=== PATIENT | male | born 1955 | race Caucasian/White ===

== ENCOUNTER 2017-08-22 07:53 | Outpatient (RCR) | payer MEDICARE, SELFPAY ==
[2017-08-22 10:06] LABS: International Normalized Ratio 2.4
== END 2017-08-22 08:30 | disposition home or self-care (01) ==
LOC: MTLAB 07:53
PROVIDERS: Family Provider Family Medicine; PCP Family Medicine; Visit Provider Internal Medicine Cardiovascular Disease
DX: I48.1 Persistent atrial fibrillation (principal); Z79.01 Long term (current) use of anticoagulants
CPT/HCPCS: 36415; 85610

== ENCOUNTER 2017-09-17 10:28 | Outpatient (RCR) | payer MEDICARE, SELFPAY ==
[2017-09-17 12:22] LABS: Prothrombin Time (Protime)PT. 22.2 SECONDS (11.7-14.9)
== END 2017-09-17 15:00 | disposition home or self-care (01) ==
LOC: MTLAB 10:28
PROVIDERS: Family Provider Family Medicine; PCP Family Medicine; Visit Provider Internal Medicine Cardiovascular Disease
DX: I48.1 Persistent atrial fibrillation (principal); Z79.01 Long term (current) use of anticoagulants
CPT/HCPCS: 36415; 85610

== ENCOUNTER 2017-10-15 10:53 | Outpatient (RCR) | payer MEDICARE, SELFPAY ==
[2017-10-15 12:32] LABS: International Normalized Ratio 2.2; Prothrombin Time (Protime)PT. 24.1 SECONDS (11.7-14.9)
== END 2017-10-15 11:00 | disposition home or self-care (01) ==
LOC: MTLAB 10:53
PROVIDERS: Family Provider Family Medicine; PCP Family Medicine; Visit Provider Internal Medicine Cardiovascular Disease
DX: I48.1 Persistent atrial fibrillation (principal); Z79.01 Long term (current) use of anticoagulants
CPT/HCPCS: 36415; 85610

== ENCOUNTER 2017-11-19 07:35 | Outpatient (RCR) | payer MEDICARE, SELFPAY ==
[2017-11-19 10:07] LABS: International Normalized Ratio 2.2; Prothrombin Time (Protime)PT. 24.6 SECONDS (11.7-14.9)
== END 2017-11-20 13:21 | disposition home or self-care (01) ==
LOC: MTLAB 07:35
PROVIDERS: Family Provider Family Medicine; PCP Family Medicine; Visit Provider Internal Medicine Cardiovascular Disease
DX: I48.1 Persistent atrial fibrillation (principal); Z79.01 Long term (current) use of anticoagulants
CPT/HCPCS: 36415; 85610

== ENCOUNTER 2017-12-18 08:19 | Outpatient (RCR) | payer MEDICARE, SELFPAY ==
[2017-12-18 10:18] LABS: International Normalized Ratio 2.3
== END 2017-12-18 09:00 | disposition home or self-care (01) ==
LOC: MTLAB 08:19
PROVIDERS: Family Provider Family Medicine; PCP Family Medicine; Visit Provider Internal Medicine Cardiovascular Disease
DX: I48.1 Persistent atrial fibrillation (principal); Z79.01 Long term (current) use of anticoagulants
CPT/HCPCS: 36415; 85610

== ENCOUNTER 2018-01-16 08:09 | Outpatient (RCR) | payer MEDICARE, SELFPAY ==
[2018-01-16 10:31] LABS: Prothrombin Time (Protime)PT. 22.9 SECONDS (11.7-14.9)
== END 2018-01-16 09:00 | disposition home or self-care (01) ==
LOC: MTLAB 08:09
PROVIDERS: Family Provider Family Medicine; PCP Family Medicine; Visit Provider Internal Medicine Cardiovascular Disease
DX: I48.1 Persistent atrial fibrillation (principal); Z79.01 Long term (current) use of anticoagulants
CPT/HCPCS: 36415; 85610

== ENCOUNTER 2018-03-21 08:22 | Outpatient (RCR) | payer MEDICARE, SELFPAY ==
[2018-02-21 10:22] LABS: International Normalized Ratio 1.7; Prothrombin Time (Protime)PT. 19.6 SECONDS (11.7-14.9)
[2018-03-07 10:26] LABS: International Normalized Ratio 1.7; Prothrombin Time (Protime)PT. 20.2 SECONDS (11.7-14.9)
[2018-03-21 10:24] LABS: International Normalized Ratio 1.9; Prothrombin Time (Protime)PT. 21.8 SECONDS (11.7-14.9)
== END 2018-03-21 10:00 | disposition home or self-care (01) ==
LOC: MTLAB 08:22
PROVIDERS: Family Provider Family Medicine; PCP Family Medicine; Visit Provider Internal Medicine Cardiovascular Disease
DX: I48.91 Unspecified atrial fibrillation (principal); I48.92 Unspecified atrial flutter; Z79.01 Long term (current) use of anticoagulants
CPT/HCPCS: 36415; 85610

== ENCOUNTER 2018-04-11 07:58 | Outpatient (RCR) | payer MEDICARE, SELFPAY ==
[2018-04-04 10:10] LABS: International Normalized Ratio 1.8; Prothrombin Time (Protime)PT. 20.8 SECONDS (11.7-14.9)
[2018-04-11 10:37] LABS: International Normalized Ratio 2.2; Prothrombin Time (Protime)PT. 24.1 SECONDS (11.7-14.9)
== END 2018-04-11 09:00 | disposition home or self-care (01) ==
LOC: MTLAB 07:58
PROVIDERS: Family Provider Family Medicine; PCP Family Medicine; Visit Provider Internal Medicine Cardiovascular Disease
DX: I48.91 Unspecified atrial fibrillation (principal); I48.92 Unspecified atrial flutter; Z79.01 Long term (current) use of anticoagulants
CPT/HCPCS: 36415; 85610

== ENCOUNTER 2018-04-25 07:36 | Outpatient (RCR) | payer MEDICARE, SELFPAY ==
[2018-04-25 10:14] LABS: International Normalized Ratio 2.5; Prothrombin Time (Protime)PT. 26.9 SECONDS (11.7-14.9)
== END 2018-04-25 09:00 | disposition home or self-care (01) ==
LOC: MTLAB 07:36
PROVIDERS: Family Provider Family Medicine; PCP Family Medicine; Referring Provider Internal Medicine Cardiovascular Disease; Visit Provider Internal Medicine Cardiovascular Disease
DX: I48.91 Unspecified atrial fibrillation (principal); I48.92 Unspecified atrial flutter; Z79.01 Long term (current) use of anticoagulants
CPT/HCPCS: 36415; 85610

== ENCOUNTER → 2018-04-25 08:58 | Outpatient (CLI) | payer MEDICARE, SELFPAY ==
[2018-04-25 13:05] LABS: AST(SGOT) 20 U/L (15-37); Alanine Aminotransfer ALT/SGPT 28 U/L (16-61); Albumin, Serum 3.9 g/dL (3.2-5.0); Alkaline Phosphatase 99 U/L (45-117); Anion Gap 7 (5-15); BUN 12 mg/dL (7-18); BUN/Creat Ratio 12.6 RATIO (10-20); Calcium,Total 8.9 mg/dL (8.5-10.1); Chloride 108 mmol/L (98-107); Cholesterol 146 mg/dL (200); Creatinine, Serum 0.95 mg/dL (0.70-1.30); EST Glomerular Filtration Rate 85 mL/min (>60); Est Glom Filt Rate - Afr Amer 103 mL/min (>60); Globulin 3.8 g/dL (2.2-4.2); Glucose 86 mg/dL (74-106); High Density Lipoprotein 46 mg/dL; PSA,Total - Annual Screen 3.33 ng/mL (0.00-4.00); Potassium 4.4 mmol/L (3.5-5.1); Protein, Total 7.7 g/dL (6.4-8.2); Sodium Level 143 mmol/L (136-145); Thyroid Stim Hormone (TSH) 1.33 uIU/mL (0.358-3.74); Triglycerides 75 mg/dL; Very Low Density Lipoprotein 15 mg/dL (5-40)
== END ==
PROVIDERS: Family Provider Family Medicine; PCP Family Medicine; Referring Provider Family Medicine; Visit Provider Family Medicine
DX: Z00.00 Encounter for general adult medical examination without abnormal findings (principal); Z86.73 Personal history of transient ischemic attack (TIA), and cerebral infarction without residual deficits; M19.90 Unspecified osteoarthritis, unspecified site; I48.91 Unspecified atrial fibrillation; I48.92 Unspecified atrial flutter; Z79.01 Long term (current) use of anticoagulants
CPT/HCPCS: 36415; 80053; 80061; 82306; 84153; 84443; 85610; G0103

== ENCOUNTER 2018-05-27 12:07 | Day surgery (SDC) | payer MEDICARE, SELFPAY ==
[2018-05-27] VITALS (7 sets, daily range): BP systolic 104–141; BP diastolic 75–101; PULSE 59–69; RESP 16–18; TEMP 36.1–36.4; O2SAT 97–100
--- NOTE | 2018-05-27 14:08 | OP.ENDO_ITS ---
Patient Name: Henry Diaz Procedure Date: 05/27/2018 1:33 PM Date of : 1955 Age: 62 Procedure: Colonoscopy Indications: Screening for colorectal malignant neoplasm Providers: Patricia Portillo MD Referring MD: Patricia Portillo MD Medicines: See the Anesthesia note for documentation of the administered medications Patient Profile: Refer to note in patient chart for documentation of history and physical. Last Colonoscopy: none. The patient's first colonoscopy is today. Complications: No immediate complications. Procedure: Pre-Anesthesia Assessment: - Prior to the procedure, a History and Physical was performed, and patient medications and allergies were reviewed. The patient is competent. The risks and benefits of the procedure and the sedation options and risks were discussed with the patient. All questions were answered and informed consent was obtained. Patient identification and proposed procedure were verified by the physician in the pre-procedure area. Mental Status Examination: alert and oriented. Airway Examination: normal oropharyngeal airway and neck mobility. Respiratory Examination: clear to auscultation. CV Examination: normal. Prophylactic Antibiotics: The patient does not require prophylactic antibiotics. Prior Anticoagulants: The patient has taken no previous anticoagulant or antiplatelet agents. ASA Grade Assessment: III - A patient with severe systemic disease. After reviewing the risks and benefits, the patient was deemed in satisfactory condition to undergo the procedure. The anesthesia plan was to use monitored anesthesia care (MAC). Immediately prior to administration of medications, the patient was re-assessed for adequacy to receive sedatives. The heart rate, respiratory rate, oxygen saturations, blood pressure, adequacy of pulmonary ventilation, and response to care were monitored throughout the procedure. The physical status of the patient was re-assessed after the procedure. After I obtained informed consent, the scope was passed under direct vision. Throughout the procedure, the patient's blood pressure, pulse, and oxygen saturations were monitored continuously. The Colonoscope was introduced through the anus and advanced to the cecum, identified by appendiceal orifice and ileocecal valve. The colonoscopy was performed without difficulty. The patient tolerated the procedure well. The quality of the bowel preparation was adequate, there was still retained fecal material which took some time to lavage and aspirate out, however, the osorio were cleared adequately. Scope In: 1:39:48 PM Scope Withdrawal Time 0 hours 13 minutes 11 seconds Scope Out: 2:02:59 PM Total Procedure Duration Time 0 hours 23 minutes 11 seconds Findings: The perianal and digital rectal examinations were normal. Pertinent negatives include normal sphincter tone. Multiple small and large-mouthed diverticula were found in the sigmoid colon. Non-bleeding internal hemorrhoids were found. Impression: - Diverticulosis in the sigmoid colon. - Non-bleeding internal hemorrhoids. - No specimens collected. Recommendation: - Repeat colonoscopy in 10 years for screening purposes. - Return to primary care physician PRN. - Continue present medications. Procedure Code(s): --- Professional --- G0121, Colorectal cancer screening; colonoscopy on individual not meeting criteria for high risk Diagnosis Code(s): --- Professional --- K57.30, Diverticulosis of large intestine without perforation or abscess without bleeding K64.8, Other hemorrhoids Z12.11, Encounter for screening for malignant neoplasm of colon CPT copyright 2017 [employer]. All rights reserved. The codes documented in this report are preliminary and upon oil producer review may be revised to meet current compliance requirements. MD Patricia Stoner MD 05/27/2018 2:07:52 PM This report has been signed electronically. Number of Addenda: 0 Note Initiated On: 05/27/2018 1:33 PM
== END 2018-05-27 14:53 | disposition home or self-care (01) ==
LOC: EN 12:07 → AC 12:08
PROVIDERS: Family Provider Family Medicine; PCP Family Medicine; Referring Provider Surgery; Visit Provider Surgery
PROC: 0DJD8ZZ Inspection of Lower Intestinal Tract, Via Natural or Artificial Opening Endoscopic (ICD-10-PCS; CPT 45378; principal; 2018-05-27 13:10)
DX: Z12.11 Encounter for screening for malignant neoplasm of colon (principal); K57.30 Diverticulosis of large intestine without perforation or abscess without bleeding; K64.8 Other hemorrhoids; I48.2 Chronic atrial fibrillation; G47.33 Obstructive sleep apnea (adult) (pediatric); I44.0 Atrioventricular block, first degree; M19.90 Unspecified osteoarthritis, unspecified site; M48.00 Spinal stenosis, site unspecified; F41.9 Anxiety disorder, unspecified; F32.9 Major depressive disorder, single episode, unspecified; E66.09 Other obesity due to excess calories; Z68.39 Body mass index [BMI] 39.0-39.9, adult; Z86.73 Personal history of transient ischemic attack (TIA), and cerebral infarction without residual deficits; Z90.49 Acquired absence of other specified parts of digestive tract; Z95.0 Presence of cardiac pacemaker; Z79.01 Long term (current) use of anticoagulants; Z79.899 Other long term (current) drug therapy
CPT/HCPCS: G0121; J7120

== ENCOUNTER 2018-06-11 10:43 | Outpatient (RCR) | payer MEDICARE, SELFPAY ==
[2018-06-11 12:57] LABS: International Normalized Ratio 2.1; Prothrombin Time (Protime)PT. 23.4 SECONDS (11.7-14.9)
== END 2018-06-11 11:00 | disposition home or self-care (01) ==
LOC: MTLAB 10:43
PROVIDERS: Family Provider Family Medicine; PCP Family Medicine; Referring Provider Internal Medicine Cardiovascular Disease; Visit Provider Internal Medicine Cardiovascular Disease
DX: I48.91 Unspecified atrial fibrillation (principal); I48.92 Unspecified atrial flutter; Z79.01 Long term (current) use of anticoagulants
CPT/HCPCS: 36415; 85610

== ENCOUNTER 2018-07-17 10:42 | Outpatient (RCR) | payer MEDICARE, SELFPAY ==
[2018-07-17 12:37] LABS: International Normalized Ratio 2.1
== END 2018-07-17 11:00 | disposition home or self-care (01) ==
LOC: MTLAB 10:42
PROVIDERS: Family Provider Family Medicine; PCP Family Medicine; Referring Provider Internal Medicine Cardiovascular Disease; Visit Provider Internal Medicine Cardiovascular Disease
DX: I48.91 Unspecified atrial fibrillation (principal); I48.92 Unspecified atrial flutter; Z79.01 Long term (current) use of anticoagulants
CPT/HCPCS: 36415; 85610

== ENCOUNTER 2018-08-14 13:33 | Outpatient (RCR) | payer MEDICARE, SELFPAY ==
[2018-08-14 14:44] LABS: International Normalized Ratio 1.8; Prothrombin Time (Protime)PT. 20.8 SECONDS (11.7-14.9)
--- OUTSIDE RECORDS SUMMARY | 2018-10-16 12:36 | XMS RPT_ITS ---
:1955 Author Organization OHIP Support Name Relationship Address Phone D Unavailable Unavailable Unavailable WYLER, MARITZA Unavailable [address] + [place] [address] D Unavailable Unavailable Unavailable WYLER, MRAITZA Unavailable [address] + [place] [address] D Unavailable Unavailable Unavailable WYLER, MARITZA Unavailable [address] + [place] [address] D Unavailable Unavailable Unavailable WYLER, MARITZA Unavailable [address] + [place] [address] D Unavailable Unavailable Unavailable WYLER, MARITZA Unavailable [address] + [place] [address] D Unavailable Unavailable Unavailable WYLER, MARITZA Unavailable [address] + [place] [address] D Unavailable Unavailable Unavailable WYLER, MARITZA Unavailable [address] + [place] [address] D Unavailable Unavailable Unavailable WYLER, MARITZA Unavailable [address] + [place] [address] D Unavailable Unavailable Unavailable WYLER, MARITZA Unavailable [address] + [place] [address] D Unavailable Unavailable Unavailable WYLER, MARITZA Unavailable [address] + [place] [address] D Unavailable Unavailable Unavailable WYLER, MARITZA Unavailable [address] + [place] [address] D Unavailable Unavailable Unavailable WYLER, MARITZA Unavailable [address] + [place] [address] D Unavailable Unavailable Unavailable WYLER, MARITZA Unavailable [address] + [place] [address] D Unavailable Unavailable Unavailable WYLER, MARITZA Unavailable [address] + [place] [address] D Unavailable Unavailable Unavailable WYLER, MARITZA Unavailable [address] + [place] [address] D Unavailable Unavailable Unavailable WYLER, MARITZA Unavailable [address] + [place] [address] D Unavailable Unavailable Unavailable WYLER, MARITZA Unavailable [address] + [place] [address] D Unavailable Unavailable Unavailable WYLER, MARITZA Unavailable [address] + [place] [address] D Unavailable Unavailable Unavailable WYLER, MARITZA Unavailable [address] + [place] [address] D Unavailable Unavailable Unavailable WYLER, MARITZA Unavailable [address] + [place] [address] Care Team Providers Name Role Phone PATRICIA PORTILLO Attending Unavailable ASHLEY, PLACIDO ANG Referring Unavailable Jarred Crespo Attending Unavailable Jarred Crespo Referring Unavailable Ashley, Placido Primary Care Unavailable Jarred Crespo Attending Unavailable Ashley, Placido Primary Care Unavailable Jarred Crespo Attending Unavailable Jarred Crespo Referring Unavailable Ashley, Placido Primary Care Unavailable Jarred Crespo Attending Unavailable Jarred Crespo Referring Unavailable Ashley, Placido Primary Care Unavailable MoodJarred bean Attending Unavailable Ashley, Placido Referring Unavailable Ashley, Placido Primary Care Unavailable Jarred Crespo Attending Unavailable MoodJarred bean Referring Unavailable Ashley, Placido Primary Care Unavailable MoodJarred bean Attending Unavailable MoodisJarred león Referring Unavailable Ashley, Placido Primary Care Unavailable Lata Emmanuel Attending Unavailable Rosalba Franco Attending Unavailable Jarred Crespo Attending Unavailable Jarred Crespo Referring Unavailable Ashley, Placido Primary Care Unavailable Dariana Whitman Attending Unavailable Ashley, Placido Referring Unavailable Ashley, Placido Primary Care Unavailable Rukhsana Castrejon Attending Unavailable Ashley, Placido Referring Unavailable Ashley, Placido Primary Care Unavailable Jarred Crespo Attending Unavailable Jarred Crespo Referring Unavailable Ashley, Placido Primary Care Unavailable Moodispaw, Jarred Attending Unavailable Moodispaw, Jarred Referring Unavailable Ashley, Placido Primary Care Unavailable Dariana Whitman Attending Unavailable Ashley, Placido Referring Unavailable Ashley, Placido Primary Care Unavailable Moodispaw, Jarred Attending Unavailable Moodispaw, Jarred Referring Unavailable Ashley, Placido Primary Care Unavailable Ashley, Placido Attending Unavailable Ashley, Placido Referring Unavailable Ashley, Placido Primary Care Unavailable Portillo, Patricia Attending Unavailable Portillo, Patricia Referring Unavailable Ashley, Placido Primary Care Unavailable Moodispaw, Jarred Attending Unavailable Moodispaw, Jarred Referring Unavailable Ashley, Placido Primary Care Unavailable Moodispaw, Jarred Attending Unavailable Moodispaw, Jarred Referring Unavailable Ashley, Placido Primary Care Unavailable PROBLEMS PROBLEMS DATE TYPE CONDITION / CODE ATTENDING STATUS SOURCE 07/22/2018 Unknown I48.91 - Unspecified MoodJarred bean Active [place] atrial fibrillation Community / I48.91(ICD-10) Hospital Repository 06/25/2018 Unknown Z79.01 - penitentiary MoodJarred bean Active [place] (current) use of Community anticoagulants / Hospital Z79.01(ICD-10) Repository 04/25/2018 Unknown M19.90 - Unspecified Placido Ashley Active [place] osteoarthritis, Community unspecified site / Hospital M19.90(ICD-10) Repository 04/25/2018 Unknown Z00.00 - Encounter Placido Ashley Active [place] for general adult [facility] Hospital without abnormal Repository findings / Z00.00(ICD-10) 04/25/2018 Unknown I63.9 - Cerebral Placido Ashely Active [place] infarction, Community unspecified / Hospital I63.9(ICD-10) Repository 04/10/2018 Unknown Z95.0 - Presence of Dariana Whitman Active [place] cardiac pacemaker / Community Z95.0(ICD-10) Hospital Repository 04/10/2018 Unknown I48.92 - Unspecified Dariana Whitman Active [place] atrial flutter / Community I48.92(ICD-10) Hospital Repository 04/10/2018 Unknown I45.89 - Other Dariana Whitman Active [place] specified conduction Community disorders / Hospital I45.89(ICD-10) Repository 01/18/2018 Unknown I48.1 - Persistent Moodispasarah Jarred Active [place] atrial fibrillation Community / I48.1(ICD-10) Hospital Repository PROCEDURES PROCEDURES No Procedure Records FoundRESULTS RESULTS PROTHROMBIN TIME W/INR Collected: 08/14/2018 Status: F Source: [place] 1:37 PM [facility] REPOSITORY TYPE CODE TESTS RESULT OUT OF RANGE REFERENCE UNITS LAB L300.4150 11.7-14.9 SECONDS High PROTIME 20.8 LAB L300.4200 Normal INR 1.8 Performed By: #### L300.3900 #### [facility] [address] [place], [address] PACEMAKER CHECK Observed: 07/25/2018 Status: F Source: [place] 12:02 PM [facility] REPOSITORY [facility] [address] [place] [address] Pacemaker Check Date of Service: 07/25/18 1052 MR#: [id number] Acct: [id number] Name: HENRY DIAZ Rep #: [id number] : 1955 From: Dariana Whitman Age/Sex: 62/M Location: [facility] Status: Signed Billing Codes PM Device Codes: PM Dev Interrogate (Remot 07/25/18 1054 <Electronically signed by Dariana Whitman > Date Dariana Whitman 07/25/18 1202<Electronically signed by Jarred Crespo MD> Cosigner Signature: Date (if applicable) Jarred Crespo MD CC: PROTHROMBIN TIME W/INR Collected: 07/17/2018 Status: F Source: [place] 10:44 AM [facility] REPOSITORY TYPE CODE TESTS RESULT OUT OF RANGE REFERENCE UNITS LAB L300.4150 11.7-14.9 SECONDS High PROTIME 24.0 LAB L300.4200 Normal INR 2.1 Performed By: #### L300.3900 #### [facility] [address] [place], [address] PROTHROMBIN TIME W/INR Collected: 06/11/2018 Status: F Source: [place] 10:45 AM [facility] REPOSITORY TYPE CODE TESTS RESULT OUT OF RANGE REFERENCE UNITS LAB L300.4150 11.7-14.9 SECONDS High PROTIME 23.4 LAB L300.4200 Normal INR 2.1 Performed By: #### L300.3900 #### [facility] [address] [place], [address] OPERATIVE REPORT - Observed: 05/27/2018 Status: F Source: [place] ENDOSCOPY 2:08 PM [facility] REPOSITORY [facility] Medical Records Department [address] [place] [address] Operative Report - Endoscopy MR#: [id number] Acct: [id number] Name: HENRY DIAZ Rep #: [id number] : 1955 62 From: Patricia Portillo MD PCP: Placido Ashley MD Status: [facility] Patient Name: Henry Diaz Procedure Date: 05/27/2018 1:33 PM Date of : 1955 Age: 62 Procedure: Colonoscopy Indications: Screening for colorectal malignant neoplasm Providers: Patricia Portillo MD Referring MD: Patricia Portillo MD Medicines: See the Anesthesia note for documentation of the administered medications Patient Profile: Refer to note in patient chart for documentation of history and physical. Last Colonoscopy: none. The patient's first colonoscopy is today. Complications: No immediate complications. Procedure: Pre-Anesthesia Assessment: - Prior to the procedure, a History and Physical was performed, and patient medications and allergies were reviewed. The patient is competent. The risks and benefits of the procedure and the sedation options and risks were discussed with the patient. All questions were answered and informed consent was obtained. Patient identification and proposed procedure were verified by the physician in the pre-procedure area. Mental Status Examination: alert and oriented. Airway Examination: normal oropharyngeal airway and neck mobility. Respiratory Examination: clear to auscultation. CV Examination: normal. Prophylactic Antibiotics: The patient does not require prophylactic antibiotics. Prior Anticoagulants: The patient has taken no previous anticoagulant or antiplatelet agents. ASA Grade Assessment: III - A patient with severe systemic disease. After reviewing the risks and benefits, the patient was deemed in satisfactory condition to undergo the procedure. The anesthesia plan was to use monitored anesthesia care (MAC). Immediately prior to administration of medications, the patient was re-assessed for adequacy to receive sedatives. The heart rate, respiratory rate, oxygen saturations, blood pressure, adequacy of pulmonary ventilation, and response to care were monitored throughout the procedure. The physical status of the patient was re-assessed after the procedure. After I obtained informed consent, the scope was passed under direct vision. Throughout the procedure, the patient's blood pressure, pulse, and oxygen saturations were monitored continuously. The Colonoscope was introduced through the anus and advanced to the cecum, identified by appendiceal orifice and ileocecal valve. The colonoscopy was performed without difficulty. The patient tolerated the procedure well. The quality of the bowel preparation was adequate, there was still retained fecal material which took some time to lavage and aspirate out, however, the osorio were cleared adequately. Scope In: 1:39:48 PM Scope Withdrawal Time 0 hours 13 minutes 11 seconds Scope Out: 2:02:59 PM Total Procedure Duration Time 0 hours 23 minutes 11 seconds Findings: The perianal and digital rectal examinations were normal. Pertinent negatives include normal sphincter tone. Multiple small and large-mouthed diverticula were found in the sigmoid colon. Non-bleeding internal hemorrhoids were found. Impression: - Diverticulosis in the sigmoid colon. - Non-bleeding internal hemorrhoids. - No specimens collected. Recommendation: - Repeat colonoscopy in 10 years for screening purposes. - Return to primary care physician PRN. - Continue present medications. Procedure Code(s): --- Professional --- G0121, Colorectal cancer screening; colonoscopy on individual not meeting criteria for high risk Diagnosis Code(s): --- Professional --- K57.30, Diverticulosis of large intestine without perforation or abscess without bleeding K64.8, Other hemorrhoids Z12.11, Encounter for screening for malignant neoplasm of colon CPT copyright 2017 [employer]. All rights reserved. The codes documented in this report are preliminary and upon field service representative review may be revised to meet current compliance requirements. MD Patricia Stoner MD 05/27/2018 2:07:52 PM This report has been signed electronically. Number of Addenda: 0 Note Initiated On: 05/27/2018 1:33 PM 05/27/18 1408 Date Patricia Portillo MD Cosigner Signature: Date (if indicated) CC: Placido Ashley MD; Patricia Portillo MD Date Dictated: 05/27/18 1333 Date Transcribed: Relocation Services Specialist: MARY Signed CNPN Observed: 05/07/2018 Status: COMPLETED Source: [place] 12:00 AM [facility] REPOSITORY Telephone (SWS) HENRY DIAZ ([id number]) 1955 M Date Time Provider Department 05/07/18 PATRICIA PORTILLO During your visit today, we recorded the following information about you: Trell Peralta 05/07/2018 10:52 AM Signed 05-27-2018 Critical access hospital Trell Peralta 05/17/2018 8:14 AM Signed please end in RC to [facility] in [place] Trell Peralta 05/20/2018 3:47 PM Signed Patient jillian like to confirm to hold Blood thinner for 4 days. Do not take Wed till after procedure Trell Peralta 05/22/2018 1:29 PM Signed Patient was told by pharmacy they could not get the prep that was called in. PLease call another prep into [facility] thank you~ Trell Peralta Allergies As of Date: 05/07/2018 Noted Allergy Reaction ADHESIVE TAPE (ROSINS) 05/24/2012 2 - Rash PENICILLINS 03/26/2012 4 - Hives TINCTURE OF BENZOIN (BENZOIN) 03/26/2012 14 - Other: See Comments Comments: Gets blisters with tape Date Reviewed: 05/02/2018 Reviewed by: Patricia Portillo - Fully Assessed Reason for Visit: 05-27-2018 Colon [facility] Dr Portillo [Other] Order(s):[] Zrknchunf-UEX-Upiqthxgsow Soln (PEG-PREP) 5-210 mg-gram kitTake 1 Kit by mouth one time only for 1 dose.Disp: 1 KitRfl: 0 Prescriptions as of 05/07/2018 Sig: BISACODYL 5 MG-PEG 210 GRAM-E* Take 1 Kit by mouth one time * MULTI VITAMIN ORAL Take by mouth. COUMADIN ORAL Take by mouth. FAMOTIDINE 20 MG TABLET ESCITALOPRAM 10 MG TABLET Take 10 mg by mouth once shara* CEFTIN ORAL Take by mouth. GABAPENTIN 300 MG CAPSULE DICLOFENAC SODIUM 75 MG TABLE* Take 75 mg by mouth twice bryan* PSYLLIUM HUSK 0.52 GRAM CAPSU* Take 0.52 g by mouth once bryan* CHOLECALCIFEROL (VITAMIN D3) * Take by mouth. Problem List As Of Date 05/07/2018 Noted Resolved Knee pain [M25.569] INVALID FOR* S/P total knee replacement using cement [Z96.65*INVALID FOR* Prescriptions ordered this encounter Disp Refills Start End BISACODYL 5 MG-PEG 210 GRAM-ELECTROL* 1 Kit 0 05/17/2018 05/17/2018 Route: ORAL Sig: Take 1 Kit by mouth one time only for 1 dose. Encounter Status:Closed by MD PATRICIA PORTILLO on 05/17/18 PROGRESS Observed: 05/02/2018 Status: COMPLETED Source: [place] 4:32 PM [facility] [place] REPOSITORY O ID: [id number] Author: Patricia Portillo Service: (none) Author Type: Physician Type: Progress Notes Filed: 05/04/2018 8:42 PM Note Text: Henry Diaz 1955 REFERRING PHYSICIAN: Placido Ashley MD CHIEF COMPLAINT: Consult (Consult Colonoscopy) HPI: The patient is a 62 year old male presents for consideration of colonoscopy for screening for colon cancer. Denies previous colonoscopy. Has chronic atrial fibrillation and is on coumadin. 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 Older sister had colon polyps. Denies blood in stools. Denies changes in bowel habits. Denies abdominal pain PAST MEDICAL HISTORY: Chronic atrial fibrillation, history of atrial flutter Pacemaker implant NOAH on CPAP First degree AVB Chronic coumadin use Osteoarthritis PAST SURGICAL HISTORY Procedure Laterality Date - CHOLECYSTECTOMY HX 2013 - FOOT SURGERY HX Right 1994 - OSTEOTOMY FEMORAL TROCHLEA W/ FIX Left 1979 - PAST SURGICAL HISTORY OF knee surgeries - REMOVAL OF ANAL FISTULA 1979 - REPAIR ING HERNIA,6MO-5YR,REDUC Tonsillectomy MEDICATIONS: multivit-minerals/ferrous fum (MULTI VITAMIN ORAL) Take by mouth. warfarin sodium (COUMADIN ORAL) Take by mouth. gabapentin (NEURONTIN) 300 mg capsule diclofenac, EC, 75 mg EC tablet Take 75 mg by mouth twice daily. Cholecalciferol, Vitamin D3, (VITAMIN D-3) 2,000 unit cap Take by mouth. famotidine (PEPCID) 20 mg tablet escitalopram oxalate (LEXAPRO) 10 mg tablet Take 10 mg by mouth once daily. CEFUROXIME AXETIL (CEFTIN ORAL) Take by mouth. psyllium Husk (METAMUCIL) 0.52 gram capsule Take 0.52 g by mouth once daily. ALLERGIES: Adhesive Tape (Rosins); Penicillins; Tincture Of Benzoin [Benzoin] PERSONAL HISTORY: Social History Marital status: Spouse name: Years of education: Number of children: 2 Retired [employer] Smoking status: Never Smoker FAMILY HISTORY Problem Relation Age of Onset - Cancer Mother adenocarcinoma - Cancer Father lymphoma REVIEW OF SYSTEMS: General - denies fevers Cardiovascular - has chronic atrial fibrillation, has pacemaker Pulmonary - denies coughing up blood Gastrointestinal - denies blood in stools Neurological - history of CVA, denies seizures Genitourinary - denies blood in urine Hematological - on chronic coumadin, denies spontaneous/prolonged bleeding Skin - denies nonhealing skin wounds Musculoskeletal - has chronic severe back pain Endocrine - denies diabetes Psychological ? denies hallucinations PHYSICAL EXAMINATION: General: The patient is 62 year old male, well nourished, well hydrated in no acute distress. The patient is oriented to time, place, and person. VITALS: Ht: 5' 10 Wt: 279# Head ? Normocephalic. EOM intact with sclera clear and no icterus noted. Wearing glasses. Mouth with mucus membranes moist. Neck - supple with no jugular venous distention noted. Trachea is midline. No carotid bruits noted. Lungs ? clear to auscultation. Normal breath sounds. No rales/rhonchi/wheezing noted. No labored breathing noted, such as retractions. Heart ? normal S1 and S2 auscultated. No rubs/clicks/murmurs noted. Abdomen ? soft and benign. Normal bowel sounds. Difficult to determine if any masses or organomegaly due to body habitus. Extremities ? no calf tenderness noted. Skin ? normal skin integrity. Neurological ? gait normal, no focal deficits noted Psych ? calm and appropriate Assessment IMPRESSION: screening for colon cancer via colonoscopy PLAN: I have discussed the above with the patient and his who is present with him. I have offered colonoscopy, possible biopsies I have explained the procedure to the patient. I have counseled the patient as to the risks of the procedure, including but not limited to: infection, bleeding, injury to any blood vessels/nerves, scar tissue, injury to any intraabdominal organs such as liver/spleen, perforation of the GI tract, inability to complete the procedure, complications of anesthesia, etc. ? the patient understands. The patient wishes to proceed. Will have to check with Dr. Crespo with regard to holding coumadin prior to procedure. Patient wishes for procedure to be done at [facility]. I have answered all questions to the patient?s satisfaction and the patient has no further questions. . Diagnoses: (Z12.11) Screening for colon cancer (primary encounter diagnosis) (Z78.9) On Coumadin for atrial fibrillation (E66.09, Z68.39) Class 2 obesity due to excess calories without serious comorbidity with body mass index (BMI) of 39.0 to 39.9 in adult Return to Clinic: The patient is instructed to follow-up with me as per needed Patricia Portillo MD CNOV Observed: 05/02/2018 Status: COMPLETED Source: [place] 3:00 PM [facility] REPOSITORY Office Visit (GENSWS) HENRY DIAZ ([id number]) 1955 M Date Time Provider Department 05/02/18 3:00 PM PATRICIA PORTILLO During your visit today, we recorded the following information about you: Patricia Portillo MD 05/04/2018 8:42 PM Signed Henry Diaz 1955 REFERRING PHYSICIAN: Placido Ashley MD CHIEF COMPLAINT: Consult (Consult Colonoscopy) HPI: The patient is a 62 year old male presents for consideration of colonoscopy for screening for colon cancer. Denies previous colonoscopy. Has chronic atrial fibrillation and is on coumadin. 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 Older sister had colon polyps. Denies blood in stools. Denies changes in bowel habits. Denies abdominal pain PAST MEDICAL HISTORY: Chronic atrial fibrillation, history of atrial flutter Pacemaker implant NOAH on CPAP First degree AVB Chronic coumadin use Osteoarthritis PAST SURGICAL HISTORY Procedure Laterality Date - CHOLECYSTECTOMY HX 2013 - FOOT SURGERY HX Right 1994 - OSTEOTOMY FEMORAL TROCHLEA W/ FIX Left 1979 - PAST SURGICAL HISTORY OF knee surgeries - REMOVAL OF ANAL FISTULA 1979 - REPAIR ING HERNIA,6MO-5YR,REDUC Tonsillectomy MEDICATIONS: multivit-minerals/ferrous fum (MULTI VITAMIN ORAL) Take by mouth. warfarin sodium (COUMADIN ORAL) Take by mouth. gabapentin (NEURONTIN) 300 mg capsule diclofenac, EC, 75 mg EC tablet Take 75 mg by mouth twice daily. Cholecalciferol, Vitamin D3, (VITAMIN D-3) 2,000 unit cap Take by mouth. famotidine (PEPCID) 20 mg tablet escitalopram oxalate (LEXAPRO) 10 mg tablet Take 10 mg by mouth once daily. CEFUROXIME AXETIL (CEFTIN ORAL) Take by mouth. psyllium Husk (METAMUCIL) 0.52 gram capsule Take 0.52 g by mouth once daily. ALLERGIES: Adhesive Tape (Rosins); Penicillins; Tincture Of Benzoin [Benzoin] PERSONAL HISTORY: Social History Marital status: Spouse name: Years of education: Number of children: 2 Retired [employer] Smoking status: Never Smoker FAMILY HISTORY Problem Relation Age of Onset - Cancer Mother adenocarcinoma - Cancer Father lymphoma REVIEW OF SYSTEMS: General - denies fevers Cardiovascular - has chronic atrial fibrillation, has pacemaker Pulmonary - denies coughing up blood Gastrointestinal - denies blood in stools Neurological - history of CVA, denies seizures Genitourinary - denies blood in urine Hematological - on chronic coumadin, denies spontaneous/prolonged bleeding Skin - denies nonhealing skin wounds Musculoskeletal - has chronic severe back pain Endocrine - denies diabetes Psychological ? denies hallucinations PHYSICAL EXAMINATION: General: The patient is 62 year old male, well nourished, well hydrated in no acute distress. The patient is oriented to time, place, and person. VITALS: Ht: 5' 10 Wt: 279# Head ? Normocephalic. EOM intact with sclera clear and no icterus noted. Wearing glasses. Mouth with mucus membranes moist. Neck - supple with no jugular venous distention noted. Trachea is midline. No carotid bruits noted. Lungs ? clear to auscultation. Normal breath sounds. No rales/rhonchi/wheezing noted. No labored breathing noted, such as retractions. Heart ? normal S1 and S2 auscultated. No rubs/clicks/murmurs noted. Abdomen ? soft and benign. Normal bowel sounds. Difficult to determine if any masses or organomegaly due to body habitus. Extremities ? no calf tenderness noted. Skin ? normal skin integrity. Neurological ? gait normal, no focal deficits noted Psych ? calm and appropriate Assessment IMPRESSION: screening for colon cancer via colonoscopy PLAN: I have discussed the above with the patient and his who is present with him. I have offered colonoscopy, possible biopsies I have explained the procedure to the patient. I have counseled the patient as to the risks of the procedure, including but not limited to: infection, bleeding, injury to any blood vessels/nerves, scar tissue, injury to any intraabdominal organs such as liver/spleen, perforation of the GI tract, inability to complete the procedure, complications of anesthesia, etc. ? the patient understands. The patient wishes to proceed. Will have to check with Dr. Crespo with regard to holding coumadin prior to procedure. Patient wishes for procedure to be done at [facility]. I have answered all questions to the patient?s satisfaction and the patient has no further questions. . Diagnoses: (Z12.11) Screening for colon cancer (primary encounter diagnosis) (Z78.9) On Coumadin for atrial fibrillation (E66.09, Z68.39) Class 2 obesity due to excess calories without serious comorbidity with body mass index (BMI) of 39.0 to 39.9 in adult Return to Clinic: The patient is instructed to follow-up with me as per needed Patricia Portillo MD Referring Provider: PLACIDO ASHLEY [[id number]] Allergies As of Date: 05/02/2018 Noted Allergy Reaction ADHESIVE TAPE (ROSINS) 05/24/2012 2 - Rash PENICILLINS 03/26/2012 4 - Hives TINCTURE OF BENZOIN (BENZOIN) 03/26/2012 14 - Other: See Comments Comments: Gets blisters with tape Date Reviewed: 05/02/2018 Reviewed by: Patricia Portillo - Fully Assessed Reason for Visit: Consult [173] Cmt: Consult Colonoscopy Primary Visit Diagnosis:Screening for colon cancer [Z12.11] Other Visit Diagnoses:On Coumadin for atrial fibrillation [Z78.9] Class 2 obesity due to excess calories without serious comorbidity with body mass index (BMI) of 39.0 to 39.9 in adult [E66.09, Z68.39] Prescriptions as of 05/02/2018 Sig: MULTI VITAMIN ORAL Take by mouth. COUMADIN ORAL Take by mouth. GABAPENTIN 300 MG CAPSULE DICLOFENAC SODIUM 75 MG TABLE* Take 75 mg by mouth twice bryan* CHOLECALCIFEROL (VITAMIN D3) * Take by mouth. FAMOTIDINE 20 MG TABLET ESCITALOPRAM 10 MG TABLET Take 10 mg by mouth once shara* CEFTIN ORAL Take by mouth. 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*INVALID FOR* Follow-up and Disposition History Recorded Letter Text Encounter Status:Closed by MD PATRICIA PORTILLO on 05/04/18 VITAMIN D,25 HYDROXY Collected: 04/25/2018 Status: F Source: JUVE 9:01 AM [facility] REPOSITORY TYPE CODE TESTS RESULT OUT OF RANGE REFERENCE UNITS LAB L506.1000 29.95-100.01 ng/mL Normal Vitamin D 42.0 25-OH Result Comment: Vitamin D 25(OH) Status Range Deficiency <20 ng/mL (50nmol/L) Insuffciency 20 - 30 ng/mL (50 - 75 nmol/L) Sufficiency 30 - 100 ng/mL (75 - 250 nmol/L) Toxicity >100 ng/mL (>250 nmol/L) Performed By: #### L506.1000 #### [facility] [place], [address] COMPREHENSIVE METABOLIC Collected: 04/25/2018 Status: F Source: JUVE [facility] 9:01 AM [facility] REPOSITORY TYPE CODE TESTS RESULT OUT OF RANGE REFERENCE UNITS LAB L501.0100 74-106 mg/dL Normal GLU 86 Result Comment: Please note revised GLUCOSE reference range effective 2017. LAB L501.1000 7-18 mg/dL Normal BUN 12 LAB L501.1100 0.70-1.30 mg/dL Normal CREAT,SERUM 0.95 Result Comment: The validity of the calculated GFR AND GFRAA in patients over 70 years has not been determined. Clinical correlation is essential. LAB L501.1110 >60 mL/min Normal EST GFR 85 Result Comment: Non- GFR Calc LAB L501.1115 >60 mL/min Normal EST GFR - AA 103 Result Comment: GFR Calc LAB L501.1300 10-20 RATIO Normal BUN/CRE 12.6 LAB L501.1500 6.4-8.2 g/dL T Normal PROT 7.7 LAB L501.1800 3.2-5.0 g/dL Normal ALB 3.9 LAB L501.1950 2.2-4.2 g/dL Normal GLOB 3.8 LAB L501.2000 0.9-2.4 RATIO Normal A/G 1.0 LAB L501.2200 8.5-10.1 mg/dL CA Normal 8.9 LAB L501.4100 15-37 U/L Normal AST 20 LAB L501.4305 45-117 U/L Normal ALK P 99 LAB L501.4405 16-61 U/L Normal ALT 28 LAB L501.4600 0.20-1.00 mg/dL High T BILI 1.30 LAB L501.5300 136-145 mmol/L NA Normal 143 LAB L501.5600 3.5-5.1 mmol/L K Normal 4.4 LAB L501.5900 98-107 mmol/L High CL 108 LAB L501.6100 21.0-32.0 mmol/L Normal CO2 28.0 LAB L501.6200 5-15 Normal GAP 7 Performed By: #### L500.4050, L500.4100, L501.9520, L501.9910 #### [facility] [address] [place], [place], [address] LIPID PROFILE Collected: 04/25/2018 Status: F Source: CIMARRON 9:01 AM [facility] REPOSITORY TYPE CODE TESTS RESULT OUT OF RANGE REFERENCE UNITS LAB L501.4900 200 mg/dL Normal CHOL 146 Result Comment: <200 mg/dL Desirable 200-240 mg/dL Borderline >240 mg/dL High Risk LAB L501.5000 mg/dL Normal TRIG 75 Result Comment: The drugs N-Acetylcysteine and Metamizole may falsely depress this assay. Serum Triglycerides Reference Interval Normal <150 mg/dL Borderline high 150 - 199 mg/dL High 200 - 499 mg/dL Very High > or = 500 mg/dL LAB L501.6400 mg/dL Normal HDL 46 Result Comment: The drugs N-Acetylcysteine and Metamizole may falsely depress this assay. Reference Range HDL <40 mg/dL Low HDL Cholesterol HDL >or= 60 mg/dL High HDL Cholesterol LAB L501.6500 0-130 mg/dL Normal LDL 85 LAB L501.6600 5-40 mg/dL Normal VLDL 15 Performed By: #### L500.4050, L500.4100, L501.9520, L501.9910 #### [facility] [address] [place], [place], [address] THYROID STIM HORMONE Collected: 04/25/2018 Status: F Source: JUVE (TSH) 9:01 [facility] REPOSITORY TYPE CODE TESTS RESULT OUT OF RANGE REFERENCE UNITS LAB L501.9520 0.358-3.74 uIU/mL Normal TSH 1.33 Performed By: #### L500.4050, L500.4100, L501.9520, L501.9910 #### [facility] [address] [place], [address] PSA,TOTAL - ANNUAL Collected: 04/25/2018 Status: F Source: JUVE SCREEN 9:01 AM [facility] REPOSITORY TYPE CODE TESTS RESULT OUT OF RANGE REFERENCE UNITS LAB L501.9910 0.00-4.00 ng/mL Normal PSA,TOT 3.33 SCREEN Result Comment: This test was performed using the TPSA assay method for the ActionIQ chemistry system. Values obtained with different assay methods cannot be used interchangably. When changing PSA assays in the course of monitoring a patient, additional sequential testing should be carried out to confirm baseline values. Performed By: #### L500.4050, L500.4100, L501.9520, L501.9910 #### [facility] [address] [place], [address] PROTHROMBIN TIME W/INR Collected: 04/25/2018 Status: F Source: JUVE 7:52 AM [facility] REPOSITORY TYPE CODE TESTS RESULT OUT OF RANGE REFERENCE UNITS LAB L300.4150 11.7-14.9 SECONDS High PROTIME 26.9 LAB L300.4200 Normal INR 2.5 Performed By: #### L300.3900 #### [facility] [address] [place], [address] PROTHROMBIN TIME W/INR Collected: 04/11/2018 Status: F Source: JUVE 8:02 AM [facility] REPOSITORY TYPE CODE TESTS RESULT OUT OF RANGE REFERENCE UNITS LAB L300.4150 11.7-14.9 SECONDS High PROTIME 24.1 LAB L300.4200 Normal INR 2.2 Performed By: #### L300.3900 #### [facility] [address] [place], [address] PACEMAKER CHECK Observed: 04/09/2018 Status: F Source: JUVE 5:40 PM [facility] REPOSITORY [facility] [address] [place] [address] Pacemaker Check Date of Service: 04/09/18 1721 MR#: [id number] Acct: [id number] Name: HENRY DIAZ Rep #: [id number] : 1955 From: Dariana Whitman Age/Sex: 62/M Location: [facility] Status: Signed Billing Codes PM Device Codes: PM Dev Prog Eval, Dual 04/09/18 1723 <Electronically signed by Dariana Whitman > Date Dariana Whitman 04/09/18 1740<Electronically signed by Jarred Crespo MD> Cosigner Signature: Date (if applicable) Jarred Crespo MD CC: PROTHROMBIN TIME W/INR Collected: 04/04/2018 Status: F Source: CIMARRON 8:02 AM [facility] REPOSITORY TYPE CODE TESTS RESULT OUT OF RANGE REFERENCE UNITS LAB L300.4150 11.7-14.9 SECONDS High PROTIME 20.8 LAB L300.4200 Normal INR 1.8 Performed By: #### L300.3900 #### [facility] [address] [place], [place], [address] PROTHROMBIN TIME W/INR Collected: 03/21/2018 Status: F Source: JUVE 8:31 AM [facility] REPOSITORY TYPE CODE TESTS RESULT OUT OF RANGE REFERENCE UNITS LAB L300.4150 11.7-14.9 SECONDS High PROTIME 21.8 LAB L300.4200 Normal INR 1.9 Performed By: #### L300.3900 #### [facility] [address] [place], [place], [address] PROTHROMBIN TIME W/INR Collected: 03/07/2018 Status: F Source: JUVE 8:15 AM [facility] REPOSITORY TYPE CODE TESTS RESULT OUT OF RANGE REFERENCE UNITS LAB L300.4150 11.7-14.9 SECONDS High PROTIME 20.2 LAB L300.4200 Normal INR 1.7 Performed By: #### L300.3900 #### [facility] [address] [place], [address] PROTHROMBIN TIME W/INR Collected: 02/21/2018 Status: F Source: [place] 7:48 AM [facility] REPOSITORY Order Comment: Comments: STANDING ORDER Comments: STANDING ORDER TYPE CODE TESTS RESULT OUT OF RANGE REFERENCE UNITS LAB L300.4150 11.7-14.9 SECONDS High PROTIME 19.6 LAB L300.4200 Normal INR 1.7 Performed By: #### L300.3900 #### [facility] [address] [place], [address] PACEMAKER CHECK Observed: 01/22/2018 Status: F Source: CIM[place] 9:34 AM [facility] REPOSITORY [facility] [address] [place] [address] Pacemaker Check Date of Service: 01/14/182008 MR#: [id number] Acct: [id number] Name: ANTONAUDREYHENRY C Rep #: [id number] : 1955 From: Dariana Whitman Age/Sex: 62/M Location: [facility] Status: Signed Comments Summary Comments: Remote Single Chamber Pacemaker Evaluation: See attached scanned Latitude report. Remote interrogation shows 1578 NSVT episodes since 09/06/15. Last NSVT episode occurred on 01/03/18 which shows atrial fib with RVR. Presenting rhythm shows Ventricular paced @ 60 ppm. EXT JS DEVELOPER=67%. Estimated battery life 8 yrs. Lead impedance, sensing and auto pace/sense thresholds, Normal remote PPM function.Next f/u appt scheduled for in 3 mos. Device Device Date Interviewed: 01/04/18 Follow-up Location: remote Interview Reason: scheduled follow up Public Relations Specialist: [place] Name: Essentio Model: L100 Serial #: [id number] Implant Date: 08/30/15 Year(s): 2 Patient Characteristics Atrial Indication: Atrial tachycardia, sick sinus syndrome Underlying rhythm: Atrial fibrillation Pacemaker Dependent: No Device Characteristics Device: Dual Chamber, Single Chamber Type: Pacemaker Remote Follow-Up: Latitude Leads Lead #1 Public Relations Specialist Lead 1: Guidant Model Lead 1: [id number] Serial# Lead 1: [id number] Date Implanted Lead 1: 08/30/15 Position Lead 1: RV Diagnostics Pacing % RV Pacin Arrhythmias Non-Sust Episodes: 1,578 Measurements Battery Magnet Rate (bmp): 100 Battery Status: BELKYS Predicted Remaining Longevity (months or years): 8 years Bebeto Settings Bebeto Settings Pacemaker Mode VVIR Lower Rate Limit (bpm) 60 Hysteresis Rate (bpm) Max Track Rate (bpm) Max Sensor Rate (bpm) 130 Max AV Delay (msec) Max PV Delay (msec) Max PVARP (msec) Output/Sensing V/PW (ms) auto1.6/0.4 Sensitivity RA RV LV Comments: Billing Codes PM Device Codes: PM Dev Interrogate (Remot Assessment AND Plan Problems 1. Presence of cardiac pacemaker Z95.0 2. Atrial fibrillation and flutter I48.91; I48.92 3. AV node dysfunction I45.89 01/21/18 1718 <Electronically signed by Dariana Whitman > Date Dariana Whitman 01/22/18 0934<Electronically signed by Jarred Crespo MD> Cosigner Signature: Date (if applicable) Jarred Crespo MD CC: PROTHROMBIN TIME W/INR Collected: 01/16/2018 Status: F Source: JUVE 8:19 AM [facility] REPOSITORY TYPE CODE TESTS RESULT OUT OF RANGE REFERENCE UNITS LAB L300.4150 11.7-14.9 SECONDS High PROTIME 22.9 LAB L300.4200 Normal INR 2.0 Performed By: #### L300.3900 #### [facility] [address] [place], [address] PROTHROMBIN TIME W/INR Collected: 12/18/2017 Status: F Source: JUVE 8:28 AM [facility] REPOSITORY TYPE CODE TESTS RESULT OUT OF RANGE REFERENCE UNITS LAB L300.4150 11.7-14.9 SECONDS High PROTIME 25.0 LAB L300.4200 Normal INR 2.3 Performed By: #### L300.3900 #### [facility] [address] [place], [address] PROTHROMBIN TIME W/INR Collected: 11/19/2017 Status: F Source: [place] 7:45 AM [facility] REPOSITORY TYPE CODE TESTS RESULT OUT OF RANGE REFERENCE UNITS LAB L300.4150 11.7-14.9 SECONDS High PROTIME 24.6 LAB L300.4200 Normal INR 2.2 Performed By: #### L300.3900 #### [facility] [address] [place], [address] PACEMAKER CHECK Observed: 11/01/2017 Status: F Source: [place] 11:51 AM [facility] REPOSITORY [facility] [address] [place] [address] Pacemaker Check Date of Service: 09/28/17 1116 MR#: [id number] Acct: [id number] Name: HENRY DIAZ Rep #: [id number] : 1955 From: Jarred Crespo MD Age/Sex: 61/M Location: [facility] Status: Signed Comments Summary Comments: Remote Single Chamber Pacemaker Evaluation: Remote interrogation shows 1253 NSVT episodes since 09/06/15. Last episode occurred on 09/27/17. Stored e-grams available for review show atrial fib with ventricular rate up to 190 bpm. No true VT/VF episodes noted. Presenting rhythm shows Sinus bradycardia @ 56 bpm. EXT JS DEVELOPER=68% Battery longevity approx 8.5 yrs. lead impedance, sensing and auto pace/sense threshold remain stable. Normal remote PPM function. Pt notified remote transmission received and next f/u appt scheduled for in 3 mos. Device Device Date Interviewed: 09/28/17 Follow-up Location: remote Interview Reason: scheduled follow up Public Relations Specialist: [place] Name: Essentio Model: L100 Serial #: [id number] Implant Date: 08/30/15 Year(s): 2 Implant Physician: Dr. Lamont Agarwal Patient Characteristics Atrial Indication: Atrial tachycardia, sick sinus syndrome Underlying rhythm: Atrial fibrillation Pacemaker Dependent: No Device Characteristics Device: Dual Chamber, Single Chamber Type: Pacemaker Remote Follow-Up: Latitude Leads Lead #1 Public Relations Specialist Lead 1: Sophy Model Lead 1: 4137 Serial# Lead 1: [id number] Date Implanted Lead 1: 08/30/15 Position Lead 1: RV Diagnostics Pacing % RV Pacin Arrhythmias Non-Sust Episodes: 1,253 Measurements Battery Magnet Rate (bmp): 100 Battery Status: BELKYS Predicted Remaining Longevity (months or years): 8.5 years RV Measurements Signal Amplitude (mV): 11.9 Impedance (Ohms): 602 Threshold Voltage: 1.0 @ PW(ms): 0.4 Bebeto Settings Bebeto Settings Pacemaker Mode VVIR Lower Rate Limit (bpm) 60 Hysteresis Rate (bpm) Max Track Rate (bpm) Max Sensor Rate (bpm) 130 Max AV Delay (msec) Max PV Delay (msec) Max PVARP (msec) Output/Sensing V/PW (ms) auto1.6/0.4 Sensitivity RA RV LV Comments: Billing Codes PM Device Codes: PM Dev Interrogate (Remot Assessment AND Plan Problems 1. Presence of cardiac pacemaker Z95.0 2. 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 Atrial fibrillation and flutter I48.91; I48.92 11/01/17 1151 <Electronically signed by Jarred Crespo MD> Date Jarred Crespo MD 10/07/172020<Electronically signed by Dariana Whitman > Niaignguillermina Signature: Date (if applicable) Dariana Whitman CC: PROTHROMBIN TIME W/INR Collected: 10/15/2017 Status: F Source: JUVE 10:56 AM [facility] REPOSITORY TYPE CODE TESTS RESULT OUT OF RANGE REFERENCE UNITS LAB L300.4150 11.7-14.9 SECONDS High PROTIME 24.1 LAB L300.4200 Normal INR 2.2 Performed By: #### L300.3900 #### [facility] [address] [place], [address] PROTHROMBIN TIME W/INR Collected: 09/17/2017 Status: F Source: JUVE 10:31 AM [facility] REPOSITORY TYPE CODE TESTS RESULT OUT OF RANGE REFERENCE UNITS LAB L300.4150 11.7-14.9 SECONDS High PROTIME 22.2 LAB L300.4200 Normal INR 2.0 Performed By: #### L300.3900 #### [facility] [address] [place], [address] PROTHROMBIN TIME W/INR Collected: 08/22/2017 Status: F Source: JUVE 8:06 AM [facility] REPOSITORY TYPE CODE TESTS RESULT OUT OF RANGE REFERENCE UNITS LAB L300.4150 11.7-14.9 SECONDS High PROTIME 25.0 LAB L300.4200 Normal INR 2.4 Performed By: #### L300.3900 #### [facility] [address] [place], [address] ALLERGIES ALLERGIES DATE TYPE / CODE NAME / CODE REACTION SEVERITY SOURCE 12/18/2017 Drug diltiazem/[id number] leg swelling [place] Allergy/416 14(RXNORM) [facility] 931557([facility] ED CT) Repository 08/27/2015 Drug Penicillins/K12206 Hives Unknown [place] Allergy/416 0476(RXNORM) [facility] 430142([facility] ED CT) Repository 08/27/2015 Drug benzoin/[id number] Hives Unknown [place] Allergy/416 (RXNORM) [facility] 096675([facility] ED CT) Repository 08/27/2015 Drug adhesive Unknown Unknown [place] Allergy/416 tape/H718684549(RX [facility] 839766([facility] ED CT) Repository 08/27/2015 Drug latex/[id number](R Unknown Unknown [place] Allergy/416 XNORM) [facility] 281586([facility] ED CT) Repository 05/24/2012 Chemical/42 ADHESIVE TAPE RASH [facility] 5070547(SNO (ROSINS) [facility] CT) Repository 03/26/2012 Drug PENICILLINS HIVES [facility] Class/78624 [facility] 1003(SNOMED Repository CT) 03/26/2012 DRUG BENZOIN OTHER: SEE C [facility] INGREDI/419 [facility] 731191(SNOM Repository ED CT) ENCOUNTERS ENCOUNTERS ADMIT/DISCHARGE ACCOUNT ADMITTING ENCOUNTER LOCATION SOURCE NUMBER CLASS 08/14/2018 [id number] Ambulatory [facility] Hospital ing:MTLAB Repository 07/17/2018/07/17/20 [id number] Ambulatory [place] [facility] [facility] Repository 06/11/2018/06/11/20 [id number] [place] [facility] ing[facility]MTLAB Repository 05/27/2018/05/27/20 [id number] [place] Hospital ing:ENRoom: Repository AC10 05/02/2018/05/05/20 [id number] Ambulatory [address] Repository 04/25/2018 [id number] [facility] Repository 04/25/2018/04/25/20 [id number] Ambulatory [facility] [facility] ing:MTLAB Repository 04/11/2018/04/11/20 [id number] Ambulatory [facility] [facility] ing:MTLAB Repository 04/09/2018/04/09/20 [id number] Ambulatory BMSBuilding:B [place] [address] Repository 03/21/2018/03/21/20 [id number] [place] [facility] ing:MTLAB Repository 01/16/2018/01/17/20 [id number] Ambulatory [place] [facility] [facility] ing:MTLAB Repository 01/04/2018/01/05/20 [id number] Ambulatory BMSBuilding:B [place] [address] Repository 12/26/2017/12/27/19 [id number] Ambulatory BMSBuilding:B [place] [address] [facility] Repository 12/18/2017 [id number] Ambulatory BMS [facility] Hospital Repository 12/18/2017/12/19/19 [id number] [place] [facility] ing:MTLAB Repository 12/03/2017 [id number] Ambulatory BMSBuilding:B [place] [facility] Repository 11/19/2017/11/21/19 [id number] Ambulatory [place] 18 [facility] ing:MTLAB Repository 10/15/2017/10/16/19 [id number] Ambulatory [place] 18 [facility] ing:MTLAB Repository 09/28/2017/09/29/19 [id number] Ambulatory BMSBuilding:B [place] [address] [facility] Repository 09/17/2017/09/17/19 [id number] Ambulatory [place] 18 [facility] ing:MTLAB Repository 08/22/2017/08/22/19 [id number] [place] [address] [place] [address] ing:MTLAB Repository PAYERS PAYERS ENCOUNTER GUARANTOR PAYER SUBSCRIBER SOURCE 08/14/2018 HENRY Suazo Primary Insurance:MMO HENRY Suazo [place] [id number] [place] MEDICAREPolicy WYLERDOB: [place], [place] Number: [id number] Hospital [address]Wmt: [phone] [id number] Repository [phone] () Date:[id number] [place] [id number]: 08/14/2018 Secondary NOT GIVENUNK [place] Insurance:SELF PAY [facility] Number: Effective Repository Date:2018-07-22 07/17/2018 HENRY Suazo Primary Insurance:[facility] HENRY [place] [id number] [place] MEDICAREPolicy WYLERDOB: [place] Number: [id number] Hospital 964[address]Wfz: [phone] [id number] Repository [phone] () Date:[id number] [address]AN: 07/17/2018 Secondary NOT GIVENUNK [place] Insurance:SELF PAY [facility] Number: Effective Repository Date:2018-06-25 06/11/2018 HENRY Suazo Primary Insurance:MMO HENRY Suazo [place] [id number] [place] MEDICAREPolicy WYLERDOB: [facility] [place] Number: [id number] Hospital 115[address]Cji: [phone] [id number] Repository [phone] (HP) Date:3779-81-99UD [address] [address]IL: 06/11/2018 Secondary NOT GIVENUNK [place] Insurance:SELF PAY [facility] Number: Effective Repository Date:2018-05-23 05/27/2018 HENRY Suazo Primary Insurance:MMO HENRY Suazo [place] [id number] [place] MEDICAREPolicy WYLERDOB: [facility] [place] Number: [id number] Hospital [address]Sdm: [phone] [id number] Repository [phone] (HP) Date:0356-89-19JR [address] [address]WC: 05/27/2018 Secondary NOT GIVENUNK [place] Insurance:SELF PAY [facility] Number: Effective Repository Date:2018-05-02 04/25/2018 HENRY Suazo Primary Insurance:MMO HENRY Suazo [place] [id number] [place] MEDICAREPolicy WYLERDOB: [facility] [place] Number: [id number] Hospital [address]Gkb: [phone] [id number] Repository [phone] (HP) Date:[id number] [address] [address]VX: 04/25/2018 Secondary NOT GIVENUNK [place] Insurance:SELF PAY [facility] Number: Effective Repository Date:2018-04-25 04/25/2018 HENRY Suazo Primary Insurance:MMO HENRY Suazo [place] [id number] [place] MEDICAREPolicy WYLERDOB: [facility] [place] Number: [id number] Hospital [address]Rnx: [id number] Repository [phone] (HP) Date:7572-50-38ZP [address] [place] [address]DI: 04/25/2018 Secondary NOT GIVENUNK [place] Insurance:SELF PAY [facility] Number: Effective Repository Date:2018-04-23 04/11/2018 HENRY Suazo Primary Insurance:MMO HENRY Suazo [place] [id number] [place] MEDICARE[place] WYLERDOB: [place] Number: [id number] Hospital [address]Unw: [phone] [id number] Repository [phone] (HP) Date:[id number] [address] [place] [address]LD: 04/11/2018 Secondary NOT GIVENUNK [place] Insurance:SELF PAY [facility] Number: Effective Repository Date:2018-03-27 04/09/2018 HENRY Suazo Primary Insurance:MMO HENRY Suazo [place] [id number] [place] MEDICARE[place] WYLERDOB: [place] Number: [id number] Hospital [address]Tvb: [phone] [id number] Repository [phone] (HP) Date:1049-55-07JP [address] [address]MW: 04/09/2018 Secondary NOT GIVENUNK [place] Insurance:SELF PAY [facility] Number: Effective Repository Date:2018-04-09 03/21/2018 HENRY Suazo Primary Insurance:MMO HENRY Suazo [place] [id number] [place] MEDICARE[place] WYLERDOB: [place] Number: [id number] Hospital [address]Uay: [phone] [id number] Repository [phone] (HP) Date:[id number] [address] [address]HZ: 03/21/2018 Secondary NOT GIVENUNK [place] Insurance:SELF PAY [facility] Number: Effective Repository Date:2018-01-18 01/16/2018 HENRY Suazo Primary Insurance:MMO HENRY Suazo [place] [id number] [place] MEDICAREPolicy [place]ERDOB: [place] Number: [id number] Hospital [address]Vqm: [phone] [id number] Repository [phone] (HP) Date:[id number] [address] [place] [address]SM: 01/16/2018 Secondary NOT GIVENUNK [place] Insurance:SELF PAY [facility] Number: Effective Repository Date:2017-12-21 01/04/2018 HENRY Suazo Primary Insurance:MMO HENRY C Ju[place] [id number] [place] MEDICAREPolicy WYLERDOB: [facility] [place] Number: 3464-07-29[facility] [address]Pfb: [phone] Repository [phone] (HP) Date:5187-05-09ZS [address] [address]YV: 01/04/2018 Secondary NOT GIVENUNK [place] Insurance:SELF PAY [facility] Number: Effective Repository Date:2018-01-04 12/26/2017 HENRY Suazo Primary Insurance:MMO HERNY Suazo [place] [id number] [place] MEDICAREPolicy [facility] [place] Number: [id number] [address]Llq: [phone] [id number] Repository [phone] (HP) Date:0916-84-27IM [address] [address]ML: 12/26/2017 Secondary NOT GIVENUNK [place] Insurance:SELF PAY [facility] Number: Effective Repository Date:2018-01-07 12/18/2017 HENRY Suazo Primary Insurance:MMO HENRY Suazo [place] [id number] [place] MEDICAREPolicy [facility]YLERDOB[facility] Number: [id number] [facility] [address]Lhf: [phone] [id number] Repository [phone] (HP) Date:6960-10-81RX [address] [address]AT: 12/18/2017 Secondary NOT GIVENUNK [place] Insurance:SELF PAY [facility] Number: Effective Repository Date:2017-12-18 12/18/2017 HENRY Suazo Primary Insurance:MMO HENRY Suazo [place] [id number] [place] MEDICAREPolicy WYLERDOB: [place], [place] Number: [id number] Hospital [address]Uvp: [phone] [id number] Repository [phone] (HP) Date:9693-12-67RZ [address] [address]YS: 12/18/2017 Secondary NOT GIVENUNK [place] Insurance:SELF PAY [facility] Number: Effective Repository Date:2017-11-20 12/03/2017 HENRY Suazo Primary Insurance:MMO HENRY Suazo [place] [id number] [place] MEDICAREPolicy WYLERDOB: [place] Number: [id number] Hospital [address]Zur: [phone] [id number] Repository [phone] (HP) Date:7311-12-74HM [address] [address]PZ: 12/03/2017 Secondary NOT GIVENUNK [place] Insurance:SELF PAY [facility] Number: Effective Repository Date:2017-12-03 11/19/2017 HENRY Suazo Primary Insurance:MMO HENRY Suazo [place] [id number] [place] MEDICAREPolicy WYLERDOB: [place] Number: [id number] [facility] [address]Mqp: [phone] [id number] Repository [phone] (HP) Date:1155-82-34LE [address] [address]BN: 11/19/2017 Secondary NOT GIVENUNK [place] Insurance:SELF PAY [facility] Number: Effective Repository Date:2017-10-22 10/15/2017 HENRY Suazo Primary Insurance:MMO HENRY Suazo [place] [id number] [place] MEDICAREPolicy WYLERDOB: [place] Number: [id number] [facility] [address]Zvd: [phone] [id number] Repository [phone] (HP) Date:4068-06-84HB [address] [place] [address]NS: 10/15/2017 Secondary NOT GIVENUNK [place] Insurance:SELF PAY [facility]: Effective Repository Date:2017-09-20 09/28/2017 HENRY Suazo Primary Insurance:MMO HENRY Suazo [place] [id number] [place] MEDICAREPolicy WYLERDOB: [facility] [place] Number: [id number] Hospital [address]Pec: [phone] Repository [phone] (HP) Date:0014-43-57BR [address] [place] [phone]: 09/28/2017 Secondary NOT GIVENUNK [place] Insurance:SELF PAY [facility] Number: Effective Repository Date:2017-06-29 09/17/2017 HENRY C Primary Insurance:MMO HENRY Suazo [place] [id number] [place] MEDICAREPolicy WYLERDOB: [facility] [place] Number: [id number] Hospital 10[address]Ant: [phone] [phone] Repository [phone] (HP) Date:4572-04-61JD [address] [place] [phone]: 09/17/2017 Secondary NOT GIVENUNK [place] Insurance:SELF PAY [facility] Number: Effective Repository Date:2017-08-24 08/22/2017 HENRY C Primary Insurance:MMO HENRY Suazo [place] [id number] [place] MEDICAREPolicy WYLERDOB: [facility] [place] Number: [id number] Hospital [address]Pxw: [phone] Repository [phone] (HP) Date:1636-20-81UJ [address] [place] [phone]: 08/22/2017 Secondary NOT GIVENUNK [place] Insurance:SELF PAY [facility] Number: Effective Repository Date:2017-07-23
== END 2018-08-14 15:00 | disposition home or self-care (01) ==
LOC: MTLAB 13:33
PROVIDERS: Family Provider Family Medicine; PCP Family Medicine; Referring Provider Internal Medicine Cardiovascular Disease; Visit Provider Internal Medicine Cardiovascular Disease
DX: I48.91 Unspecified atrial fibrillation (principal); I48.92 Unspecified atrial flutter; Z79.01 Long term (current) use of anticoagulants
CPT/HCPCS: 36415; 85610

== ENCOUNTER 2018-09-11 15:20 | Outpatient (RCR) | payer MEDICARE, SELFPAY ==
[2018-08-28 12:08] LABS: International Normalized Ratio 1.9; Prothrombin Time (Protime)PT. 22.2 SECONDS (11.7-14.9)
[2018-09-11 17:51] LABS: International Normalized Ratio 2.4; Prothrombin Time (Protime)PT. 26.1 SECONDS (11.7-14.9)
== END 2018-09-19 15:01 | disposition home or self-care (01) ==
LOC: MTLAB 15:20
PROVIDERS: Family Provider Family Medicine; PCP Family Medicine; Referring Provider Internal Medicine Cardiovascular Disease; Visit Provider Internal Medicine Cardiovascular Disease
DX: I48.91 Unspecified atrial fibrillation (principal); I48.92 Unspecified atrial flutter; Z79.01 Long term (current) use of anticoagulants
CPT/HCPCS: 36415; 85610

== ENCOUNTER 2018-10-01 08:38 | Outpatient (RCR) | payer MEDICARE, SELFPAY ==
[2018-10-01 10:04] LABS: International Normalized Ratio 2.5
== END 2018-10-01 09:00 ==
LOC: MTLAB 08:38
PROVIDERS: Family Provider Family Medicine; PCP Family Medicine; Referring Provider Internal Medicine Cardiovascular Disease; Visit Provider Internal Medicine Cardiovascular Disease
DX: I48.91 Unspecified atrial fibrillation (principal); I48.92 Unspecified atrial flutter; Z79.01 Long term (current) use of anticoagulants
CPT/HCPCS: 36415; 85610

== ENCOUNTER 2018-11-04 08:10 | Outpatient (RCR) | payer MEDICARE, SELFPAY ==
[2018-11-04 10:21] LABS: Prothrombin Time (Protime)PT. 31.6 SECONDS (11.7-14.9)
== END 2018-11-19 16:00 | disposition home or self-care (01) ==
LOC: MTLAB 08:10
PROVIDERS: Family Provider Family Medicine; PCP Family Medicine; Referring Provider Internal Medicine Cardiovascular Disease; Visit Provider Internal Medicine Cardiovascular Disease
DX: I48.91 Unspecified atrial fibrillation (principal); I48.92 Unspecified atrial flutter; Z79.01 Long term (current) use of anticoagulants
CPT/HCPCS: 36415; 85610

== ENCOUNTER 2018-12-03 09:36 | Outpatient (RCR) | payer MEDICARE, SELFPAY ==
[2018-12-03 12:29] LABS: International Normalized Ratio 2.9; Prothrombin Time (Protime)PT. 30.1 SECONDS (11.7-14.9)
== END 2018-12-03 11:00 | disposition home or self-care (01) ==
LOC: MTLAB 09:36
PROVIDERS: Family Provider Family Medicine; PCP Family Medicine; Referring Provider Internal Medicine Cardiovascular Disease; Visit Provider Internal Medicine Cardiovascular Disease
DX: I48.91 Unspecified atrial fibrillation (principal); I48.92 Unspecified atrial flutter; Z79.01 Long term (current) use of anticoagulants
CPT/HCPCS: 36415; 85610

== ENCOUNTER 2019-01-13 10:23 | Outpatient (RCR) | payer MEDICARE, SELFPAY ==
[2019-01-13 12:49] LABS: International Normalized Ratio 2.6; Prothrombin Time (Protime)PT. 27.5 SECONDS (11.7-14.9)
== END 2019-01-13 11:00 | disposition home or self-care (01) ==
LOC: MTLAB 10:23
PROVIDERS: Family Provider Family Medicine; PCP Family Medicine; Referring Provider Internal Medicine Cardiovascular Disease; Visit Provider Internal Medicine Cardiovascular Disease
DX: I48.91 Unspecified atrial fibrillation (principal); I48.92 Unspecified atrial flutter; Z79.01 Long term (current) use of anticoagulants
CPT/HCPCS: 36415; 85610

== ENCOUNTER 2019-02-19 12:06 | Outpatient (RCR) | payer MEDICARE, SELFPAY ==
[2019-02-05 13:31] VITALS: BMI 40.2
[2019-02-19 15:00] LABS: International Normalized Ratio 2.2; Prothrombin Time (Protime)PT. 24.4 SECONDS (11.7-14.9)
== END 2019-02-19 12:07 | disposition home or self-care (01) ==
LOC: MTLAB 12:06
PROVIDERS: Family Provider Family Medicine; PCP Family Medicine; Referring Provider Internal Medicine Cardiovascular Disease; Visit Provider Internal Medicine Cardiovascular Disease
DX: I48.0 Paroxysmal atrial fibrillation (principal); Z79.01 Long term (current) use of anticoagulants
CPT/HCPCS: 36415; 85610

== ENCOUNTER 2019-03-20 10:37 | Outpatient (RCR) | payer MEDICARE, SELFPAY ==
[2019-02-05 13:31] VITALS: BMI 40.2
[2019-03-20 12:24] LABS: International Normalized Ratio 2.2; Prothrombin Time (Protime)PT. 24.4 SECONDS (11.7-14.9)
== END 2019-03-20 12:00 | disposition home or self-care (01) ==
LOC: MTLAB 10:37
PROVIDERS: Family Provider Family Medicine; PCP Family Medicine; Referring Provider Internal Medicine Cardiovascular Disease; Visit Provider Internal Medicine Cardiovascular Disease
DX: I48.1 Persistent atrial fibrillation (principal); Z79.01 Long term (current) use of anticoagulants
CPT/HCPCS: 36415; 85610

== ENCOUNTER 2019-04-09 00:19 | Inpatient (IN) | payer MEDICARE, SELFPAY ==
[2019-02-05 13:31] VITALS: BMI 40.2
[2019-04-09] VITALS (17 sets, daily range): BP systolic 84–114; BP diastolic 50–71; PULSE 59–78; RESP 16–18; TEMP 36.6–37.1; O2SAT 95–100; BMI 40.8; BMI 41.0
--- NOTE | 2019-04-09 00:32 | RAD_ITS ---
HISTORY: Fever EXAMINATION/TECHNIQUE: XR Chest 2 Views: COMPARISON: 10/11/2015 and 08/31/2015 FINDINGS: EKG leads in place. Left lower lobe recurrent patchy infiltrate. The right lung appears clear. Normal heart size. No vascular congestion or pleural effusion. Left subclavian transvenous pacemaker with electrode tip in the region of the right ventricle. RAD/Chest PA and Lateral IMPRESSION: Left lower lobe recurrent infiltrate compatible with pneumonia. Recommend continued radiographic follow-up. at 0358 Reported and signed by: Jose Boyd MD Electronically Signed: Jose Boyd, at 3:57 EDT Tel , Service support ,
--- NOTE | 2019-04-09 00:33 | EKG12_ITS ---
Test Reason : SOB Blood Pressure : / mmHG Vent. Rate : 068 BPM Atrial Rate : 227 BPM P-R Int : 000 ms QRS Dur : 102 ms QT Int : 424 ms P-R-T Axes : 000 -19 -51 degrees QTc Int : 450 ms Atrial fibrillation with frequent ventricular-paced complexes T wave abnormality, consider inferior ischemia T wave abnormality, consider anterolateral ischemia Abnormal ECG Confirmed by ANISH PALMA, ZOHAIB ([id number]), scientific editor PRACHI KANG ([id number]) on 04/11/2019 1:48:26 PM Referred By: Se Campuzano Confirmed By:SUSHANT OCONNELL MD
--- NOTE | 2019-04-09 00:33 | ED.VIS.GEN ---
History of Present Illness Chief Complaint: General Illness Narrative: Patient is a 63-year-old male who presents with generalized malaise and fever. He states he has not felt well beginning this morning. He reports chills and sweats with a temperature of 101. He denies any upper respiratory symptoms such as congestion rhinorrhea or cough but did feel like it was difficult to breathe earlier. He complains of feeling confused and disoriented. No pain. He does have some urinary frequency and urgency although he has some of these symptoms chronically which she attributes to age, likely BPH. He also notes that he had a red tinge to his urine however he also recently ate beets so thinks this may be contributing. No vomiting. No diarrhea. Past Medical History - Allergies and Home Meds Allergies/Adverse Reactions: Allergies adhesive tape Allergy (Verified 04/09/19 00:23) Unknown benzoin Allergy (Verified 04/09/19 00:23) Hives latex Allergy (Verified 04/09/19 00:23) Unknown Penicillins Allergy (Verified 04/09/19 00:23) Hives diltiazem Adverse Reaction (Intermediate, Verified 04/09/19 00:23) Leg swelling Primary Care Physician: Ludwin Ashley MD [Primary Care Provider] - Past Medical History: - - Stroke, pacemaker, atrial fibrillation on warfarin Surgical History: cholecystectomy, - - History of avascular necrosis of ankle. Cholecystectomy numerous surgeries on both knees Smoking Status: Never smoker - Family History Maternal Family History: Reports: Cancer Paternal Family History: Reports: Cancer Sibling Family History: Reports: No pertinent history Review of Systems All systems negative except as indicated General: Reports: Fever ENT: Denies: Rhinorrhea Cardiovascular: Denies: Chest pain Respiratory: Reports: Dyspnea. Denies: Cough, Sputum Gastrointestinal: Denies: Abdominal pain, Nausea, Vomiting, Diarrhea Genitourinary: Reports: Frequency Physical Exam Vital Signs/Narrative: Vital Signs Temp Pulse Resp BP Pulse Ox 04/09/19 00:20 98.1 F 73 18 107/62 95 Inital Vital Signs reviewed: Yes General: Well nourished, Well developed, Unkempt Eyes: EOMI ENT: Moist mucous membranes Neck: Supple Cardiovascular: - - Heart irregular but normal rate Respiratory: No distress, CTA bilaterally Abdomen: Soft, Nontender, Nondistended Skin: Normal color Neurological: Alert, Oriented x3 Psychological: Normal affect Diagnostic/Tx/Re-eval 04/09/19 00:32 Chest PA and Lateral [RAD] Stat Laboratory Results 04/09/19 04/09/19 04/09/19 00:25 00:25 01:00 WBC 18.6 H RBC 5.10 Hgb 15.9 Hct 47.4 MCV 92.9 MCH 31.2 MCHC 33.5 RDW Std Deviation 47.5 H RDW Coeff of Colleen 13.8 Plt Count 159 MPV 10.1 Immature Gran % (Auto) 1.100 H Neut % (Auto) 87.7 H Lymph % (Auto) 3.[address] % (Auto) 7.1 Eos % (Auto) 0.9 Baso % (Auto) 0.2 Absolute Neuts (auto) 16.3 H Absolute Lymphs (auto) 0.55 L Nucleated RBC % 0 Differential Comment SCANNED Toxic Granulation 1+ Toxic Vacuolation 1+ Sodium 137 Potassium 3.8 Chloride 106 Carbon Dioxide 23.0 Anion Gap 8 BUN 26 H Creatinine 1.30 Estim Creat Clear Calc 63.84 Est GFR (MDRD) Af Amer 72 Est GFR (MDRD) Non-Af 59 L BUN/Creatinine Ratio 20.0 Glucose 113 H Calcium 8.6 Troponin I < 0.015 Urine Color SEE COMMENT BELOW Urine Clarity Cloudy Urine pH 5.0 Ur Specific [place] 1.030 Urine Protein 30 H Urine Glucose (UA) Normal Urine Ketones 5 H Urine Occult Blood 10 H Urine Nitrite Positive H Urine Bilirubin 3 H Urine Urobilinogen 4 H Ur Leukocyte Esterase 25 H Urine RBC 0 SEEN Urine WBC 0-5 SEEN Ur Squamous Epith Cells 0-5 SEEN Ur Transition Epith Cell 0-5 SEEN Urine Bacteria 2+ Hyaline Casts 0-5 SEEN Coarse Granular Casts 0-5 SEEN Urine Mucus 1+ - Medical Decision Making EKG shows what appears to initially be a paced rhythm converting to patient's [place] underlying atrial flutter. Rate is 68. He does have lateral precordial T wave inversions. ST segments are normal. Labs as above notable for leukocytosis with a white count of 18.6. Urinalysis is nitrite and bacteria positive. A urine culture was sent. He was given IV Rocephin. Chest x-ray on my review shows questionable bilateral lower infiltrates, radiology read currently pending and delayed so I did also give IV azithromycin to cover for community-acquired pneumonia. Patient's vitals are stable he is not hypoxic however I do feel he should be treated with IV antibiotics and monitor as an inpatient. ED Disposition - Plan for ED Patient: Disposition: Acute Care Hospital [facility] Diagnosis: UTI (urinary tract infection), Community acquired pneumonia Referrals: Ludwin Ashley MD [Primary Care Provider] -
[2019-04-09] MEDS: 0.9% Normal Saline 1,000 ML 999 ML IV ×3 (00:37→07:37)
[2019-04-09 00:42] LABS: Absolute Lymphocyte Count 0.55 X10^3/uL (0.83-4.51); Absolute Neutrophil Count 16.3 X10^3/uL (2.0-7.7); Basophil# 0.04 X10^3/uL; Basophil% 0.2 % (0-1); Eosinophil# 0.17 X10^3/uL; Eosinophils% 0.9 % (0-5); Hematocrit 47.4 % (40-54); Hemoglobin 15.9 g/dL (13.0-16.5); Lymphocyte # 0.55 X10^3/ul (4.0); Mean Corp Hgb Conc 33.5 g/dL (32-36); Mean Corpuscular Hgb 31.2 pg (27.0-32.0); Mean Corpuscular Volume 92.9 fL (80-94); Mean Platelet Vol. 10.1 fl (6.2-12.0); Monocyte# 1.31 X10^3/uL; Monocyte% 7.1 % (0-10); NRBC Flagged by Analyzer 0 % (0-5); Neutrophil # 16.29 X10^3/uL (2.7-7.7); Neutrophil % 87.7 % (47-70); POSITIVE DIFFERENTIAL YES; POSITIVE MORPHOLOGY YES; Platelet Count 159 K/mm3 (150-450); RBC Distribution Width CV 13.8 % (11.6-14.6); RBC Distribution Width SD 47.5 fl (35.1-43.9); White Blood Count 18.6 K/mm3 (4.4-11.0)
[2019-04-09 00:56] LABS: Anion Gap 8 (5-15); BUN 26 mg/dL (7-18); Calcium,Total 8.6 mg/dL (8.5-10.1); Chloride 106 mmol/L (98-107); Differential Indicated SCAN CRITERIA MET; EST Glomerular Filtration Rate 59 mL/min (>60); Est Glom Filt Rate - Afr Amer 72 mL/min (>60); Estimated Creatinine Clearance 63.84 ml/min; Glucose 113 mg/dL (74-106); Potassium 3.8 mmol/L (3.5-5.1); Sodium Level 137 mmol/L (136-145)
[2019-04-09 01:05] LABS: Red Blood Cells-Urine 0 SEEN /hpf (0-5)
[2019-04-09 01:08] LABS: Glucose, Dipstick Normal (Normal); Ketone-Dipstick 5 mg/dl (Negative); Leukocyte Esterase-Dipstick 25 /ul (Negative); Nitrite-Dipstick Positive (Negative); Occult Blood-Urine 10 /ul (Negative); Protein-Dipstick 30 mg/dl (Negative); Urine Clarity Cloudy (Clear); Urine Urobilinogen 4 mg/dl (Normal)
[2019-04-09 01:12] LABS: Differential Comment SCANNED; Toxic Granulation 1+; Vacuolated Cells 1+
[2019-04-09 01:15] LABS: Color, Urine SEE COMMENT BELOW (Yellow); Urine Bilirubin Dipstick 3 mg/dL (Negative)
[2019-04-09 01:16] LABS: Bacteria 2+ /hpf (None Seen); Coarse Granular Cast 0-5 SEEN /lpf (0-5 /lpf); Hyaline Cast 0-5 SEEN /lpf (0-5); Mucous, Urine 1+ /hpf (<or=2+); Squamous Epithelial Cells - UA 0-5 SEEN /hpf (0-5); Transitional Epithelial - Ur 0-5 SEEN /hpf (0-5)
[2019-04-09 01:17] LABS: White Blood Cells 0-5 SEEN /hpf (0-5)
[2019-04-09] MEDS: Ceftriaxone 1 GM/50 ML BAG IV ×2 (02:20→22:18)
--- NOTE | 2019-04-09 02:21 | ED.RN ---
CALLED [facility], SPOKE WITH BERHANE WHO ACKNOWLEDGED THE DELAY IN READING OF CHEST X-RAY, STATED THEY ARE TAKING A LONG TIME TONIGHT. UPDATED.
--- NOTE | 2019-04-09 03:08 | PCM.HP.STD ---
Problem List (1) UTI (urinary tract infection) Status: Acute (2) Community acquired pneumonia Status: Acute History of Present Illness Date of Admission: 04/09/19 Chief Complaint: malaise The patient is a 63 year old M fibrillation status post permanent pacemaker; and CVA with residual vision deficits who presented to the emergency department with malaise that started a day before his presentation. Associated with symptoms is a fever of 101 Fahrenheit at home; chills; and confusion. Also he had a transient episode of shortness of breath. He report this episode of shortness of breath as shallow breathing. Further he had a one-time episode of urinary urgency leading to incontinence. He denies any coughing. Reportedly he developed a sore throat after antibiotics had been initiated at the emergency department. 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) Obesity (Chronic) NOAH on CPAP (Chronic) Conduction disorder of the heart (Chronic) Medical History: Medical History (Last Reviewed 04/09/19 @ 08:05 by Se Campuzano MD) Presence of cardiac pacemaker (Chronic) Z95.0 Conduction disorder of the heart (Chronic) I45.9 Dizziness and giddiness R42 Depression F32.9 Osteoarthritis M19.90 Scoliosis anal fistula repair Allergies adhesive tape Allergy (Verified 04/09/19 00:23) Unknown benzoin Allergy (Verified 04/09/19 00:23) Hives latex Allergy (Verified 04/09/19 00:23) Unknown Penicillins Allergy (Verified 04/09/19 00:23) Hives diltiazem Adverse Reaction (Intermediate, Verified 04/09/19 00:23) Leg swelling Home Medications: Ambulatory Orders Medication Instructions Recorded Cholecalciferol (Vitamin D3) 4,000 unit PO DAILY 10/17/13 [Vitamin D3] Gabapentin [Neurontin] 300 mg PO TID 10/17/13 Multivitamins,Therapeutic 1 tab PO DAILY 08/27/15 [Multivitamin] famotidine 20 mg tablet 20 mg PO QHS 06/28/17 Diclofenac [Voltaren] 75 mg PO BIDCM 05/24/18 clindamycin HCl 150 mg capsule 600 mg PO .COMPLEX PRN 02/05/19 Warfarin Sodium [Coumadin] 5 mg PO SUMOTUSA 04/09/19 Warfarin [Coumadin (PBKC)] 7.5 mg PO WETHFR 04/09/19 Surgical History: Surgical History (Last Reviewed 04/09/19 @ 05:57 by Se Campuzano MD) H/O hernia repair Z98.890, Z87.19 H/O: knee surgery Z98.890 History of cholecystectomy Z90.49 History of tonsillectomy and adenoidectomy Z98.890 Surgical History: cholecystectomy, - - History of avascular necrosis of ankle. Cholecystectomy numerous surgeries on both knees Psychiatric History: Depression Lives: Spouse/ Significant Other Smoking Status: Never smoker Drugs: None - *Family History Maternal History Items: Cancer Paternal History Items: Cancer Sibling History Items: No pertinent history Review of Systems Constitutional: Reports: Anorexia, Chills, Fever. Denies: Weight Change HEENT: Denies: Head Aches, Sinus Congestion, Sinus Drainage Cardiovascular: Denies: Chest Pain, Palpitations Respiratory: Reports: Shortness of Breath. Denies: Cough, Sputum production Gastrointestinal: Denies: Abdominal Pain, Nausea, Vomiting Genitourinary: Reports: Urgency. Denies: Dysuria Musculoskeletal: Denies: Joint Pain, Joint Tenderness Skin: Denies: Rash, Wounds Neurological: Denies: Numbness, Tingling, Focal weakness Psychiatric: Denies: Anxiety, Depression, Homicidal Ideations, Suicidal Ideations Hematologic/ Lymphatic: Denies: Easy Bruising, Easy Bleeding VTE Information - Inpt Only VTE Present on Admission: No VTE Mechan Device Prophylaxis: None VTE Pharm Prophylaxis ordered?: No Reason prophylaxis not ordered:: Treatment Not Indicated - Coumadin for A. fib; continued Patient Problems: Active and Suspected Problems (Last Reviewed 04/09/19 @ 05:57 by Se Campuzano MD) UTI (urinary tract infection) (Acute) Community acquired pneumonia (Acute) - Physical Exam General: Alert, Oriented x3, Cooperative HEENT: Atraumatic, PERRLA, EOMI, Normocephalic Neck: Supple, No JVD, Negative Carotid Bruits Lungs: Normal air movement, Rales - Left base Cardiovascular: Regular rate, Irregular Rate Abdomen: Bowel Sounds Present, Soft, Non Tender Extremities: No edema, Capillary Refill Less than 3 Seconds Skin: No rashes, No breakdown Musculoskeletal: No Tenderness to Palpation of Joints or Extremities Neurological: Cranial nerves II-XII grossly intact - History of poor vision from left eye secondary stroke Psych/Mental Status: Normal Affect, Appropriate Vital Signs Temp Pulse Resp BP Pulse Ox 98.1 F 62 16 105/69 96 04/09/19 00:20 04/09/19 02:19 04/09/19 02:19 04/09/19 02:19 04/09/19 02:19 Oxygen Delivery Method Room Air Weight: 136.6 kg Body Mass Index (BMI) 40.8 Finger Stick Blood Glucose 115 Intake and Output for Last 24 Hours 04/07/19 04/08/19 04/09/19 23:59 23:59 23:59 Intake Total 1050 / 1050 Balance 1050 / 1050 Laboratory Tests Past 24 Hrs 04/09/19 04/09/19 04/09/19 00:25 00:25 01:00 WBC 18.6 H RBC 5.10 Hgb 15.9 Hct 47.4 MCV 92.9 MCH 31.2 MCHC 33.5 RDW Std Deviation 47.5 H RDW Coeff of Colleen 13.8 Plt Count 159 MPV 10.1 Immature Gran % (Auto) 1.100 H Neut % (Auto) 87.7 H Lymph % (Auto) 3.0 L [place] % (Auto) 7.1 Eos % (Auto) 0.9 Baso % (Auto) 0.2 Absolute Neuts (auto) 16.3 H Absolute Lymphs (auto) 0.55 L Nucleated RBC % 0 Differential Comment SCANNED Toxic Granulation 1+ Toxic Vacuolation 1+ Sodium 137 Potassium 3.8 Chloride 106 Carbon Dioxide 23.0 Anion Gap 8 BUN 26 H Creatinine 1.30 Estim Creat Clear Calc 63.84 Est GFR (MDRD) Af Amer 72 Est GFR (MDRD) Non-Af 59 L BUN/Creatinine Ratio 20.0 Glucose 113 H Calcium 8.6 Troponin I < 0.015 Urine Color SEE COMMENT BELOW Urine Clarity Cloudy Urine pH 5.0 Ur Specific [place] 1.030 Urine Protein 30 H Urine Glucose (UA) Normal Urine Ketones 5 H Urine Occult Blood 10 H Urine Nitrite Positive H Urine Bilirubin 3 H Urine Urobilinogen 4 H Ur Leukocyte Esterase 25 H Urine RBC 0 SEEN Urine WBC 0-5 SEEN Ur Squamous Epith Cells 0-5 SEEN Ur Transition Epith Cell 0-5 SEEN Urine Bacteria 2+ Hyaline Casts 0-5 SEEN Coarse Granular Casts 0-5 SEEN Urine Mucus 1+ Assessment/Plan All Active Problems (Last Reviewed 04/09/19 @ 05:57 by Se Campuzano MD) UTI (urinary tract infection) (Acute) Community acquired pneumonia (Acute) The patient is a 63 year old M fibrillation status post permanent pacemaker; and CVA with residual vision deficits who presented to the emergency department with malaise; fever; chills; confusion; transient episode of shortness of breath; one-time episode of urinary urgency leading to incontinence; abnormal urinalysis and radiographic evidence of pulmonary infiltrates consistent with community-acquired pneumonia and complicated cystitis. Sepsis Patient reports a temperature of 101 F at home; afebrile at the Hospital. WBC is 18.6 Although patient reports a fever at home he has been afebrile at the hospital. He reported that typically his systolic blood pressure is around 120. However his systolic blood pressure at the hospital is in the 90s with one-time episode of systolic blood pressure of 84. Source from Pneumonia and complicated cystitis Check lactic acid Blood culture x 2 ordered Chest x-ray: left lower side recurrent infiltrate compatible with pneumonia. X-ray was independently reviewed. I agree with dilute interpretation. Of note patient reported when he was a child at about age 12 years he had yearly pneumonia for about 45 years. Denies coughing so sputum Gram stain could not be obtained Antibiotics: Received ceftriaxone and azithromycin in the emergency department; continue IV hydration: Good fluid bolus in the emergency department. We will continue patient on maintenance infusion of normal saline Albuterol as needed Legionella antigen screen and Strep antigen ordered Complicated pneumonia Management as above Complicated cystitis Management as above; MINGO On presentation his creatinine was 1.30. His baseline creatinine is down about 0.95 BUN over creatinine is 20 It could be pre-renal from poor intake or intrinsic renal from UTI Avoid nephrotoxic's. Will de-escalate home gabapentin. Trend BMP. Received IV hydration at the emergency department Continue on gentle IV hydration Atrial fibrillation On presentation patient was in controlled A. fib Home Coumadin reordered. Will check PT/INR. DVT prophylaxis Not indicated since patient is on Coumadin. Code Visit Inpatient E&M: 69489 Init Hosp L3
[2019-04-09] MEDS: 0.9% Normal Saline 1,000 ML 100 ML IV ×2 (04:41→16:56)
[2019-04-09] MEDS: Gabapentin 100 MG Capsule PO ×3 (04:59→22:20)
--- NOTE | 2019-04-09 05:02 | NURSING ---
PT WANTS HIS JEANS LEFT ON AND REFUSE SCRUB PANTS.
[2019-04-09 05:58] LABS: International Normalized Ratio 2.3
--- NOTE | 2019-04-09 06:09 | SEPSISNOTE ---
Sepsis Note - Physical Exam/Vitals Objective: Chest X-Ray 04/09/19 00:32 IMPRESSION: Left lower lobe recurrent infiltrate compatible with pneumonia. Recommend continued radiographic follow-up. at 0358 Reported and signed by: Jose Boyd MD Electronically Signed: Jose Boyd, at 3:57 EDT Tel , Service support , Temp Pulse Resp BP Pulse Ox 98.6 F 68 18 86/52 L 98 04/09/19 05:51 04/09/19 05:51 04/09/19 05:51 04/09/19 05:51 04/09/19 05:51 04/09/19 04/09/19 04/09/19 05:30 05:30 01:00 WBC RBC Hgb Hct MCV MCH MCHC RDW Std Deviation RDW Coeff of Colleen Plt Count MPV Immature Gran % (Auto) Neut % (Auto) Lymph % (Auto) [place] % (Auto) Eos % (Auto) Baso % (Auto) Absolute Neuts (auto) Absolute Lymphs (auto) Nucleated RBC % Differential Comment Toxic Granulation Toxic Vacuolation PT 25.0 H INR 2.3 Sodium Pending Potassium Pending Chloride Pending Carbon Dioxide Pending Anion Gap Pending BUN Pending Creatinine Pending Estim Creat Clear Calc Est GFR (MDRD) Af Amer Pending Est GFR (MDRD) Non-Af Pending BUN/Creatinine Ratio Pending Glucose Pending Calcium Pending Troponin I Urine Color SEE COMMENT BELOW Urine Clarity Cloudy Urine pH 5.0 Ur Specific [place] 1.030 Urine Protein 30 H Urine Glucose (UA) Normal Urine Ketones 5 H Urine Occult Blood 10 H Urine Nitrite Positive H Urine Bilirubin 3 H Urine Urobilinogen 4 H Ur Leukocyte Esterase 25 H Urine RBC 0 SEEN Urine WBC 0-5 SEEN Ur Squamous Epith Cells 0-5 SEEN Ur Transition Epith Cell 0-5 SEEN Urine Bacteria 2+ Hyaline Casts 0-5 SEEN Coarse Granular Casts 0-5 SEEN Urine Mucus 1+ 04/09/19 04/09/19 00:25 00:25 WBC 18.6 H RBC 5.10 Hgb 15.9 Hct 47.4 MCV 92.9 MCH 31.2 MCHC 33.5 RDW Std Deviation 47.5 H RDW Coeff of Colleen 13.8 Plt Count 159 MPV 10.1 Immature Gran % (Auto) 1.100 H Neut % (Auto) 87.7 H Lymph % (Auto) 3.0 L [place] % (Auto) 7.1 Eos % (Auto) 0.9 Baso % (Auto) 0.2 Absolute Neuts (auto) 16.3 H Absolute Lymphs (auto) 0.55 L Nucleated RBC % 0 Differential Comment SCANNED Toxic Granulation 1+ Toxic Vacuolation 1+ PT INR Sodium 137 Potassium 3.8 Chloride 106 Carbon Dioxide 23.0 Anion Gap 8 BUN 26 H Creatinine 1.30 Estim Creat Clear Calc 63.84 Est GFR (MDRD) Af Amer 72 Est GFR (MDRD) Non-Af 59 L BUN/Creatinine Ratio 20.0 Glucose 113 H Calcium 8.6 Troponin I < 0.015 Urine Color Urine Clarity Urine pH Ur Specific [place] Urine Protein Urine Glucose (UA) Urine Ketones Urine Occult Blood Urine Nitrite Urine Bilirubin Urine Urobilinogen Ur Leukocyte Esterase Urine RBC Urine WBC Ur Squamous Epith Cells Ur Transition Epith Cell Urine Bacteria Hyaline Casts Coarse Granular Casts Urine Mucus General: Alert, Oriented x3, Cooperative Lungs: Rales Cardiovascular: Regular rate, Regular Rhythm, No murmurs Capillary Refill: <3 seconds Peripheral Pulses: Normal Skin Color: [place] - Assessment/Plan Severe sepsis secondary to community-acquired pneumonia; and complicated cystitis Blood culture x2 ordered; lactic acid ordered Started on broad-spectrum antibiotics of ceftriaxone and azithromycin 30ml/kg normal saline bolus using ideal weight.
[2019-04-09 06:25] LABS: Anion Gap 8 (5-15); BUN 26 mg/dL (7-18); BUN/Creat Ratio 19.1 RATIO (10-20); Calcium,Total 8.3 mg/dL (8.5-10.1); Chloride 105 mmol/L (98-107); Creatinine, Serum 1.36 mg/dL (0.70-1.30); EST Glomerular Filtration Rate 56 mL/min (>60); Est Glom Filt Rate - Afr Amer 68 mL/min (>60); Estimated Creatinine Clearance 61.02 ml/min; Glucose 107 mg/dL (74-106); Potassium 4.1 mmol/L (3.5-5.1); Sodium Level 141 mmol/L (136-145)
[2019-04-09 06:33] LABS: Lactic Acid 1.4 mmol/L (0.4-2.0)
--- NOTE | 2019-04-09 11:10 | CASEMGMT ---
Addendum entered by Gillian Madrigal 04/09/19 11:23: SW let pt and know that the doctor's office does indeed have the documents scanned in to their system but we cannot access them here, so they are faxing the forms over. Both state understanding. LW/POA forms received via fax from physician's office, SW placed them in the paper chart. KAYODE Dumont Original Note: SW spoke w/pt and in regard to LW/POA forms. Pt states that they are on file at Dr. Ashley's office, agreeable to have SW call for copies. SW called Dr. Ashley's office, spoke w/RN, she is going to fax over LW/POA forms. SW will let pt and know. KAYODE Dumont
--- NOTE | 2019-04-09 11:35 | CASEMGMT ---
CARY SIMS assessment: Face to Face with patient for initial transition planning/care coordination assessment. CARY SIMS introduced self and role at [facility], pt voices understanding and consents to assessment at this time. Pt is sitting up in chair in no distress at this time. Pt is A/Ox4 at this time and answers all questions appropriately at this time. Pt's is at bedside during assessment. Care providers, pharmacy, and demographics verified at this time. Pt presented to ED 04/09/19 for c/o feeling weak/confused/SOB and was dx'd w/ CAP, sepsis. PCP: Ludwin Ashley Specialists: Zak, cardio; Gavin Guido ortho at [facility] [place] Preferred Pharmacy: [facility] Insurance: [employer] Prescription Benefit: MMOMCR Living Will/HPOA: Pt states has LW/HPOA and C.Aller SW states she will obtain from Dr. Ashley's office. Pt states his , Belinda Diaz, is HPOA. LNOK: Belinda Diaz, /HPOA Living Arrangements: Pt states lives with in 1 story condo with 1 step in and states no concerns at home at this time. Pt states is independent with ADL's. Transportation: Pt states drives and states no transportation concerns at this time. DME/HHC: Pt states has the following DME: walk-in shower w/ seat/grab bars, cane, crutches, walker, rollator, grab bars, and bipap thru [employer]. Pt states has had HHC in the past but has never been to SNF. Pt states no concerns with going home at time of discharge. Pt states is disabled d/t previous CVA and loss of vision. Pt states does not smoke or drink ETOH. Pt states no further concerns/needs at this time. CM to follow for any further discharge planning/needs. Advised pt to ask for CM if any further questions/concerns/needs arise, voices understanding. Pt Goal: Home Plan: Home [place] CARY SIMS
--- NOTE | 2019-04-09 12:43 | PCM.PROGNOTE ---
<Kelly Beltrán - Last Filed: 04/09/19 13:00> Patient Problems: Active and Suspected Problems (Last Reviewed 04/09/19 @ 08:05 by Se Campuzano MD) Severe sepsis (Acute) UTI (urinary tract infection) (Acute) Community acquired pneumonia (Acute) Subjective: Patient seen and examined. Feels well, requesting to go home. Denies fever, chills. Denies shortness of breath, cough. Denies urinary symptoms. - Physical Exam General: Alert, Oriented x3, Cooperative HEENT: Atraumatic, PERRLA, EOMI, Normocephalic Neck: Supple, No JVD, Negative Carotid Bruits Lungs: Clear to auscultation, Diminished Cardiovascular: Regular rate, Regular Rhythm, Normal S1, Normal S2, Murmur Abdomen: Bowel Sounds Present, Soft, Non Tender, Non-Distended, Obese Extremities: No clubbing, No cyanosis, No edema, Capillary Refill Less than 3 Seconds Skin: No rashes, No breakdown, - - Chronic skin changes bilateral lower extremities Musculoskeletal: No Tenderness to Palpation of Joints or Extremities Neurological: Cranial nerves II-XII grossly intact, Neuro grossly intact Psych/Mental Status: Normal Affect, Appropriate Vital Signs Temp Pulse Resp BP Pulse Ox 98.6 F 60 16 101/60 96 04/09/19 09:39 04/09/19 11:00 04/09/19 09:39 04/09/19 09:39 04/09/19 09:39 Oxygen Delivery Method Room Air Weight: 302 lb 4.06 oz Body Mass Index (BMI) 41.0 Finger Stick Blood Glucose 115 Intake and Output for Last 24 Hours 04/07/19 04/08/19 04/09/19 23:59 23:59 23:59 Intake Total 3948.33 / 3948.33 Output Total 300 / 300 Balance 3648.33 / 3648.33 Microbiology Past 72 Hours 04/09/19 07:00 Legionella Antigen - Final Urine, Clean Catch 04/09/19 07:00 Streptococcus pneumoniae Antigen (M - Final Urine, Clean Catch Laboratory Tests Past 24 Hrs 04/09/19 04/09/19 04/09/19 00:25 00:25 01:00 WBC 18.6 H RBC 5.10 Hgb 15.9 Hct 47.4 MCV 92.9 MCH 31.2 MCHC 33.5 RDW Std Deviation 47.5 H RDW Coeff of Colleen 13.8 Plt Count 159 MPV 10.1 Immature Gran % (Auto) 1.100 H Neut % (Auto) 87.7 H Lymph % (Auto) 3.0 L [place] % (Auto) 7.1 Eos % (Auto) 0.9 Baso % (Auto) 0.2 Absolute Neuts (auto) 16.3 H Absolute Lymphs (auto) 0.55 L Nucleated RBC % 0 Differential Comment SCANNED Toxic Granulation 1+ Toxic Vacuolation 1+ PT INR Sodium 137 Potassium 3.8 Chloride 106 Carbon Dioxide 23.0 Anion Gap 8 BUN 26 H Creatinine 1.30 Estim Creat Clear Calc 63.84 Est GFR (MDRD) Af Amer 72 Est GFR (MDRD) Non-Af 59 L BUN/Creatinine Ratio 20.0 Glucose 113 H Lactic Acid Calcium 8.6 Troponin I < 0.015 Urine Color SEE COMMENT BELOW Urine Clarity Cloudy Urine pH 5.0 Ur Specific [place] 1.030 Urine Protein 30 H Urine Glucose (UA) Normal Urine Ketones 5 H Urine Occult Blood 10 H Urine Nitrite Positive H Urine Bilirubin 3 H Urine Urobilinogen 4 H Ur Leukocyte Esterase 25 H Urine RBC 0 SEEN Urine WBC 0-5 SEEN Ur Squamous Epith Cells 0-5 SEEN Ur Transition Epith Cell 0-5 SEEN Urine Bacteria 2+ Hyaline Casts 0-5 SEEN Coarse Granular Casts 0-5 SEEN Urine Mucus 1+ 04/09/19 04/09/19 04/09/19 05:30 05:30 05:55 WBC RBC Hgb Hct MCV MCH MCHC RDW Std Deviation RDW Coeff of Colleen Plt Count MPV Immature Gran % (Auto) Neut % (Auto) Lymph % (Auto) [place] % (Auto) Eos % (Auto) Baso % (Auto) Absolute Neuts (auto) Absolute Lymphs (auto) Nucleated RBC % Differential Comment Toxic Granulation Toxic Vacuolation PT 25.0 H INR 2.3 Sodium 141 Potassium 4.1 Chloride 105 Carbon Dioxide 28.0 Anion Gap 8 BUN 26 H Creatinine 1.36 H Estim Creat Clear Calc 61.02 Est GFR (MDRD) Af Amer 68 Est GFR (MDRD) Non-Af 56 L BUN/Creatinine Ratio 19.1 Glucose 107 H Lactic Acid 1.4 Calcium 8.3 L Troponin I Urine Color Urine Clarity Urine pH Ur Specific [place] Urine Protein Urine Glucose (UA) Urine Ketones Urine Occult Blood Urine Nitrite Urine Bilirubin Urine Urobilinogen Ur Leukocyte Esterase Urine RBC Urine WBC Ur Squamous Epith Cells Ur Transition Epith Cell Urine Bacteria Hyaline Casts Coarse Granular Casts Urine Mucus Medical Necessity - Tobacco Use Smoking Status: Never smoker Tobacco Use: Non-smoker Assessment/Plan All Active Problems (Last Reviewed 04/09/19 @ 08:05 by Se Campuzano MD) Severe sepsis (Acute) UTI (urinary tract infection) (Acute) Community acquired pneumonia (Acute) 1. Severe sepsis secondary to acute UTI and presumed pneumococcal left lower lobe pneumonia-UA with 2+ bacteria, positive nitrite. Chest x-ray with left lower lobe recurrent infiltrate. Denies shortness of breath, cough. Oxygen stable on room air. IV azithromycin and IV Rocephin. Urine and blood cultures pending. Urine for strep and Legionella negative. 2. Acute kidney injury-IV fluids, trend BMP. 3. Persistent atrial fibrillation/AV node dysfunction, status post pacemaker placement-follows with Dr. Crespo. Continue Coumadin regimen. 4. NOAH-continue CPAP regimen. 5. History of CVA-not on aspirin, statin? 6. Osteoarthritis-on Voltaren, currently on hold. DVT prophylaxis-Coumadin Discharge planning: Anticipate discharge tomorrow if patient remains stable. This patient was seen by BERNICE Ta under the supervision of Dr. Menezes. <Ludwin Menezes - Last Filed: 04/09/19 13:57> Subjective: Feels good. Ready to go home. - Physical Exam General: Alert, Cooperative HEENT: Atraumatic, Normocephalic Neck: No Nodes, Thyroid Normal Size and Texture Lungs: Diminished, - - RLL crackles Cardiovascular: Regular rate, Regular Rhythm, Normal S1, Normal S2 Abdomen: Bowel Sounds Present, Soft, Non Tender, Non-Distended Extremities: No edema, No Calf Tenderness Skin: No rashes, No breakdown, - Psych/Mental Status: Normal Affect, Appropriate Vital Signs Temp Pulse Resp BP Pulse Ox 37.0 C 60 16 101/60 96 04/09/19 09:39 04/09/19 11:00 04/09/19 09:39 04/09/19 09:39 04/09/19 09:39 Oxygen Delivery Method Room Air Weight: 137.1 kg Body Mass Index (BMI) 41.0 Finger Stick Blood Glucose 115 Intake and Output for Last 24 Hours 04/07/19 04/08/19 04/09/19 23:59 23:59 23:59 Intake Total 3948.33 / 3948.33 Output Total 300 / 300 Balance 3648.33 / 3648.33 Microbiology Past 72 Hours 04/09/19 07:00 Legionella Antigen - Final Urine, Clean Catch 04/09/19 07:00 Streptococcus pneumoniae Antigen (M - Final Urine, Clean Catch Laboratory Tests Past 24 Hrs 04/09/19 04/09/19 04/09/19 00:25 00:25 01:00 WBC 18.6 H RBC 5.10 Hgb 15.9 Hct 47.4 MCV 92.9 MCH 31.2 MCHC 33.5 RDW Std Deviation 47.5 H RDW Coeff of Colleen 13.8 Plt Count 159 MPV 10.1 Immature Gran % (Auto) 1.100 H Neut % (Auto) 87.7 H Lymph % (Auto) 3.0 L [place] % (Auto) 7.1 Eos % (Auto) 0.9 Baso % (Auto) 0.2 Absolute Neuts (auto) 16.3 H Absolute Lymphs (auto) 0.55 L Nucleated RBC % 0 Differential Comment SCANNED Toxic Granulation 1+ Toxic Vacuolation 1+ PT INR Sodium 137 Potassium 3.8 Chloride 106 Carbon Dioxide 23.0 Anion Gap 8 BUN 26 H Creatinine 1.30 Estim Creat Clear Calc 63.84 Est GFR (MDRD) Af Amer 72 Est GFR (MDRD) Non-Af 59 L BUN/Creatinine Ratio 20.0 Glucose 113 H Lactic Acid Calcium 8.6 Troponin I < 0.015 Urine Color SEE COMMENT BELOW Urine Clarity Cloudy Urine pH 5.0 Ur Specific [place] 1.030 Urine Protein 30 H Urine Glucose (UA) Normal Urine Ketones 5 H Urine Occult Blood 10 H Urine Nitrite Positive H Urine Bilirubin 3 H Urine Urobilinogen 4 H Ur Leukocyte Esterase 25 H Urine RBC 0 SEEN Urine WBC 0-5 SEEN Ur Squamous Epith Cells 0-5 SEEN Ur Transition Epith Cell 0-5 SEEN Urine Bacteria 2+ Hyaline Casts 0-5 SEEN Coarse Granular Casts 0-5 SEEN Urine Mucus 1+ 04/09/19 04/09/19 04/09/19 05:30 05:30 05:55 WBC RBC Hgb Hct MCV MCH MCHC RDW Std Deviation RDW Coeff of Colleen Plt Count MPV Immature Gran % (Auto) Neut % (Auto) Lymph % (Auto) [place] % (Auto) Eos % (Auto) Baso % (Auto) Absolute Neuts (auto) Absolute Lymphs (auto) Nucleated RBC % Differential Comment Toxic Granulation Toxic Vacuolation PT 25.0 H INR 2.3 Sodium 141 Potassium 4.1 Chloride 105 Carbon Dioxide 28.0 Anion Gap 8 BUN 26 H Creatinine 1.36 H Estim Creat Clear Calc 61.02 Est GFR (MDRD) Af Amer 68 Est GFR (MDRD) Non-Af 56 L BUN/Creatinine Ratio 19.1 Glucose 107 H Lactic Acid 1.4 Calcium 8.3 L Troponin I Urine Color Urine Clarity Urine pH Ur Specific [place] Urine Protein Urine Glucose (UA) Urine Ketones Urine Occult Blood Urine Nitrite Urine Bilirubin Urine Urobilinogen Ur Leukocyte Esterase Urine RBC Urine WBC Ur Squamous Epith Cells Ur Transition Epith Cell Urine Bacteria Hyaline Casts Coarse Granular Casts Urine Mucus Assessment/Plan Patient seen and examined independently. Data reviewed. I agree with the above note by the nurse practitioner. 1. Severe sepsis s/p pneumonia, doubt UTI improved with IVF 2. suspected pneumococcal pneumonia on azithromycin and ctx pulm toilet 3. MINGO secondary to dehydration IVF reevaluate 4. hypotension 2/2 dehydration and sepsis resolved Plan to monitor overnight, and if improved, then DC 04/10 Code Visit Inpatient E&M: 51237 Subs Hosp L2
[2019-04-09] MEDS: 0.9% NaCl IVPB Med Flush (250 mL) 15 ML IV (22:18)
[2019-04-09] MEDS: Famotidine 20 MG Tablet PO (22:20)
[2019-04-10] VITALS (8 sets, daily range): BP systolic 116–128; BP diastolic 75–76; PULSE 60–84; RESP 16; TEMP 36.8; O2SAT 94–97
[2019-04-10] MEDS: Gabapentin 100 MG Capsule PO (05:28)
[2019-04-10 06:02] LABS: Absolute Neutrophil Count 7.7 X10^3/uL (2.0-7.7); Basophil# 0.03 X10^3/uL; Basophil% 0.3 % (0-1); Eosinophil# 0.03 X10^3/uL; Eosinophils% 0.3 % (0-5); Lymphocyte % 9.4 % (19-41); Mean Corp Hgb Conc 32.6 g/dL (32-36); Mean Corpuscular Hgb 30.2 pg (27.0-32.0); Mean Corpuscular Volume 92.7 fL (80-94); Mean Platelet Vol. 10.9 fl (6.2-12.0); Monocyte# 0.95 X10^3/uL; Monocyte% 9.9 % (0-10); NRBC Flagged by Analyzer 0 % (0-5); Neutrophil # 7.66 X10^3/uL (2.7-7.7); Neutrophil % 79.7 % (47-70); Platelet Count 151 K/mm3 (150-450); RBC Distribution Width CV 14.3 % (11.6-14.6); RBC Distribution Width SD 48.8 fl (35.1-43.9); Red Blood Count 4.96 M/mm3 (4.6-6.2); White Blood Count 9.6 K/mm3 (4.4-11.0)
[2019-04-10 06:11] LABS: International Normalized Ratio 2.2; Prothrombin Time (Protime)PT. 24.5 SECONDS (11.7-14.9)
[2019-04-10 06:16] LABS: Anion Gap 8 (5-15); BUN 19 mg/dL (7-18); BUN/Creat Ratio 20.4 RATIO (10-20); Calcium,Total 8.6 mg/dL (8.5-10.1); Chloride 114 mmol/L (98-107); Creatinine, Serum 0.93 mg/dL (0.70-1.30); EST Glomerular Filtration Rate 87 mL/min (>60); Est Glom Filt Rate - Afr Amer 105 mL/min (>60); Estimated Creatinine Clearance 89.24 ml/min; Glucose 96 mg/dL (74-106); Sodium Level 144 mmol/L (136-145)
--- NOTE | 2019-04-10 11:33 | DCINST_ITS ---
- Discharge Diagnoses Current Active Problems: Current Active and Chronic Problems (Last Reviewed 04/09/19 @ 08:05 by Se Campuzano MD) Severe sepsis (Acute) UTI (urinary tract infection) (Acute) Community acquired pneumonia (Acute) You will use the following diet at home:: No restrictions Your food should be the consistency of: Regular Your liquids should be the consistency of: Regular/Thin Discharge Activity: Return to Normal Activity Additional Instructions: Please have your INR checked in 2 days Allergies/Adverse Reactions: Allergies adhesive tape Allergy (Verified 04/09/19 00:23) Unknown benzoin Allergy (Verified 04/09/19 00:23) Hives latex Allergy (Verified 04/09/19 00:23) Unknown Penicillins Allergy (Verified 04/09/19 00:23) Hives diltiazem Adverse Reaction (Intermediate, Verified 04/09/19 00:23) Leg swelling Medications to take at Discharge Cholecalciferol (Vitamin D3) [Vitamin D3] 4,000 unit PO DAILY 10/17/13 Gabapentin [Neurontin] 300 mg PO TID 10/17/13 Multivitamins,Therapeutic [Multivitamin] 1 tab PO DAILY 08/27/15 famotidine 20 mg tablet 20 mg PO QHS 06/28/17 Diclofenac [Voltaren] 75 mg PO BIDCM 05/24/18 Warfarin Sodium [Coumadin] 5 mg PO SUMOTUSA 04/09/19 Warfarin [Coumadin] 7.5 mg PO WETHFR 04/09/19 Azithromycin [Zithromax] 500 mg PO DAILY #2 tab 04/10/19 Cefdinir [Omnicef [equiv]] 300 mg PO Q12H #8 cap 04/10/19 The following prescriptions were given: Cefdinir [Omnicef [equiv]] 300 mg PO Q12H #8 cap Transmission Status: Pending to [facility]AN[facility] [address] Azithromycin [Zithromax] 500 mg PO DAILY #2 tab Transmission Status: Pending to [facility] [id number] Primary Care Physician: Ludwin Ashley MD [Primary Care Provider] - Please follow up with your Primary Care Physician in: 1-2 weeks Test Results: Test results from this visit will be discussed in further detail at your follow- up appointment, if applicable. Proposed Discharge Date: 04/10/19
--- NOTE | 2019-04-10 15:00 | DS.PCM_ITS ---
<Christophe Gerardo - Last Filed: 04/10/19 15:00> Discharge Date and Diagnosis - Problem List Patient Problems: Active and Suspected Problems (Last Reviewed 04/09/19 @ 08:05 by Se Campuzano MD) Severe sepsis (Acute) Date of Admission: 04/09/19 Date of Discharge: 04/10/19 - Primary Discharge Diagnosis Active and Suspected Problems (Last Reviewed 04/09/19 @ 08:05 by Se Campuzano MD) Severe sepsis (Acute) 2/2 community acquired pna presumed streptococcal MINGO Chronic Afib pacemaker in place NOAH on CPAP Hx CVA Osteoarthritis - Secondary Discharge Diagnosis Chronic Problems (Last Reviewed 04/09/19 @ 08:05 by Se Campuzano MD) Cerebral artery occlusion (Chronic) Other specified cardiac device in situ (Chronic) Loop Recorder iimplanted 06/01/14 for cryptogenic stroke; Removal of Loop Recorder 08/16/15; PPM 08/30/15 First degree atrioventricular block by electrocardiography (Chronic) AV node dysfunction (Chronic) Persistent atrial fibrillation (Chronic) Presence of cardiac pacemaker (Chronic) senior living (current) use of anticoagulants (Chronic) Obesity (Chronic) NOAH on CPAP (Chronic) Conduction disorder of the heart (Chronic) Hospital Course and Treatment Imaging Results: RAD/Chest PA and Lateral IMPRESSION: Left lower lobe recurrent infiltrate compatible with pneumonia. Recommend continued radiographic follow-up. Operations: None Procedures: None Summary of Care Provided: Hospital course: The patient is a 63 year old M with past medical history as above who presented to the emergency room with complaints of malaise that began a day prior to presentation, with associated fever of 101 at home, chills, transient shortness of breath, cough productive of clear sputum, and confusion. He was found to have a left lower lobe pneumonia on chest x-ray and appeared to have severe se psis with leukocytosis, hypotension, and MINGO. He was given IV fluids and IV Rocephin and azithromycin. Later that day he had felt significantly better, his breathing had improved, he had no further fevers or chills, his MINGO resolved, and his leukocytosis resolved. He was ambulated and had no decreased oxygenation and no shortness of breath. He was transitioned to a 5-day course of Cefdinir in addition to a 3-day course of azithromycin for community-acquired pneumonia. Urine antigens were negative. Blood and urine cultures are pending at this time. As his symptoms were all vastly improved, he requested to go home, and his labs all demonstrated significant improvement, he was discharged home in stable condition. He will need to follow-up with his PCP in 1 to 2 weeks. This patient was seen by Christophe Gerardo PA-C under the supervision of Doctor Riri. [] Patient Problems: Active and Suspected Problems (Last Reviewed 04/09/19 @ 08:05 by Se Campuzano MD) Severe sepsis (Acute) - Physical Exam General: Alert, Oriented x3, Cooperative HEENT: Atraumatic, PERRLA, EOMI, Normocephalic Neck: Supple, No JVD, Negative Carotid Bruits Lungs: Normal air movement, Rales - BL bases Cardiovascular: No murmurs, Irregular Rate Abdomen: Bowel Sounds Present, Soft, Non Tender Extremities: No edema, Capillary Refill Less than 3 Seconds Skin: No rashes, No breakdown Musculoskeletal: No Tenderness to Palpation of Joints or Extremities Neurological: Cranial nerves II-XII grossly intact Psych/Mental Status: Normal Affect, Appropriate Vital Signs Temp Pulse Resp BP Pulse Ox 98.3 F 84 16 128/76 H 96 04/10/19 11:34 04/10/19 11:34 04/10/19 11:34 04/10/19 11:34 04/10/19 11:34 Oxygen Delivery Method Room Air Weight: 302 lb 4.06 oz Body Mass Index (BMI) 41.0 Finger Stick Blood Glucose 115 Intake and Output for Last 24 Hours 04/08/19 04/09/19 04/10/19 23:59 23:59 23:59 Intake Total 7625.00 / 7625.00 1340 / 1340 Output Total 2375 / 2375 1425 / 1425 Balance 5250.00 / 5250.00 -85 / -85 Microbiology Past 72 Hours 04/09/19 07:00 Legionella Antigen - Final Urine, Clean Catch 04/09/19 07:00 Streptococcus pneumoniae Antigen (M - Final Urine, Clean Catch Laboratory Tests Past 24 Hrs 04/10/19 04/10/19 04/10/19 05:25 05:25 05:25 WBC 9.6 RBC 4.96 Hgb 15.0 Hct 46.0 MCV 92.7 MCH 30.2 MCHC 32.6 RDW Std Deviation 48.8 H RDW Coeff of Colleen 14.3 Plt Count 151 MPV 10.9 Immature Gran % (Auto) 0.400 Neut % (Auto) 79.7 H Lymph % (Auto) 9.4 L [place] % (Auto) 9.9 Eos % (Auto) 0.3 Baso % (Auto) 0.3 Absolute Neuts (auto) 7.7 Absolute Lymphs (auto) 0.90 Nucleated RBC % 0 PT 24.5 H INR 2.2 Sodium 144 Potassium 4.0 Chloride 114 H Carbon Dioxide 22.0 Anion Gap 8 BUN 19 H Creatinine 0.93 Estim Creat Clear Calc 89.24 Est GFR (MDRD) Af Amer 105 Est GFR (MDRD) Non-Af 87 BUN/Creatinine Ratio 20.4 H Glucose 96 Calcium 8.6 Discharge Diet: Low fat/ Low Cholesterol, 2000 mg Sodium Diet Discharge Activity: Return to Normal Activity Home Medications: Medications to take at Discharge Cholecalciferol (Vitamin D3) [Vitamin D3] 4,000 unit PO DAILY 10/17/13 Gabapentin [Neurontin] 300 mg PO TID 10/17/13 Multivitamins,Therapeutic [Multivitamin] 1 tab PO DAILY 08/27/15 famotidine 20 mg tablet 20 mg PO QHS 06/28/17 Diclofenac [Voltaren] 75 mg PO BIDCM 05/24/18 Warfarin Sodium [Coumadin] 5 mg PO [place]OT[place] 04/09/19 Warfarin [Coumadin] 7.5 mg PO WETHFR 04/09/19 Azithromycin [Zithromax] 500 mg PO DAILY #2 tab 04/10/19 Cefdinir [Omnicef [equiv]] 300 mg PO Q12H #8 cap 04/10/19 Following Prescrptions Were Given to Patient: Cefdinir [Omnicef [equiv]] 300 mg PO Q12H #8 cap Transmission Status: Received by DANICA PARIKH RD Azithromycin [Zithromax] 500 mg PO DAILY #2 tab Transmission Status: Received by DANICA PARIKH RD Primary Care Physician: West Castellanos MD [Primary Care Provider] - Please follow up with your Primary Care Physician in: 1-2 weeks Please Follow Up With: west castellanos Disposition: Home Minutes spent on discharge:: 35 Patient Condition:: Stable Medical Necessity - Tobacco Use Smoking Status: Never smoker Tobacco Use: Non-smoker Meaningful Use Info Meaningful Use Diagnoses (Choose all that apply): None applicable <West Menezes - Last Filed: 04/10/19 15:19> Discharge Date and Diagnosis - Primary Discharge Diagnosis Active and Suspected Problems (Last Reviewed 04/09/19 @ 08:05 by Se Campuzano MD) Severe sepsis (Acute) - Secondary Discharge Diagnosis Chronic Problems (Last Reviewed 04/09/19 @ 08:05 by Se Campuzano MD) Cerebral artery occlusion (Chronic) Other specified cardiac device in situ (Chronic) Loop Recorder iimplanted 06/01/14 for cryptogenic stroke; Removal of Loop Recorder 08/16/15; PPM 08/30/15 First degree atrioventricular block by electrocardiography (Chronic) AV node dysfunction (Chronic) Persistent atrial fibrillation (Chronic) Presence of cardiac pacemaker (Chronic) 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 Data reviewed. I agree with the above note by the physician production assistant. The patient is a 63 year old M presents with general malaise. 1. Severe sepsis * resolved * secondary to pneumonia, doubt UTI * improved with IVF 2. suspected pneumococcal pneumonia * on azithromycin and ctx * discharge with azithromycin and duricef 3. MINGO * resolved with IV fluids * secondary to dehydration 4. hypotension * 2/2 dehydration and sepsis * resolved[] - Physical Exam General: Alert, Cooperative HEENT: Atraumatic, Normocephalic Neck: No Nodes, Thyroid Normal Size and Texture Lungs: Normal air movement, - - crackles RLL Cardiovascular: No murmurs, Irregular Rate Abdomen: Bowel Sounds Present, Soft, Non Tender, Non-Distended Extremities: No edema, No Calf Tenderness Skin: No rashes, No breakdown Psych/Mental Status: Normal Affect Vital Signs Temp Pulse Resp BP Pulse Ox 36.8 C 84 16 128/76 H 96 04/10/19 11:34 04/10/19 11:34 04/10/19 11:34 04/10/19 11:34 04/10/19 11:34 Oxygen Delivery Method Room Air Weight: 137.1 kg Body Mass Index (BMI) 41.0 Finger Stick Blood Glucose 115 Intake and Output for Last 24 Hours 04/08/19 04/09/19 04/10/19 23:59 23:59 23:59 Intake Total 7625.00 / 7625.00 1340 / 1340 Output Total 2375 / 2375 1425 / 1425 Balance 5250.00 / 5250.00 -85 / -85 Microbiology Past 72 Hours 04/09/19 07:00 Legionella Antigen - Final Urine, Clean Catch 04/09/19 07:00 Streptococcus pneumoniae Antigen (M - Final Urine, Clean Catch Laboratory Tests Past 24 Hrs 04/10/19 04/10/19 04/10/19 05:25 05:25 05:25 WBC 9.6 RBC 4.96 Hgb 15.0 Hct 46.0 MCV 92.7 MCH 30.2 MCHC 32.6 RDW Std Deviation 48.8 H RDW Coeff of Colleen 14.3 Plt Count 151 MPV 10.9 Immature Gran % (Auto) 0.400 Neut % (Auto) 79.7 H Lymph % (Auto) 9.4 L [place] % (Auto) 9.9 Eos % (Auto) 0.3 Baso % (Auto) 0.3 Absolute Neuts (auto) 7.7 Absolute Lymphs (auto) 0.90 Nucleated RBC % 0 PT 24.5 H INR 2.2 Sodium 144 Potassium 4.0 Chloride 114 H Carbon Dioxide 22.0 Anion Gap 8 BUN 19 H Creatinine 0.93 Estim Creat Clear Calc 89.24 Est GFR (MDRD) Af Amer 105 Est GFR (MDRD) Non-Af 87 BUN/Creatinine Ratio 20.4 H Glucose 96 Calcium 8.6 Discharge Diet: Low fat/ Low Cholesterol, 2000 mg Sodium Diet Discharge Activity: Return to Normal Activity Disposition: Home Minutes spent on discharge:: 35 Patient Condition:: Stable Medical Necessity - Tobacco Use Smoking Status: Never smoker Tobacco Use: Non-smoker Meaningful Use Info Meaningful Use Diagnoses (Choose all that apply): None applicable Code Visit Inpatient E&M: 67229 Disch Hosp
--- NOTE | 2019-04-11 14:49 | CASEMGMT ---
CARY SIMS Discharge Follow-Up Phone Call. Lace: 9 Strata: 3 Discharge Date: 04/10/19 Adm Dx: Sepsis Attempted discharge follow-up phone call. No answer. VM message left for pt to return call if he has any questions about the discharge instructions, medications, or follow-up appt. Phone number provided. Lubna MAY RN CM
== END 2019-04-10 13:13 | disposition home or self-care (01) | DRG 871 ==
LOC: ED 02:53 → PCU 04:34
PROVIDERS: Nurse Practitioner Family; Admitting Provider Hospitalist; Emergency Provider Emergency Medicine; Family Provider Family Medicine; PCP Family Medicine; Referring Provider Hospitalist
DX: A41.9 Sepsis, unspecified organism (principal); J15.4 Pneumonia due to other streptococci; N17.9 Acute kidney failure, unspecified; Z68.41 Body mass index [BMI] 40.0-44.9, adult; R65.20 Severe sepsis without septic shock; I69.398 Other sequelae of cerebral infarction; H54.7 Unspecified visual loss; Z95.0 Presence of cardiac pacemaker; G47.33 Obstructive sleep apnea (adult) (pediatric); I48.2 Chronic atrial fibrillation; M19.90 Unspecified osteoarthritis, unspecified site; Z79.01 Long term (current) use of anticoagulants; E66.9 Obesity, unspecified; E86.0 Dehydration
CPT/HCPCS: 36415; 71046; 80048; 81001; 83605; 84484; 85025; 85610; 87040; 87086; 87088; 87449; 93005; 99285; J7030; J7050; A4216

== ENCOUNTER 2019-04-15 08:34 | Outpatient (RCR) | payer MEDICARE, SELFPAY ==
[2019-02-05 13:31] VITALS: BMI 40.2
[2019-04-09 03:52] VITALS: BMI 41.0
[2019-04-15 10:13] LABS: International Normalized Ratio 2.3; Prothrombin Time (Protime)PT. 25.4 SECONDS (11.7-14.9)
== END 2019-04-15 18:00 | disposition home or self-care (01) ==
LOC: MTLAB 08:34
PROVIDERS: Family Provider Family Medicine; PCP Family Medicine; Referring Provider Internal Medicine Cardiovascular Disease; Visit Provider Internal Medicine Cardiovascular Disease
DX: I48.0 Paroxysmal atrial fibrillation (principal); Z79.01 Long term (current) use of anticoagulants
CPT/HCPCS: 36415; 85610

== ENCOUNTER → 2019-04-17 14:15 | Outpatient (CLI) | payer MEDICARE, SELFPAY ==
[2019-04-09 03:52] VITALS: BMI 41.0
[2019-04-17 15:40] LABS: Absolute Neutrophil Count 3.2 X10^3/uL (2.0-7.7); Basophil# 0.06 X10^3/uL; Eosinophils% 1.7 % (0-5); Hematocrit 49.2 % (40-54); Hemoglobin 15.9 g/dL (13.0-16.5); Lymphocyte % 31.5 % (19-41); Mean Corp Hgb Conc 32.3 g/dL (32-36); Mean Corpuscular Hgb 30.6 pg (27.0-32.0); Mean Corpuscular Volume 94.6 fL (80-94); Mean Platelet Vol. 10.1 fl (6.2-12.0); Monocyte# 0.69 X10^3/uL; Monocyte% 11.4 % (0-10); NRBC Flagged by Analyzer 0 % (0-5); Neutrophil # 3.18 X10^3/uL (2.7-7.7); Neutrophil % 52.6 % (47-70); Platelet Count 302 K/mm3 (150-450); RBC Distribution Width CV 13.6 % (11.6-14.6); RBC Distribution Width SD 47.6 fl (35.1-43.9)
[2019-04-17 16:32] LABS: Ferritin 158 ng/mL (26-388); T4 Free Direct 1.01 ng/dL (0.76-1.46); Thyroid Stim Hormone (TSH) 0.89 uIU/mL (0.358-3.74)
[2019-04-21 12:07] LABS: Anti-Centromere B Ab <0.2 AI (0.0-0.9); Anti-Chromatin 0.2 AI (0.0-0.9); Anti-Jo <0.2 AI (0.0-0.9); Anti-Scleroderma-70 AB <0.2 AI (0.0-0.9); RNP Ab <0.2 AI (0.0-0.9); SJOGREN'S Anti-SS-A test < 0.2 AI (0.0-0.9); SJOGREN'S Anti-SS-B test < 0.2 AI (0.0-0.9); Smith Ab <0.2 AI (0.0-0.9)
[2019-04-21 12:34] LABS: Anti-dsDNA Ab 2 IU/mL (0-9)
== END ==
PROVIDERS: Family Provider Family Medicine; PCP Family Medicine; Referring Provider Family Medicine; Visit Provider Family Medicine
DX: I73.00 Raynaud's syndrome without gangrene (principal)
CPT/HCPCS: 36415; 82728; 84439; 84443; 85025; 86225; 86235

== ENCOUNTER → 2019-05-08 10:01 | Outpatient (CLI) | payer MEDICARE, SELFPAY ==
[2019-04-09 03:52] VITALS: BMI 41.0
--- NOTE | 2019-05-08 10:04 | RAD_ITS ---
STUDY: X-RAY CHEST REASON FOR EXAM: Male, 63 years old. Cough TECHNIQUE: PA and lateral views of the chest. COMPARISON: 04/09/2019 FINDINGS: Stable appearance of a left subclavian pacemaker The lungs are clear and expanded. There is no demonstrated pleural abnormality. Normal size heart. Normal mediastinum and karyn. Normal visualized pulmonary arteries. Normal visualized aortic arch and descending thoracic aorta. Normal visualized thoracic spine. Normal visualized ribs, clavicles, and shoulders. There is no demonstrated abnormality of the visualized soft tissue structures of the upper abdomen. RAD/Chest PA and Lateral IMPRESSION: Normal x-ray examination of the chest. Electronically Signed: Fuentes Bruner MD at 8:25 EDT , Service support ,
== END ==
PROVIDERS: Family Provider Family Medicine; PCP Family Medicine; Referring Provider Family Medicine; Visit Provider Family Medicine
DX: R05 Cough (principal)
CPT/HCPCS: 71046

== ENCOUNTER 2019-05-19 10:20 | Outpatient (RCR) | payer MEDICARE, SELFPAY ==
[2019-04-09 03:52] VITALS: BMI 41.0
[2019-05-19 12:28] LABS: International Normalized Ratio 2.8; Prothrombin Time (Protime)PT. 29.3 SECONDS (11.7-14.9)
== END 2019-05-19 18:00 | disposition home or self-care (01) ==
LOC: MTLAB 10:20
PROVIDERS: Family Provider Family Medicine; PCP Family Medicine; Referring Provider Internal Medicine Cardiovascular Disease; Visit Provider Internal Medicine Cardiovascular Disease
DX: I48.19 Other persistent atrial fibrillation (principal); Z79.01 Long term (current) use of anticoagulants
CPT/HCPCS: 36415; 85610

== ENCOUNTER 2019-06-12 14:19 | Outpatient (RCR) | payer MEDICARE, SELFPAY ==
[2019-04-09 03:52] VITALS: BMI 41.0
[2019-06-12 15:53] LABS: International Normalized Ratio 2.7; Prothrombin Time (Protime)PT. 28.5 SECONDS (11.7-14.9)
== END 2019-06-12 18:00 | disposition home or self-care (01) ==
LOC: MTLAB 14:19
PROVIDERS: Family Provider Family Medicine; PCP Family Medicine; Referring Provider Internal Medicine Cardiovascular Disease; Visit Provider Internal Medicine Cardiovascular Disease
DX: I48.11 Longstanding persistent atrial fibrillation (principal); Z79.01 Long term (current) use of anticoagulants
CPT/HCPCS: 36415; 85610

== ENCOUNTER 2019-07-18 13:30 | Outpatient (RCR) | payer MEDICARE, SELFPAY ==
[2019-04-09 03:52] VITALS: BMI 41.0
[2019-07-18 14:25] LABS: Prothrombin Time (Protime)PT. 31.1 SECONDS (11.7-14.9)
== END 2019-07-20 18:00 | disposition home or self-care (01) ==
LOC: MTLAB 13:30
PROVIDERS: Family Provider Family Medicine; PCP Family Medicine; Referring Provider Internal Medicine Cardiovascular Disease; Visit Provider Internal Medicine Cardiovascular Disease
DX: I48.11 Longstanding persistent atrial fibrillation (principal); Z79.01 Long term (current) use of anticoagulants
CPT/HCPCS: 36415; 85610

== ENCOUNTER 2019-08-14 10:13 | Outpatient (RCR) | payer MEDICARE, SELFPAY ==
[2019-04-09 03:52] VITALS: BMI 41.0
[2019-08-14 12:33] LABS: International Normalized Ratio 2.8; Prothrombin Time (Protime)PT. 29.6 SECONDS (11.7-14.9)
== END 2019-08-14 18:00 | disposition home or self-care (01) ==
LOC: MTLAB 10:13
PROVIDERS: Family Provider Family Medicine; PCP Family Medicine; Referring Provider Internal Medicine Cardiovascular Disease; Visit Provider Internal Medicine Cardiovascular Disease
DX: I48.11 Longstanding persistent atrial fibrillation (principal); Z79.01 Long term (current) use of anticoagulants
CPT/HCPCS: 36415; 85610

== ENCOUNTER 2019-09-17 08:36 | Outpatient (RCR) | payer MEDICARE, SELFPAY ==
[2019-04-09 03:52] VITALS: BMI 41.0
[2019-09-17 10:18] LABS: International Normalized Ratio 2.4; Prothrombin Time (Protime)PT. 26.5 SECONDS (11.7-14.9)
== END 2019-09-17 18:00 | disposition home or self-care (01) ==
LOC: MTLAB 08:36
PROVIDERS: Family Provider Family Medicine; PCP Family Medicine; Referring Provider Internal Medicine Cardiovascular Disease; Visit Provider Internal Medicine Cardiovascular Disease
DX: I48.11 Longstanding persistent atrial fibrillation (principal); Z79.01 Long term (current) use of anticoagulants
CPT/HCPCS: 36415; 85610

== ENCOUNTER 2019-10-15 14:21 | Outpatient (RCR) | payer MEDICARE, SELFPAY ==
[2019-04-09 03:52] VITALS: BMI 41.0
[2019-10-15 15:52] LABS: International Normalized Ratio 2.6; Prothrombin Time (Protime)PT. 27.7 SECONDS (11.7-14.9)
== END 2019-10-15 18:00 | disposition home or self-care (01) ==
LOC: MTLAB 14:21
PROVIDERS: Family Provider Family Medicine; PCP Family Medicine; Referring Provider Internal Medicine Cardiovascular Disease; Visit Provider Internal Medicine Cardiovascular Disease
DX: I48.11 Longstanding persistent atrial fibrillation (principal); Z79.01 Long term (current) use of anticoagulants
CPT/HCPCS: 36415; 85610

== ENCOUNTER 2019-11-17 12:59 | Outpatient (RCR) | payer MEDICARE, SELFPAY ==
[2019-04-09 03:52] VITALS: BMI 41.0
[2019-11-17 15:11] LABS: International Normalized Ratio 3.1; Prothrombin Time (Protime)PT. 31.8 SECONDS (11.7-14.9)
== END 2019-11-20 18:00 | disposition home or self-care (01) ==
LOC: MTLAB 12:59
PROVIDERS: Family Provider Family Medicine; PCP Family Medicine; Referring Provider Internal Medicine Cardiovascular Disease; Visit Provider Internal Medicine Cardiovascular Disease
DX: I48.19 Other persistent atrial fibrillation (principal); Z79.01 Long term (current) use of anticoagulants
CPT/HCPCS: 36415; 85610

== ENCOUNTER 2019-12-02 10:48 | Outpatient (RCR) | payer MEDICARE, SELFPAY ==
[2019-04-09 03:52] VITALS: BMI 41.0
[2019-12-02 12:07] LABS: International Normalized Ratio 2.9; Prothrombin Time (Protime)PT. 29.8 SECONDS (11.7-14.9)
== END 2019-12-02 18:00 | disposition home or self-care (01) ==
LOC: MTLAB 10:48
PROVIDERS: Family Provider Family Medicine; PCP Family Medicine; Referring Provider Internal Medicine Cardiovascular Disease; Visit Provider Internal Medicine Cardiovascular Disease
DX: I48.19 Other persistent atrial fibrillation (principal); Z79.01 Long term (current) use of anticoagulants
CPT/HCPCS: 36415; 85610

== ENCOUNTER 2020-01-08 11:09 | Outpatient (RCR) | payer MEDICARE, SELFPAY ==
[2019-04-09 03:52] VITALS: BMI 41.0
[2020-01-08 15:34] LABS: International Normalized Ratio 2.5; Prothrombin Time (Protime)PT. 26.3 SECONDS (11.7-14.9)
== END 2020-01-08 18:00 | disposition home or self-care (01) ==
LOC: MTLAB 11:09
PROVIDERS: Family Provider Family Medicine; PCP Family Medicine; Referring Provider Internal Medicine Cardiovascular Disease; Visit Provider Internal Medicine Cardiovascular Disease
DX: I48.19 Other persistent atrial fibrillation (principal); Z79.01 Long term (current) use of anticoagulants
CPT/HCPCS: 36415; 85610

== ENCOUNTER 2020-02-03 12:25 | Outpatient (RCR) | payer MEDICARE, SELFPAY ==
[2019-04-09 03:52] VITALS: BMI 41.0
[2020-02-03 15:19] LABS: International Normalized Ratio 2.5; Prothrombin Time (Protime)PT. 26.8 SECONDS (11.7-14.9)
== END 2020-02-03 18:00 | disposition home or self-care (01) ==
LOC: MTLAB 12:25
PROVIDERS: Family Provider Family Medicine; PCP Family Medicine; Referring Provider Internal Medicine Cardiovascular Disease; Visit Provider Internal Medicine Cardiovascular Disease
DX: I48.19 Other persistent atrial fibrillation (principal); Z79.01 Long term (current) use of anticoagulants
CPT/HCPCS: 36415; 85610

== ENCOUNTER 2020-03-08 09:33 | Outpatient (RCR) | payer MEDICARE, SELFPAY ==
[2020-02-04 13:22] VITALS: BMI 40.0
[2020-03-08 12:45] LABS: International Normalized Ratio 2.5; Prothrombin Time (Protime)PT. 26.3 SECONDS (11.7-14.9)
== END 2020-03-22 18:00 | disposition home or self-care (01) ==
LOC: MTLAB 09:33
PROVIDERS: Family Provider Family Medicine; PCP Family Medicine; Referring Provider Internal Medicine Cardiovascular Disease; Visit Provider Internal Medicine Cardiovascular Disease
DX: I48.19 Other persistent atrial fibrillation (principal); Z79.01 Long term (current) use of anticoagulants
CPT/HCPCS: 36415; 85610

== ENCOUNTER 2020-04-15 11:24 | Outpatient (RCR) | payer MEDICARE, SELFPAY ==
[2020-02-04 13:22] VITALS: BMI 40.0
[2020-04-15 15:39] LABS: International Normalized Ratio 2.9; Prothrombin Time (Protime)PT. 29.9 SECONDS (11.7-14.9)
== END 2020-04-15 18:00 | disposition home or self-care (01) ==
LOC: MTLAB 11:24
PROVIDERS: Family Provider Family Medicine; PCP Family Medicine; Referring Provider Internal Medicine Cardiovascular Disease; Visit Provider Internal Medicine Cardiovascular Disease
DX: I48.19 Other persistent atrial fibrillation (principal); Z79.01 Long term (current) use of anticoagulants
CPT/HCPCS: 36415; 85610

== ENCOUNTER 2020-05-17 08:22 | Outpatient (RCR) | payer MEDICARE, SELFPAY ==
[2020-02-04 13:22] VITALS: BMI 40.0
[2020-05-17 10:55] LABS: International Normalized Ratio 2.7; Prothrombin Time (Protime)PT. 28.4 SECONDS (11.7-14.9)
== END 2020-05-17 18:00 | disposition home or self-care (01) ==
LOC: MTLAB 08:22
PROVIDERS: Family Provider Family Medicine; PCP Family Medicine; Referring Provider Internal Medicine Cardiovascular Disease; Visit Provider Internal Medicine Cardiovascular Disease
DX: I48.19 Other persistent atrial fibrillation (principal); Z79.01 Long term (current) use of anticoagulants
CPT/HCPCS: 36415; 85610

== ENCOUNTER 2020-06-18 10:06 | Outpatient (RCR) | payer MEDICARE, SELFPAY ==
[2020-02-04 13:22] VITALS: BMI 40.0
[2020-06-18 12:26] LABS: International Normalized Ratio 2.9
== END 2020-06-18 18:00 | disposition home or self-care (01) ==
LOC: MTLAB 10:06
PROVIDERS: Family Provider Family Medicine; PCP Family Medicine; Referring Provider Internal Medicine Cardiovascular Disease; Visit Provider Internal Medicine Cardiovascular Disease
DX: I48.19 Other persistent atrial fibrillation (principal); Z79.01 Long term (current) use of anticoagulants
CPT/HCPCS: 36415; 85610

== ENCOUNTER 2020-07-12 07:43 | Outpatient (RCR) | payer MEDICARE, SELFPAY ==
[2020-02-04 13:22] VITALS: BMI 40.0
[2020-07-12 10:17] LABS: International Normalized Ratio 2.2; Prothrombin Time (Protime)PT. 23.5 SECONDS (11.7-14.9)
== END 2020-07-12 18:00 | disposition home or self-care (01) ==
LOC: MTLAB 07:43
PROVIDERS: Family Provider Family Medicine; PCP Family Medicine; Referring Provider Internal Medicine Cardiovascular Disease; Visit Provider Internal Medicine Cardiovascular Disease
DX: I48.19 Other persistent atrial fibrillation (principal); Z79.01 Long term (current) use of anticoagulants
CPT/HCPCS: 36415; 85610

== ENCOUNTER 2020-08-13 12:05 | Outpatient (RCR) | payer MEDICARE, SELFPAY ==
[2020-02-04 13:22] VITALS: BMI 40.0
--- NOTE | 2020-08-13 12:09 | RAD_ITS ---
STUDY: X-RAY - LEFT FOOT CLINICAL: Male, 64 years old. Fall this morning. Pain. TECHNIQUE: 3 view(s) of the foot. COMPARISON: None. FINDINGS: Generalized osteopenia. Small inferior calcaneal spur. 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 Osteoarthrosis of the MTP and IP joints with hammertoe deformities. The soft tissue structures are unremarkable. RAD/Foot min 3 Views IMPRESSION: Osteopenia. Calcaneal spur. Moderate to marked arthrosis of the mid foot with pes planus deformity. Osteoarthrosis of the MTP and IP joints with hammertoe deformities. Electronically Signed: Derek Harrell MD at 16:14 EST , Service support ,
--- NOTE | 2020-08-13 12:09 | RAD_ITS ---
STUDY: X-RAY - LEFT ANKLE REASON FOR EXAM: Male, 64 years old. Medial foot and ankle pain after fall this morning. TECHNIQUE: 3 view(s) of the ankle. COMPARISON: None. FINDINGS: Generalized osteopenia. Normal visualized distal tibia and fibula. Normal medial and lateral malleoli. Normal tibiotalar articulation and ankle mortise. Inferior calcaneal spur. 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 The soft tissue structures are unremarkable. RAD/Ankle min 3 Views IMPRESSION: Osteopenia with inferior calcaneal spur. 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 Electronically Signed: Derek Harrell MD at 16:13 EST , Service support ,
[2020-08-13 15:25] LABS: International Normalized Ratio 2.6; Prothrombin Time (Protime)PT. 27.1 SECONDS (11.7-14.9)
== END 2020-08-13 18:00 | disposition home or self-care (01) ==
LOC: MTLAB 12:05
PROVIDERS: Family Provider Family Medicine; PCP Family Medicine; Referring Provider Internal Medicine Cardiovascular Disease; Visit Provider Internal Medicine Cardiovascular Disease
DX: M25.572 Pain in left ankle and joints of left foot (principal); S90.32XA Contusion of left foot, initial encounter; I48.19 Other persistent atrial fibrillation; Z79.01 Long term (current) use of anticoagulants
CPT/HCPCS: 36415; 73610; 73630; 85610

== ENCOUNTER → 2020-08-18 | Outpatient (CLI) | payer MEDICARE, SELFPAY ==
[2020-02-04 13:22] VITALS: BMI 40.0
== END | disposition home or self-care (01) ==
LOC: LABSPEC 11:31
PROVIDERS: PCP Family Medicine; Referring Provider Family Medicine; Visit Provider Family Medicine
DX: U07.1 COVID-19 (principal)
CPT/HCPCS: 87635; U0005; U0003

== ENCOUNTER 2020-08-24 13:30 | Outpatient (CLI) | payer MEDICARE, SELFPAY ==
[2020-08-24 14:05] VITALS: BP 125/77; PULSE 71; RESP 16; TEMP 36.7; O2SAT 94; BMI 39.6
[2020-08-24 15:00] VITALS: BP 112/70; PULSE 62; RESP 18; TEMP 36.8; O2SAT 98
[2020-08-24 15:30] VITALS: BP 105/69; PULSE 66; RESP 16; TEMP 36.7; O2SAT 97
[2020-08-24 15:46] VITALS: BP 118/63; PULSE 69; RESP 18; TEMP 36.8; O2SAT 96
[2020-08-24 16:15] VITALS: BP 120/73; PULSE 67; RESP 18; TEMP 36.9; O2SAT 100
[2020-08-24 16:45] VITALS: BP 131/80; PULSE 79; RESP 16; TEMP 36.8; O2SAT 99
== END 2020-08-24 16:48 | disposition home or self-care (01) ==
LOC: MS2OUT 13:30 → MS2 13:31
PROVIDERS: PCP Family Medicine; Referring Provider Nurse Practitioner Acute Care; Visit Provider Nurse Practitioner Acute Care
DX: U07.1 COVID-19 (principal)
CPT/HCPCS: J7050; M0239; Q0239

== ENCOUNTER 2020-09-14 09:04 | Outpatient (RCR) | payer MEDICARE, SELFPAY ==
[2020-02-04 13:22] VITALS: BMI 40.0
[2020-09-14 10:09] LABS: International Normalized Ratio 3.2; Prothrombin Time (Protime)PT. 32.1 SECONDS (11.7-14.9)
== END 2020-09-14 18:00 | disposition home or self-care (01) ==
LOC: MTLAB 09:04
PROVIDERS: Family Provider Family Medicine; PCP Family Medicine; Referring Provider Internal Medicine Cardiovascular Disease; Visit Provider Internal Medicine Cardiovascular Disease
DX: I48.19 Other persistent atrial fibrillation (principal); Z79.01 Long term (current) use of anticoagulants
CPT/HCPCS: 36415; 85610

== ENCOUNTER 2020-09-24 00:30 | Emergency (ER) | payer MEDICARE, SELFPAY ==
[2020-09-24 00:31] VITALS: BP 183/91; PULSE 80; RESP 18; TEMP 36.6; O2SAT 94; BMI 40.1
--- NOTE | 2020-09-24 00:39 | ED.VIS.GEN ---
History of Present Illness Chief Complaint: Edema Informant: Patient Onset: Yesterday Context: Gradual Onset Timing: Continuous Current Severity: Moderate Maximum Severity: Moderate Narrative: The patient presents to the emergency department with swelling of his left lower extremity. Patient has a history of atrial fibrillation, status post pacemaker placement. He is on Coumadin and has been compliant with his therapy. He states over the past 24 hours, he is noted some swelling in his left lower extremity. He states that it seemed to be more red than usual. He cannot recall any trauma. He denies any fevers or chills. He denies any chest pain or shortness of breath. He states that about 2 months ago, he twisted the ankle. He had x-rays done at that time which were unremarkable. Prior similar symptoms: Yes Recent Illness/Hospitalization: No Past Medical History - Allergies and Home Meds Allergies/Adverse Reactions: Allergies adhesive tape Allergy (Verified 09/24/20 00:38) Unknown benzoin Allergy (Verified 09/24/20 00:38) Hives latex Allergy (Verified 09/24/20 00:38) Unknown Penicillins Allergy (Verified 09/24/20 00:38) Hives diltiazem Adverse Reaction (Intermediate, Verified 09/24/20 00:38) Leg swelling Primary Care Physician: Ludwin Ashley MD [Primary Care Provider] - Prior records reviewed: Yes Past Medical History: - - Atrial fibrillation, hypertension, hyperlipidemia Surgical History: cholecystectomy, - - History of avascular necrosis of ankle. Cholecystectomy numerous surgeries on both knees Smoking Status: Never smoker - Family History Maternal Family History: Reports: Cancer Paternal Family History: Reports: Cancer Sibling Family History: Reports: No pertinent history Review of Systems General: Denies: Chills, Fever, Sweats Eyes: Denies: Visual changes - bilaterally, Diplopia ENT: Denies: Rhinorrhea, Sore throat Cardiovascular: Denies: Chest pain, Palpitations Respiratory: Denies: Dyspnea, Cough, Dyspnea on exertion Gastrointestinal: Denies: Abdominal pain, Nausea, Vomiting, Diarrhea, Melena, Hematochezia Genitourinary: Denies: Dysuria, Hematuria, Frequency Musculoskeletal: Denies: Back pain, Extremity Pain Skin: Denies: Rash, Wounds Neurological: Denies: Headache, Weakness, Numbness Physical Exam Vital Signs/Narrative: Vital Signs Temp Pulse Resp BP Pulse Ox 09/24/20 00:31 97.9 F 80 18 183/91 H 94 Inital Vital Signs reviewed: Yes General: Well nourished, Well developed, No Acute Distress Head: Normocephalic, Atraumatic Eyes: Perrl, EOMI ENT: Moist mucous membranes, No rhinorrhea Neck: Supple, Nontender Cardiovascular: Regular rate, Regular rhythm, No murmurs Respiratory: No distress, CTA bilaterally, Chest nontender Abdomen: Soft, Nontender, Nondistended, Normal bowel sounds Back: Nontender, Normal Inspection Extremities: Tenderness - Patient has tenderness over the malleoli with some mild erythema. There is no pain with motion of the joint. There is no streaking. There is no skin injury or breakdown. Pulses in the lower extremity are normal. Skin: Normal color, No rash Neurological: Alert, Oriented x3, Cranial nerves II-XII grossly intact, Normal Strength, Normal Sensation Psychological: Normal affect, Normal Mood Diagnostic/Tx/Re-eval Abnormal Lab Results 09/24/20 09/24/20 09/24/20 00:45 00:45 00:45 WBC 6.4 RBC 4.85 Hgb 14.6 Hct 45.6 MCV 94.0 MCH 30.1 MCHC 32.0 RDW Std Deviation 51.8 H RDW Coeff of Colleen 15.0 H Plt Count 213 MPV 9.8 Immature Gran % (Auto) 0.300 Neut % (Auto) 56.7 Lymph % (Auto) 29.3 [place] % (Auto) 10.9 H Eos % (Auto) 2.2 Baso % (Auto) 0.6 Absolute Neuts (auto) 3.6 Absolute Lymphs (auto) 1.88 Nucleated RBC % 0 PT 24.9 H INR 2.3 Sodium 141 Potassium 3.9 Chloride 108 H Carbon Dioxide 29.0 Anion Gap 4 L BUN 13 Creatinine 0.90 Estim Creat Clear Calc 91.01 Est GFR (MDRD) Af Amer 108 Est GFR (MDRD) Non-Af 90 BUN/Creatinine Ratio 14.4 Glucose 115 H Calcium 8.9 - Medical Decision Making Patient does have some minimal erythema around the ankle. There is no significant skin breakdown. My concern will be for venous stasis or cellulitis. He states that it is worsened over the past 2 days and is mildly painful. His INR is therapeutic. I have a very low suspicion for DVT. In review of his records, he has maintained a therapeutic INR for months. I am going to treat the patient with Keflex. I will bring him back for formal ultrasound as we do not have it available at this time. He is comfortable with this plan of care. Impression 1. Left lower extremity edema 2. Left lower extremity cellulitis ED Disposition - Plan for ED Patient: Instructions: ED Peripheral Edema, Unilateral Prescriptions: Cephalexin [Keflex] 500 mg PO Q8 #21 cap Prescription Printed Referrals: Ludwin Aslhey MD [Primary Care Provider] -
--- NOTE | 2020-09-24 00:51 | ED.RN ---
Patient having spasm in R thigh and states it goes from abd to knee and does not radiate from back to leg and states it is more all over and not painful. Offered to readjust patient in bed and gave him warm blanket and did stop in meantime. Dr Hernandez aware. Will monitor.
[2020-09-24 00:52] LABS: Absolute Lymphocyte Count 1.88 X10^3/uL (0.83-4.51); Absolute Neutrophil Count 3.6 X10^3/uL (2.0-7.7); Basophil# 0.04 X10^3/uL; Basophil% 0.6 % (0-1); Eosinophil# 0.14 X10^3/uL; Eosinophils% 2.2 % (0-5); Hematocrit 45.6 % (40-54); Hemoglobin 14.6 g/dL (13.0-16.5); Lymphocyte # 1.88 X10^3/ul (4.0); Lymphocyte % 29.3 % (19-41); Mean Corpuscular Hgb 30.1 pg (27.0-32.0); Mean Platelet Vol. 9.8 fl (6.2-12.0); Monocyte% 10.9 % (0-10); NRBC Flagged by Analyzer 0 % (0-5); Neutrophil # 3.63 X10^3/uL (2.7-7.7); Neutrophil % 56.7 % (47-70); Platelet Count 213 K/mm3 (150-450); RBC Distribution Width SD 51.8 fl (35.1-43.9); Red Blood Count 4.85 M/mm3 (4.6-6.2); White Blood Count 6.4 K/mm3 (4.4-11.0)
[2020-09-24 01:04] LABS: International Normalized Ratio 2.3; Prothrombin Time (Protime)PT. 24.9 SECONDS (11.7-14.9)
[2020-09-24 01:09] LABS: Anion Gap 4 (5-15); BUN 13 mg/dL (7-18); BUN/Creat Ratio 14.4 RATIO (10-20); Calcium,Total 8.9 mg/dL (8.5-10.1); Chloride 108 mmol/L (98-107); EST Glomerular Filtration Rate 90 mL/min (>60); Est Glom Filt Rate - Afr Amer 108 mL/min (>60); Estimated Creatinine Clearance 91.01 ml/min; Glucose 115 mg/dL (74-106); Potassium 3.9 mmol/L (3.5-5.1); Sodium Level 141 mmol/L (136-145)
[2020-09-24 01:21] VITALS: BP 108/82; PULSE 60; RESP 16; O2SAT 98
[2020-09-24] MEDS: Cephalexin 250 MG Capsule 500 MG PO (01:27)
== END 2020-09-24 01:31 | disposition home or self-care (01) ==
PROVIDERS: Emergency Provider Emergency Medicine; PCP Family Medicine
DX: L03.116 Cellulitis of left lower limb (principal); R60.0 Localized edema; I10 Essential (primary) hypertension; I48.91 Unspecified atrial fibrillation; Z95.0 Presence of cardiac pacemaker; Z79.01 Long term (current) use of anticoagulants; Z79.899 Other long term (current) drug therapy
CPT/HCPCS: 80048; 85025; 85610; 99282; A4216

== ENCOUNTER → 2020-09-24 10:48 | Outpatient (CLI) | payer MEDICARE, SELFPAY ==
[2020-09-24 00:31] VITALS: BMI 40.1
--- NOTE | 2020-09-24 10:50 | VDLE_ITS ---
Reason For Study: Swelling Procedure LEFT This is a venous duplex using B-mode, color GSV is normal. flow and spectral Doppler. CFV is compressible, spontaneous, phasic, Exam performed in department. competent, and demonstrates normal A preliminary report was called and/or faxed augmentation. to PCP: Dion. Pt seen in ED 09/24/20 in AM. FV is compressible, spontaneous, phasic, competent and demonstrates normal augmentation. POP V is compressible, spontaneous, phasic, competent and demonstrates normal augmentation. T/P Trunk is compressible. PTV is compressible. LT PerV is compressible. Interpretation Summary There is no evidence of left lower extremity deep vein thrombosis. Left great saphenous vein appears patent and compressible segmentally. Ordering Physician: Christian Ulloa Referring Physician: Ludwin Ashley MD Performed By: Wilda Rincon RVT
== END ==
PROVIDERS: PCP Family Medicine; Referring Provider Emergency Medicine; Visit Provider Emergency Medicine
DX: M79.89 Other specified soft tissue disorders (principal); L03.116 Cellulitis of left lower limb; R60.0 Localized edema; I10 Essential (primary) hypertension; I48.91 Unspecified atrial fibrillation; Z95.0 Presence of cardiac pacemaker; Z79.01 Long term (current) use of anticoagulants; Z79.899 Other long term (current) drug therapy
CPT/HCPCS: 80048; 85025; 85610; 93971; 99282; A4216

== ENCOUNTER 2020-11-11 14:31 | Outpatient (RCR) | payer MEDICARE, SELFPAY ==
[2020-11-11 18:12] LABS: International Normalized Ratio 1.9; Prothrombin Time (Protime)PT. 21.2 SECONDS (11.7-14.9)
== END 2020-11-11 18:00 | disposition home or self-care (01) ==
LOC: MTLAB 14:31
PROVIDERS: Family Provider Family Medicine; PCP Family Medicine; Referring Provider Internal Medicine Cardiovascular Disease; Visit Provider Internal Medicine Cardiovascular Disease
DX: I48.19 Other persistent atrial fibrillation (principal); Z79.01 Long term (current) use of anticoagulants
CPT/HCPCS: 36415; 85610

== ENCOUNTER 2020-12-13 08:47 | Outpatient (RCR) | payer MEDICARE, SELFPAY ==
[2020-11-26 10:16] LABS: Prothrombin Time (Protime)PT. 22.1 SECONDS (11.7-14.9)
[2020-12-13 10:56] LABS: International Normalized Ratio 2.1; Prothrombin Time (Protime)PT. 22.3 SECONDS (11.7-14.9)
== END 2020-12-13 18:00 | disposition home or self-care (01) ==
LOC: MTLAB 08:47
PROVIDERS: Family Provider Family Medicine; PCP Family Medicine; Referring Provider Internal Medicine Cardiovascular Disease; Visit Provider Internal Medicine Cardiovascular Disease
DX: I48.19 Other persistent atrial fibrillation (principal); Z79.01 Long term (current) use of anticoagulants
CPT/HCPCS: 36415; 85610

== ENCOUNTER 2021-01-17 07:27 | Outpatient (RCR) | payer MEDICARE, BC, SELFPAY ==
[2021-01-14 12:32] LABS: International Normalized Ratio 2.4; Prothrombin Time (Protime)PT. 25.5 SECONDS (11.7-14.9)
[2021-01-17 10:22] LABS: International Normalized Ratio 2.5; Prothrombin Time (Protime)PT. 26.2 SECONDS (11.7-14.9)
== END 2021-01-17 18:00 | disposition home or self-care (01) ==
LOC: MTLAB 07:27
PROVIDERS: Nurse Practitioner Family; Family Provider Family Medicine; PCP Family Medicine; Referring Provider Internal Medicine Cardiovascular Disease; Visit Provider Internal Medicine Cardiovascular Disease
DX: I48.19 Other persistent atrial fibrillation (principal); Z79.01 Long term (current) use of anticoagulants
CPT/HCPCS: 36415; 85610

== ENCOUNTER 2021-02-15 09:07 | Outpatient (RCR) | payer MEDICARE, BC, SELFPAY ==
[2021-02-15 10:32] LABS: Prothrombin Time (Protime)PT. 21.9 SECONDS (11.7-14.9)
== END 2021-02-20 18:00 | disposition home or self-care (01) ==
LOC: MTLAB 09:07
PROVIDERS: Family Provider Family Medicine; PCP Family Medicine; Referring Provider Internal Medicine Cardiovascular Disease; Visit Provider Internal Medicine Cardiovascular Disease
DX: I48.19 Other persistent atrial fibrillation (principal); Z79.01 Long term (current) use of anticoagulants
CPT/HCPCS: 36415; 85610

== ENCOUNTER 2021-03-16 08:57 | Outpatient (RCR) | payer MEDICARE, BC, SELFPAY ==
[2021-03-16 10:01] LABS: International Normalized Ratio 2.4; Prothrombin Time (Protime)PT. 25.2 SECONDS (11.7-14.9)
== END 2021-03-16 18:00 | disposition home or self-care (01) ==
LOC: MTLAB 08:57
PROVIDERS: Family Provider Family Medicine; PCP Family Medicine; Referring Provider Internal Medicine Cardiovascular Disease; Visit Provider Internal Medicine Cardiovascular Disease
DX: I48.19 Other persistent atrial fibrillation (principal); Z79.01 Long term (current) use of anticoagulants
CPT/HCPCS: 36415; 85610

== ENCOUNTER 2021-04-13 09:50 | Outpatient (RCR) | payer MEDICARE, BC, SELFPAY ==
[2021-03-23 01:45] VITALS: BMI 40.1
[2021-04-13 12:23] LABS: International Normalized Ratio 2.2; Prothrombin Time (Protime)PT. 23.6 SECONDS (11.7-14.9)
== END 2021-04-13 18:00 | disposition home or self-care (01) ==
LOC: MTLAB 09:50
PROVIDERS: Family Provider Family Medicine; PCP Family Medicine; Referring Provider Internal Medicine Cardiovascular Disease; Visit Provider Internal Medicine Cardiovascular Disease
DX: I48.19 Other persistent atrial fibrillation (principal); Z79.01 Long term (current) use of anticoagulants
CPT/HCPCS: 36415; 85610

== ENCOUNTER 2021-05-16 10:10 | Outpatient (RCR) | payer MEDICARE, BC, SELFPAY ==
[2021-04-22 02:23] VITALS: BMI 40.1
[2021-05-16 12:28] LABS: International Normalized Ratio 2.2; Prothrombin Time (Protime)PT. 23.9 SECONDS (11.7-14.9)
== END 2021-05-22 04:10 | disposition home or self-care (01) ==
LOC: MTLAB 10:10
PROVIDERS: Family Provider Family Medicine; PCP Family Medicine; Referring Provider Internal Medicine Cardiovascular Disease; Visit Provider Internal Medicine Cardiovascular Disease
DX: I48.19 Other persistent atrial fibrillation (principal); Z79.01 Long term (current) use of anticoagulants
CPT/HCPCS: 36415; 85610

== ENCOUNTER 2021-06-13 10:16 | Outpatient (RCR) | payer MEDICARE, BC, SELFPAY ==
[2021-05-22 04:10] VITALS: BMI 40.1
[2021-06-13 12:16] LABS: International Normalized Ratio 2.7
== END 2021-06-21 18:00 | disposition home or self-care (01) ==
LOC: MTLAB 10:16
PROVIDERS: Nurse Practitioner Family; Family Provider Family Medicine; PCP Family Medicine; Referring Provider Internal Medicine Cardiovascular Disease; Visit Provider Internal Medicine Cardiovascular Disease
DX: I48.19 Other persistent atrial fibrillation (principal); Z79.01 Long term (current) use of anticoagulants; Z12.5 Encounter for screening for malignant neoplasm of prostate
CPT/HCPCS: 36415; 84153; 85610; G0103

== ENCOUNTER 2021-07-11 07:57 | Outpatient (RCR) | payer MEDICARE, BC, SELFPAY ==
[2021-06-22 03:19] VITALS: BMI 40.1
[2021-07-11 10:08] LABS: International Normalized Ratio 2.2
== END 2021-07-23 18:00 | disposition home or self-care (01) ==
LOC: MTLAB 07:57
PROVIDERS: Family Provider Family Medicine; PCP Family Medicine; Referring Provider Internal Medicine Cardiovascular Disease; Visit Provider Internal Medicine Cardiovascular Disease
DX: I48.19 Other persistent atrial fibrillation (principal); Z79.01 Long term (current) use of anticoagulants
CPT/HCPCS: 36415; 85610

== ENCOUNTER 2021-08-22 10:04 | Outpatient (RCR) | payer MEDICARE, BC, SELFPAY ==
[2021-07-24 03:56] VITALS: BMI 40.1
== END 2021-08-22 18:00 | disposition home or self-care (01) ==
LOC: MTLAB 10:04
PROVIDERS: Family Provider Family Medicine; PCP Family Medicine; Referring Provider Internal Medicine Cardiovascular Disease; Visit Provider Internal Medicine Cardiovascular Disease
DX: I48.19 Other persistent atrial fibrillation (principal); Z79.01 Long term (current) use of anticoagulants
CPT/HCPCS: 36415; 85610

== ENCOUNTER 2021-09-14 15:07 | Outpatient (RCR) | payer MEDICARE, BC, SELFPAY ==
[2021-08-23 02:49] VITALS: BMI 40.1
[2021-09-14 17:59] LABS: International Normalized Ratio 2.1; Prothrombin Time (Protime)PT. 22.9 SECONDS (11.7-14.9)
== END 2021-09-14 18:00 | disposition home or self-care (01) ==
LOC: MTLAB 15:07
PROVIDERS: Family Provider Family Medicine; PCP Family Medicine; Referring Provider Internal Medicine Cardiovascular Disease; Visit Provider Internal Medicine Cardiovascular Disease
DX: I48.19 Other persistent atrial fibrillation (principal); Z79.01 Long term (current) use of anticoagulants
CPT/HCPCS: 36415; 85610

== ENCOUNTER 2021-10-18 09:10 | Outpatient (RCR) | payer MEDICARE, BC, SELFPAY ==
[2021-09-20 10:49] VITALS: BMI 40.1
[2021-10-18 10:22] LABS: International Normalized Ratio 1.9; Prothrombin Time (Protime)PT. 21.1 SECONDS (11.7-14.9)
== END 2021-10-20 18:00 | disposition home or self-care (01) ==
LOC: MTLAB 09:10
PROVIDERS: Family Provider Family Medicine; PCP Family Medicine; Referring Provider Internal Medicine Cardiovascular Disease; Visit Provider Internal Medicine Cardiovascular Disease
DX: I48.19 Other persistent atrial fibrillation (principal); Z79.01 Long term (current) use of anticoagulants
CPT/HCPCS: 36415; 85610

== ENCOUNTER 2021-10-31 14:29 | Outpatient (RCR) | payer MEDICARE, BC, SELFPAY ==
[2021-10-21 02:19] VITALS: BMI 40.1
[2021-10-31 18:08] LABS: Absolute Lymphocyte Count 1.73 X10^3/uL (0.83-4.51); Absolute Neutrophil Count 3.8 X10^3/uL (2.0-7.7); Basophil# 0.03 X10^3/uL; Basophil% 0.5 % (0-1); Eosinophil# 0.06 X10^3/uL; Hematocrit 45.8 % (40-54); Hemoglobin 15.1 g/dL (13.0-16.5); Lymphocyte # 1.73 X10^3/ul (0.83-4.51); Lymphocyte % 27.4 % (19-41); Mean Corpuscular Hgb 31.1 pg (27.0-32.0); Mean Corpuscular Volume 94.2 fL (80-94); Mean Platelet Vol. 10.7 fl (6.2-12.0); Monocyte% 11.1 % (0-10); NRBC Flagged by Analyzer 0 % (0-5); Neutrophil # 3.77 X10^3/uL (2.7-7.7); Neutrophil % 59.7 % (47-70); Platelet Count 209 K/mm3 (150-450); RBC Distribution Width CV 13.9 % (11.6-14.6); RBC Distribution Width SD 48.5 fl (35.1-43.9); Red Blood Count 4.86 M/mm3 (4.6-6.2); White Blood Count 6.3 K/mm3 (4.4-11.0)
[2021-10-31 18:20] LABS: International Normalized Ratio 1.9; Prothrombin Time (Protime)PT. 21.1 SECONDS (11.7-14.9)
[2021-10-31 18:24] LABS: ALB/GLOB Ratio 1.1 RATIO (0.9-2.4); AST(SGOT) 23 U/L (15-37); Alanine Aminotransfer ALT/SGPT 27 U/L (16-61); Albumin, Serum 3.9 g/dL (3.2-5.0); Alkaline Phosphatase 103 U/L (45-117); Anion Gap 4 (5-15); BUN 17 mg/dL (7-18); BUN/Creat Ratio 20.2 RATIO (10-20); Calcium,Total 8.8 mg/dL (8.5-10.1); Chloride 108 mmol/L (98-107); Creatinine, Serum 0.84 mg/dL (0.70-1.30); EST Glomerular Filtration Rate 97 mL/min (>60); Est Glom Filt Rate - Afr Amer 117 mL/min (>60); Globulin 3.4 g/dL (2.2-4.2); Glucose 81 mg/dL (74-106); PSA,Total- Diagnostic 4.91 ng/mL (0.0-4.0); Potassium 3.9 mmol/L (3.5-5.1); Protein, Total 7.3 g/dL (6.4-8.2); Sodium Level 142 mmol/L (136-145)
== END 2021-10-31 18:00 | disposition home or self-care (01) ==
LOC: MTLAB 14:29
PROVIDERS: Family Provider Family Medicine; PCP Family Medicine; Referring Provider Internal Medicine Cardiovascular Disease; Visit Provider Internal Medicine Cardiovascular Disease
DX: I48.19 Other persistent atrial fibrillation (principal); Z79.01 Long term (current) use of anticoagulants; R97.20 Elevated prostate specific antigen [PSA]
CPT/HCPCS: 36415; 80053; 84153; 85025; 85610

== ENCOUNTER 2021-11-29 12:48 | Outpatient (RCR) | payer MEDICARE, BC, SELFPAY ==
[2021-11-20 03:56] VITALS: BMI 40.1
[2021-11-29 15:37] LABS: International Normalized Ratio 2.4; Prothrombin Time (Protime)PT. 25.7 SECONDS (11.7-14.9)
== END 2021-11-29 18:00 | disposition home or self-care (01) ==
LOC: MTLAB 12:48
PROVIDERS: Family Provider Family Medicine; PCP Family Medicine; Referring Provider Internal Medicine Cardiovascular Disease; Visit Provider Internal Medicine Cardiovascular Disease
DX: I48.19 Other persistent atrial fibrillation (principal); Z79.01 Long term (current) use of anticoagulants
CPT/HCPCS: 36415; 85610

== ENCOUNTER 2021-12-22 07:51 | Emergency (ER) | payer MEDICARE, BC, SELFPAY ==
[2021-12-22 07:52] VITALS: BP 119/90; PULSE 89; RESP 16; TEMP 36.7; O2SAT 99; BMI 38.4
--- NOTE | 2021-12-22 08:07 | EDS_ITS ---
HPI History of Present Illness Chief Complaint: Cellulitis Informant: patient Narrative Narrative: Patient presents with cellulitis to the left arm. It started Sunday night. He was seen yesterday by his primary physician. He was given a shot of medicine. He was then given a prescription for doxycycline. He has taken 1 of these tablets. He states that the redness has progressed about an inch from the line where it was drawn in a couple spots. He was told if it progresses this far to come into the emergency department. He has had fever at the highest of 100.7. He does not have nausea vomiting weakness. No pain with motion of the elbow. He does have a small bruise on his forearm but does not know if he hit his arm. 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 He is not weak lightheaded. [facility] Medical History (Updated 12/22/21 @ 10:[address] Robert Strong MD) anal fistula repair Atrial fibrillation Conduction disorder of the heart Depression Dizziness and giddiness Osteoarthritis Presence of cardiac pacemaker Scoliosis Stroke/cerebrovascular accident Home Medications cholecalciferol (vitamin D3) 4,000 unit PO DAILY 10/17/13 [History Last Taken 04/08/19] gabapentin 300 mg PO TID 10/17/13 [History Last Taken 04/08/19] multivitamin with folic acid 1 tab PO DAILY 08/27/15 [History Last Taken 04/08/19] famotidine 20 mg tablet 20 mg PO QHS 06/28/17 [History Last Taken 04/08/19] amlodipine 5 mg tablet 5 mg PO DAILY 02/04/20 [History Last Taken Unknown] diclofenac sodium 75 mg tablet,delayed release 75 mg PO BID 11/18/21 [History Last Taken Unknown] doxycycline hyclate 100 mg PO BID 12/22/21 [History Last Taken Unknown] warfarin 5 mg PO WE12/22/21 [History Last Taken Unknown] warfarin [Jantoven] 7.5 mg PO TU 12/22/21 [History Last Taken Unknown] Allergy/AdvReac Type Severity Reaction Status Date / Time adhesive tape Allergy Unknown Verified 12/22/21 07:55 benzoin Allergy Hives Verified 12/22/21 07:55 latex Allergy Unknown Verified 12/22/21 07:55 Penicillins Allergy Hives Verified 12/22/21 07:55 diltiazem AdvReac Intermediate Leg Verified 12/22/21 07:55 swelling Surgical History H/O hernia repair H/O: knee surgery History of cholecystectomy History of tonsillectomy and adenoidectomy Social History Smoking Status: Never smoker alcohol intake: never substance use type: does not use ROS ROS ED Constitutional Constitutional ED: Reports fever(s); Denies sweats Cardiovascular Cardiovascular: Denies chest pain Respiratory/Chest Respiratory/Chest: Denies cough, dyspnea or sputum Gastrointestinal Gastrointestinal: Denies abdominal pain, nausea or vomiting Genitourinary Genitourinary ED: Denies dysuria or hematuria Musculoskeletal Musculoskeletal: Denies myalgias Integumentary Reports rash Neurologic Neurologic: Denies headache(s) or weakness Psychiatric Psychiatric: Denies anxiety or depression Endocrine Endocrinology: Denies polydipsia or polyuria Allergic/Immunologic Allergic/Immunologic ED: Denies urticaria EXAM Physical Exam Const Vital Signs: 12/22/21 07:52 Temperature 98.0 F Temperature Source Temporal Pulse Rate 89 Respiratory Rate 16 Blood Pressure 119/90 H Blood Pressure Mean 99 Pulse Ox 99 Oxygen Delivery Method Room Air Nontoxic in appearance. Positive well nourished and well developed General Appearance ED: well developed and NAD HEENT Reports moist mucous membranes Eyes General Eye ED: Negative for pale conjunctiva or scleral icterus Neck no JVD Chest Wall inspection of chest normal Resp normal respiratory effort and clear to auscultation bilaterally Cardio regular rate GI normal to inspection, nondistended, normoactive bowel sounds and non-tender Palpation: soft Extremity Extremity Narrative: Patient does have some erythema and slight warmth to the left arm and the dorsal lateral aspect. There is also contusion of the mid forearm. No skin break. There is no pain at all with motion of the elbow. Th ere is some mild warmth to this. There are couple areas where the erythema has crossed out of the pen line a bit. But there is also areas where it is pulled back. No crepitance of the tissue. No notable pain. No pain with palpation. He is comfortable. No proximal lymph nodes. Neuro Sensorium / Orientation: alert Psych mental status grossly normal Skin Skin Narrative: See above. MDM MDM MDM Narrative Medical decision making narrative: Blood work shows mildly elevated white count at 14.9. This is consistent with infection. Electrolytes are overall unremarkable. Lactate is negative. INR is 3.0. Although this is within normal wall or reasonable range, it is a little high for him. He will contact physician for adjustment. This patient is not having nausea vomiting. He is clinically stable. We will give him an IV dose of vancomycin. I think is reasonable to try him as an outpatient. He only had 1 tablet of antibiotics and outpatient. I explained he should stay on this. If he develops nausea vomiting weakness significant spreading lightheadedness or other concerns he should return. If he is not impr oving after few days he still may need admission. Lab Data Labs: Laboratory Results - last 24 hr 12/22/21 12/22/21 12/22/21 08:43 08:43 08:43 WBC 14.9 H RBC 4.87 Hgb 14.9 Hct 45.7 MCV 93.8 MCH 30.6 MCHC 32.6 RDW Std Deviation 47.4 H RDW Coeff of Colleen 13.7 Plt Count 229 MPV 10.8 Immature Gran % (Auto) 1.100 H Neut % (Auto) 84.4 H Lymph % (Auto) 5.3 L [place] % (Auto) 7.9 Eos % (Auto) 1.1 Baso % (Auto) 0.2 Absolute Neuts (auto) 12.6 H Absolute Lymphs (auto) 0.79 L Nucleated RBC % 0 PT INR Sodium 139 Potassium 3.7 Chloride 107 Carbon Dioxide 25.0 Anion Gap 7 BUN 18 Creatinine 0.89 Estim Creat Clear Calc 90.82 Est GFR (MDRD) Af Amer 109 Est GFR (MDRD) Non-Af 90 BUN/Creatinine Ratio 20.1 H Glucose 116 H Lactic Acid 1.0 Calcium 9.5 12/22/21 08:43 WBC RBC Hgb Hct MCV MCH MCHC RDW Std Deviation RDW Coeff of Colleen Plt Count MPV Immature Gran % (Auto) Neut % (Auto) Lymph % (Auto) [place] % (Auto) Eos % (Auto) Baso % (Auto) Absolute Neuts (auto) Absolute Lymphs (auto) Nucleated RBC % PT 31.1 H INR 3.0 Sodium Potassium Chloride Carbon Dioxide Anion Gap BUN Creatinine Estim Creat Clear Calc Est GFR (MDRD) Af Amer Est GFR (MDRD) Non-Af BUN/Creatinine Ratio Glucose Lactic Acid Calcium Discharge Plan Triage Chief Complaint: Cellulitis ED Provider: Robert Strong Dx/Rx/DC Orders Clinical Impression: Cellulitis of arm, left Instructions: ED Cellulitis Prescriptions: No Action amlodipine 5 mg tablet 5 mg PO DAILY RF: 0 Hold Instructions: dizziness diclofenac sodium 75 mg tablet,delayed release (DR/EC) 75 mg PO BID RF: 0 gabapentin 300 MG capsule 300 mg PO TID RF: 0 cholecalciferol (vitamin D3) 2,000 UNIT tablet 4,000 unit PO DAILY RF: 0 multivitamin with folic acid 1 TABLET tablet 1 tab PO DAILY RF: 0 doxycycline hyclate 100 mg capsule 100 mg PO BID RF: 0 warfarin [Jantoven] 5 mg tablet 7.5 mg PO TU RF: 0 warfarin 5 mg tablet 5 mg PO [place] RF: 0 famotidine 20 mg tablet 20 mg PO QHS RF: 0 Primary Care Provider: Ludwin Ashley Referrals: Ludwin Ashley MD [Primary Care Provider] - 3-5 Days if not improving Disposition Disposition: Home, Self Care
[2021-12-22 08:58] LABS: Absolute Lymphocyte Count 0.79 X10^3/uL (0.83-4.51); Absolute Neutrophil Count 12.6 X10^3/uL (2.0-7.7); Basophil# 0.03 X10^3/uL; Basophil% 0.2 % (0-1); Eosinophil# 0.16 X10^3/uL; Eosinophils% 1.1 % (0-5); Hematocrit 45.7 % (40-54); Hemoglobin 14.9 g/dL (13.0-16.5); Lymphocyte # 0.79 X10^3/ul (0.83-4.51); Lymphocyte % 5.3 % (19-41); Mean Corp Hgb Conc 32.6 g/dL (32-36); Mean Corpuscular Hgb 30.6 pg (27.0-32.0); Mean Corpuscular Volume 93.8 fL (80-94); Mean Platelet Vol. 10.8 fl (6.2-12.0); Monocyte# 1.18 X10^3/uL; Monocyte% 7.9 % (0-10); NRBC Flagged by Analyzer 0 % (0-5); Neutrophil # 12.57 X10^3/uL (2.7-7.7); Neutrophil % 84.4 % (47-70); Platelet Count 229 K/mm3 (150-450); RBC Distribution Width CV 13.7 % (11.6-14.6); RBC Distribution Width SD 47.4 fl (35.1-43.9); Red Blood Count 4.87 M/mm3 (4.6-6.2); White Blood Count 14.9 K/mm3 (4.4-11.0)
[2021-12-22 09:07] LABS: Prothrombin Time (Protime)PT. 31.1 SECONDS (11.7-14.9)
[2021-12-22 09:54] LABS: Anion Gap 7 (5-15); BUN 18 mg/dL (7-18); BUN/Creat Ratio 20.1 RATIO (10-20); Calcium,Total 9.5 mg/dL (8.5-10.1); Chloride 107 mmol/L (98-107); Creatinine, Serum 0.89 mg/dL (0.70-1.30); EST Glomerular Filtration Rate 90 mL/min (>60); Est Glom Filt Rate - Afr Amer 109 mL/min (>60); Estimated Creatinine Clearance 90.82 ml/min; Glucose 116 mg/dL (74-106); Potassium 3.7 mmol/L (3.5-5.1); Sodium Level 139 mmol/L (136-145)
[2021-12-22 11:42] VITALS: PULSE 88; RESP 17; O2SAT 97
== END 2021-12-22 11:43 | disposition home or self-care (01) ==
PROVIDERS: Emergency Provider Emergency Medicine; PCP Family Medicine; Visit Provider Emergency Medicine
DX: L03.114 Cellulitis of left upper limb (principal); I48.91 Unspecified atrial fibrillation; F32.A Depression, unspecified; M41.9 Scoliosis, unspecified; Z86.73 Personal history of transient ischemic attack (TIA), and cerebral infarction without residual deficits; M19.90 Unspecified osteoarthritis, unspecified site; Z95.0 Presence of cardiac pacemaker; Z79.899 Other long term (current) drug therapy; Z79.01 Long term (current) use of anticoagulants
CPT/HCPCS: 36415; 80048; 83605; 85025; 85610; 87040; 96365; 96366; 99283; J7030; J7040; A4216

== ENCOUNTER 2022-01-17 15:51 | Outpatient (RCR) | payer MEDICARE, BC, SELFPAY ==
[2021-12-21 01:46] VITALS: BMI 40.1
[2021-12-30 10:16] LABS: International Normalized Ratio 2.8; Prothrombin Time (Protime)PT. 29.2 SECONDS (11.7-14.9)
[2022-01-06 10:11] LABS: International Normalized Ratio 2.3; Prothrombin Time (Protime)PT. 25.3 SECONDS (11.7-14.9)
[2022-01-13 10:12] LABS: International Normalized Ratio 2.3; Prothrombin Time (Protime)PT. 25.3 SECONDS (11.7-14.9)
[2022-01-17 18:25] LABS: International Normalized Ratio 2.1; Prothrombin Time (Protime)PT. 23.2 SECONDS (11.7-14.9)
== END 2022-01-19 16:00 | disposition home or self-care (01) ==
LOC: MTLAB 15:51
PROVIDERS: Family Provider Family Medicine; PCP Family Medicine; Referring Provider Internal Medicine Cardiovascular Disease; Visit Provider Internal Medicine Cardiovascular Disease
DX: I48.19 Other persistent atrial fibrillation (principal); Z79.01 Long term (current) use of anticoagulants
CPT/HCPCS: 36415; 85610

== ENCOUNTER 2022-02-03 08:06 | Outpatient (RCR) | payer MEDICARE, BC, SELFPAY ==
[2022-01-20 10:20] VITALS: BMI 40.1
[2022-02-03 10:25] LABS: International Normalized Ratio 2.3; Prothrombin Time (Protime)PT. 25.3 SECONDS (11.7-14.9)
== END 2022-02-19 03:40 | disposition home or self-care (01) ==
LOC: MTLAB 08:06
PROVIDERS: Family Provider Family Medicine; PCP Family Medicine; Referring Provider Internal Medicine Cardiovascular Disease; Visit Provider Internal Medicine Cardiovascular Disease
DX: I48.19 Other persistent atrial fibrillation (principal); Z79.01 Long term (current) use of anticoagulants
CPT/HCPCS: 36415; 85610

== ENCOUNTER 2022-03-09 09:50 | Outpatient (RCR) | payer MEDICARE, BC, SELFPAY ==
[2022-02-19 03:41] VITALS: BMI 40.1
[2022-03-09 12:45] LABS: International Normalized Ratio 1.9; Prothrombin Time (Protime)PT. 21.6 SECONDS (11.7-14.9)
== END 2022-03-09 18:00 | disposition home or self-care (01) ==
LOC: MTLAB 09:50
PROVIDERS: Family Provider Family Medicine; PCP Family Medicine; Referring Provider Internal Medicine Cardiovascular Disease; Visit Provider Internal Medicine Cardiovascular Disease
DX: I48.19 Other persistent atrial fibrillation (principal); Z79.01 Long term (current) use of anticoagulants
CPT/HCPCS: 36415; 85610

== ENCOUNTER 2022-03-30 09:12 | Outpatient (RCR) | payer MEDICARE, BC, SELFPAY ==
[2022-03-23 01:40] VITALS: BMI 40.1
[2022-03-30 12:22] LABS: International Normalized Ratio 2.1; Prothrombin Time (Protime)PT. 23.6 SECONDS (11.7-14.9)
== END 2022-03-30 18:00 | disposition home or self-care (01) ==
LOC: MTLAB 09:12
PROVIDERS: Family Provider Family Medicine; PCP Family Medicine; Referring Provider Internal Medicine Cardiovascular Disease; Visit Provider Internal Medicine Cardiovascular Disease
DX: Z79.01 Long term (current) use of anticoagulants
CPT/HCPCS: 36415; 85610

== ENCOUNTER 2022-05-11 08:41 | Outpatient (RCR) | payer MEDICARE, BC, SELFPAY ==
[2022-04-22 04:21] VITALS: BMI 40.1
[2022-05-11 10:37] LABS: International Normalized Ratio 2.2; Prothrombin Time (Protime)PT. 23.9 SECONDS (11.7-14.9)
== END 2022-05-11 18:00 | disposition home or self-care (01) ==
LOC: MTLAB 08:41
PROVIDERS: Family Provider Family Medicine; PCP Family Medicine; Referring Provider Internal Medicine Cardiovascular Disease; Visit Provider Internal Medicine Cardiovascular Disease
DX: Z79.01 Long term (current) use of anticoagulants (principal)
CPT/HCPCS: 36415; 85610

== ENCOUNTER → 2022-05-29 | Outpatient (CLI) | payer MEDICARE, BC, SELFPAY ==
[2022-05-29 10:02] LABS: Hematocrit 46.9 % (40-54); Hemoglobin 15.8 g/dL (13.0-16.5); Mean Corp Hgb Conc 33.7 g/dL (32-36); Mean Corpuscular Hgb 30.9 pg (27.0-32.0); Mean Corpuscular Volume 91.8 fL (80-94); Mean Platelet Vol. 10.5 fl (6.2-12.0); Platelet Count 215 K/mm3 (150-450); RBC Distribution Width SD 47.3 fl (35.1-43.9); Red Blood Count 5.11 M/mm3 (4.6-6.2); White Blood Count 5.3 K/mm3 (4.4-11.0)
[2022-05-29 10:34] LABS: Vitamin B12 459 pg/mL (211-911)
[2022-05-29 11:10] LABS: ALB/GLOB Ratio 1.2 RATIO (0.9-2.4); AST(SGOT) 26 U/L (15-37); Alanine Aminotransfer ALT/SGPT 29 U/L (16-61); Albumin, Serum 4.2 g/dL (3.2-5.0); Alkaline Phosphatase 99 U/L (45-117); Anion Gap 8 (5-15); BUN 14 mg/dL (7-18); BUN/Creat Ratio 16.9 RATIO (10-20); Calcium,Total 9.2 mg/dL (8.5-10.1); Chloride 106 mmol/L (98-107); Creatinine, Serum 0.83 mg/dL (0.70-1.30); EST Glomerular Filtration Rate 99 mL/min (>60); Est Glom Filt Rate - Afr Amer 120 mL/min (>60); Globulin 3.5 g/dL (2.2-4.2); Glucose 89 mg/dL (74-106); Potassium 3.7 mmol/L (3.5-5.1); Protein, Total 7.7 g/dL (6.4-8.2); Sodium Level 139 mmol/L (136-145); Thyroid Stim Hormone (TSH) 1.27 uIU/mL (0.358-3.74)
[2022-05-30 16:35] LABS: ANTINUCLEAR ANTIBODIES DIRECT Negative (Negative)
[2022-06-01 05:07] LABS: Free Kappa Light Chains 33.9 mg/L (3.3-19.4); Free Lambda Light Chains 18.5 mg/L (5.7-26.3)
[2022-06-02 15:05] LABS: Vitamin B1, Thiamine 203.8 nmol/L (66.5-200.0)
== END | disposition home or self-care (01) ==
PROVIDERS: PCP Family Medicine; Referring Provider Psychiatry & Neurology Neurology; Visit Provider Psychiatry & Neurology Neurology
DX: G62.9 Polyneuropathy, unspecified (principal); E66.9 Obesity, unspecified; I10 Essential (primary) hypertension
CPT/HCPCS: 36415; 80053; 82607; 82746; 83883; 84425; 84443; 85027; 86038; 86225; 86235

== ENCOUNTER 2022-06-08 13:21 | Outpatient (RCR) | payer MEDICARE, BC, SELFPAY ==
[2022-05-23 10:36] VITALS: BMI 40.1
[2022-06-08 15:22] LABS: Prothrombin Time (Protime)PT. 22.6 SECONDS (11.7-14.9)
== END 2022-06-21 18:00 | disposition home or self-care (01) ==
LOC: MTLAB 13:21
PROVIDERS: Family Provider Family Medicine; PCP Family Medicine; Referring Provider Internal Medicine Cardiovascular Disease; Visit Provider Internal Medicine Cardiovascular Disease
DX: Z79.01 Long term (current) use of anticoagulants (principal)
CPT/HCPCS: 36415; 85610

== ENCOUNTER 2022-07-05 16:10 | Outpatient (RCR) | payer MEDICARE, BC, SELFPAY ==
[2022-06-22 02:56] VITALS: BMI 40.1
[2022-07-05 18:02] LABS: Prothrombin Time (Protime)PT. 22.6 SECONDS (11.7-14.9)
== END 2022-07-05 18:00 | disposition home or self-care (01) ==
LOC: MTLAB 16:10
PROVIDERS: Family Provider Family Medicine; PCP Family Medicine; Referring Provider Internal Medicine Cardiovascular Disease; Visit Provider Internal Medicine Cardiovascular Disease
DX: Z79.01 Long term (current) use of anticoagulants (principal)
CPT/HCPCS: 36415; 85610

== ENCOUNTER → 2022-07-26 | Outpatient (CLI) | payer MEDICARE, BC, SELFPAY | END | disposition home or self-care (01) | LOC: PSN 12:12 | PROVIDERS: PCP Family Medicine; Visit Provider Internal Medicine Cardiovascular Disease | DX: I48.19 Other persistent atrial fibrillation (principal); R00.0 Tachycardia, unspecified; R00.2 Palpitations | CPT/HCPCS: 93225; 93226 ==

== ENCOUNTER → 2022-07-27 | Outpatient (CLI) | payer MEDICARE, BC, SELFPAY ==
[2022-07-31 14:08] LABS: Albumin 3.8 g/dL (2.9-4.4); Alpha-1-Globulins 0.2 g/dL (0.0-0.4); Alpha-2-Globulins 0.6 g/dL (0.4-1.0); Gamma Globulin 1.1 g/dL (0.4-1.8); Immunoglobulin A 222 mg/dL (61-437); Immunoglobulin G 1217 mg/dL (603-1613); Immunoglobulin M 59 mg/dL (20-172); PROEL- TOTAL PROTEIN 6.7 g/dL (6.0-8.5)
== END | disposition home or self-care (01) ==
LOC: MTLAB 11:04
PROVIDERS: PCP Family Medicine; Referring Provider Psychiatry & Neurology Neurology; Visit Provider Psychiatry & Neurology Neurology
DX: G62.9 Polyneuropathy, unspecified (principal)
CPT/HCPCS: 36415; 82784; 84165; 86334; 86335

== ENCOUNTER 2022-08-17 15:45 | Outpatient (RCR) | payer MEDICARE, BC, SELFPAY ==
[2022-07-23 06:48] VITALS: BMI 40.1
[2022-08-17 17:54] LABS: International Normalized Ratio 2.3; Prothrombin Time (Protime)PT. 24.7 SECONDS (11.7-14.9)
== END 2022-08-17 17:45 | disposition home or self-care (01) ==
LOC: MTLAB 15:45
PROVIDERS: Family Provider Family Medicine; PCP Family Medicine; Referring Provider Internal Medicine Cardiovascular Disease; Visit Provider Internal Medicine Cardiovascular Disease
DX: Z79.01 Long term (current) use of anticoagulants (principal)
CPT/HCPCS: 36415; 85610

== ENCOUNTER 2022-09-19 09:04 | Outpatient (RCR) | payer MEDICARE, BC, SELFPAY ==
[2022-08-23 07:31] VITALS: BMI 40.1
[2022-09-19 10:05] LABS: International Normalized Ratio 2.2; Prothrombin Time (Protime)PT. 24.1 SECONDS (11.7-14.9)
== END 2022-09-19 18:00 | disposition home or self-care (01) ==
LOC: MTLAB 09:04
PROVIDERS: Family Provider Family Medicine; PCP Family Medicine; Referring Provider Internal Medicine Cardiovascular Disease; Visit Provider Internal Medicine Cardiovascular Disease
DX: Z79.01 Long term (current) use of anticoagulants (principal)
CPT/HCPCS: 36415; 85610

== ENCOUNTER 2022-10-11 13:21 | Outpatient (RCR) | payer MEDICARE, BC, SELFPAY ==
[2022-09-19 23:37] VITALS: BMI 40.1
[2022-10-11 16:06] LABS: International Normalized Ratio 2.2; Prothrombin Time (Protime)PT. 24.2 SECONDS (11.7-14.9)
== END 2022-10-20 21:11 | disposition home or self-care (01) ==
LOC: MTLAB 13:21
PROVIDERS: Family Provider Family Medicine; PCP Family Medicine; Referring Provider Internal Medicine Cardiovascular Disease; Visit Provider Internal Medicine Cardiovascular Disease
DX: Z79.01 Long term (current) use of anticoagulants (principal)
CPT/HCPCS: 36415; 85610

== ENCOUNTER 2022-11-10 10:57 | Outpatient (RCR) | payer MEDICARE, BC, SELFPAY ==
[2022-10-20 21:11] VITALS: BMI 40.1
[2022-10-30 12:27] LABS: International Normalized Ratio 2.6; Prothrombin Time (Protime)PT. 27.5 SECONDS (11.7-14.9)
[2022-11-03 10:33] LABS: International Normalized Ratio 1.6; Prothrombin Time (Protime)PT. 18.5 SECONDS (11.7-14.9)
[2022-11-10 12:30] LABS: International Normalized Ratio 2.1; Prothrombin Time (Protime)PT. 23.2 SECONDS (11.7-14.9)
== END 2022-11-19 05:15 | disposition home or self-care (01) ==
LOC: MTLAB 10:57
PROVIDERS: Family Provider Family Medicine; PCP Family Medicine; Referring Provider Internal Medicine Cardiovascular Disease; Visit Provider Internal Medicine Cardiovascular Disease
DX: Z79.01 Long term (current) use of anticoagulants (principal)
CPT/HCPCS: 36415; 85610

== ENCOUNTER 2022-11-23 08:27 | Emergency (ER) | payer MEDICARE, BC, SELFPAY ==
[2022-11-23 08:27] VITALS: BP 134/94; PULSE 71; RESP 16; TEMP 36.6; O2SAT 99; BMI 40.4
--- NOTE | 2022-11-23 08:40 | EKG12_ITS ---
Test Reason : GENERAL Blood Pressure : / mmHG Vent. Rate : 063 BPM Atrial Rate : 000 BPM P-R Int : 000 ms QRS Dur : 098 ms QT Int : 394 ms P-R-T Axes : 000 -27 -47 degrees QTc Int : 403 ms Atrial fibrillation with frequent ventricular-paced complexes Nonspecific ST-T changes Abnormal ECG Confirmed by ANISH PALMA, ZOHAIB ([id number]), avid editor PRACHI KANG ([id number]) on 11/27/2022 2:24:17 PM Referred By: Confirmed By:SUSHANT OCONNELL MD
--- NOTE | 2022-11-23 08:42 | EX.ED.DYSGE1 ---
HPI History of Present Illness Chief Complaint: Lower Extremity Injury Detail of Chief Complaint: Cellulitis left leg Informant: patient Onset/Context/Timing Onset: Yesterday Context: Sudden Onset Timing: Continuous Quality: Redness, warmth left leg Location: Left leg Current Severity: Moderate Maximum Severity: Moderate Worsened by: Nothing Relieved by: Nothing Associated Symptoms Associated Symptoms: Documented temperature of 101.7 ?F last evening Narrative Narrative: Patient is a 66-year-old male with history of penicillin allergy. He reports hives. He presents because of redness swelling of his left leg and reports fever with chills. Patient had document temperature 101.7 ?F last evening. He took Tylenol and ibuprofen at that time. He has not taken any Tylenol or ibuprofen this morning. Patient reportedly had cellulitis in the leg in the past as well as left upper extremity. He denies history of diabetes. He denies history of heart failure. He does endorse swelling of his legs. He denies headache, visual, ocular auditory symptoms. He denies respiratory or cardiac symptoms. He denies GI or symptoms. Patient probably has right heart failure due to obstructive sleep apnea. Prior similar symptoms: Yes Recent Illness/Hospitalization: No [facility] Medical History anal fistula repair Arthritis Atrial fibrillation Bone fracture Conduction disorder of the heart Depression Dizziness and giddiness Hearing problem Heart disease History of back problems Hypertension Neuropathy Osteoarthritis Pneumonia Presence of cardiac pacemaker Scoliosis Stroke/cerebrovascular accident Vision problems Home Medications cholecalciferol (vitamin D3) 50 mcg (2,000 unit) tablet 4,000 unit PO DAILY supplement 10/17/13 [History Last Taken 04/08/19] gabapentin 300 mg capsule 300 mg PO TID nerve pain 10/17/13 [History Last Taken 04/08/19] multivitamin with folic acid 400 mcg tablet 1 tab PO DAILY supplement 08/27/15 [History Last Taken 04/08/19] famotidine 20 mg tablet 20 mg PO QHS STOMACH 06/28/17 [History Last Taken 04/08/19] amlodipine 5 mg tablet 5 mg PO DAILY 02/04/20 [History Last Taken Unknown] diclofenac sodium 75 mg tablet,delayed release 75 mg PO BID 11/18/21 [History Last Taken Unknown] warfarin 5 mg tablet ([place]) 7.5 mg PO TU 12/22/21 [History Last Taken Unknown] warfarin 5 mg tablet ([place]) See Rx Instructions .Route .COMPLEX #90 TABLETS 04/05/22 [Rx Last Taken Unknown] vitamin B complex 1 cap PO DAILY 11/17/22 [History Last Taken Unknown] levofloxacin 750 mg tablet 750 mg PO DAILY #6 tabs 11/23/22 [Rx Last Taken Unknown] Allergy/AdvReac Type Severity Reaction Status Date / Time adhesive tape Allergy Unknown Verified 11/23/22 08:27 benzoin Allergy Hives Verified 11/23/22 08:27 latex Allergy Unknown Verified 11/23/22 08:27 Penicillins Allergy Hives Verified 11/23/22 08:27 diltiazem AdvReac Intermediate Leg Verified 11/23/22 08:27 swelling metoprolol AdvReac Intermediate Severe Verified 11/23/22 08:27 Fatigue Family History Father Arthritis Non Hodgkin's lymphoma Mother Arthritis Adenocarcinoma of unknown origin Surgical History H/O hernia repair H/O: knee surgery History of cholecystectomy History of left femoral derotational osteotomy History of tonsillectomy and adenoidectomy History of total left knee replacement Social History household members: spouse Smoking Status: Never smoker second hand exposure: No alcohol intake: former substance use type: does not use caffeine: Yes Type: coffee and tea what type of physical activity do you participate in: none nj/uatsdin: None seatbelt use: always ROS ROS ED Constitutional Constitutional ED: Reports chills and fever(s); Denies subjective, sweats or weight loss Eyes Eyes: Denies blurry vision, change in vision or diplopia ENT ENT ED: Denies ear pain, rhinorrhea or sore throat Cardiovascular Cardiovascular: Denies chest pain, palpitations or racing heartbeat Respiratory/Chest Respiratory/Chest: Denies cough, dyspnea or dyspnea on exertion Gastrointestinal Gastrointestinal: Denies abdominal pain, nausea or vomiting Genitourinary Genitourinary ED: Denies dysuria, hematuria or urinary frequency Musculoskeletal Musculoskeletal: Denies arthralgias, back pain, myalgias or neck pain Integumentary Reports rash; Denies abscess or Abrasions Neurologic Neurologic: Denies headache(s) or paresthesias Endocrine Endocrinology: Denies cold intolerance, heat intolerance, polydipsia or polyuria Hematologic/Lymphatic Hematologic/Lymphatic: Reports systems reviewed and no addt'l complaints, except as documented and easy bruising EXAM Physical Exam Const Vital Signs: 11/23/22 08:27 Temperature 98 F Temperature Source Temporal Pulse Rate 71 Respiratory Rate 16 Blood Pressure 134/94 H Blood Pressure Mean 107 Pulse Ox 99 Oxygen Delivery Method Room Air Positive well nourished, well developed and obese General Appearance ED: well developed and NAD; Negative for cyanotic, diaphoretic or pallor Nutritional Appearance: obese HEENT Reports moist mucous membranes HEENT Narrative: Head is atraumatic normocephalic. Ears normal. Nares patent. Eyes PERRL and EOMs intact bilaterally General Eye ED: Negative for pale conjunctiva or scleral icterus Neck no lymphadenopathy and supple Chest Wall inspection of chest normal and palpation of chest normal Resp normal respiratory effort and clear to auscultation bilaterally Cardio regular rate and no murmurs; Negative for S1 normal heart sound or S2 normal heart sound Rhythm: abnormal rhythm irregularly irregular GI normal to inspection, nondistended, normoactive bowel sounds, non-tender and non-distended; Negative for hepatosplenomegaly Back/Spine no CVA tenderness Extremity Negative for normal to inspection Extremity Narrative: Patient has venous stasis dermatitis right leg. The left leg is erythematous warm with multiple areas where the skin is disrupted. There is a palpable popliteal node with noted. There is no inguinal lymphadenopathy noted. There is no lymphangitis. Neuro oriented x3, CN's II-XII intact bilaterally and no sensory deficits noted Sensorium / Orientation: alert Psych mental status grossly normal Skin skin turgor normal Skin Narrative: Cellulitis left leg. General Skin Exam: Negative for jaundice or pallor MDM MDM MDM Narrative Medical decision making narrative: With history of prior cellulitis and severe sepsis sepsis work-up was initiated. Since patient's never had an abscess or MRSA in the past he was treated with levofloxacin since he has significant reaction to penicillin with hives. The sepsis order set and sepsis treatment order set was initiated. Review of prior records indicates patient is on Coumadin for history of stroke and cardiac disease. He does have a pacemaker. Coags were obtained since patient is on long-term anticoagulant. History & Record Review Additional record(s) reviewed:: Prior inpatient record, Prior outpatient record, Prior ED visit and Prior labs Lab Data Attestation: I reviewed the patient's lab results. Lab results narrative: CBC is unremarkable coags reveal elevated PT/INR since he is on an echo regular. Electrolyte panel is unremarkable. Renal function is normal. Notably slight elevated 1.40 not significant lactate is normal. Labs: Laboratory Results - last 24 hr 11/23/22 11/23/22 11/23/22 09:05 09:05 09:05 WBC 8.3 RBC 4.54 L Hgb 13.7 Hct 42.1 MCV 92.7 MCH 30.2 MCHC 32.5 RDW Std Deviation 52.5 H RDW Coeff of Colleen 15.4 H Plt Count 177 MPV 9.8 Immature Gran % (Auto) 0.200 Neut % (Auto) 71.2 H Lymph % (Auto) 14.1 L Schuyler % (Auto) 13.1 H Eos % (Auto) 0.8 Baso % (Auto) 0.6 Absolute Neuts (auto) 5.9 Absolute Lymphs (auto) 1.16 Nucleated RBC % 0 PT 27.6 H INR 2.5 APTT 62.2 H Sodium 142 Potassium 3.8 Chloride 107 Carbon Dioxide 29.0 Anion Gap 6 BUN 17 Creatinine 0.91 Estim Creat Clear Calc 87.64 Est GFR (MDRD) Af Amer 107 Est GFR (MDRD) Non-Af 88 BUN/Creatinine Ratio 18.7 Glucose 97 Lactic Acid Calcium 9.0 Total Bilirubin 1.40 H AST 17 ALT 18 Alkaline Phosphatase 118 H Total Protein 7.2 Albumin 3.3 Globulin 3.9 Albumin/Globulin Ratio 0.8 L 11/23/22 09:05 WBC RBC Hgb Hct MCV MCH MCHC RDW Std Deviation RDW Coeff of Colleen Plt Count MPV Immature Gran % (Auto) Neut % (Auto) Lymph % (Auto) Schuyler % (Auto) Eos % (Auto) Baso % (Auto) Absolute Neuts (auto) Absolute Lymphs (auto) Nucleated RBC % PT INR APTT Sodium Potassium Chloride Carbon Dioxide Anion Gap BUN Creatinine Estim Creat Clear Calc Est GFR (MDRD) Af Amer Est GFR (MDRD) Non-Af BUN/Creatinine Ratio Glucose Lactic Acid 0.9 Calcium Total Bilirubin AST ALT Alkaline Phosphatase Total Protein Albumin Globulin Albumin/Globulin Ratio Treatment and Re-Evaluation :: Patient was informed of his laboratory results at 1026. He is a candidate for outpatient therapy. He was informed there is a chance of failing outpatient therapy, 10 to 15%. Patient was discharged prescription for levofloxacin. He was instructed to follow-up with his primary care physician. He states his doctor is Dr. Cheng. 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, Presence of cardiac pacemaker, Persistent atrial fibrillation, Essential hypertension, NOAH on CPAP Instructions: ED Cellulitis Prescriptions: New levofloxacin 750 mg tablet 750 mg PO DAILY Qty: 6 0RF No Action amlodipine 5 mg tablet 5 mg PO DAILY Hold Instructions: dizziness diclofenac sodium 75 mg tablet,delayed release (DR/EC) 75 mg PO BID vitamin B complex Capsule 1 cap PO DAILY Rx Instructions: takes 1/2 tablet gabapentin 300 MG capsule 300 mg PO TID Label Comments: Nerve pain cholecalciferol (vitamin D3) 2,000 UNIT tablet 4,000 unit PO DAILY Label Comments: Supplement multivitamin with folic acid 1 TABLET tablet 1 tab PO DAILY Label Comments: Supplement warfarin [[place]] 5 mg tablet 7.5 mg PO Protocol: Dose Management Condition: Sunday Dose/Route: 5 mg Instruction: 1 x 5 mg tablet Condition: Sunday Dose/Route: 5 mg Instruction: 1 x 5 mg tablet Condition: Sunday Dose/Route: 2.5 mg Instruction: 0.5 x 5 mg tablets Condition: Sunday Dose/Route: 2.5 mg Instruction: 0.5 x 5 mg tablets Condition: Dose/Route: 2.5 mg Instruction: 0.5 x 5 mg tablets Condition: Sunday Dose/Route: 5 mg Instruction: 1 x 5 mg tablet Condition: Sunday Dose/Route: 5 mg Instruction: 1 x 5 mg tablet Protocol Text: Adjustment Start Date: Sunday11/10/22 INR Value: 2.1 INR Date: 11/10/22 Recheck Date: 12/08/22 famotidine 20 mg tablet 20 mg PO QHS warfarin [[place]] 5 mg tablet See Rx Instructions .ROUTE .COMPLEX Qty: 90 3RF Protocol: Dose Management Condition: Sunday Dose/Route: 5 mg Instruction: 1 x 5 mg tablet Condition: Sunday Dose/Route: 5 mg Instruction: 1 x 5 mg tablet Condition: Sunday Dose/Route: 2.5 mg Instruction: 0.5 x 5 mg tablets Condition: Sunday Dose/Route: 2.5 mg Instruction: 0.5 x 5 mg tablets Condition: Dose/Route: 2.5 mg Instruction: 0.5 x 5 mg tablets Condition: Sunday Dose/Route: 5 mg Instruction: 1 x 5 mg tablet Condition: Sunday Dose/Route: 5 mg Instruction: 1 x 5 mg tablet Protocol Text: Adjustment Start Date: Sunday11/10/22 INR Value: 2.1 INR Date: 11/10/22 Recheck Date: 12/08/22 Dose Instruction: TAKE 1 TABLET DAILY SEE PROTOCOL Rx Instructions: TAKE 1 TABLET DAILY SEE PROTOCOL Primary Care Provider: Vilma Thacker Referrals: Vilma Thacker, DO [Primary Care Provider] - 2 Days for wound check Activity Restrictions/Additional Instructions: Take 1/2 tablet of Coumadin tonight and for the next 5 doses. The antibiotic you were prescribed may cause your INR to rise and cause you to bleed. Take antibiotics until gone If you develop a temperature greater than 100.5, redness extends beyond the outline of the area or if you develop red streaks going to your groin. Disposition Disposition: Home, Self Care
[2022-11-23] MEDS: 0.9% Normal Saline 1,000 ML 250 ML IV (09:21)
[2022-11-23 09:24] LABS: Absolute Lymphocyte Count 1.16 X10^3/uL (0.83-4.51); Absolute Neutrophil Count 5.9 X10^3/uL (2.0-7.7); Basophil# 0.05 X10^3/uL; Basophil% 0.6 % (0-1); Eosinophil# 0.07 X10^3/uL; Eosinophils% 0.8 % (0-5); Hematocrit 42.1 % (40-54); Hemoglobin 13.7 g/dL (13.0-16.5); Lymphocyte # 1.16 X10^3/ul (0.83-4.51); Lymphocyte % 14.1 % (19-41); Mean Corp Hgb Conc 32.5 g/dL (32-36); Mean Corpuscular Hgb 30.2 pg (27.0-32.0); Mean Corpuscular Volume 92.7 fL (80-94); Mean Platelet Vol. 9.8 fl (6.2-12.0); Monocyte# 1.08 X10^3/uL; Monocyte% 13.1 % (0-10); NRBC Flagged by Analyzer 0 % (0-5); Neutrophil # 5.87 X10^3/uL (2.7-7.7); Neutrophil % 71.2 % (47-70); Platelet Count 177 K/mm3 (150-450); RBC Distribution Width CV 15.4 % (11.6-14.6); RBC Distribution Width SD 52.5 fl (35.1-43.9); Red Blood Count 4.54 M/mm3 (4.6-6.2); White Blood Count 8.3 K/mm3 (4.4-11.0)
[2022-11-23 09:30] LABS: International Normalized Ratio 2.5; Prothrombin Time (Protime)PT. 27.6 SECONDS (11.7-14.9)
[2022-11-23 09:33] LABS: Partial Thromboplast Time 62.2 Seconds (24.1-36.2)
[2022-11-23 09:36] LABS: ALB/GLOB Ratio 0.8 RATIO (0.9-2.4); AST(SGOT) 17 U/L (15-37); Alanine Aminotransfer ALT/SGPT 18 U/L (16-61); Albumin, Serum 3.3 g/dL (3.2-5.0); Alkaline Phosphatase 118 U/L (45-117); Anion Gap 6 (5-15); BUN 17 mg/dL (7-18); BUN/Creat Ratio 18.7 RATIO (10-20); Chloride 107 mmol/L (98-107); Creatinine, Serum 0.91 mg/dL (0.70-1.30); EST Glomerular Filtration Rate 88 mL/min (>60); Est Glom Filt Rate - Afr Amer 107 mL/min (>60); Estimated Creatinine Clearance 87.64 ml/min; Globulin 3.9 g/dL (2.2-4.2); Glucose 97 mg/dL (74-106); Lactic Acid 0.9 mmol/L (0.4-1.9); Potassium 3.8 mmol/L (3.5-5.1); Protein, Total 7.2 g/dL (6.4-8.2); Sodium Level 142 mmol/L (136-145)
[2022-11-23] MEDS: levoFLOXacin IV 750 MG/150 ML BAG 100 MG IV (10:08)
--- NOTE | 2022-11-25 20:37 | ED.RN ---
spoke with Henry cherrying one blood culture coming back positive for gram positive rods and him being appropriately treated with Levaquin. pt stated he felt good and will have a f/u on Sunday with his PCP. DR. Strong awareand pleased.
== END 2022-11-23 11:35 | disposition home or self-care (01) ==
PROVIDERS: Emergency Provider Emergency Medicine; PCP Family Medicine; Visit Provider Emergency Medicine
DX: L03.116 Cellulitis of left lower limb (principal); I48.19 Other persistent atrial fibrillation; Z79.01 Long term (current) use of anticoagulants; I10 Essential (primary) hypertension; Z95.0 Presence of cardiac pacemaker; E66.9 Obesity, unspecified; G47.33 Obstructive sleep apnea (adult) (pediatric); Z99.89 Dependence on other enabling machines and devices; Z79.899 Other long term (current) drug therapy; Z86.73 Personal history of transient ischemic attack (TIA), and cerebral infarction without residual deficits; Z96.652 Presence of left artificial knee joint
CPT/HCPCS: 80053; 83605; 85025; 85610; 85730; 87040; 93005; 96361; 96365; 99285; J7030; A4216

== ENCOUNTER → 2022-12-07 | Outpatient (CLI) | payer MEDICARE, BC, SELFPAY ==
--- NOTE | 2022-12-07 14:35 | VDLE_ITS ---
Reason For Study: Bilateral leg swelling RIGHT LEFT GSV is normal. GSV is normal. CFV is compressible, spontaneous, phasic, CFV is compressible, spontaneous, phasic, competent and demonstrates normal competent, and demonstrates normal augmentation. augmentation. FV is compressible, spontaneous, phasic, FV is compressible, spontaneous, phasic, competent and demonstrates normal competent and demonstrates normal augmentation. augmentation. POP V is compressible, spontaneous, phasic, POP V is compressible, spontaneous, phasic, competent and demonstrates normal competent and demonstrates normal augmentation. augmentation. T/P Trunk is compressible. T/P Trunk is compressible. PTV is compressible. PTV is compressible. RT PerV is compressible. LT PerV is compressible. Procedure This is a venous duplex using B-mode, color flow and spectral Doppler. Exam performed in department. A preliminary report was called and/or faxed to Dr. Thacker. VL/Venous Duplex US - [place] Extrem Interpretation Summary No evidence for acute deep venous thrombosis bilateral lower extremities with p atent and compressible bilateral great saphenous veins. Ordering Physician: Vilma Thacker Referring Physician: Vilma Thacker Performed By: Wilda Rincon RVT
== END | disposition home or self-care (01) ==
PROVIDERS: PCP Family Medicine; Referring Provider Family Medicine; Visit Provider Family Medicine
DX: M79.89 Other specified soft tissue disorders (principal)
CPT/HCPCS: 93970

== ENCOUNTER → 2022-12-13 | Outpatient (CLI) | payer MEDICARE, BC, SELFPAY ==
--- NOTE | 2022-12-13 07:53 | ART_ITS ---
Reason For Study: Claudication Procedure A bilateral lower extremity continuous wave Doppler with analog waveform analysis,segmental pressures,and ankle brachial indexes without exercise. Left Segmental Pressures Left brachial= 121mmHg. Left posterior tibial artery = 150mmHg. Left dorsalis pedis artery = 152mmHg. Left digit = 94 mmHg. Right Segmental Pressures Right brachial= 121mmHg. Right posterior tibial artery = 164mmHg. Right dorsalis pedis artery = 152mmHg. Right digit = 97 mmHg. Indices The right ankle brachial index by the posterior tibial artery is 1.36. The right ankle brachial index by the dorsalis pedis is 1.26. The right post exercise ankle brachial index is 0.80. The left ankle brachial index by the posterior tibial artery is 1.24. The left ankle brachial index by the dorsalis pedis is 1.26. The left post exercise ankle brachial index is 0.78. VL/Lower Ext Art Exam w/o Exercis Interpretation Summary Right CHRISTY 1.36, normal. TBI and Doppler/PVR waveforms of the right leg normal a t rest. Left CHRISTY 1.26, normal. TBI and Doppler/PVR waveforms of the left leg normal at rest. Ordering Physician: Vilma Chris Referring Physician: ESTRELLA CHRIS DO Performed By: Augusta Bhagat RDCS/RVT
== END | disposition home or self-care (01) ==
LOC: CVS 07:49
PROVIDERS: PCP Family Medicine; Referring Provider Psychiatry & Neurology Neurology; Visit Provider Psychiatry & Neurology Neurology
DX: R09.89 Other specified symptoms and signs involving the circulatory and respiratory systems (principal); M79.89 Other specified soft tissue disorders
CPT/HCPCS: 93923

== ENCOUNTER 2022-12-19 07:57 | Outpatient (RCR) | payer MEDICARE, BC, SELFPAY ==
[2022-11-19 05:15] VITALS: BMI 40.1
[2022-11-28 12:39] LABS: International Normalized Ratio 1.6; Prothrombin Time (Protime)PT. 19.1 SECONDS (11.7-14.9)
[2022-12-04 16:03] LABS: Absolute Lymphocyte Count 1.24 X10^3/uL (0.83-4.51); Absolute Neutrophil Count 8.9 X10^3/uL (2.0-7.7); Basophil# 0.04 X10^3/uL; Basophil% 0.4 % (0-1); Eosinophil# 0.09 X10^3/uL; Eosinophils% 0.8 % (0-5); Hematocrit 44.1 % (40-54); Hemoglobin 14.4 g/dL (13.0-16.5); Lymphocyte # 1.24 X10^3/ul (0.83-4.51); Lymphocyte % 11.1 % (19-41); Mean Corp Hgb Conc 32.7 g/dL (32-36); Mean Corpuscular Hgb 30.1 pg (27.0-32.0); Mean Corpuscular Volume 92.3 fL (80-94); Mean Platelet Vol. 9.8 fl (6.2-12.0); Monocyte# 0.83 X10^3/uL; Monocyte% 7.4 % (0-10); NRBC Flagged by Analyzer 0 % (0-5); Neutrophil # 8.94 X10^3/uL (2.7-7.7); Platelet Count 244 K/mm3 (150-450); RBC Distribution Width CV 15.1 % (11.6-14.6); RBC Distribution Width SD 51.5 fl (35.1-43.9); Red Blood Count 4.78 M/mm3 (4.6-6.2); White Blood Count 11.2 K/mm3 (4.4-11.0)
[2022-12-04 16:11] LABS: International Normalized Ratio 2.3; Prothrombin Time (Protime)PT. 25.5 SECONDS (11.7-14.9)
[2022-12-04 16:31] LABS: AST(SGOT) 23 U/L (15-37); Alanine Aminotransfer ALT/SGPT 22 U/L (16-61); Albumin, Serum 3.9 g/dL (3.2-5.0); Alkaline Phosphatase 124 U/L (45-117); Anion Gap 5 (5-15); BUN 20 mg/dL (7-18); BUN/Creat Ratio 16.8 RATIO (10-20); Calcium,Total 9.3 mg/dL (8.5-10.1); Chloride 107 mmol/L (98-107); Creatinine, Serum 1.19 mg/dL (0.70-1.30); EST Glomerular Filtration Rate 65 mL/min (>60); Est Glom Filt Rate - Afr Amer 78 mL/min (>60); Globulin 4.1 g/dL (2.2-4.2); Glucose 93 mg/dL (74-106); Potassium 3.9 mmol/L (3.5-5.1); Sodium Level 139 mmol/L (136-145)
[2022-12-09 22:07] LABS: Complement C3 154 mg/dL (82-167); Complement CH50 > 60 U/mL (>41); Immunoglobulin A 289 mg/dL (61-437); Immunoglobulin E 15 IU/mL (6-495); Immunoglobulin G 1316 mg/dL (603-1613); Immunoglobulin M 72 mg/dL (20-172)
[2022-12-19 10:20] LABS: Prothrombin Time (Protime)PT. 31.6 SECONDS (11.7-14.9)
== END 2022-12-19 08:57 | disposition home or self-care (01) ==
LOC: MTLAB 07:57
PROVIDERS: Nurse Practitioner Family; Physician Assistant Medical; Family Provider Family Medicine; PCP Family Medicine; Referring Provider Internal Medicine Cardiovascular Disease; Visit Provider Internal Medicine Cardiovascular Disease
DX: Z79.01 Long term (current) use of anticoagulants (principal); L03.90 Cellulitis, unspecified; I48.19 Other persistent atrial fibrillation
CPT/HCPCS: 36415; 80053; 82784; 82785; 85025; 85610; 86160; 86162

== ENCOUNTER 2023-01-15 14:46 | Outpatient (RCR) | payer MEDICARE, BC, SELFPAY ==
[2022-12-21 08:34] VITALS: BMI 40.1
[2023-01-02 10:00] LABS: International Normalized Ratio 2.8; Prothrombin Time (Protime)PT. 30.2 SECONDS (11.7-14.9)
[2023-01-15 18:17] LABS: International Normalized Ratio 1.4
== END 2023-01-15 18:00 | disposition home or self-care (01) ==
LOC: MTLAB 14:46
PROVIDERS: Family Provider Family Medicine; PCP Family Medicine; Referring Provider Physician Assistant Medical; Visit Provider Physician Assistant Medical
DX: Z79.01 Long term (current) use of anticoagulants (principal)
CPT/HCPCS: 36415; 85610

== ENCOUNTER 2023-02-13 10:00 | Outpatient (RCR) | payer MEDICARE, BC, SELFPAY ==
[2023-01-20 03:05] VITALS: BMI 40.1
[2023-01-25 10:23] LABS: Prothrombin Time (Protime)PT. 22.9 SECONDS (11.7-14.9)
[2023-02-13 12:30] LABS: Prothrombin Time (Protime)PT. 23.1 SECONDS (11.7-14.9)
== END 2023-02-19 18:00 | disposition home or self-care (01) ==
LOC: MTLAB 10:00
PROVIDERS: Family Provider Family Medicine; PCP Family Medicine; Referring Provider Physician Assistant Medical; Visit Provider Physician Assistant Medical
DX: Z79.01 Long term (current) use of anticoagulants (principal)
CPT/HCPCS: 36415; 85610

== ENCOUNTER 2023-03-13 09:18 | Outpatient (RCR) | payer MEDICARE, BC, SELFPAY ==
[2023-02-20 02:04] VITALS: BMI 40.1
[2023-03-13 10:51] LABS: Prothrombin Time (Protime)PT. 23.1 SECONDS (11.7-14.9)
== END 2023-03-13 18:00 | disposition home or self-care (01) ==
LOC: MTLAB 09:18
PROVIDERS: Family Provider Family Medicine; PCP Family Medicine; Referring Provider Physician Assistant Medical; Visit Provider Physician Assistant Medical
DX: Z79.01 Long term (current) use of anticoagulants (principal); I48.19 Other persistent atrial fibrillation; I63.9 Cerebral infarction, unspecified
CPT/HCPCS: 36415; 85610

== ENCOUNTER 2023-04-18 11:03 | Outpatient (RCR) | payer MEDICARE, BC, SELFPAY ==
[2023-03-23 02:33] VITALS: BMI 40.1
== END 2023-04-18 18:00 | disposition home or self-care (01) ==
LOC: MTLAB 11:03
PROVIDERS: Nurse Practitioner Family; Family Provider Family Medicine; PCP Family Medicine; Referring Provider Physician Assistant Medical; Visit Provider Physician Assistant Medical
DX: Z79.01 Long term (current) use of anticoagulants (principal); I63.9 Cerebral infarction, unspecified; I48.11 Longstanding persistent atrial fibrillation
CPT/HCPCS: 36415; 85610

== ENCOUNTER 2023-05-16 08:09 | Outpatient (RCR) | payer MEDICARE, BC, SELFPAY ==
[2023-04-22 05:19] VITALS: BMI 40.1
[2023-05-16 10:23] LABS: International Normalized Ratio 2.2; Prothrombin Time (Protime)PT. 24.6 SECONDS (11.7-14.9)
== END 2023-05-16 18:00 | disposition home or self-care (01) ==
LOC: MTLAB 08:09
PROVIDERS: Family Provider Family Medicine; PCP Family Medicine; Referring Provider Physician Assistant Medical; Visit Provider Physician Assistant Medical
DX: Z79.01 Long term (current) use of anticoagulants (principal); I48.19 Other persistent atrial fibrillation; I63.9 Cerebral infarction, unspecified
CPT/HCPCS: 36415; 85610

== ENCOUNTER 2023-06-11 09:53 | Outpatient (RCR) | payer MEDICARE, BC, SELFPAY ==
[2023-05-22 23:25] VITALS: BMI 40.1
[2023-06-11 13:07] LABS: International Normalized Ratio 2.4; Prothrombin Time (Protime)PT. 26.5 SECONDS (11.7-14.9)
== END 2023-06-21 18:00 | disposition home or self-care (01) ==
LOC: MTLAB 09:53
PROVIDERS: Family Provider Family Medicine; PCP Family Medicine; Referring Provider Physician Assistant Medical; Visit Provider Physician Assistant Medical
DX: Z79.01 Long term (current) use of anticoagulants (principal); I48.19 Other persistent atrial fibrillation
CPT/HCPCS: 36415; 85610

== ENCOUNTER 2023-07-09 08:47 | Outpatient (RCR) | payer MEDICARE, BC, SELFPAY ==
[2023-06-22 03:47] VITALS: BMI 40.1
[2023-07-09 11:10] LABS: International Normalized Ratio 2.4; Prothrombin Time (Protime)PT. 26.4 SECONDS (11.7-14.9)
== END 2023-07-22 18:00 | disposition home or self-care (01) ==
LOC: MTLAB 08:47
PROVIDERS: Nurse Practitioner Family; Family Provider Family Medicine; PCP Family Medicine; Referring Provider Physician Assistant Medical; Visit Provider Physician Assistant Medical
DX: Z79.01 Long term (current) use of anticoagulants (principal)
CPT/HCPCS: 36415; 85610

== ENCOUNTER 2023-08-22 09:37 | Outpatient (RCR) | payer MEDICARE, BC, SELFPAY ==
[2023-07-22 22:14] VITALS: BMI 40.1
[2023-08-22 12:37] LABS: International Normalized Ratio 2.3; Prothrombin Time (Protime)PT. 25.9 SECONDS (11.7-14.9)
== END 2023-08-22 18:00 | disposition home or self-care (01) ==
LOC: MTLAB 09:37
PROVIDERS: Family Provider Family Medicine; PCP Family Medicine; Referring Provider Physician Assistant Medical; Visit Provider Physician Assistant Medical
DX: Z79.01 Long term (current) use of anticoagulants (principal)
CPT/HCPCS: 36415; 85610

== ENCOUNTER 2023-09-18 08:50 | Outpatient (RCR) | payer MEDICARE, BC, SELFPAY ==
[2023-08-22 22:35] VITALS: BMI 40.1
[2023-09-18 10:30] LABS: Prothrombin Time (Protime)PT. 22.5 SECONDS (11.7-14.9)
== END 2023-09-20 18:00 | disposition home or self-care (01) ==
LOC: MTLAB 08:50
PROVIDERS: Family Provider Family Medicine; PCP Family Medicine; Referring Provider Physician Assistant Medical; Visit Provider Physician Assistant Medical
DX: Z79.01 Long term (current) use of anticoagulants (principal); I48.19 Other persistent atrial fibrillation
CPT/HCPCS: 36415; 85610

== ENCOUNTER → 2023-10-04 | Outpatient (CLI) | payer MEDICARE, BC, SELFPAY ==
--- NOTE | 2023-10-04 11:15 | RAD_ITS ---
EXAM: XR LEFT HIP WITH PELVIS WHEN PERFORMED, 2 OR 3 VIEWS CLINICAL INDICATION: Chronic pain TECHNIQUE: Two or three views of the left hip with pelvis when performed. COMPARISON: No relevant prior studies available. FINDINGS: BONES/JOINTS: Severe degenerative disc disease lower lumbar spine. No displaced fracture. No destructive or sclerotic lesions. Note that overlapping bowel shadows may however obscure fine detail. Sacroiliac joint is unremarkable. No widening of the pubic symphysis. SOFT TISSUES: Unremarkable. No soft tissue swelling or gas. OTHER FINDINGS: Multiple bladder calculi measuring up to 1 cm in diameter. RAD/HIP, UNI W/ Pelvis 2-3 Views IMPRESSION: 1. Normal left hip. 2. Severe degenerative disc disease lower lumbar spine. 3. Multiple bladder calculi measuring up to 1 cm in diameter. Electronically Signed: Christian Quintana MD at 7:42 EDT ,
--- OUTSIDE RECORDS SUMMARY | 2023-10-04 19:47 | XMS RPT_ITS | CCD ---
Author Name Unknown Address [address] [place] [address] Organization [facility] Results Test Name Value Interpretation Reference Range Facil ity Progress note 10-04-2021 Note Date & Type Note Facility 10-04-2021 Note HNO ID: [id number] Author: Robert Fox MD Service: ? 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 He has a complex orthopedic history. He had a right total knee done by Dr. Guido in 2011 and has done well from that. His left knee is more of a concern. He had substantial issues with his left knee stemming from a young age. He had multiple cartilage surgeries that are unclear to me. He then apparently had a left distal femur supracondylar osteotomy. This unfortunately broke and failed, was revised, and then broke and fell again. He thus was taken to the operating room by Dr. Guido in 2000 for hardware removal. This was staged done in 2001 to a left complex total knee replacement. He is now having issues with his left knee. He does have some discomfort and also feels like it gives way on him. He feels like it adam and is unreliable to stand on. Of note he has substantial issues down his left side from his lumbar spine as well. He said he saw Dr. Sekou Schilling in 2013 at which point they discussed a fairly complex reconstruction of his spine. 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 He is having multiple falls. Is unclear to him if this is from his knee, spine, foot, or combination. He is here to have his knees evaluated and to determine the next steps. ROS: No new medical issues No past medical history on file. PAST SURGICAL HISTORY Procedure Laterality Date - ANESTH,PACEMAKER INSERTION 2014 - CHOLECYSTECTOMY HX 2013 - COLONOSCOPY 05/27/2018 - FOOT SURGERY HX Right 1994 - OSTEOTOMY FEMORAL TROCHLEA W/ FIX Left 1979 - PAST SURGICAL HISTORY OF knee surgeries - REMOVAL OF ANAL FISTULA 1979 - REPAIR ING HERNIA,6MO-5YR,REDUC - TOTAL KNEE REPLACEMENT Left 2001 - TOTAL KNEE REPLACEMENT Right 05/2012 Current Outpatient Medications Medication Sig Dispense Refill - vitamin B complex (B COMPLEX ORAL) Take by mouth. - amLODIPine (NORVASC) 5 mg tablet Take by mouth once daily. - multivit-minerals/ferrous fum (MULTI VITAMIN ORAL) Take by mouth. - warfarin sodium (COUMADIN ORAL) Take by mouth. - famotidine (PEPCID) 20 mg tablet - gabapentin (NEURONTIN) 300 mg capsule three times daily. - diclofenac, EC, 75 mg EC tablet Take 75 mg by mouth twice daily. - Cholecalciferol, Vitamin D3, (VITAMIN D-3) 2,000 unit cap Take by mouth. - escitalopram oxalate (LEXAPRO) 10 mg tablet Take 10 mg by mouth once daily. - CEFUROXIME AXETIL (CEFTIN ORAL) Take by mouth. - psyllium Husk (METAMUCIL) 0.52 gram capsule Take 0.52 g by mouth once daily. No current facility-administered medications for this visit. ALLERGIES Allergen Reactions - Adhesive Tape (Latrice* Rash - Penicillins Hives - Tincture Of Benzoin* Other: See Comments Gets blisters with tape FAMILY HISTORY Problem Relation Age of Onset - Cancer Mother adenocarcinoma - Cancer Father lymphoma Social History Tobacco Use - Smoking status: Never Smoker - Smokeless tobacco: Never Used Substance Use Topics - Alcohol use: Not on file - Drug use: Not on file PHYSICAL EXAM: Body mass index is 41 kg/m?. GENERAL:Wnl nutrition, no deformities, healthy appearing CV: No extremity swelling, varices, edema, pallor, erythema PULSES: Normal,bilateral femoral 2+/2+, popliteal 2+/2+, dorsalis pedis 2+/2+, posterior tibial 2+/2+ SKIN: No rash, lesions. involving the four extremities. NEURO/PSYCH: A/Ox3. Nl mood, with no signs of depression, anxiety, or agitation. There are no pathologic reflexes. LYMPHATIC: There is no adenoathy to palpation. LOWER EXTREMITIES: Left lower extremity: Knee Well-healed incision anteriorly, and laterally Neutral alignment Significant varus valgus instability Significant anterior instability with the ability to sublux the tibia anteriorly from the femur entirely Able to straight leg raise No effusion Mild tenderness medial and laterally Distal Distally does have Charcot appearance to his foot and ankle Does have collapse of the ankle joint Does have collapse of the midfoot Near complete sensation loss in the foot and ankle, at baseline Right lower extremity: Knee Well-healed incision Neutral alignment Ligamentous stable Able to straight leg raise No effusion No tenderness Distal Distally does have Charcot appearance to his foot and ankle D (more content not included)... [facility] Progress note 10-04-2021 Note Date & Type Note Facility 10-04-2021 Note HNO ID: [id number] Author: Jennifer Curtis, LIEN Service: Radiology Author Type: Technologist Type: Progress Notes Filed: 10/04/2021 9:24 AM Note Text: Radiology Service Progress Note PATIENT NAME: Irena Hurt DATE OF SERVICE: October 04, 2021 TIME: 9:23 AM PATIENT IDENTITY VERIFICATION COMPLETED USING TWO (2) IDENTIFIERS: Name and Date of confirmed by patient verbally. FALL SCREENING: Has the patient had 2 falls in the last year or 1 fall with injury or currently using an Ambulatory Assistive Device (Walker, Cane, Wheelchair, Crutches, etc.)? Yes, Patient High Risk for Falls What interventions were put in place to prevent falls during this visit? Offered Assistance with Transfers/Clothing and Increased Observations by Caregivers PATIENT GENDER DATA: Male PATIENT RELEVANT IMPLANT DATA REVIEWED: Not Applicable RADIOLOGY DEPARTMENT: General X-ray: Exam(s) Completed: Lower Extremity X-Ray(s): Foot, Left PERIPHERAL IV DATA: Not applicable SIGNED BY: LIEN Iglesias October 04, 2021 9:23 AM [facility] Progress note 10-04-2021 Note Date & Type Note Facility 10-04-2021 Note HNO ID: [id number] Author: LIEN Iglesias Service: Radiology Author Type: Technologist Type: Progress Notes Filed: 10/04/2021 8:15 AM Note Text: Radiology Service Progress Note PATIENT NAME: Irena Hurt DATE OF SERVICE: October 04, 2021 TIME: 8:15 AM PATIENT IDENTITY VERIFICATION COMPLETED USING TWO (2) IDENTIFIERS: Name and Date of confirmed by patient verbally. FALL SCREENING: Has the patient had 2 falls in the last year or 1 fall with injury or currently using an Ambulatory Assistive Device (Walker, Cane, Wheelchair, Crutches, etc.)? Yes, Patient High Risk for Falls What interventions were put in place to prevent falls during this visit? Offered Assistance with Transfers/Clothing and Increased Observations by Caregivers PATIENT GENDER DATA: Male PATIENT RELEVANT IMPLANT DATA REVIEWED: Not Applicable RADIOLOGY DEPARTMENT: General X-ray: Exam(s) Completed: Lower Extremity X-Ray(s): Knee, AP / Lat / Merchant Bilateral and Wt. Bearing PERIPHERAL IV DATA: Not applicable SIGNED BY: LIEN Iglesias October 04, 2021 8:15 AM [facility] Summary Purpose Family History No Family History Records FoundNo Family History Records Found Advance Directives No Advanced Directives Records FoundNo Advanced Directives Records Found Additional Source Comments (unrecognized sect ion and content) No Status Records FoundNo Status Records Found INFORMATION SOURCE (unrecogn ized section and content) DATE CREATED AUTHOR AUTHOR'S KRUPA MERINO 10/17/2021 [facility] FOR RECORDS PERTAINING TO PATIENTS WHO ARE OR HAVE BEEN ENROLLED IN A CHEMICAL DEPENDENCY/SUBSTANCEABUSE PROGRAM, SOME INFORMATION MAY BE OMITTED. This clinical summary was aggregated from multiple sources. Caution should be exercised in using it in the provision of clinical care. This summary normalizes information from multiple sources, and as a consequence, information in this document may materially change the coding, format and clinical context of patient data. In addition, data may be omitted in some cases. CLINICAL DECISIONS SHOULD BE BASED ON THE PRIMARY CLINICAL RECORDS. [facility]. provides no warranty or guarantee of the accuracy or completeness of information in this document.
== END | disposition home or self-care (01) ==
LOC: MTRAD 11:11
PROVIDERS: PCP Family Medicine; Referring Provider Family Medicine; Visit Provider Family Medicine
DX: M25.552 Pain in left hip (principal)
CPT/HCPCS: 73502

== ENCOUNTER 2023-10-08 07:58 | Outpatient (RCR) | payer MEDICARE, BC, SELFPAY ==
[2023-09-20 20:56] VITALS: BMI 40.1
[2023-10-08 10:25] LABS: Absolute Lymphocyte Count 1.28 X10^3/uL (0.83-4.51); Absolute Neutrophil Count 2.6 X10^3/uL (2.0-7.7); Basophil# 0.05 X10^3/uL; Basophil% 1.1 % (0-1); Eosinophil# 0.09 X10^3/uL; Eosinophils% 1.9 % (0-5); Hematocrit 47.4 % (40-54); Hemoglobin 15.6 g/dL (13.0-16.5); Lymphocyte # 1.28 X10^3/ul (0.83-4.51); Lymphocyte % 27.5 % (19-41); Mean Corp Hgb Conc 32.9 g/dL (32-36); Mean Corpuscular Hgb 31.1 pg (27.0-32.0); Mean Corpuscular Volume 94.4 fL (80-94); Mean Platelet Vol. 10.4 fl (6.2-12.0); Monocyte% 12.9 % (0-10); NRBC Flagged by Analyzer 0 % (0-5); Neutrophil # 2.61 X10^3/uL (2.7-7.7); Neutrophil % 56.2 % (47-70); Platelet Count 209 K/mm3 (150-450); RBC Distribution Width CV 13.8 % (11.6-14.6); RBC Distribution Width SD 47.8 fl (35.1-43.9); Red Blood Count 5.02 M/mm3 (4.6-6.2); White Blood Count 4.7 K/mm3 (4.4-11.0)
[2023-10-08 11:01] LABS: International Normalized Ratio 2.2; Prothrombin Time (Protime)PT. 24.2 SECONDS (11.7-14.9)
[2023-10-08 11:31] LABS: ALB/GLOB Ratio 1.1 RATIO (0.9-2.4); AST(SGOT) 23 U/L (15-37); Alanine Aminotransfer ALT/SGPT 18 U/L (16-61); Alkaline Phosphatase 102 U/L (45-117); Anion Gap 4 (5-15); BUN 20 mg/dL (7-18); BUN/Creat Ratio 20.5 RATIO (10-20); Chloride 110 mmol/L (98-107); Creatinine, Serum 0.97 mg/dL (0.70-1.30); EST Glomerular Filtration Rate 82 mL/min (>60); Est Glom Filt Rate - Afr Amer 99 mL/min (>60); Globulin 3.6 g/dL (2.2-4.2); Glucose 95 mg/dL (74-106); Protein, Total 7.6 g/dL (6.4-8.2); Sodium Level 140 mmol/L (136-145); Thyroid Stim Hormone (TSH) 1.35 uIU/mL (0.358-3.74)
== END 2023-10-21 02:18 | disposition home or self-care (01) ==
LOC: MTLAB 07:58
PROVIDERS: Family Provider Family Medicine; PCP Family Medicine; Referring Provider Physician Assistant Medical; Visit Provider Physician Assistant Medical
DX: Z79.01 Long term (current) use of anticoagulants (principal); I48.19 Other persistent atrial fibrillation; R53.83 Other fatigue
CPT/HCPCS: 36415; 80053; 84443; 85025; 85610

== ENCOUNTER → 2023-10-12 | Outpatient (CLI) | payer MEDICARE, BC, SELFPAY ==
--- NOTE | 2023-10-12 11:43 | US_ITS ---
HISTORY: Enlarged and tender TECHNIQUE: Realtime ultrasound of the testicles was performed with grayscale, Color Doppler and spectral Doppler analysis. 82 images. COMPARISON: None. FINDINGS: Right- TESTIS: 2.4 x 2.8 x 4.6 cm. Heterogeneous echotexture without focal lesion. COLOR DOPPLER: Normal arterial flow present in the testicle with monophasic waveforms. EPIDIDYMIS: 8 x 9 x 10 mm. No focal hyperemia. EXTRATESTICULAR CONTENTS: No significant hydrocele. Prominent vessels. Heterogeneous area medial to the testicle measures 1.1 x 2.2 x 3.9 cm with calcification, which may be related to the epididymal tail. Left- TESTIS: 2.3 x 3.4 x 4.2 cm. Heterogeneous echotexture without focal lesion. COLOR DOPPLER: Normal arterial flow present in the testicle with monophasic waveforms. EPIDIDYMIS: 9 x 11 x 15 mm. 3 mm calcification. No focal hyperemia. EXTRATESTICULAR CONTENTS: No significant hydrocele US/Testicular with Arterial Flow IMPRESSION: Vascular flow demonstrated to both testicles. Heterogeneous testicles without focal mass demonstrated. Heterogeneous left epididymis with a small calcification. Heterogeneous lesion medial to the right testicle containing calcification, uncertain etiology. Consider follow-up. Electronically Signed: Sherri Srinivasan MD at 10:50 EDT ,
== END | disposition home or self-care (01) ==
LOC: US 11:43
PROVIDERS: PCP Family Medicine; Referring Provider Family Medicine; Visit Provider Family Medicine
DX: N50.812 Left testicular pain (principal)
CPT/HCPCS: 76870; 93976

== ENCOUNTER 2023-11-15 09:36 | Outpatient (RCR) | payer MEDICARE, BC, SELFPAY ==
[2023-10-21 02:19] VITALS: BMI 40.1
[2023-11-15 11:58] LABS: International Normalized Ratio 2.3; Prothrombin Time (Protime)PT. 24.9 SECONDS (11.7-14.9)
[2023-11-15 12:23] LABS: PSA,Total - Annual Screen 6.75 ng/mL (0.00-4.00)
== END 2023-11-20 21:54 | disposition home or self-care (01) ==
LOC: MTLAB 09:36
PROVIDERS: Family Provider Family Medicine; PCP Family Medicine; Referring Provider Physician Assistant Medical; Visit Provider Physician Assistant Medical
DX: Z79.01 Long term (current) use of anticoagulants (principal); I48.19 Other persistent atrial fibrillation; R97.20 Elevated prostate specific antigen [PSA]; Z12.5 Encounter for screening for malignant neoplasm of prostate
CPT/HCPCS: 36415; 84153; 85610; G0103

== ENCOUNTER 2023-11-26 10:50 | Day surgery (SDC) | payer MEDICARE, BC, SELFPAY ==
--- NOTE | 2023-11-21 10:56 | RAD_ITS ---
STUDY: X-RAY CHEST REASON FOR EXAM: Male, 67 years old. For PPM generator change on 11/26/23. TECHNIQUE: Frontal and lateral views of the chest on 3 images. COMPARISON: None. FINDINGS: Low volume inspiration with patchy opacities at both bases most compatible with atelectasis. Vascular crowding. Borderline cardiomegaly with single lead cardiac pacer. Aortic tortuosity. No abnormality of the visualized soft tissue structures of the upper abdomen. RAD/Chest PA and Lateral IMPRESSION: Low volume inspiration with atelectasis. No active or acute cardiopulmonary disease. Electronically Signed: Derek Harrell MD at 10:01 EDT ,
[2023-11-21 11:23] LABS: Bacteria 0 SEEN /hpf (None Seen); Mucous, Urine 0 SEEN /hpf (<or=2+); Red Blood Cells-Urine 0 SEEN /hpf (0-5); Squamous Epithelial Cells - UA 0 SEEN /hpf (0-5); White Blood Cells 0 SEEN /hpf (0-5)
[2023-11-21 12:37] LABS: Color, Urine Yellow (Yellow); Glucose, Dipstick Normal (Normal); Ketone-Dipstick Negative (Negative); Leukocyte Esterase-Dipstick Negative /ul (Negative); Nitrite-Dipstick Negative (Negative); Occult Blood-Urine Negative /ul (Negative); Protein-Dipstick Negative (Negative); Urine Bilirubin Dipstick Negative (Negative); Urine Clarity Clear (Clear); Urine Urobilinogen Normal (Normal)
[2023-11-21 12:56] LABS: Hematocrit 48.3 % (40-54); Hemoglobin 15.6 g/dL (13.0-16.5); Mean Corp Hgb Conc 32.3 g/dL (32-36); Mean Corpuscular Hgb 30.5 pg (27.0-32.0); Mean Corpuscular Volume 94.3 fL (80-94); Mean Platelet Vol. 10.4 fl (6.2-12.0); Platelet Count 208 K/mm3 (150-450); RBC Distribution Width CV 13.6 % (11.6-14.6); RBC Distribution Width SD 47.6 fl (35.1-43.9); Red Blood Count 5.12 M/mm3 (4.6-6.2); White Blood Count 5.5 K/mm3 (4.4-11.0)
[2023-11-21 13:06] LABS: International Normalized Ratio 2.2; Prothrombin Time (Protime)PT. 24.3 SECONDS (11.7-14.9)
[2023-11-21 13:25] LABS: Anion Gap 4 (5-15); BUN 20 mg/dL (7-18); Calcium,Total 9.4 mg/dL (8.5-10.1); Chloride 109 mmol/L (98-107); Creatinine, Serum 0.87 mg/dL (0.70-1.30); EST Glomerular Filtration Rate 93 mL/min (>60); Est Glom Filt Rate - Afr Amer 112 mL/min (>60); Glucose 95 mg/dL (74-106); Potassium 4.2 mmol/L (3.5-5.1); Sodium Level 141 mmol/L (136-145)
[2023-11-26 11:25] LABS: INR Fingerstick 1.1
[2023-11-26 11:32] VITALS: BMI 40.7
--- NOTE | 2023-11-26 13:02 | CL.IE_ITS ---
Patient: IRENA HURT Study Date: 11/26/2023 Performing: Lamont Agarwal MD : 1955 Age: 67 Gender: male PROCEDURES PERFORMED [id number])BATTERY REMOVAL+REPLACEMENT PACER-SINGLE LEAD INDICATIONS Atrioventricular (AV) block End-of-life replacement indicator PROCEDURE DETAILS The patient was brought to the Catheterization Lab in the postabsorptive nonsedated state. Informed consent was obtained prior to the procedure. Local anesthetic was given subcutaneously to the left upper chest area with Lidocaine 2%. Incision was made to the left upper chest. The old PPM generator was removed. Device pocket was irrigated with antibiotic, Clindamycin. The new PPM generator was attached to the lead(s) and inserted into the pocket. Subcutaneous closure was completed with 3-0 Vicryl. Skin closure was completed with 4-0 Vicryl. Steri-strips applied to Lt chest area. The patient tolerated the procedure well. 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 Clindamycin 900 mg IV 11/26/2023 12:20:39 Signed By Lamont Agarwal MD On 11/26/2023 13:01:15 Lamont Agarwal MD
== END 2023-11-26 14:13 | disposition home or self-care (01) ==
LOC: CLSP 10:52
PROVIDERS: PCP Family Medicine; Referring Provider Internal Medicine Cardiovascular Disease; Visit Provider Internal Medicine Cardiovascular Disease
DX: Z45.010 Encounter for checking and testing of cardiac pacemaker pulse generator [battery] (principal); I48.19 Other persistent atrial fibrillation; I44.30 Unspecified atrioventricular block; I10 Essential (primary) hypertension; Z79.899 Other long term (current) drug therapy; I45.89 Other specified conduction disorders
CPT/HCPCS: 33227; 36415; 36416; 71046; 80048; 81001; 85027; 85610; 99152; 99153; J7040; J7050

== ENCOUNTER 2023-12-18 14:05 | Outpatient (RCR) | payer MEDICARE, BC, SELFPAY ==
[2023-11-20 21:54] VITALS: BMI 40.1
[2023-12-18 19:00] LABS: International Normalized Ratio 2.3; Prothrombin Time (Protime)PT. 25.4 SECONDS (11.7-14.9)
== END 2023-12-21 18:00 | disposition home or self-care (01) ==
LOC: MTLAB 14:05
PROVIDERS: Family Provider Family Medicine; PCP Family Medicine; Referring Provider Physician Assistant Medical; Visit Provider Physician Assistant Medical
DX: Z79.01 Long term (current) use of anticoagulants (principal); I48.11 Longstanding persistent atrial fibrillation
CPT/HCPCS: 36415; 85610

== ENCOUNTER → 2023-12-20 | Outpatient (CLI) | payer MEDICARE, BC, SELFPAY ==
[2023-11-23 08:16] VITALS: BMI 39.6
--- NOTE | 2023-12-20 12:40 | CT_ITS ---
STUDY: CT ABDOMEN AND PELVIS WITHOUT CONTRAST REASON FOR EXAM: Male, 67 years old. BLADDER STONES RADIATION DOSAGE (If Supplied By Facility): CTDIvol = ( 24.17 ) mGy, DLP = ( 1286.22 ) mGycm TECHNIQUE: Transaxial images were obtained from the dome of the diaphragm to the symphysis pubis without oral contrast, and without intravenous contrast. Sagittal and coronal images were reconstructed. Individualized dose optimization techniques were used for this CT. COMPARISON: None. FINDINGS: Increased linear markings at the lung bases with areas of confluence suggestive of scarring. A dual-chamber pacemaker is seen. There is hepatomegaly with diffuse hepatic enlargement. The gallbladder is not visualized most likely secondary to prior cholecystectomy. Normal spleen. Normal pancreas. Normal bilateral adrenal glands. Normal right kidney. Normal left kidney. There is a small hiatal hernia. Normal small intestine. There are scattered colonic diverticula consistent with diverticulosis. There are 3 adjacent rounded calcifications with central lucencies in the pelvis measuring 1.5 cm. These appear to be in the rectosigmoid colon most likely within distal sigmoid diverticula. The stones are not within the urinary bladder. There is scattered atherosclerotic calcification of the abdominal aorta, without a demonstrated aneurysm. Normal inferior vena cava. Normal retroperitoneum. Small volume urinary bladder. Bladder wall thickening. The prostate measures 6 cm x 4.7 cm. Normal abdominal wall. There are diffuse degenerative changes of the visualized lumbar spine. Fusion of the L2 and L3 vertebrae. Levoscoliosis. CT/Abdomen/Pelvis without Cont IMPRESSION: Rounded calcifications are seen within the distal sigmoid colon most likely within diverticula. No bladder calculi are seen. Diffuse bladder wall thickening. Prostatic enlargement. Electronically Signed: Wisam Ragland MD at 14:26 EDT ,
== END | disposition home or self-care (01) ==
LOC: CT 12:38
PROVIDERS: PCP Family Medicine; Referring Provider Urology; Visit Provider Urology
DX: N21.0 Calculus in bladder (principal)
CPT/HCPCS: 74176

== ENCOUNTER 2024-01-15 09:17 | Outpatient (RCR) | payer MEDICARE, BC, SELFPAY ==
[2023-12-24 08:15] VITALS: BMI 40.1
[2024-01-15 12:34] LABS: International Normalized Ratio 2.5; Prothrombin Time (Protime)PT. 26.6 SECONDS (11.7-14.9)
== END 2024-01-15 18:00 | disposition home or self-care (01) ==
LOC: MTLAB 09:17
PROVIDERS: Family Provider Family Medicine; PCP Family Medicine; Referring Provider Physician Assistant Medical; Visit Provider Physician Assistant Medical
DX: Z79.01 Long term (current) use of anticoagulants (principal); I48.19 Other persistent atrial fibrillation
CPT/HCPCS: 36415; 85610

== ENCOUNTER 2024-02-05 09:30 | Outpatient (RCR) | payer MEDICARE, BC, SELFPAY ==
[2024-01-20 22:37] VITALS: BMI 40.1
[2024-02-05 12:17] LABS: International Normalized Ratio 2.2; Prothrombin Time (Protime)PT. 24.1 SECONDS (11.7-14.9)
== END 2024-02-20 18:00 | disposition home or self-care (01) ==
LOC: MTLAB 09:30
PROVIDERS: Family Provider Family Medicine; PCP Family Medicine; Referring Provider Physician Assistant Medical; Visit Provider Physician Assistant Medical
DX: Z79.01 Long term (current) use of anticoagulants (principal)
CPT/HCPCS: 36415; 85610

== ENCOUNTER 2024-02-29 10:46 | Day surgery (SDC) | payer MEDICARE, BC, SELFPAY ==
[2024-02-29 11:23] VITALS: BP 121/52; PULSE 65; RESP 18; TEMP 36.5; O2SAT 97; BMI 41.5
--- NOTE | 2024-02-29 12:30 | LES_PTH ---
PATIENT: IRENA HURT LOC: [facility] [place] U#:[id number] AGE/SX: 68/M ROOM: RE02/29/[address]: Dr. Shruti Toro MD : 1955 BED: DIS: 02/29/2024 SPEC #: [id number] RECD: 02/29/24 16:31 STATUS: MIKE GARCIA #: [id number] LISA: 02/29/24 12:[address]: Shruti Toro DEPT: SURGICAL PATHOLOGY RECD BY: Pina Cheng ENTERED: 03/03/24 09:35 SP TYPE: Lesion OTHR DR: Barbara Cooper MD Tissues: Skin of scalp, NOS Procedures: Surgery Specimen Level IV HEADER OPERATION: Excision lesion right scalp (2.5cm) PRE-OP DIAGNOSIS: Neoplasm of uncertain behavior of skin TISSUE SUBMITTED: Neoplasm of uncertain behavior of skin, right side scalp MICROSCOPIC DIAGNOSIS Right side scalp lesion, excisional biopsy: Inflamed verrucous keratosis. Negative for malignancy. See comment. MICHOACANO/ 03/04/2024 COMMENT Correlation with clinical findings and appropriate follow up are necessary. Case has been reviewed in consultation with Dr. Coles who concurs with the above diagnosis. IDC:AM MICROSCOPIC DESCRIPTION Slides are reviewed. GROSS DESCRIPTION Received in fixative is one container labeled with the patient's name and designated Neoplasm of uncertain behavior of skin- right side scalp. The specimen consists of barnes-white skin ellipse measuring 2.5 x 0.6cm and up to 0.2cm in thickness. The specimen is inked, serially sectioned and submitted entirely in one cassette. 03/03/2024 TC:5 CPT:01997
--- NOTE | 2024-02-29 12:35 | PCM.HP.BLA ---
History and Physical Date of Admission: 02/29/24 The patient is examined and there are no changes from the H&P dated 02/20/2024. The patient presents for excision of the lesion of the scalp with submission for pathologic evaluation. The patient is aware of the potential need for further surgery depending on the resulting pathology. Assessment & Plan Assessment/Plan (1) Neoplasm of uncertain behavior of skin: PLAN: Plan Excision neoplasm scalp
[2024-02-29 12:58] VITALS: BP 101/87; BP 104/73; BP 127/95; O2SAT 100; O2SAT 96; O2SAT 98; O2SAT 99
[2024-02-29] MEDS: Lidocaine 1% /Epi 1:100 9 ML, Sodium Bicarbonate 1 MEQ OPERA.SITE (13:13)
[2024-02-29] MEDS: Bacitracin 500 UNITS/GM PACKET (13:31)
--- NOTE | 2024-02-29 13:35 | EX.PCM.DISCH ---
Discharge Instructions Dressing / Incision Additional Dressing/Incision Instructions:: Keep your back elevated (recliner position) for the next 2 to 3 days to help reduce drainage and swelling. May shower over the area but do not scrub. May apply a thin layer of antibiotic ointment (like Neosporin, bacitracin, or triple antibiotic ointment) 1 time a day to the site. Follow Up Care Please Follow Up With: Shruti Toro MD When: In 2 weeks Test Results: Test results from this visit will be discussed in further detail at your follow-up appointment, if applicable. Discharge Plan Admission Attending Provider: Shruti Toro Primary Care Provider: Barbara Cooper Instructions Print Language: [place] Discharge Orders/Prescriptions Prescriptions: No Action amlodipine 5 mg tablet 5 mg PO DAILY diclofenac sodium 75 mg tablet,delayed release (DR/EC) 75 mg PO BID vitamin B complex Capsule 1 cap PO DAILY Rx Instructions: takes 1/2 tablet warfarin [Jantoven] 5 mg tablet 5 mg PO DAILY Protocol: Dose Management Condition: Sunday Dose/Route: 5 mg Instruction: 1 x 5 mg tablet Condition: Sunday Dose/Route: 5 mg Instruction: 1 x 5 mg tablet Condition: Sunday Dose/Route: 2.5 mg Instruction: 0.5 x 5 mg tablets Condition: Sunday Dose/Route: 5 mg Instruction: 1 x 5 mg tablet Condition: Dose/Route: 5 mg Instruction: 1 x 5 mg tablet Condition: Sunday Dose/Route: 5 mg Instruction: 1 x 5 mg tablet Condition: Sunday Dose/Route: 5 mg Instruction: 1 x 5 mg tablet Protocol Text: Adjustment Start Date: 02/28/24 INR Value: 1.8 INR Date: 02/28/24 Recheck Date: 03/06/24 Rx Instructions: take one tab daily; or use as directed clindamycin HCl 150 mg capsule 150 mg PO Q6H gabapentin 300 MG capsule 300 mg PO TID Patient Comments: Nerve pain cholecalciferol (vitamin D3) 2,000 UNIT tablet 4,000 unit PO DAILY Patient Comments: Supplement multivitamin with folic acid 1 TABLET tablet 1 tab PO DAILY Patient Comments: Supplement Referrals / Follow Up: Barbara Cooper MD [Primary Care Provider] - Disposition Disposition (needs filled in before D/C Order can be placed): Home, Self Care
--- NOTE | 2024-02-29 13:37 | PCM.OPRPT ---
Problems Associated Problem List Diagnoses (1) Neoplasm of uncertain behavior of skin: Report of Operation Date of Procedure: 02/29/24 Pre-Operative Diagnosis: Neoplasm of scalp skin of uncertain behavior Post-Operative Diagnosis: Same Surgery/Procedure Performed:: Incisional biopsy neoplasm scalp (3.0 cm) Surgeon: Shruti Toro Type of Anesthesia: Local Specimen's removed: Neoplasm scalp Estimated Blood Loss (mL): Minimal Description of Procedure: The patient presents today with a neoplasm of the scalp which she has only recently noticed. He states his CPAP strap falls directly over the site. He presents for excision of the neoplasm to establish diagnosis and he is aware of the potential need for further surgery depending on the results. The patient is brought to the operating room and placed on the operating room table in supine position. The scalp was prepped and draped in usual sterile fashion. 1% Xylocaine with epinephrine is used for local anesthetic. Following this, the hair is trimmed and the site closely examined. It appears to be a crescent shaped and pebbly lesion of the right scalp apex with a central area of atrophy. A portion was excised which included the discolored area as well as the atrophic area. This is excised and passed off the operative field to be sent to pathology. Hemostasis is controlled with cautery. The site is then closed with a running chromic suture. Antibiotic ointment is placed on the site. He tolerated the procedure well was taken to the recovery area in an awake and stable condition. Needle and sponge counts are correct. Complications None Admit VTE Documentation VTE Mechan Device Prophylaxis: None Reason prophylaxis not ordered:: Treatment Not Indicated
[2024-02-29 13:45] VITALS: BP 117/69; PULSE 63; RESP 16; TEMP 36.6; O2SAT 100
== END 2024-02-29 14:11 | disposition home or self-care (01) ==
LOC: SDC 10:47 → AC 10:50
PROVIDERS: PCP Family Medicine; Referring Provider Plastic Surgery; Visit Provider Plastic Surgery
PROC: (CPT 11423; principal; 2024-02-29 12:20)
DX: D48.5 Neoplasm of uncertain behavior of skin (principal); Z99.89 Dependence on other enabling machines and devices; L82.0 Inflamed seborrheic keratosis
CPT/HCPCS: 11423; 88305

== ENCOUNTER 2024-03-11 18:14 | Inpatient (IN) | payer MEDICARE, BC, SELFPAY ==
[2024-03-11] VITALS (9 sets, daily range): BP systolic 99–125; BP diastolic 58–80; PULSE 60–109; RESP 16–20; TEMP 37.2–38.1; O2SAT 93–98; BMI 43.2; BMI 42.0
--- NOTE | 2024-03-11 19:45 | EKG12_ITS ---
Test Reason : DYSRHYTHMIA Blood Pressure : / mmHG Vent. Rate : 076 BPM Atrial Rate : 023 BPM P-R Int : 000 ms QRS Dur : 166 ms QT Int : 454 ms P-R-T Axes : 000 -70 091 degrees QTc Int : 510 ms Ventricular-paced rhythm with frequent Premature ventricular complexes Abnormal ECG Confirmed by ANISH PALMA, ZOHAIB ([id number]), editor publications YESENIA COMBS ([id number]) on 03/14/2024 6:37:45 AM Referred By: Confirmed By:SUSHANT OCONNELL MD
--- NOTE | 2024-03-11 19:46 | EDS_ITS ---
HPI History of Present Illness Chief Complaint: Fever Narrative Narrative: 68-year-old male past medical history of cellulitis, hypertension, presents with fever that began today. He relates history that while he has chronic lymphedema of the bilateral lower extremities, he was diagnosed with cellulitis sometime last month and was on doxycycline for approximately 14 days. He saw his primary care provider today who put him on Lasix and doxycycline again because of red lower extremity, right. He states that after he went home and took the doxycycline, he began not feeling well. He noted a fever and took Tylenol. He states that while he has never been admitted for cellulitis he has received IV medications. He presents because his temperature was as high as 102 ?F. [facility] Medical History History of pacemaker History of cellulitis Vision problems Pneumonia Neuropathy Hypertension Heart disease Hearing problem Bone fracture History of back problems Arthritis Stroke/cerebrovascular accident Atrial fibrillation Dizziness and giddiness anal fistula repair Presence of cardiac pacemaker Conduction disorder of the heart Depression Scoliosis Osteoarthritis Home Medications ?Medication ?Instructions ?Recorded ?Last Taken ?Type cholecalciferol (vitamin D3) 50 4,000 unit PO DAILY supplement 10/17/13 02/29/24 History mcg (2,000 unit) tablet gabapentin 300 mg capsule 300 mg PO TID nerve pain 10/17/13 02/29/24 History multivitamin with folic acid 400 1 tab PO DAILY supplement 08/27/15 02/29/24 History mcg tablet amlodipine 5 mg tablet 5 mg PO DAILY 02/04/20 02/29/24 History diclofenac sodium 75 mg 75 mg PO BID 11/18/21 02/29/24 History tablet,delayed release vitamin B complex 1 cap PO DAILY 11/17/22 02/29/24 History warfarin 5 mg tablet (Jantoven) 5 mg PO DAILY 11/21/23 02/28/24 History clindamycin HCl 150 mg capsule 150 mg PO Q6H 02/20/24 Unknown History doxycycline hyclate 100 mg capsule 100 mg PO BID 03/11/24 03/11/24 History famotidine 20 mg tablet 20 mg PO DAILY 03/11/24 Unknown History Allergy/AdvReac Type Severity Reaction Status Date / Time adhesive tape Allergy Mild Unknown Verified 03/11/24 18:15 benzoin Allergy Hives Verified 03/11/24 18:15 latex Allergy Unknown Verified 03/11/24 18:15 Penicillins Allergy Hives Verified 03/11/24 18:15 diltiazem AdvReac Intermediate Leg Verified 03/11/24 18:15 swelling metoprolol AdvReac Intermediate Severe Verified 03/11/24 18:15 Fatigue Family History Father Arthritis Non Hodgkin's lymphoma Mother Arthritis Adenocarcinoma of unknown origin Surgical History History of total left knee replacement History of left femoral derotational osteotomy History of cholecystectomy History of tonsillectomy and adenoidectomy H/O hernia repair H/O: knee surgery Social History household members: spouse Smoking Status: Never smoker second hand exposure: No alcohol intake: former substance use type: does not use caffeine: Yes Type: coffee and tea what type of physical activity do you participate in: none nj/evangelical: None seatbelt use: always additional social history: pt denies vaping, denies marijuana use, denies edibles, does not use aspirin or ibuprofen ROS ROS ED ROS Narrative Constitutional: Positive fever, no chills. Positive malaise. HEENT: No sore throat. No neck pain. No loss of vision. No rhinorrhea. Cardiovascular: No chest pain. No palpitations. No pedal edema. Respiratory: No cough, no shortness of breath. Abdominal: No abdominal pain. No nausea. No vomiting. Genitourinary: No dysuria. No hematuria. Musculoskeletal: No myalgias. No arthralgias. Neurologic: No headaches. No dizziness. No lightheadedness. Skin: No rash. Positive swelling and redness right lower extremity. Psychiatric: No depression. No anxiety. EXAM Physical Exam Narrative Exam Narrative: Temperature 100.4 ?F. Vital signs noted. HEENT: Normocephalic. Atraumatic. PERRL, EOMI. Neck soft and supple. No point tenderness or step off. Cardiovascular: Positive tachycardia no murmurs, rubs, or gallops appreciated. Respiratory: No tachypnea. Lungs clear to auscultation bilaterally. Gastrointestinal: Abdomen soft, nontender, with normoactive bowel sounds. No rebound or guarding. Neurological: Awake. Alert. Nonfocal, nonlateralizing. Skin: No rash. Positive erythema right lower extremity. No pallor. Musculoskeletal: Bilateral chronic lymphedema. Full range of motion extremities. Const Vital Signs: 03/11/24 18:15 03/11/24 18:15 03/11/24 18:21 Temperature 100.4 F H 100.4 F H Temperature Source Oral Oral Pulse Rate 109 H 109 H Respiratory Rate 18 18 Respiratory Effort Normal Non-Labored Respiratory Pattern Normal Blood Pressure 125/80 H 125/80 H Blood Pressure Mean 95 95 Pulse Ox 96 96 Oxygen Delivery Method Room Air Room Air 03/11/24 19:21 03/11/24 19:59 03/11/24 20:00 Temperature 100.0 F H 99.9 F H Temperature Source Oral Oral Pulse Rate 60 66 Respiratory Rate 18 18 Respiratory Effort Respiratory Pattern Blood Pressure 109/70 116/71 Blood Pressure Mean 83 86 Pulse Ox 95 95 98 Oxygen Delivery Method Room Air Room Air Room Air 03/11/24 21:02 Temperature 99.9 F H Temperature Source Oral Pulse Rate 66 Respiratory Rate 16 Respiratory Effort Respiratory Pattern Blood Pressure 103/62 Blood Pressure Mean 75 Pulse Ox 95 Oxygen Delivery Method Room Air MDM MDM MDM Narrative Medical decision making narrative: Differential diagnosis includes but not limited to sepsis secondary to cellulitis of right lower extremity. Will feel he has a pneumonia or a urinary tract infection as the source of his fever secondary to the history and physical not supporting this. Initially had temperature of 100.4 ?F but he has taken Tylenol and his temperature was 100 degrees. He was normotensive, but did have a dip in his blood pressure to 109 systolic. Sepsis workup was pursued. Of note, should he require antibiotics he has hives to penicillin. I reviewed his laboratory work and he has normal white count 9.3, hemoglobin 14.7 with hematocrit 45.5, platelet count normal at 186. Coagulation studies showed PT of 25 INR of 2.3 and a PTT 55.4. This is part of the sepsis workup. Review of the CMP shows a BUN of 20 and creatinine 1.0, glucose elevated at 123 with normal anion gap of 5. Sodium is normal at 140 with potassium also normal at 3.8. Lactic acid is normal at 1.7. Urinalysis obtained and reviewed and is negative for infection. He was started on Levaquin and vancomycin as I feel he has a cellulitis of his right lower extremity. He will be bolused normal saline as well. I discussed patient with Dr. Cassia Vo who will admit the patient to the medical surgical floor as he is meeting SIRS criteria. Disposition is admit in stable condition. History & Record Review Discussion w/independent historian: Patient Additional record(s) reviewed:: Prior ED visit Lab Data Attestation: I reviewed the patient's lab results. Labs: Laboratory Results - last 24 hr 03/11/24 03/11/24 19:55 20:22 WBC 9.3 RBC 4.81 Hgb 14.7 Hct 45.5 MCV 94.6 H MCH 30.6 MCHC 32.3 RDW Std Deviation 48.5 H RDW Coeff of Colleen 13.9 Plt Count 186 MPV 10.1 Immature Gran % (Auto) 0.100 Neut % (Auto) 85.7 H Lymph % (Auto) 4.7 L [place] % (Auto) 8.9 Eos % (Auto) 0.3 Baso % (Auto) 0.3 Absolute Neuts (auto) 8.0 H Absolute Lymphs (auto) 0.44 L Nucleated RBC % 0 ESR 26 H PT 25.0 H INR 2.3 APTT 55.4 H Sodium 140 Potassium 3.8 Chloride 107 Carbon Dioxide 28.0 Anion Gap 5 BUN 20 H Creatinine 1.01 Estim Creat Clear Calc 100.46 Est GFR (MDRD) Af Amer 94 Est GFR (MDRD) Non-Af 78 BUN/Creatinine Ratio 19.8 Glucose 123 H Lactic Acid 1.7 Calcium 9.3 Total Bilirubin 1.50 H AST 20 ALT 20 Alkaline Phosphatase 105 C-React Prot Ext Range 43.20 H Total Protein 7.5 Albumin 3.7 Globulin 3.8 Albumin/Globulin Ratio 1.0 Urine Color [place] Urine Clarity Sl. Cloudy Urine pH 5.0 Ur Specific [place] 1.025 Urine Protein 30 H Urine Glucose (UA) Normal Urine Ketones 5 H Urine Occult Blood 10 H Urine Nitrite Positive H Urine Bilirubin 1 H Urine Urobilinogen 4 H Ur Leukocyte Esterase 25 H Urine RBC 0-5 SEEN Urine WBC 0-5 SEEN Ur Squamous Epith Cells 0-5 SEEN Urine Bacteria 2+ Urine Mucus 3+ Urine Yeast RARE Management Discussion w/another healthcare provider: Hospitalist (Dr. Vo) Discharge Plan Disposition Disposition: Acute Care Hospital [facility] Discharge Date/Time: 03/11/24 22:14
[2024-03-11 20:08] LABS: Absolute Lymphocyte Count 0.44 X10^3/uL (0.83-4.51); Basophil# 0.03 X10^3/uL; Basophil% 0.3 % (0-1); Eosinophil# 0.03 X10^3/uL; Eosinophils% 0.3 % (0-5); Hematocrit 45.5 % (40-54); Hemoglobin 14.7 g/dL (13.0-16.5); Lymphocyte # 0.44 X10^3/ul (0.83-4.51); Lymphocyte % 4.7 % (19-41); Mean Corp Hgb Conc 32.3 g/dL (32-36); Mean Corpuscular Hgb 30.6 pg (27.0-32.0); Mean Corpuscular Volume 94.6 fL (80-94); Mean Platelet Vol. 10.1 fl (6.2-12.0); Monocyte# 0.83 X10^3/uL; Monocyte% 8.9 % (0-10); NRBC Flagged by Analyzer 0 % (0-5); Neutrophil # 7.97 X10^3/uL (2.7-7.7); Neutrophil % 85.7 % (47-70); POSITIVE DIFFERENTIAL YES; Platelet Count 186 K/mm3 (150-450); RBC Distribution Width CV 13.9 % (11.6-14.6); RBC Distribution Width SD 48.5 fl (35.1-43.9); Red Blood Count 4.81 M/mm3 (4.6-6.2); White Blood Count 9.3 K/mm3 (4.4-11.0)
[2024-03-11 20:17] LABS: International Normalized Ratio 2.3
[2024-03-11 20:18] LABS: Partial Thromboplast Time 55.4 Seconds (24.1-36.2)
[2024-03-11 20:29] LABS: AST(SGOT) 20 U/L (15-37); Alanine Aminotransfer ALT/SGPT 20 U/L (16-61); Albumin, Serum 3.7 g/dL (3.2-5.0); Alkaline Phosphatase 105 U/L (45-117); Anion Gap 5 (5-15); BUN 20 mg/dL (7-18); BUN/Creat Ratio 19.8 RATIO (10-20); Calcium,Total 9.3 mg/dL (8.5-10.1); Chloride 107 mmol/L (98-107); Creatinine, Serum 1.01 mg/dL (0.70-1.30); EST Glomerular Filtration Rate 78 mL/min (>60); Est Glom Filt Rate - Afr Amer 94 mL/min (>60); Estimated Creatinine Clearance 100.46 ml/min; Globulin 3.8 g/dL (2.2-4.2); Glucose 123 mg/dL (74-106); Lactic Acid 1.7 mmol/L (0.4-1.9); Potassium 3.8 mmol/L (3.5-5.1); Protein, Total 7.5 g/dL (6.4-8.2); Sodium Level 140 mmol/L (136-145)
[2024-03-11 20:39] LABS: Color, Urine Amber (Yellow); Glucose, Dipstick Normal (Normal); Ketone-Dipstick 5 mg/dl (Negative); Leukocyte Esterase-Dipstick 25 /ul (Negative); Nitrite-Dipstick Positive (Negative); Occult Blood-Urine 10 /ul (Negative); Protein-Dipstick 30 mg/dl (Negative); Specific Gravity, Urine 1.025 (1.002-1.030); Urine Clarity Sl. Cloudy (Clear); Urine Urobilinogen 4 mg/dl (Normal)
[2024-03-11 21:03] LABS: Urine Bilirubin Dipstick 1 mg/dL (Negative)
[2024-03-11 21:05] LABS: Bacteria 2+ /hpf (None Seen); Mucous, Urine 3+ /hpf (<or=2+); Red Blood Cells-Urine 0-5 SEEN /hpf (0-5); Squamous Epithelial Cells - UA 0-5 SEEN /hpf (0-5); White Blood Cells 0-5 SEEN /hpf (0-5)
[2024-03-11 21:07] LABS: Yeast-Urine RARE /hpf (None Seen)
--- NOTE | 2024-03-11 21:34 | PCM.HP.STD ---
HPI - General General Date of Admission: 03/11/24 Date of Service: 03/11/24 Chief Complaint: Fever HPI Narrative IRENA HURT, is a 68 M who presented to the emergency department at [facility] on 03/11/2024 with a chief complaint of fever and right lower extremity erythema. The patient has a history of right lower extremity cellulitis and has been hospitalized for this previously. He stated about a month ago he was on doxycycline for 14 days and he saw his primary care provider today who put him on Lasix and doxycycline again because of right lower extremity erythema. He went home and took the first dose of doxycycline and then began not feeling well. He felt chilled and took a fever and his temperature was as high as 102 degrees at home. Given his fever and not feeling well he came to the emergency department for further evaluation. He states he had issues with both legs on and off through the years however his right leg has been more problematic. Other than fever and chills he does report some right leg pain but denies any sick contacts, nausea vomiting, diarrhea and constipation and reports that he has been voiding without difficulty. Vital signs on presentation showed a temperature of 100.4 after Tylenol was taken at home prior to arrival, heart rate of 109, blood pressure 125/80 with repeat of 109/70, respiratory rate was 18 oxygen saturations were 96% on room air. His CBC is unremarkable other than a left shift having an 85.7% neutrophilia. His white count is normal at 9.3. His INR is elevated at 2.3 and he is chronically on Coumadin. His chemistry panel is unremarkable. Glucose was 123. Lactic acid of 1.5. Bilirubin is elevated at 1.50. Liver functions were normal. UA is somewhat suggestive of infection having leuk esterase and positive nitrates however there were no white cells and 2+ bacteria. He was treated with Levaquin and vancomycin x 1 dose in the emergency department after cultures were obtained and request for admission was made. [facility] Medical History History of pacemaker History of cellulitis Vision problems Pneumonia Neuropathy Hypertension Heart disease Hearing problem Bone fracture History of back problems Arthritis Stroke/cerebrovascular accident Atrial fibrillation Dizziness and giddiness anal fistula repair Presence of cardiac pacemaker Conduction disorder of the heart Depression Scoliosis Osteoarthritis Home Medications ?Medication ?Instructions ?Recorded ?Last Taken ?Type cholecalciferol (vitamin D3) 50 4,000 unit PO DAILY supplement 10/17/13 02/29/24 History mcg (2,000 unit) tablet gabapentin 300 mg capsule 300 mg PO TID nerve pain 10/17/13 02/29/24 History multivitamin with folic acid 400 1 tab PO DAILY supplement 08/27/15 02/29/24 History mcg tablet amlodipine 5 mg tablet 5 mg PO DAILY 02/04/20 02/29/24 History diclofenac sodium 75 mg 75 mg PO BID 11/18/21 02/29/24 History tablet,delayed release vitamin B complex 1 cap PO DAILY 11/17/22 02/29/24 History warfarin 5 mg tablet (Jantoven) 5 mg PO DAILY 11/21/23 02/28/24 History clindamycin HCl 150 mg capsule 150 mg PO Q6H 02/20/24 Unknown History doxycycline hyclate 100 mg capsule 100 mg PO BID 03/11/24 03/11/24 History famotidine 20 mg tablet 20 mg PO DAILY 03/11/24 Unknown History Allergy/AdvReac Type Severity Reaction Status Date / Time adhesive tape Allergy Mild Unknown Verified 03/11/24 18:15 benzoin Allergy Hives Verified 03/11/24 18:15 latex Allergy Unknown Verified 03/11/24 18:15 Penicillins Allergy Hives Verified 03/11/24 18:15 diltiazem AdvReac Intermediate Leg Verified 03/11/24 18:15 swelling metoprolol AdvReac Intermediate Severe Verified 03/11/24 18:15 Fatigue Family History Father Arthritis Non Hodgkin's lymphoma Mother Arthritis Adenocarcinoma of unknown origin Surgical History History of total left knee replacement History of left femoral derotational osteotomy History of cholecystectomy History of tonsillectomy and adenoidectomy H/O hernia repair H/O: knee surgery Social History household members: spouse Smoking Status: Never smoker second hand exposure: No alcohol intake: former substance use type: does not use caffeine: Yes Type: coffee and tea what type of physical activity do you participate in: none nj/scientology: None seatbelt use: always additional social history: pt denies vaping, denies marijuana use, denies edibles, does not use aspirin or ibuprofen ROS Constitutional Constitutional: Reports chills, fever(s), malaise and weakness; Denies anorexia, change in weight, fatigue, night sweats or other Eyes Eyes: Denies blurry vision, change in eye color, change in vision, discharge from eye(s), double vision, erythema, eye pain, loss of vision or other ENT HEENT: Denies abnormal hearing, dysphagia, ear pain, epistaxis, headache(s), hearing loss, nasal congestion, nasal discharge, post nasal drip, sinus pressure, sore throat or other Cardiovascular Cardiovascular: Denies chest pain, claudication, dyspnea on exertion, edema, lightheadedness, orthopnea, palpitations, paroxysmal nocturnal dyspnea, rapid heart rate, syncope or other Respiratory/Chest Respiratory/Chest: Denies cough, dyspnea, excessive phlegm production, hemoptysis, productive cough, shortness of breath at rest, shortness of breath with exertion, wheezing or other Gastrointestinal Gastrointestinal: Denies abdominal pain, coffee ground emesis, constipation, diarrhea, dyspepsia, hematemesis, hematochezia, loose stools, melena, nausea, vomiting or other Genitourinary Genitourinary: Denies burning urination, difficulty urinating, dysuria, hematuria, nocturia, urinary frequency, urinary hesitancy, urinary incontinence, urinary urgency or other Musculoskeletal Musculoskeletal: Reports other Details: Right leg pain ; Denies arthralgias, back pain, joint pain, joint stiffness, joint swelling, myalgias or neck pain Integumentary Integumentary: Reports new lesions and rash; Denies dry skin, jaundice, lesions, pruritus, wounds or other Neurologic Neurologic: Denies abnormal gait, abnormal speech, confusion, disequilibrium, dizziness, focal weakness, headache(s), numbness, paresthesias, seizure-like activity, seizures, syncope, tingling, tremor(s) or other Psychiatric Psychiatric: Denies anxiety, depression, homicidal ideation, suicidal ideation or other Endocrine Endocrinology: Denies change in body appearance, cold intolerance, excessive sweating, heat intolerance, polydipsia, polyuria or other Hematologic/Lymphatic Hematologic/Lymphatic: Reports other Details: Chronic right lower extremity lymphedema ; Denies anemia, easy bleeding, easy bruising or lymphadenopathy Allergic/Immunologic Allergic/Immunologic: Denies rhinitis, hives, eczemia, asthma or other Vital Signs Vital Signs Vital Signs: 03/11/24 18:15 03/11/24 18:15 03/11/24 18:21 Temperature 100.4 F H 100.4 F H Temperature Source Oral Oral Pulse Rate 109 H 109 H Respiratory Rate 18 18 Respiratory Effort Normal Non-Labored Respiratory Pattern Normal Blood Pressure 125/80 H 125/80 H Blood Pressure Mean 95 95 Pulse Ox 96 96 Oxygen Delivery Method Room Air Room Air 03/11/24 19:21 03/11/24 19:59 03/11/24 20:00 Temperature 100.0 F H 99.9 F H Temperature Source Oral Oral Pulse Rate 60 66 Respiratory Rate 18 18 Respiratory Effort Respiratory Pattern Blood Pressure 109/70 116/71 Blood Pressure Mean 83 86 Pulse Ox 95 95 98 Oxygen Delivery Method Room Air Room Air Room Air 03/11/24 21:02 Temperature 99.9 F H Temperature Source Oral Pulse Rate 66 Respiratory Rate 16 Respiratory Effort Respiratory Pattern Blood Pressure 103/62 Blood Pressure Mean 75 Pulse Ox 95 Oxygen Delivery Method Room Air Weight Weight: 140.7 kg Body Mass Index (BMI) 43.2 Physical Exam Const alert, oriented x3 and no apparent distress; Negative for average body habitus or healthy appearing Constitutional Narrative: Upper middle-aged, white male, sitting up in bed, appears older than stated age, pleasant, interacts appropriately, appears ill but does not currently appear toxic, patient has defervesced at this time but is still having rigors General Appearance: cooperative HEENT normocephalic, head/scalp atraumatic and moist oral mucous membranes HEENT Narrative: Mallampati 3, no thrush, mild hearing loss Eyes PERRL, EOMs intact bilaterally and conjunctivae normal Eyes Narrative: No scleral icterus Neck no lymphadenopathy and supple Neck Narrative: Trachea midline, no thyroid enlargement Resp normal respiratory effort, no retractions, no use of accessory muscles and clear to auscultation bilaterally Auscultation: Negative for rales, rhonchi or wheezes Cardio regular rate, regular rhythm, S1 normal heart sound, S2 normal heart sound, no murmurs, no rub, no gallops and no clicks GI normal to inspection, nondistended, normoactive bowel sounds, soft to palpation and non-tender Extremity Extremity Narrative: Bilateral lower extremity edema without pitting, right greater than left, no cyanosis or clubbing Skin No no rashes or lesions noted, no wounds, skin turgor normal, no jaundice, no petechiae and no mottling Skin Narrative: Significant increased temperature right lower extremity with increased edema and tenderness, leukocytoclastic vasculitic lesions noted on bilateral lower extremities right greater than left Neuro oriented x3, CN's II-XII intact bilaterally and moves all extremities Speech: speech normal Psych affect normal Psych Narrative: Very pleasant, interacts appropriately Results Lab / Micro Data 03/11/24 19:55 03/11/24 19:55 Labs: Laboratory Results - last 24 hr 03/11/24 19:55: WBC 9.3, RBC 4.81, Hgb 14.7, Hct 45.5, MCV 94.6 H, MCH 30.6, MCHC 32.3, RDW Std Deviation 48.5 H, RDW Coeff of Colleen 13.9, Plt Count 186, MPV 10.1, Immature Gran % (Auto) 0.100, Neut % (Auto) 85.7 H, Lymph % (Auto) 4.7 L, [place] % (Auto) 8.9, Eos % (Auto) 0.3, Baso % (Auto) 0.3, Absolute Neuts (auto) 8.0 H, Absolute Lymphs (auto) 0.44 L, Nucleated RBC % 0, PT 25.0 H, INR 2.3, APTT 55.4 H, Sodium 140, Potassium 3.8, Chloride 107, Carbon Dioxide 28.0, Anion Gap 5, BUN 20 H, Creatinine 1.01, Estim Creat Clear Calc 100.46, Est GFR (MDRD) Af Amer 94, Est GFR (MDRD) Non-Af 78, BUN/Creatinine Ratio 19.8, Glucose 123 H, Lactic Acid 1.7, Calcium 9.3, Total Bilirubin 1.50 H, AST 20, ALT 20, Alkaline Phosphatase 105, Total Protein 7.5, Albumin 3.7, Globulin 3.8, Albumin/Globulin Ratio 1.0 03/11/24 20:22: Urine Color [place], Urine Clarity Sl. Cloudy, Urine pH 5.0, Ur Specific [place] 1.025, Urine Protein 30 H, Urine Glucose (UA) Normal, Urine Ketones 5 H, Urine Occult Blood 10 H, Urine Nitrite Positive H, Urine Bilirubin 1 H, Urine Urobilinogen 4 H, Ur Leukocyte Esterase 25 H, Urine RBC 0-5 SEEN, Urine WBC 0-5 SEEN, Ur Squamous Epith Cells 0-5 SEEN, Urine Bacteria 2+, Urine Mucus 3+, Urine Yeast RARE Assessment & Plan Assessment/Plan (1) Fever: (2) Tachycardia: (3) Sepsis: (4) Cellulitis of right leg: (5) Abnormal urinalysis: (6) Chronic anticoagulation: (7) Rash: (8) Hyperbilirubinemia: PLAN: Plan Sepsis secondary to right lower extremity cellulitis/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 -Patient meets criteria with Sep 1 having fever and tachycardia with source on presentation(Medicare A and B) -Cultures obtained from blood and urine prior to admission -Continue broad-spectrum antibiotics with cefepime and vancomycin -Avoid Levaquin as patient is chronically on Coumadin -Patient did receive boluses of IV fluids at 30 cc/kg body weight and will monitor for response -If patient response before receiving full 4500 cc bolus will slow fluids to avoid volume overload -Narrow antibiotics as able 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 for stability -Baseline seems to fluctuate between 1.4 and 2.0 Persistent atrial fibrillation/history of AV node dysfunction -[id number] score: 4 (age, HTN, CVA +2) (4.8% stroke risk) -Status post pacemaker -Antihypertensives on hold patient is not on any rate controlling medication -May hold Coumadin depending on inflammatory markers if I feel punch biopsy needs to be performed as general surgery will not do this while he is on anticoagulation Essential hypertension -Patient with lower blood pressures in the emergency department due to the above -Hold amlodipine Neuropathy -Continue home gabapentin GERD -Continue home famotidine Osteoarthritis -Hold home diclofenac while hospitalized NOAH -Patient reports wearing BiPAP at home -Will bring home unit in tomorrow however reports that he wears BiPAP at 06/06 so we will order our BiPAP for tonight Morbid obesity Open BMI 43.3 -Complicates treatment, prognosis, outcomes -Recommend weight loss DVT prophylaxis -Therapeutic with an INR of 2.3 currently -Repeat daily INR and start subcu Lovenox if INR is less than 2 CODE STATUS -Full code Sepsis Attestation Sepsis Alert: Yes Sepsis Attestation: Agree w/Sepsis Date exam was performed: 03/11/24 Time exam was performed: 21:36 Possible Source of Sepsis: Skin/soft tissue Supportive Findings: Pt with Medicare A and B and meets Sep 1 criteria with fever 102 and tachycardia. Source identified as skin at this time Fluid Resuscitation Fluid resuscitation indicated?: Yes Fluid Resuscitation ordered: 30 ml/kg fluid bolus ordered Amount of fluid ordered: 4,500 Charges/Coding Visit Charges Inpatient E&M: 96761 Init Hosp L3
[2024-03-11] MEDS: levoFLOXacin IV 750 MG/150 ML BAG 100 MG IV (21:42)
[2024-03-11] MEDS: 0.9% Normal Saline (1000mL) 1,000 ML 999 ML IV ×2 (21:42→23:08)
[2024-03-11 22:02] LABS: Erythrocyte Sedimentation Rate 26 mm/hr (0-20)
--- NOTE | 2024-03-11 22:12 | PCM.HOSP.N ---
Hospitalist Note Sed rate and CRP are elevated but not as elevated as I would expect to see with cellulitis. Could consider repeating in 24 to 48 hours after antibiotics to see if improvement if not pursue biopsy. Will hold off on punch biopsy at this time however given these findings. COVID-19 test is pending given fever.
[2024-03-11] MEDS: Vancomycin HCl 2,000 MG in 0.9% Normal Saline (500mL Bag) 500 ML 250 MG IV (23:31)
[2024-03-11] MEDS: Gabapentin 300 MG Capsule PO (23:32)
--- NOTE | 2024-03-11 23:40 | PCM.RX.CS ---
Consult Antibiotic Management Pharmacy has been consulted to manage selected antibiotic: Vancomycin Type of Intervention Type of Consult: New start Suspected Infection Suspected Infection: Sepsis Labs Labs: Sodium 140 mmol/L (136-145) 03/11/24 19:55 Potassium 3.8 mmol/L (3.5-5.1) 03/11/24 19:55 Chloride 107 mmol/L (98-107) 03/11/24 19:55 Carbon Dioxide 28.0 mmol/L (21.0-32.0) 03/11/24 19:55 Anion Gap 5 (5-15) 03/11/24 19:55 BUN 20 mg/dL (7-18) H 03/11/24 19:55 Creatinine 1.01 mg/dL (0.70-1.30) 03/11/24 19:55 Est GFR (MDRD) Af Amer 94 mL/min (>60) 03/11/24 19:55 Est GFR (MDRD) Non-Af 78 mL/min (>60) 03/11/24 19:55 BUN/Creatinine Ratio 19.8 RATIO (10-20) 03/11/24 19:55 Glucose 123 mg/dL (74-106) H 03/11/24 19:55 Dosing Weight Weight used for dosin kg Estimated Creatinine Clearance Estimated Creatinine Clearance: 100 Goal Trough Goal Trough: 15-20 mcg/mL Pharmacy Plan for Drug Dosing Pharmacy Plan for Drug Dosing: Pharmacy Service will continue to monitor and adjust dosing as required. Follow-Up Labs Follow-Up Labs: Trough: Vancomycin Date/Time Labs Ordered Labs to be done on [date and time ordered]: 03/12/24 @2300
[2024-03-12] VITALS (10 sets, daily range): BP systolic 102–128; BP diastolic 59–97; PULSE 53–75; RESP 16–20; TEMP 36.6–37.4; O2SAT 93–97
[2024-03-12] MEDS: 0.9% Normal Saline (1000mL) 1,000 ML 999 ML IV (00:10)
--- NOTE | 2024-03-12 00:35 | PCM.HOSP.N ---
Hospitalist Note Blood pressure seems to be stabilizing despite not having the full 4.5 L. Due to concerns of volume overload with the full 4.5 L will hold boluses and just run IV fluids at 75 cc/h continue to monitor blood pressure and adjust as needed. Sepsis Attestation Sepsis Note Date exam was performed: 03/12/24 Time exam was performed: 00:35 Response to fluids: Fluid responsive hypotension (pt received less than the 4500 cc as pt responded to less fluids and we were concerned about precipitating fluid overload)
[2024-03-12] MEDS: Cefepime HCl 2 GM in 0.9% Normal Saline (100mL MB+) 100 ML IV ×4 (00:50→21:35)
[2024-03-12] MEDS: 0.9% Normal Saline (1000mL) 1,000 ML 75 ML IV ×3 (00:54→21:45)
[2024-03-12] MEDS: Gabapentin 300 MG Capsule PO ×3 (06:24→21:42)
[2024-03-12] MEDS: Vancomycin HCl 1,500 MG in 0.9% Normal Saline (500mL Bag) 500 ML 250 MG IV ×2 (06:29→15:50)
--- NOTE | 2024-03-12 06:58 | PCM.PN.HOSP ---
Reason for Visit Reason for Visit: Diagnoses Sepsis, unspecified organism (03/11/24) Other disorders of bilirubin metabolism (03/11/24) Cellulitis of right lower limb (03/11/24) Tachycardia, unspecified (03/11/24) Rash and other nonspecific skin eruption (03/11/24) Fever, unspecified (03/11/24) Unspecified abnormal findings in urine (03/11/24) [facility] (current) use of anticoagulants (03/11/24) Subjective Subjective Patient overnight with lower blood pressure however from discussion with staff and review of records MAP has always remained above 65 and systolic never decreased below 90. Patient did receive sepsis type bolus protocol per ED discretion which continued and completed on floor. Patient reports feeling significantly proved since initial ED arrival and initially had felt like he was going to go home today but discussed recent concerns and need for ongoing IV antibiotic therapy. Patient denies fevers, chills, nausea, emesis, abdominal pain, chest pain or dyspnea. Objective Data Objective Data Vital Signs: Vital Signs Temp Pulse Resp BP Pulse Ox O2 Del Method 98.4 F 66 16 115/65 95 Room Air 03/12/24 06:21 03/12/24 06:21 03/12/24 06:21 03/12/24 06:21 03/12/24 06:21 03/12/24 06:21 Oxygen Delivery Method Room Air Weight: 300 lb 11.368 oz Body Mass Index (BMI) 42.0 Intake & Output: Intake and Output for Last 24 Hours 03/10/24 03/11/24 03/12/24 23:59 23:59 23:59 Intake Total 1150 / 1200 4040.15 / 4040.15 Output Total 200 / 200 Balance 1150 / 1200 3840.15 / 3840.15 Lab / Micro Data 03/12/24 06:53 03/12/24 06:53 Labs: Laboratory Results - last 24 hr 03/11/24 19:55: WBC 9.3, RBC 4.81, Hgb 14.7, Hct 45.5, MCV 94.6 H, MCH 30.6, MCHC 32.3, RDW Std Deviation 48.5 H, RDW Coeff of Colleen 13.9, Plt Count 186, MPV 10.1, Immature Gran % (Auto) 0.100, Neut % (Auto) 85.7 H, Lymph % (Auto) 4.7 L, [place] % (Auto) 8.9, Eos % (Auto) 0.3, Baso % (Auto) 0.3, Absolute Neuts (auto) 8.0 H, Absolute Lymphs (auto) 0.44 L, Nucleated RBC % 0, ESR 26 H, PT 25.0 H, INR 2.3, APTT 55.4 H, Sodium 140, Potassium 3.8, Chloride 107, Carbon Dioxide 28.0, Anion Gap 5, BUN 20 H, Creatinine 1.01, Estim Creat Clear Calc 100.46, Est GFR (MDRD) Af Amer 94, Est GFR (MDRD) Non-Af 78, BUN/Creatinine Ratio 19.8, Glucose 123 H, Lactic Acid 1.7, Calcium 9.3, Total Bilirubin 1.50 H, AST 20, ALT 20, Alkaline Phosphatase 105, C-React Prot Ext Range 43.20 H, Total Protein 7.5, Albumin 3.7, Globulin 3.8, Albumin/Globulin Ratio 1.0 03/11/24 20:22: Urine Color Gin[place], Urine Clarity Sl. Cloudy, Urine pH 5.0, Ur Specific [place] 1.025, Urine Protein 30 H, Urine Glucose (UA) Normal, Urine Ketones 5 H, Urine Occult Blood 10 H, Urine Nitrite Positive H, Urine Bilirubin 1 H, Urine Urobilinogen 4 H, Ur Leukocyte Esterase 25 H, Urine RBC 0-5 SEEN, Urine WBC 0-5 SEEN, Ur Squamous Epith Cells 0-5 SEEN, Urine Bacteria 2+, Urine Mucus 3+, Urine Yeast RARE Micro: Microbiology 03/11/24 23:34 Mucosa - Nasopharyngeal SARS-CoV-2, Influenza & RSV (PCR) - Final Physical Exam Narrative Physical Examination: General: Awake, alert, oriented x 3 and cooperative, seated upright in the MS bed, no acute distress, notes feeling improved. Skin: Normal color, normal turgor, no icterus, no cyanosis except bilateral lower extremity venous stasis skin changes as well as left lower extremity pinpoint petechial small hemorrhages and right lower extremity more focal mid cash circumferentially down to ankle notable venous stasis but also concern for cellulitis with still some increased warmth to touch and tenderness to palpation. HEENT: AT/NC, EOMI, PERRLA, MMM. Lungs: Mildly diminished, greater bases, appropriate effort, no rales, ronchi or wheezing. Heart: Regular rate and rhythm; no gallop, rub audible. Abdomen: Soft, morbid obesity, NTTP, mildly hyperactive BS. Difficult to assess distention given habitus. Extremities: No cyanosis, no clubbing, see skin, bilateral lower extremity pedal to mid cash 1 edema. Neurological: Patient awake, alert, oriented as noted, cognitive function intact; pupils equally reactive to light and accommodation, cranial nerves grossly normal, moving all 4 extremities, no focal deficits, strength moderately globally decreased secondary to acute presentation. Psychiatric: Affect appears mildly fatigued otherwise normal, no acute evidence of depressive or anxiety feelings. Assessment & Plan Assessment/Plan (1) Cellulitis of right leg: PLAN: Plan The patient is a 68 y/o M w/ PMHx: Chronic Hyperbilirubinemia, Conduction disorder s/p pacemaker, NOAH on BIPAP, HTN, HLD, PAF, Hx CVA, Chronic neuropathy, Anxiety and Depression who presents to the [facility] ED on 03/11/24 with history of right lower extremity erythema and onset of fever with previous similar history requiring hospitalization and last episode approximately 1 month prior treated with doxycycline for 14 days with repeat recent evaluation with again doxycycline regimen and Lasix however following his initial dosing he began to feel poorly with onset of chills and worsening fever prompting eventual ED evaluation. #1. Acute RLE Cellulitis, failed outpatient abx therapy, concern initially also of leukocytoclastic vasculitis however given levels of ESR and CRP lower suspicion but continue to evaluate: Workup in the ED included CBC with WC 9.3, human 14.7, MCV 94.6, platelet 186 with left shift and lymphopenia, ESR 26, CRP 43.20, CMP with BUN 20/creatinine 1.01, GFR 78, glucose 123, lactic acid 1.7, total bilirubin 1.50 otherwise [place]ock profile unremarkable, urinalysis with elevated specific remedy 1.025, ketone 5, occult blood 10, positive nitrite, leukocyte Estrace however 25 with no urine WBCs or RBCs with 2+ urine bacteria, urine culture pending per ED, blood culture x 2 pending per ED, SARS COVID/flu/RSV PCR negative in the ED patient ministered IV Levaquin. Admitted to [place], through the evening following admission had onset of notable hypotension requiring sepsis IV fluid protocol administration, BP improved noted to be stable low, maintain on IV cefepime and vancomycin, placed nadya wraps, monitor erythema outline with VS checks, given therapeutic Coumadin low suspicion for DVT, as noted initial concerns for possible vasculitis however CRP and ESR not markedly elevated, will continue treatment as noted and continue to monitor, will plan for repeat CRP and ESR to assure improving. Urinalysis as noted with mild bacteria and positive nitrate but no marked WBC or RBCs noted, urine culture pending. #2. Persistent atrial fibrillation: Will continue Coumadin with INR trending, initial concern possibly vasculitis but given ESR and CRP very minimally elevated will continue Coumadin for now as initial presentation thought for potential hold in case of punch biopsy needs, not on rate or rhythm agent. #3. Conduction disorder, history of AV node dysfunction: Status post pacemaker, encourage continued outpatient follow-up for interrogation as previously arranged. #4. Hypertension: Upon presentation BP low, amlodipine held, given lower extremity swelling may be best to alter his regimen, add back hypertensive regimen once clinically appropriate. #5. Hyperlipidemia: Per current list on statin therapy, defer to outpatient. #6. History CVA: Will continue Coumadin with INR trending, BP initially low upon presentation thus holding hypertensive regimen, not on statin therapy. #7. GERD: We will continue patient on famotidine regimen. #8. Morbid Obesity: Weight loss and lifestyle changes encouraged. #9. Chronic hyperbilirubinemia, unclear specific etiology: Admission CMP with total bilirubin 1.50, similar to previous level and appears baseline, will continue to trend. #10. NOAH: BiPAP nightly. #11. DVT prophylaxis: Will continue Coumadin with INR trending. Charges/Coding Visit Charges Inpatient E&M: 12538 Subs Hosp L3
[2024-03-12 07:26] LABS: Absolute Neutrophil Count 6.4 X10^3/uL (2.0-7.7); Basophil# 0.02 X10^3/uL; Basophil% 0.2 % (0-1); Eosinophil# 0.01 X10^3/uL; Eosinophils% 0.1 % (0-5); Hematocrit 39.9 % (40-54); Hemoglobin 12.9 g/dL (13.0-16.5); Lymphocyte % 10.7 % (19-41); Mean Corp Hgb Conc 32.3 g/dL (32-36); Mean Corpuscular Hgb 30.6 pg (27.0-32.0); Mean Corpuscular Volume 94.5 fL (80-94); Mean Platelet Vol. 10.7 fl (6.2-12.0); Monocyte# 1.05 X10^3/uL; Monocyte% 12.5 % (0-10); NRBC Flagged by Analyzer 0 % (0-5); Neutrophil # 6.39 X10^3/uL (2.7-7.7); Neutrophil % 76.4 % (47-70); Platelet Count 162 K/mm3 (150-450); RBC Distribution Width CV 14.1 % (11.6-14.6); RBC Distribution Width SD 48.5 fl (35.1-43.9); Red Blood Count 4.22 M/mm3 (4.6-6.2); White Blood Count 8.4 K/mm3 (4.4-11.0)
[2024-03-12] MEDS: Multivitamins,Therapeutic Tablet 1 TABLET PO (07:59)
[2024-03-12] MEDS: Famotidine 20 MG Tablet PO (07:59)
[2024-03-12 08:29] LABS: AST(SGOT) 21 U/L (15-37); Alanine Aminotransfer ALT/SGPT 15 U/L (16-61); Alkaline Phosphatase 72 U/L (45-117); Anion Gap 4 (5-15); BUN 20 mg/dL (7-18); BUN/Creat Ratio 21.7 RATIO (10-20); Calcium,Total 8.4 mg/dL (8.5-10.1); Chloride 112 mmol/L (98-107); Creatinine, Serum 0.92 mg/dL (0.70-1.30); EST Glomerular Filtration Rate 87 mL/min (>60); Est Glom Filt Rate - Afr Amer 105 mL/min (>60); Estimated Creatinine Clearance 106.91 ml/min; Globulin 3.1 g/dL (2.2-4.2); Glucose 101 mg/dL (74-106); Magnesium 1.9 mg/dL (1.6-2.6); Phosphorus 2.5 mg/dL (2.5-4.9); Potassium 3.7 mmol/L (3.5-5.1); Protein, Total 6.1 g/dL (6.4-8.2); Sodium Level 139 mmol/L (136-145); Thyroid Stim Hormone (TSH) 0.457 uIU/mL (0.358-3.740)
[2024-03-12 09:06] LABS: International Normalized Ratio 2.5; Prothrombin Time (Protime)PT. 26.4 SECONDS (11.7-14.9)
--- NOTE | 2024-03-12 10:30 | CASEMGMT ---
RN CM MANUFACTURING LAB TECHNICIAN LEVI?to room to meet with patient for initial transition planning/care coordination assessment. RN CM?introduced self and role at [facility]. Pt voices understanding and consents to assessment?at this time. Pt resting in bed in no distress at this time. @ bedside. Pt is A/O at this time and answers all questions appropriately. Care providers, pharmacy, and demographics verified/updated at this time. Strata:?2 PCP: Dr Cooper Specialists: Dr Agarwal-cardiology, Dr Mg-urology Preferred Pharmacy: [facility] Insurance: Ana Paula MATA Prescription Benefit: Yes, [employer] Living Will/HPOA: Has both LW and HCPOA, who is his . LNOK: , Belinda. Son. Living Arrangements: Lives w/ in one-story condo w/no steps to enter through front entrance, one step to enter through garage. Indep w/ADL's. and pt share home mgnt tasks. Transportation:?Pt does not drive since stroke/vision loss. drives. DME: Pt typically furniture walks when in his home, uses crutches for community distances. Also has 2 built-in shower seats (does not use, as he stands to shower), 2 canes,, walker (does not use), 3 rollators, BP machine, and BIPAP from [email or web address]. Pt denies other DME needs. HHC/SNF: No hx of SNF. Has had HHC in the past after knee replacement, about 20 yrs ago. Pt denies need for HHC or OP therapy. Made aware to f/u with PCP if he changes his mind once he returns home. He and voice understanding. Pt wishes to return home and states has no concerns with going home at time of discharge. CM?to follow for any further discharge planning/needs. Pt and voice no further concerns/needs at this time. Advised them to ask for CM?if any further questions/concerns/needs arise. They voice understanding. PLAN: Home [place] MAY RN, CM
--- NOTE | 2024-03-12 10:55 | PCM.PN.BLA ---
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 He denies any problems of the scalp in the interim. The incision is well approximated. Absorbable sutures remain in place. Path was reviewed which demonstrated inflamed verrucous keratosis. No further intervention is necessary for the remainder of the neoplasm. He is instructed to f/u in the office once he is discharged. He can call in the interim with any problems or questions.
[2024-03-12] MEDS: Acetaminophen 325 MG Tablet 650 MG PO (14:46)
[2024-03-13 01:01] VITALS: PULSE 59; O2SAT 95
--- NOTE | 2024-03-13 01:33 | PCM.RX.CS ---
Consult Antibiotic Management Pharmacy has been consulted to manage selected antibiotic: Vancomycin Type of Intervention Type of Consult: Follow-up Labs Labs: Sodium 139 mmol/L (136-145) 03/12/24 06:53 Potassium 3.7 mmol/L (3.5-5.1) 03/12/24 06:53 Chloride 112 mmol/L (98-107) H 03/12/24 06:53 Carbon Dioxide 23.0 mmol/L (21.0-32.0) 03/12/24 06:53 Anion Gap 4 (5-15) L 03/12/24 06:53 BUN 20 mg/dL (7-18) H 03/12/24 06:53 Creatinine 0.92 mg/dL (0.70-1.30) 03/12/24 06:53 Est GFR (MDRD) Af Amer 105 mL/min (>60) 03/12/24 06:53 Est GFR (MDRD) Non-Af 87 mL/min (>60) 03/12/24 06:53 BUN/Creatinine Ratio 21.7 RATIO (10-20) H 03/12/24 06:53 Glucose 101 mg/dL (74-106) 03/12/24 06:53 Vancomycin Trough 24.0 ug/mL (5.0-15.0) H 03/12/24 23:01 Microbiology Microbiology: Microbiology 03/11/24 20:22 Urine, Clean Catch Urine Culture - Preliminary Staphylococcus species 03/11/24 23:34 Mucosa - Nasopharyngeal SARS-CoV-2, Influenza & RSV (PCR) - Final Pharmacy Plan for Drug Dosing Pharmacy Plan for Drug Dosing: Pharmacy Service will continue to monitor and adjust dosing as required. TROUGH 24 @ 7 HOURS. HOLD DOSE AND DRAW RANDOM LEVEL IN 12 HOURS Follow-Up Labs Follow-Up Labs: Trough: Vancomycin Date/Time Labs Ordered Labs to be done on [date and time ordered]: 03/13 @ 1100
[2024-03-13 02:02] VITALS: PULSE 87
[2024-03-13] MEDS: Cefepime HCl 2 GM in 0.9% Normal Saline (100mL MB+) 100 ML IV (04:55)
[2024-03-13 05:03] VITALS: BP 124/72; PULSE 61; RESP 18; TEMP 36.7; O2SAT 95
[2024-03-13] MEDS: Gabapentin 300 MG Capsule PO (05:09)
--- NOTE | 2024-03-13 06:22 | PN.HOSP_ITS ---
Reason for Visit Reason for Visit: Diagnoses Sepsis, unspecified organism (03/11/24) Other disorders of bilirubin metabolism (03/11/24) Cellulitis of right lower limb (03/11/24) Tachycardia, unspecified (03/11/24) Rash and other nonspecific skin eruption (03/11/24) Fever, unspecified (03/11/24) Unspecified abnormal findings in urine (03/11/24) correction (current) use of anticoagulants (03/11/24) Subjective Subjective Patient with no acute events overnight per self and per nursing report. Patient notes right lower extremity significantly improved with complete resolution of prior erythema, significant reduction in edema and less tender, less firm to the calf. Patient very eager for discharge. Discussed case with infectious disease given presentation and initial usage of aggressive broad-spectrum and following lengthy discussion decision for Keflex at discharge to which patient was amenable. Discussed with patient at length that if this reoccurred he immediately needs to be reseen by primary care or in the ED. Patient denies fevers, chills, nausea, emesis, abdominal pain, chest pain or dyspnea. Objective Data Objective Data Vital Signs: Vital Signs Temp Pulse Resp BP Pulse Ox O2 Del Method FiO2 98.1 F 61 18 124/72 H 95 Bi-pap 21 03/13/24 05:03 03/13/24 05:03 03/13/24 05:03 03/13/24 05:03 03/13/24 05:03 03/13/24 05:07 03/12/24 23:00 Oxygen Delivery Method Bi-pap Weight: 300 lb 11.368 oz Body Mass Index (BMI) 42.0 Intake & Output: Intake and Output for Last 24 Hours 03/11/24 03/12/24 03/13/24 23:59 23:59 23:59 Intake Total 1150 / 1200 6800.15 / 6800.15 100 / 100 Output Total 200 / 200 200 / 200 Balance 1150 / 1200 6600.15 / 6600.15 -100 / -100 Lab / Micro Data 03/13/24 06:35 03/13/24 06:35 Labs: Laboratory Results - last 24 hr 03/11/24 20:22: Urine Color Ginna, Urine Clarity Sl. Cloudy, Urine pH 5.0, Ur Specific [place] 1.025, Urine Protein 30 H, Urine Glucose (UA) Normal, Urine Ketones 5 H, Urine Occult Blood 10 H, Urine Nitrite Positive H, Urine Bilirubin 1 H, Urine Urobilinogen 4 H, Ur Leukocyte Esterase 25 H, Urine RBC 0-5 SEEN, Urine WBC 0-5 SEEN, Ur Squamous Epith Cells 0-5 SEEN, Urine Bacteria 2+, Urine Mucus 3+, Urine Yeast RARE 03/12/24 06:53: WBC 8.4, RBC 4.22 L, Hgb 12.9 L, Hct 39.9 L, MCV 94.5 H, MCH 30.6, MCHC 32.3, RDW Std Deviation 48.5 H, RDW Coeff of Colleen 14.1, Plt Count 162, MPV 10.7, Immature Gran % (Auto) 0.100, Neut % (Auto) 76.4 H, Lymph % (Auto) 10.7 L, [place] % (Auto) 12.5 H, Eos % (Auto) 0.1, Baso % (Auto) 0.2, Absolute Neuts (auto) 6.4, Absolute Lymphs (auto) 0.90, Nucleated RBC % 0, PT 26.4 H, INR 2.5, Sodium 139, Potassium 3.7, Chloride 112 H, Carbon Dioxide 23.0, Anion Gap 4 L, BUN 20 H, Creatinine 0.92, Estim Creat Clear Calc 106.91, Est GFR (MDRD) Af Amer 105, Est GFR (MDRD) Non-Af 87, BUN/Creatinine Ratio 21.7 H, Glucose 101, C alcium 8.4 L, Phosphorus 2.5, Magnesium 1.9, Total Bilirubin 1.80 H, AST 21, ALT 15 L, Alkaline Phosphatase 72, Total Protein 6.1 L, Albumin 3.0 L, Globulin 3.1, Albumin/Globulin Ratio 1.0, TSH 0.457 03/12/24 23:01: Vancomycin Trough 24.0 H Micro: Microbiology 03/11/24 20:22 Urine, Clean Catch Urine Culture - Preliminary Staphylococcus species 03/11/24 23:34 Mucosa - Nasopharyngeal SARS-CoV-2, Influenza & RSV (PCR) - Final Physical Exam Narrative Physical Examination: General: Awake, alert, oriented x 3 and cooperative, seated upright in the OH bed, no acute complaints. Skin: Normal color, normal turgor, no icterus, no cyanosis except bilateral lower extremity venous stasis skin changes as well as left lower extremity pinpoint petechial small hemorrhages, not increased, improved appearance, right lower extremity with resolution of previous erythema, appropriate temperature to touch, no induration, nontender to palpation of the calf. HEENT: AT/NC, EOMI, PERRLA, MMM. Lungs: Mildly diminished, greater bases, appropriate effort, no rales, ronchi or wheezing. Heart: Regular rate and rhythm; no gallop, rub audible. Abdomen: Soft, morbid obesity, NTTP, difficult to discern distention given habitus, normal BS. Extremities: No cyanosis, no clubbing, see skin, significant improvement of edema as noted. Neurological: Patient awake, alert, oriented as noted, cognitive function intact; pupils equally reactive to light and accommodation, cranial nerves grossly normal, moving all 4 extremities, no focal deficits, strength improved, mildly to moderately globally decreased. Psychiatric: Affect appears normal, eager for discharge, no acute evidence of depressive or anxiety feelings. Assessment & Plan Assessment/Plan (1) Cellulitis of right leg: PLAN: Plan The patient is a 68 y/o M w/ PMHx: Chronic Hyperbilirubinemia, Conduction disorder s/p pacemaker, NOAH on BIPAP, HTN, HLD, PAF, Hx CVA, Chronic neuropathy, Anxiety and Depression who presents to the [facility] ED on 03/11/24 with history of right lower extremity erythema and onset of fever with previous similar history requiring hospitalization and last episode approximately 1 month prior treated with doxycycline for 14 days with repeat recent evaluation with again doxycycline regimen and Lasix however following his initial dosing he began to feel poorly with onset of chills and worsening fever prompting eventual ED evaluation. #1. Sepsis secondary to Acute RLE Cellulitis, failed outpatient abx therapy, concern initially also of leukocytoclastic vasculitis however given levels of ESR and CRP lower suspicion but continue to evaluate (Patient meets criteria with Sep 1 having fever and tachycardia with source on presentation(Medicare A and B)): Workup in the ED included CBC with WC 9.3, human 14.7, MCV 94.6, platelet 186 with left shift and lymphopenia, ESR 26, CRP 43.20, CMP with BUN 20/creatinine 1.01, GFR 78, glucose 123, lactic acid 1.7, total bilirubin 1.50 otherwise [place]add[place] profile unremarkable, urinalysis with elevated specific remedy 1.025, ketone 5, occult blood 10, positive nitrite, leukocyte Estrace however 25 with no urine WBCs or RBCs with 2+ urine bacteria, urine culture pending per ED, blood culture x 2 pending per ED, SARS COVID/flu/RSV PCR negative in the ED patient ministered IV Levaquin. Admitted to [place], through the evening following admission had onset of notable hypotension requiring sepsis IV fluid protocol administration, BP improved noted to be stable low, maintained initially on IV cefepime and vancomycin, placed nadya wraps, monitored erythema outline with VS checks, given therapeutic Coumadin low suspicion for DVT, as noted initial concerns for possible vasculitis however CRP and ESR not markedly elevated and given 03/13/2024 reevaluation with complete resolution of previous findings and significant patient comfort discussed with him and his significant at length with plan for discharge to home and following review with infectious disease plans Keflex additional 7-day regimen with plan follow-up outpatient with PCP. Upon ED presentation urinalysis as noted with mild bacteria and positive nitrate but no marked WBC or RBCs noted, urine culture pending at discharge of note. #2. Persistent atrial fibrillation: Maintained on Coumadin with INR trending, 02/22/2024 INR 2.2. Not on rate or rhythm agent. #3. Conduction disorder, history of AV node dysfunction: Status post pacemaker, encourage continued outpatient follow-up for interrogation as previously arranged. #4. Hypertension: Upon presentation BP low, amlodipine held temporarily, given lower extremity swelling may be best to alter his regimen. #5. Hyperlipidemia: Per current list on statin therapy, defer to outpatient. #6. History CVA: Continued Coumadin with INR trending as noted, BP initially low upon presentation thus temporarily held hypertensive regimen, not on statin therapy. #7. GERD: We will continue patient on famotidine regimen. #8. Morbid Obesity: Weight loss and lifestyle changes encouraged. #9. Chronic hyperbilirubinemia, unclear specific etiology: Admission CMP with total bilirubin 1.50, similar to previous level and appears baseline, 03/13/2024 CMP with total bilirubin 1.30. #10. NOAH: BiPAP nightly. #11. DVT prophylaxis: Maintained on Coumadin with continued INR trending, 03/13/2024 INR 2.2. Charges/Coding Visit Charges Inpatient E&M: 25279 Subs Hosp L2
[2024-03-13 07:03] LABS: Absolute Lymphocyte Count 1.15 X10^3/uL (0.83-4.51); Absolute Neutrophil Count 5.6 X10^3/uL (2.0-7.7); Basophil# 0.06 X10^3/uL; Basophil% 0.7 % (0-1); Eosinophil# 0.18 X10^3/uL; Eosinophils% 2.2 % (0-5); Hematocrit 39.6 % (40-54); Hemoglobin 12.9 g/dL (13.0-16.5); Lymphocyte # 1.15 X10^3/ul (0.83-4.51); Lymphocyte % 14.2 % (19-41); Mean Corp Hgb Conc 32.6 g/dL (32-36); Mean Corpuscular Hgb 30.8 pg (27.0-32.0); Mean Corpuscular Volume 94.5 fL (80-94); Mean Platelet Vol. 10.5 fl (6.2-12.0); Monocyte# 1.09 X10^3/uL; Monocyte% 13.5 % (0-10); NRBC Flagged by Analyzer 0 % (0-5); Neutrophil % 69.2 % (47-70); Platelet Count 160 K/mm3 (150-450); RBC Distribution Width CV 14.1 % (11.6-14.6); RBC Distribution Width SD 48.7 fl (35.1-43.9); Red Blood Count 4.19 M/mm3 (4.6-6.2); White Blood Count 8.1 K/mm3 (4.4-11.0)
[2024-03-13 07:31] LABS: International Normalized Ratio 2.2; Prothrombin Time (Protime)PT. 24.6 SECONDS (11.7-14.9)
[2024-03-13 07:33] LABS: ALB/GLOB Ratio 0.9 RATIO (0.9-2.4); AST(SGOT) 19 U/L (15-37); Alanine Aminotransfer ALT/SGPT 18 U/L (16-61); Albumin, Serum 2.9 g/dL (3.2-5.0); Alkaline Phosphatase 75 U/L (45-117); Anion Gap 3 (5-15); BUN 14 mg/dL (7-18); BUN/Creat Ratio 16.4 RATIO (10-20); Calcium,Total 8.3 mg/dL (8.5-10.1); Chloride 115 mmol/L (98-107); Creatinine, Serum 0.86 mg/dL (0.70-1.30); EST Glomerular Filtration Rate 94 mL/min (>60); Est Glom Filt Rate - Afr Amer 114 mL/min (>60); Estimated Creatinine Clearance 114.37 ml/min; Globulin 3.4 g/dL (2.2-4.2); Glucose 96 mg/dL (74-106); Protein, Total 6.3 g/dL (6.4-8.2); Sodium Level 141 mmol/L (136-145)
[2024-03-13 07:55] VITALS: BP 103/84; PULSE 66; RESP 18; TEMP 37; O2SAT 96
[2024-03-13] MEDS: Famotidine 20 MG Tablet PO (07:57)
[2024-03-13] MEDS: Multivitamins,Therapeutic Tablet 1 TABLET PO (07:57)
[2024-03-13 07:59] LABS: Erythrocyte Sedimentation Rate 18 mm/hr (0-20)
--- NOTE | 2024-03-13 09:58 | DS.PCM_ITS ---
Providers Date of Admission: 03/11/24 Date of Discharge: 03/13/24 Primary Care Physician: Barbara Cooper MD Reason For Visit: SEPSIS 2/2 LE CELLULITIS Diagnosis Discharge Diagnosis (1) Cellulitis of right leg: Status: Acute Code(s): L03.115 - Cellulitis of right lower limb Plan: DISCHARGE DIAGNOSIS: #1. Sepsis secondary to Acute RLE Cellulitis, failed outpatient abx therapy, concern initially also of leukocytoclastic vasculitis however given levels of ESR and CRP lower suspicion but continue to evaluate (Patient meets criteria with Sep 1 having fever and tachycardia with source on presentation(Medicare A and B)) #2. Persistent atrial fibrillation #3. Conduction disorder, history of AV node dysfunction #4. Hypertension #5. Hyperlipidemia #6. History CVA #7. GERD #8. Morbid Obesity #9. Chronic hyperbilirubinemia, unclear specific etiology #10. NOAH on BiPAP nightly. Medications at Discharge Home Medications cholecalciferol (vitamin D3) 50 mcg (2,000 unit) tablet 4,000 unit PO DAILY supplement 10/17/13 gabapentin 300 mg capsule 300 mg PO TID nerve pain 10/17/13 multivitamin with folic acid 400 mcg tablet 1 tab PO DAILY supplement 08/27/15 amlodipine 5 mg tablet 5 mg PO DAILY 02/04/20 diclofenac sodium 75 mg tablet,delayed release 75 mg PO BID 11/18/21 vitamin B complex 1 cap PO DAILY 11/17/22 warfarin 5 mg tablet (Jantoven) 5 mg PO DAILY 11/21/23 doxycycline hyclate 100 mg capsule 100 mg PO BID 03/11/24 famotidine 20 mg tablet 20 mg PO DAILY 03/11/24 cephalexin 500 mg capsule 500 mg PO Q6H Cellulitis 7 days #28 caps 03/13/24 Hospital Course Operations None Procedures None Summary of Care Provided Minutes Spent on Discharge: 35 Hospital Course: The patient is a 68 y/o M w/ PMHx: Chronic Hyperbilirubinemia, Conduction disorder s/p pacemaker, NOAH on BIPAP, HTN, HLD, PAF, Hx CVA, Chronic neuropathy, Anxiety and Depression who presented to the [facility] ED on 03/11/24 with history of right lower extremity erythema and onset of fever with previous similar history requiring hospitalization and last episode approximately 1 month prior treated with doxycycline for 14 days with repeat recent evaluation with again doxycycline regimen and Lasix however following his initial dosing he began to feel poorly with onset of chills and worsening fever prompting eventual ED evaluation. Upon ED presentation urinalysis as noted with mild bacteria and positive nitrate but no marked WBC or RBCs noted, urine culture resulted with 11,000-25,000 staph haemolyticus, subclinical amount. Workup in the ED included CBC with WC 9.3, human 14.7, MCV 94.6, platelet 186 with left shift and lymphopenia, ESR 26, CRP 43.20, CMP with BUN 20/creatinine 1.01, GFR 78, glucose 123, lactic acid 1.7, total bilirubin 1.50 otherwise [place] profile unremarkable, urinalysis with elevated specific remedy 1.025, ketone 5, occult blood 10, positive nitrite, leukocyte Estrace however 25 with no urine WBCs or RBCs with 2+ urine bacteria, urine culture pending per ED, blood culture x 2 pending per ED, SARS COVID/flu/RSV PCR negative in the ED patient ministered IV Levaquin. Admitted to [place], through the evening following admission had onset of notable hypotension requiring sepsis IV fluid protocol administration, BP improved noted to be stable low, maintained initially on IV cefepime and vancomycin, placed linwood wraps, monitored erythema outline with VS checks, given therapeutic Coumadin low suspicion for DVT, as noted initial concerns for possible vasculitis however CRP and ESR not markedly elevated and given 03/13/2024 reevaluation with complete resolution of previous findings and significant patient comfort discussed with him and his significant at length with plan for discharge to home and following review with infectious disease plans Keflex additional 7-day regimen with plan follow-up outpatient with PCP. Weight / BMI Weight Weight: 300 lb 11.368 oz Body Mass Index (BMI) 42.0 ABG / Lab / Microbiology Data 03/13/24 06:35 03/13/24 06:35 Laboratory: Laboratory Results - last 24 hr 03/11/24 20:22: Urine Color Gin[place], Urine Clarity Sl. Cloudy, Urine pH 5.0, Ur Specific [place] 1.025, Urine Protein 30 H, Urine Glucose (UA) Normal, Urine Ketones 5 H, Urine Occult Blood 10 H, Urine Nitrite Positive H, Urine Bilirubin 1 H, Urine Urobilinogen 4 H, Ur Leukocyte Esterase 25 H, Urine RBC 0-5 SEEN, Urine WBC 0-5 SEEN, Ur Squamous Epith Cells 0-5 SEEN, Urine Bacteria 2+, Urine Mucus 3+, Urine Yeast RARE 03/12/24 23:01: Vancomycin Trough 24.0 H 03/13/24 06:35: WBC 8.1, RBC 4.19 L, Hgb 12.9 L, Hct 39.6 L, MCV 94.5 H, MCH 30.8, MCHC 32.6, RDW Std Deviation 48.7 H, RDW Coeff of Colleen 14.1, Plt Count 160, MPV 10.5, Immature Gran % (Auto) 0.200, Neut % (Auto) 69.2, Lymph % (Auto) 14.2 L, [place] % (Auto) 13.5 H, Eos % (Auto) 2.2, Baso % (Auto) 0.7, Absolute Neuts (auto) 5.6, Absolute Lymphs (auto) 1.15, Nucleated RBC % 0, ESR 18, PT 24.6 H, INR 2.2, Sodium 141, Potassium 4.0, Chloride 115 H, Carbon Dioxide 23.0, Anion Gap 3 L, BUN 14, Creatinine 0.86, Estim Creat Clear Calc 114.37, Est GFR (MDRD) Af Amer 114, Est GFR (MDRD) Non-Af 94, BUN/Creatinine Ratio 16.4, Glucose 96, C alcium 8.3 L, Total Bilirubin 1.30 H, AST 19, ALT 18, Alkaline Phosphatase 75, C -React Prot Ext Range 79.10 H, Total Protein 6.3 L, Albumin 2.9 L, Globulin 3.4, Albumin/Globulin Ratio 0.9 Microbiology: Microbiology 03/11/24 20:22 Urine, Clean Catch Urine Culture - Final Staphylococcus haemolyticus 03/11/24 23:34 Mucosa - Nasopharyngeal SARS-CoV-2, Influenza & RSV (PCR) - Final D/C Instructions Discharge Diet: Low fat / Low cholesterol May resume sexual activity in: No Restrictions Weight Bearing Status: Weight bearing as tolerated Keep extremity elevated above heart level: Right Leg Call your doctor if you observe: Fever of 101 or Higher, Shortness of breath, Dizziness, Swelling in the ankles, Chest pain, Increased palpitations (irregular heartbeat), Calf discomfort, Uncontrolled pain and - (Recurrent right lower extremity pain, expanding redness, swelling.) Meaningful Use Info Meaningful Use Meaningful Use Diagnoses (Choose all that apply): None applicable Ischemic Stroke Statin Dosing Therapy Reference: STATIN DOSE THERAPY REFERENCE: * Patients > 75 years receive moderate or high dose statin therapy. * Patients 75 years or YOUNGER should receive HIGH intensity statin dose unless contraindicated. You will be required to document reason for non-treatment if statin daily dose does not meet guidelines. HIGH DOSE STATIN THERAPY DAILY Atorvastatin > than or = to 40 mg Rosuvastatin > than or = to 20 mg Amlodipine + Atorvastatin > than or = to 2.5/40 mg Ezetimibe + Simvastatin 10/80 mg Simvastatin 80mg Discharge Plan Admission Admit Date/Time: 03/11/24 21:29 Primary Reason for Your Visit: Sepsis, RLE Celluliltis failed outpatient abx therapy Attending Provider: Anali Lemon Primary Care Provider: Barbara Cooper Consulting Providers: Rosalba Vo Instructions Patient Instructions: Cellulitis Additional Instructions / Restrictions: ADDITIONAL DISCHARGE INSTRUCTIONS/PLAN OF CARE: #1. Acute RLE Cellulitis, failed outpatient abx therapy, concern initially also of leukocytoclastic vasculitis however given levels of ESR and CRP lower suspicion: -- Right lower extremity redness and swelling as well as tenderness significantly improved following antibiotic therapies thus high suspicion cellulitic etiology and per discussion with infectious disease likely strep given timeline with recommendation for discharge on 7-day course of Keflex. --We strongly encourage you to continue snug Lin[place] wrap's starting at your toe and going up to the knee, overlapping, no skin showing. Please redo this if it comes undone or loosens. Additionally please elevate the extremity above the heart while supporting underneath the knee and lower extremity to assist and also reducing swelling. --Please follow-up early with your primary care physician as you mentioned potential future as needed Lasix usage and your leg can be reassessed continue to assure improvement. --You did have elevated inflammatory markers however these were on the lower spectrum and clinically you improved significantly thus low suspicion for vasculitis; however, we should continue to always monitor and assure resolution. #2. Persistent atrial fibrillation: -- Please continue routine INR trending as previously arranged. #3. Hypertension: --Upon presentation BP low, amlodipine held in addition concerns that this could certainly contribute to chronic lower extremity swelling. Upon discharge we have discussed this will be held with repeat BP assessment in the office with your primary care physician with readdition of potentially an alternate regimen if BP appropriate at that time. Discharge Orders/Prescriptions Prescriptions: New cephalexin 500 mg capsule 500 mg PO Q6H 7 Days Qty: 28 0RF Continued diclofenac sodium 75 mg tablet,delayed release (DR/EC) 75 mg PO BID vitamin B complex Capsule 1 cap PO DAILY warfarin [Jultoven] 5 mg tablet 5 mg PO DAILY Protocol: Dose Management Condition: Sunday Dose/Route: 5 mg Instruction: 1 x 5 mg tablet Condition: Sunday Dose/Route: 5 mg Instruction: 1 x 5 mg tablet Condition: Sunday Dose/Route: 2.5 mg Instruction: 0.5 x 5 mg tablets Condition: Sunday Dose/Route: 5 mg Instruction: 1 x 5 mg tablet Condition: Dose/Route: 5 mg Instruction: 1 x 5 mg tablet Condition: Sunday Dose/Route: 5 mg Instruction: 1 x 5 mg tablet Condition: Sunday Dose/Route: 5 mg Instruction: 1 x 5 mg tablet Protocol Text: Adjustment Start Date: 03/06/24 INR Value: 2.0 INR Date: 03/06/24 Recheck Date: 03/20/24 Rx Instructions: take one tab daily; or use as directed gabapentin 300 MG capsule 300 mg PO TID Patient Comments: Nerve pain cholecalciferol (vitamin D3) 2,000 UNIT tablet 4,000 unit PO DAILY Patient Comments: Supplement multivitamin with folic acid 1 TABLET tablet 1 tab PO DAILY Patient Comments: Supplement doxycycline hyclate 100 mg capsule 100 mg PO BID famotidine 20 mg tablet 20 mg PO DAILY Held amlodipine 5 mg tablet 5 mg PO DAILY Hold Instructions: Resume on 03/19/24. BP low normal during presentation, amlodipine held, please have ongoing repeat BP assessments and may resume if BP appropriate in TCU. Discontinued clindamycin HCl 150 mg capsule 150 mg PO Q6H Referrals / Follow Up: Barbara Cooper MD [Primary Care Provider] - (Follow-up within 3-5 days to review admission.) Disposition Disposition (needs filled in before D/C Order can be placed): Home, Self Care Charges/Coding Visit Charges Inpatient E&M: 67300 Disch Hosp >30min
--- NOTE | 2024-03-13 21:13 | PCM.HOSP.N ---
Hospitalist Note Mr. Diaz called [facility] 3. He took his first dose of Keflex at 430 and then shortly thereafter broke out in a rash. He called asking what to do. We instructed him to discontinue Keflex. He also has a penicillin allergy with rash so we had to convert to Levaquin. 6-day course was sent to the local pharmacy. He is on Coumadin at baseline and his INR at the time of discharge was 2.2. We have asked that he get a repeat INR done on Sunday where ever his INR is assessed. Keflex was placed as an allergy.
--- NOTE | 2024-03-13 21:55 | NURSING ---
Lucien called pt at [address] zavala's orders. Instructed to get his INR drawn on Sunday, stop the keflex and to warehouse picker new antibiotic, levaquin, tomorrow. Pt states understanding and no further questions.
== END 2024-03-13 12:06 | disposition home or self-care (01) | DRG 872 ==
LOC: ED 21:20 → MS3 21:51
PROVIDERS: Admitting Provider Internal Medicine; Emergency Provider Emergency Medicine; PCP Family Medicine; Visit Provider Family Medicine
DX: A41.9 Sepsis, unspecified organism (principal); M31.0 Hypersensitivity angiitis; I48.19 Other persistent atrial fibrillation; L03.115 Cellulitis of right lower limb; Z68.41 Body mass index [BMI] 40.0-44.9, adult; D72.12 Drug rash with eosinophilia and systemic symptoms syndrome; G62.9 Polyneuropathy, unspecified; E66.01 Morbid (severe) obesity due to excess calories; F32.A Depression, unspecified; I10 Essential (primary) hypertension; E80.6 Other disorders of bilirubin metabolism; K21.9 Gastro-esophageal reflux disease without esophagitis; M41.9 Scoliosis, unspecified; G47.33 Obstructive sleep apnea (adult) (pediatric); K60.3 Anal fistula; M19.90 Unspecified osteoarthritis, unspecified site; E78.5 Hyperlipidemia, unspecified; F41.9 Anxiety disorder, unspecified; Z95.0 Presence of cardiac pacemaker; Z79.01 Long term (current) use of anticoagulants; Z86.73 Personal history of transient ischemic attack (TIA), and cerebral infarction without residual deficits; T36.1X5A Adverse effect of cephalosporins and other beta-lactam antibiotics, initial encounter
CPT/HCPCS: 36415; 80053; 80202; 81001; 83605; 83735; 84100; 84443; 85025; 85610; 85652; 85730; 86140; 87040; 87077; 87086; 87088; 87186; 87631; 93005; 94002; 94668; 97161; 97165; 99285; J7030; J7040; J7050; A4216

== ENCOUNTER 2024-03-17 14:56 | Outpatient (RCR) | payer MEDICARE, BC, SELFPAY ==
[2024-02-20 20:34] VITALS: BMI 40.1
[2024-02-21 18:16] LABS: International Normalized Ratio 1.8; Prothrombin Time (Protime)PT. 21.1 SECONDS (11.7-14.9)
[2024-02-28 10:20] LABS: International Normalized Ratio 1.8; Prothrombin Time (Protime)PT. 20.5 SECONDS (11.7-14.9)
[2024-03-06 10:13] LABS: Prothrombin Time (Protime)PT. 22.6 SECONDS (11.7-14.9)
[2024-03-18 10:42] LABS: Prothrombin Time Fingerstick 21.4 SEC (11.7-14.9)
== END 2024-03-17 18:00 | disposition home or self-care (01) ==
LOC: MTLAB 14:56
PROVIDERS: Family Provider Family Medicine; PCP Family Medicine; Referring Provider Physician Assistant Medical; Visit Provider Physician Assistant Medical
DX: Z79.01 Long term (current) use of anticoagulants (principal)
CPT/HCPCS: 36415; 36416; 85610

== ENCOUNTER → 2024-03-18 | Outpatient (CLI) | payer MEDICARE, BC, SELFPAY ==
[2024-03-18 18:38] LABS: Rheumatoid Factor < 10.0 IU/mL (<15)
[2024-03-21 04:07] LABS: Dilute Prothrombin Time (dPT) 76.1 sec (0.0-47.6); Dilute Russell Viper Venom 56.8 sec (0.0-47.0); Dilute Russell Viper Venom Mix 42.1 sec (0.0-40.4); Hexagonal Phase Phospholipid 2 3 sec (0-11); Interpretation Comment: (.); PTT-LA 59.4 sec (0.0-43.5); PTT-LA Mix 48.6 sec (0.0-40.5); dPT Confirm Ratio 0.94 Ratio (0.00-1.34)
[2024-03-25 09:07] LABS: ANTINUCLEAR ANTIBODIES DIRECT Negative (Negative); Anti-Histone Abs 2.7 Units (0.0-0.9)
== END | disposition home or self-care (01) ==
LOC: MTLAB 16:21
PROVIDERS: PCP Family Medicine; Referring Provider Family Medicine; Visit Provider Family Medicine
DX: R79.82 Elevated C-reactive protein (CRP) (principal)
CPT/HCPCS: 36415; 86038; 86140; 86235; 86431

== ENCOUNTER → 2024-03-31 | Outpatient (CLI) | payer MEDICARE, BC, SELFPAY ==
--- NOTE | 2024-03-31 10:13 | VDLE_ITS ---
Reason For Study: Pain BLE RIGHT LEFT GSV is normal. GSV is normal. CFV is compressible, spontaneous, phasic, CFV is compressible, spontaneous, phasic, competent and demonstrates normal competent, and demonstrates normal augmentation. augmentation. FV is compressible, spontaneous, phasic, FV is compressible, spontaneous, phasic, competent and demonstrates normal competent and demonstrates normal augmentation. augmentation. POP V is compressible, spontaneous, phasic, POP V is compressible, spontaneous, phasic, competent and demonstrates normal competent and demonstrates normal augmentation. augmentation. T/P Trunk is compressible. T/P Trunk is compressible. PTV is compressible. PTV is compressible. RT PerV is compressible. LT PerV is compressible. Procedure This is a venous duplex using B-mode, color flow and spectral Doppler. Exam performed in department. A preliminary report was called and/or faxed to Dr. Pedraza. VL/Venous Duplex US - [place] Extrem Interpretation Summary Deep veins of the bilateral lower extremities are patent and compressible segme ntally. There is no evidence of bilateral lower extremity deep vein thrombosis. The bilateral great saphenous veins appear patent and compressible segmentally. Ordering Physician: Kyle Pedraza Referring Physician: Barbara Cooper Performed By: Augusta Bhagat, MER, RVT
== END | disposition home or self-care (01) ==
LOC: CVS 10:11
PROVIDERS: PCP Family Medicine; Referring Provider Podiatrist; Visit Provider Podiatrist
DX: M79.661 Pain in right lower leg (principal); M79.662 Pain in left lower leg
CPT/HCPCS: 93970

== ENCOUNTER 2024-04-21 10:43 | Outpatient (RCR) | payer MEDICARE, BC, SELFPAY ==
[2024-03-22 22:14] VITALS: BMI 40.1
[2024-03-31 10:20] LABS: INR Fingerstick 2.4; Prothrombin Time Fingerstick 24.8 SEC (11.7-14.9)
[2024-04-21 10:52] LABS: INR Fingerstick 2.2; Prothrombin Time Fingerstick 22.9 SEC (11.7-14.9)
== END 2024-04-21 18:00 | disposition home or self-care (01) ==
LOC: MTLAB 10:43
PROVIDERS: Family Provider Family Medicine; PCP Family Medicine; Referring Provider Physician Assistant Medical; Visit Provider Physician Assistant Medical
DX: Z79.01 Long term (current) use of anticoagulants (principal)
CPT/HCPCS: 36416; 85610

== ENCOUNTER 2024-05-21 07:59 | Outpatient (RCR) | payer MEDICARE, BC, SELFPAY ==
[2024-04-22 03:34] VITALS: BMI 40.1
[2024-05-21 08:10] LABS: INR Fingerstick 1.9; Prothrombin Time Fingerstick 20.3 SEC (11.7-14.9)
== END 2024-05-21 18:00 | disposition home or self-care (01) ==
LOC: MTLAB 07:59
PROVIDERS: Family Provider Family Medicine; PCP Family Medicine; Referring Provider Physician Assistant Medical; Visit Provider Physician Assistant Medical
DX: Z79.01 Long term (current) use of anticoagulants (principal); I48.19 Other persistent atrial fibrillation
CPT/HCPCS: 36416; 85610

== ENCOUNTER 2024-05-22 10:15 | Outpatient (RCR) | payer MEDICARE, BC, SELFPAY ==
[2024-05-01 09:16] VITALS: BP 129/86; PULSE 59; RESP 16; TEMP 36; BMI 40.4
--- NOTE | 2024-05-01 12:17 | PCM.WC.HP ---
History of Present Illness Date of Service: 05/01/24 Chief Complaint: Non healing right leg ulcer History of Wound: Mr Diaz is a 68-year-old who was referred to the wound center by his PCP due to nonhealing right lower extremity ulcer. Status post hospital admission in February with significant lower extremity cellulitis. Since his hospital discharge, he states that his been utilizing compression, leg elevation and antibiotic ointment for the ulcers. Most of it has resolved but current areas persist. No known history of diabetes. Appetite is good. No chest pain, palpitation or shortness of breath. Feels well otherwise. Has an appointment to schedule with vascular surgery. Also follows up with podiatry. [facility] Medical History (Updated 05/01/24 @ 13:[address] Ashkan Ceballos MD) Bilateral lower extremity edema Ulcer of right lower extremity with fat layer exposed Hyperbilirubinemia Chronic anticoagulation History of pacemaker History of cellulitis Vision problems Pneumonia Neuropathy Hypertension Heart disease Hearing problem Bone fracture History of back problems Arthritis Stroke/cerebrovascular accident Atrial fibrillation Dizziness and giddiness anal fistula repair Presence of cardiac pacemaker Conduction disorder of the heart Depression Scoliosis Osteoarthritis Home Medications ?Medication ?Instructions ?Recorded ?Last Taken ?Type cholecalciferol (vitamin D3) 50 4,000 unit PO DAILY supplement 10/17/13 02/29/24 History mcg (2,000 unit) tablet gabapentin 300 mg capsule 300 mg PO TID nerve pain 10/17/13 02/29/24 History multivitamin with folic acid 400 1 tab PO DAILY supplement 08/27/15 02/29/24 History mcg tablet amlodipine 5 mg tablet 5 mg PO DAILY 02/04/20 02/29/24 History diclofenac sodium 75 mg 75 mg PO BID 11/18/21 02/29/24 History tablet,delayed release vitamin B complex 1 cap PO DAILY 11/17/22 02/29/24 History warfarin 5 mg tablet (Jantoven) 5 mg PO DAILY 11/21/23 02/28/24 History famotidine 20 mg tablet 20 mg PO DAILY 03/11/24 Unknown History Allergy/AdvReac Type Severity Reaction Status Date / Time adhesive tape Allergy Mild Unknown Verified 05/01/24 09:34 cephalexin (From Keflex) Allergy Mild rash Verified 05/01/24 09:34 benzoin Allergy Hives Verified 05/01/24 09:34 latex Allergy Unknown Verified 05/01/24 09:34 Penicillins Allergy Hives Verified 05/01/24 09:34 diltiazem AdvReac Intermediate Leg Verified 05/01/24 09:34 swelling metoprolol AdvReac Intermediate Severe Verified 05/01/24 09:34 Fatigue Family History Father Arthritis Non Hodgkin's lymphoma Mother Arthritis Adenocarcinoma of unknown origin Surgical History History of total left knee replacement History of left femoral derotational osteotomy History of cholecystectomy History of tonsillectomy and adenoidectomy H/O hernia repair H/O: knee surgery Social History household members: spouse Smoking Status: Never smoker second hand exposure: No alcohol intake: former substance use type: does not use caffeine: Yes Type: coffee and tea what type of physical activity do you participate in: none [place]/church: None seatbelt use: always additional social history: pt denies vaping, denies marijuana use, denies edibles, does not use aspirin or ibuprofen ROS Constitutional Constitutional: Denies excessive sweating, fatigue, fever(s), frequent falls, headache(s) or lethargy Eyes Eyes: Denies blurry vision, change in eye color, change in vision, discharge from eye(s), erythema or excessive blinking ENT HEENT: Denies disequillibrium, dysphagia, ear discharge, epistaxis, halitosis, hoarseness or lip swelling Cardiovascular Cardiovascular: Reports erythema on extremities, leg edema and leg ulcers; Denies chest pain at rest, cyanosis, diaphoresis or dizziness Respiratory/Chest Respiratory/Chest: Denies difficulty clearing secretions, excessive phlegm production, hemoptysis, hoarseness, inability to speak or mouth breathing Gastrointestinal Gastrointestinal: Denies change in stool character, chewing difficulty, coffee ground emesis, dyspepsia, early satiety or excessive flatus Genitourinary Genitourinary: Denies abdominal discomfort, flank pain or hematuria Musculoskeletal Musculoskeletal: Denies atrophy, muscle cramps, muscle spasms, numbness, radiating pain into limb, tingling or tremors Integumentary Integumentary: Reports skin ulcer; Denies change in pigmentation, changing lesions, furuncle, hirsutism or jaundice Neurologic Neurologic: Denies behavior changes, confusion, convulsions, disequilibrium, lack of coordination, memory loss or numbness Psychiatric Psychiatric: Denies auditory hallucinations, behavioral changes, cognitive impairment, hallucinations, irritability or memory loss Endocrine Endocrinology: Denies cold intolerance, deepening of the voice, excessive sweating, flushing, heat intolerance or increase in ring/shoe/hat size Hematologic/Lymphatic Hematologic/Lymphatic: Reports easy bruising; Denies lymphadenopathy Allergic/Immunologic Allergic/Immunologic: Denies itchy eyes, lip swelling, throat swelling, tongue swelling, hives or wheezing Vital Signs Vital Signs Vital Signs: 05/01/24 09:16 Temperature 96.8 F L Temperature Source Temporal Pulse Rate 59 L Respiratory Rate 16 Blood Pressure 129/86 H Blood Pressure Mean 100 Blood Pressure Source Monitor Blood Pressure Position Sitting Blood Pressure Location Right Arm Oxygen Delivery Method Room Air Weight Weight: 290 lb Body Mass Index (BMI) 40.4 Physical Exam Const alert, oriented x3 and no apparent distress General Appearance: cooperative, comfortable and well kempt HEENT normocephalic, head/scalp atraumatic and hearing grossly normal bilaterally Eyes EOMs intact bilaterally Neck full ROM and supple General: normal visual inspection Resp normal respiratory effort and normal air movement Effort and Inspection: able to speak in complete sentences Cardio regular rate, S1 normal heart sound and S2 normal heart sound GI soft to palpation and non-tender Extremity General Extremity: edema Skin Wounds: wounds noted size Size: See clinical note, bed granulating well, margins well approximated, no odor and open Neuro oriented x3 and CN's II-XII intact bilaterally Sensorium / Orientation: awake and alert Debridement Note Debridement Note Wound debrided: Right cash Type of Debridement: Excisional debridement Anesthesia Used: 5% Lidocaine Gel Depth: Down to and including healthy tissue and in the subcutaneous layer Percentage of wound debrided: 100 Instrument Used: 3mm curette Tissue Removed: Slough and devitalized tissue Severity: Fat Layer Exposed Amount of bleeding with debridement: Mild Bleeding Controlled with: Pressure Patient tolerated procedure: Patient tolerated procedure well Post-Debridement Measurements and Additional Note: Post-Debridement Measurements/Treatment JOLLY - Nurse 1 - General Ulcer Assessment Start: 05/01/24 09:11 Freq: Status: Active Protocol: JOHN Activity Type Activity Date Activity User E-sign Co-sign Detail Recorded Client Recorded Date Recorded By Document 05/01/24 09:16 [facility] [id number] 05/01/24 09:29 [facility] 05/01/24 09:16 WC - Today's Visit Information Type of service Initial Visit Arrival Mode Ambulatory, Crutches Transfer Assistance None Accompanied by Patient Identification Verified (Name & Yes ) Height and Weight Height 5 ft 11 in Weight 290 lb Weight in Pounds 290.0 lbs Weight Measurement Method Estimated by Patient Body Mass Index (BMI) 40.4 BMI Classification Obese BSA - Bhavana 2.47 Vital Signs Temperature (97.8 F-99.1 F) 96.8 F L Temperature Source Temporal Pulse Rate (60-100) 59 L Pulse Location Monitor Respiratory Rate (12-18) 16 Respiratory rate source Observation Oxygen Delivery Method Room Air Blood Pressure (90/60-120/80) 129/86 H Blood Pressure Mean 100 Source Monitor Position Sitting Blood Pressure Location Right Arm History Since Last Visit- (Skip if this is Patient's initial visit) Left Footwear Regular Shoe Right Footwear Regular Shoe Pain Scale: 0-10 Numeric Is Patient Pain Free? 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 Able to Read Yes Able to Write Yes Communication Tools None Right Hearing Abillity Normal Left Hearing Abillity Normal Visual Assistive Devices Glasses Teaching Assessment Preferences Verbal,Written, Audio/Visual, Demonstration Barriers to Learning None Readiness To Learn Excellent Willingness to Engage in Self Management High Activies Readiness to Engage in Self Management High Activities Anxiety Level Calm Cooperation Cooperative Perception Coherent Interest in Health Problem Asks Questions Education Importance Acknowledges Need Does Patient Smoke tobacco or other No substances Smoking Status Never smoker Is Patient Diabetic No Functional Assessment Recent Decline in Ability to Perform Denies Any Declines Culture/Zoroastrian/Sql Developer Cultural/Zoroastrian Needs that may affect No Treatment Plan Teaching: Wound Center *Welcome to the Wound Center -Person Taught Patient, Significant Other -Teaching Method Discussion -Response to teaching Verbalize Understanding - Nurse 1 - General Ulcer Measurement Start: 05/01/24 09:11 Freq: Status: Active Protocol: Activity Type Activity Date Activity User E-sign Co-sign Detail Recorded Client Recorded Date Recorded By Document 05/01/24 09:16 [facility] [id number] 05/01/24 09:29 [facility] 05/01/24 09:16 Wound Center Nurse 1 #2- R LAT LE -Combined with other wound No -Current Size (cm) - Length 0.1 -Current Size (cm) - Width 0.1 -Current Size (cm) - Depth 0.1 -Total Square Cm 0.01 -Date of Last Picture (Recall this 05/01/24 field) -Photo Taken Yes -Epithelialization None Present -Tunneling No -Undermining/Tunneling No -Circular Undermining No -Exudate Amt Medium -Exudate Type Serosanguineous -Wound Margin Distinct, Outline Attached -Granulation Amt Medium (34-66%) -Granulation Quality Red -Slough/Fibrin Yes -Necrosis Amt Medium (34-66%) -Necrotic Tissue Type Adherent Slough -Texture (Ermelinda-wound Skin Appearance) Assessed, Scarring -Moisture (Ermelinda-wound Skin Appearance) Assessed -Color (Ermelinda-wound Skin Appearance) Assessed -Temperature (Ermelinda-wound Skin No Abnormality Appearance) (Pt Warm) -Tenderness on Palpation (Ermelinda-wound No Skin Appearance) -Ulcer Cleansing Rinsed/ Irrigated with Saline -Foul Odor after Cleansing No -Anesthetic Used 5% Lidocaine Gel #1- R CASH -Combined with other wound No -Current Size (cm) - Length 1.5 -Current Size (cm) - Width 1 -Current Size (cm) - Depth 0.1 -Total Square Cm 1.5 -Date of Last Picture (Recall this 05/01/24 field) -Photo Taken Yes -Epithelialization None Present -Tunneling No -Undermining/Tunneling No -Circular Undermining No -Exudate Amt Medium -Exudate Type Serosanguineous -Wound Margin Flat & Intact -Granulation Amt Large (67-100%) -Granulation Quality Red -Slough/Fibrin No -Necrosis Amt None Present (0 %) -Texture (Ermelinda-wound Skin Appearance) Assessed, Scarring -Moisture (Ermelinda-wound Skin Appearance) Assessed -Color (Ermelinda-wound Skin Appearance) Assessed, Hemosiderin Staining -Temperature (Ermelinda-wound Skin No Abnormality Appearance) (Pt Warm) -Tenderness on Palpation (Ermelinda-wound No Skin Appearance) -Ulcer Cleansing Rinsed/ Irrigated with Saline -Foul Odor after Cleansing No -Anesthetic Used 5% Lidocaine Gel Lower Limb Edema Present Yes Right Calf (cm) 41.6 Right Ankle (cm) 24.9 Left Calf (cm) 41.3 Left Ankle (cm) 24.2 WC - Nurse 2 - General Ulcer CM Notes Start: 05/01/24 09:11 Freq: Status: Active Protocol: Activity Type Activity Date Activity User E-sign Co-sign Detail Recorded Client Recorded Date Recorded By Document 05/01/24 09:53 [id number] 05/01/24 10:06 05/01/24 09:53 Wound Center Nurse 2 #2- R LAT LE -Time 09:54 -Correct Patient Yes -Correct Side, Site, Position Yes -Correct Procedure Yes -Procedure Performed Yes -Type of Procedure Debridement -Clinical Debridement Subcutaneous -Tissue Removed Subcutaneous -Post Debridement (cm) - Length 0.3 -Post Debridement (cm) - Width 0.3 -Post Debridement (cm) - Depth 0.2 -Total Square (Post) (cm) 0.09 -Area of Debridement (cm) - Length 0.3 -Area of Debridement (cm) - Width 0.3 -Total Square (Area) (cm) 0.09 -Tunneling No -Undermining/Tunneling No -Circular Undermining No -Wound/Ulcer Outcome Not Healed -Ulcer Cleansing Rinsed/ Irrigated with Saline -Foul Odor after Cleansing No -Bioengineered Tissue No -Bleeding Controlled with Pressure -Treatment Response Procedure Tolerated Well -Debridement - Subq, 1st 20sq cm No #1- R CASH -Time 09:55 -Correct Patient Yes -Correct Side, Site, Position Yes -Correct Procedure Yes -Procedure Performed Yes -Type of Procedure Debridement -Clinical Debridement Subcutaneous -Tissue Removed Subcutaneous -Post Debridement (cm) - Length 1.6 -Post Debridement (cm) - Width 1.1 -Post Debridement (cm) - Depth 0.1 -Total Square (Post) (cm) 1.76 -Area of Debridement (cm) - Length 1.6 -Area of Debridement (cm) - Width 1.1 -Total Square (Area) (cm) 1.76 -Tunneling No -Undermining/Tunneling No -Circular Undermining No -Wound/Ulcer Outcome Not Healed -Ulcer Cleansing Rinsed/ Irrigated with Saline -Foul Odor after Cleansing No -Bioengineered Tissue No -Bleeding Controlled with Pressure -Treatment Response Procedure Tolerated Well -Debridement - Subq, 1st 20sq cm Yes Pain Scale: 0-10 Numeric Is Patient Pain Free? Yes JOLLY - Nurse 3 - General Ulcer D/C NN Start: 05/01/24 09:11 Freq: Status: Active Protocol: Activity Type Activity Date Activity User E-sign Co-sign Detail Recorded Client Recorded Date Recorded By Document 05/01/24 10:10 [facility] [id number] 05/01/24 10:11 KW 05/01/24 10:10 Wound Care Center Nurse 3 #2- R LAT LE -Primary Dressing Applied Aquacel Extra -Primary Dressing Covered/Secured with Dry Gauze, Secured with Tape -Aquacel Extra 1 #1- R CASH -Other Dressing aquacel extra -Primary Dressing Covered/Secured with Dry Gauze, Secured with Tape Pain Scale: 0-10 Numeric Is Patient Pain Free? Yes WC - Visit Discharge Discharge Condition Stable Ambulatory Status Ambulatory Transportation Private Auto Medication Reconcilliation completed & No provided to patient/care provider Clinical Summary of Care Provided Yes Additional Wound Wound debrided: Right lateral ankle Type of Debridement: Excisional debridement Anesthesia Used: 5% Lidocaine Gel Depth: Down to and including healthy tissue and in the subcutaneous layer Percentage of wound debrided: 100 Instrument Used: 3mm curette Tissue Removed: Slough and devitalized tissue Severity: Fat Layer Exposed Amount of bleeding with debridement: Mild Bleeding Controlled with: Pressure Patient tolerated procedure: Patient tolerated procedure well Charges/Coding Visit Charges Office Visits / Consults: [id number] OV L3 Est 20min Procedures Integumentary [id number]: [id number] [place] subq tissue 20 sq cm/< Assessment/Plan Assessment/Plan (1) Ulcer of right lower extremity with fat layer exposed: CODE(S): L97.912 - Non-pressure chronic ulcer of unspecified part of right lower leg with fat layer exposed (2) History of cellulitis: CODE(S): Z87.2 - Personal history of diseases of the skin and subcutaneous tissue (3) Bilateral lower extremity edema: CODE(S): R60.0 - Localized edema (4) snf (current) use of anticoagulants: CODE(S): Z79.01 - continuous 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 No clinical concerns for infection at this time, will hold off culture and reevaluate at next visit. Aquacel extra daily - 2x daily, cover with foam dressing. Continue compression, leg elevation and exercise as tolerated. Continue optimal protein intake. Follow-up with vascular as previously scheduled. Continue outpatient follow-up with podiatry as well. His questions were answered, and he was advised to let us know if he has any further questions or concerns. He voiced understanding. Follow-up in a week or sooner if needed. This note was generated with [employer] dictation software. It may contain incorrect words, spelling, and punctuation that were not noted in checking the note before signing.
--- NOTE | 2024-05-02 09:12 | WC ---
[facility] 05/01/2024
[2024-05-08 10:14] VITALS: BP 133/84; PULSE 61; RESP 18; TEMP 35.8; BMI 40.4
--- NOTE | 2024-05-08 11:38 | PN.PCM_ITS ---
History of Present Illness Date of Service: 05/08/24 Chief Complaint: Non healing right leg ulcer History of Wound: Mr Diaz is a 68-year-old who was referred to the wound center by his PCP due to nonhealing right lower extremity ulcer. Status post hospital admission in February with significant lower extremity cellulitis. Since his hospital discharge, he states that his been utilizing compression, leg elevation and antibiotic ointment for the ulcers. Most of it has resolved but current areas persist. No known history of diabetes. Appetite is good. No chest pain, palpitation or shortness of breath. Feels well otherwise. Has an appointment to schedule with vascular surgery. Also follows up with podiatry. Progress of Wound: Right lateral ankle is healed. Had 2 new blistering areas that opened up since his last visit. He states that he has been using compression stockings and wraps. Doing dressing changes as recommended. Feels well otherwise. Objective Data Objective Data Vital Signs: Vital Signs Temp Pulse Resp BP O2 Del Method 96.5 F L 61 18 133/84 H Room Air 05/08/24 10:14 05/08/24 10:14 05/08/24 10:14 05/08/24 10:14 05/08/24 10:14 Oxygen Delivery Method Room Air Weight: 290 lb Body Mass Index (BMI) 40.4 Charges/Coding Procedures Integumentary 111xxx-113xx: [id number] Rol[place] subq tissue 20 sq cm/< Physical Exam Const alert, oriented x3 and no apparent distress General Appearance: cooperative, comfortable and well kempt HEENT normocephalic, head/scalp atraumatic and hearing grossly normal bilaterally Eyes EOMs intact bilaterally Neck full ROM and supple General: normal visual inspection Resp normal respiratory effort Effort and Inspection: able to speak in complete sentences Extremity General Extremity: edema Skin Wounds: wounds noted size Size: See clinical note, bed granulating well, margins well approximated, no odor and open Neuro oriented x3 and CN's II-XII intact bilaterally Sensorium / Orientation: awake and alert Debridement Note Debridement Note Wound debrided: Right cash Type of Debridement: Excisional debridement Anesthesia Used: 5% Lidocaine Gel Depth: Down to and including healthy tissue and in the subcutaneous layer Percentage of wound debrided: 100 Instrument Used: 5mm curette Tissue Removed: Slough and devitalized tissue Severity: Fat Layer Exposed Amount of bleeding with debridement: Mild Bleeding Controlled with: Pressure Patient tolerated procedure: Patient tolerated procedure well Post-Debridement Measurements and Additional Note: Post-Debridement Measurements/Treatment WC - Nurse 1 - General Ulcer Assessment Start: 05/01/24 09:11 Freq: Status: Active Protocol: JOHN Activity Type Activity Date Activity User E-sign Co-sign Detail Recorded Client Recorded Date Recorded By Document 05/01/24 09:16 BM [id number] 05/01/24 09:29 [facility] Document 05/08/24 10:14 [id number] [id number] 05/08/24 10:29 KW 05/01/24 05/08/24 09:16 10:14 - Today's Visit Information Type of service Initial Visit Follow-up Visit (Physician/MANAGER DRIVE ) Arrival Mode Ambulatory, Ambulatory, Crutches Crutches Transfer Assistance None Accompanied by Patient Identification Verified (Name & Yes Yes ) Height and Weight Height 5 ft 11 in Weight 290 lb Weight in Pounds 290.0 lbs Weight Measurement Method Estimated by Patient Body Mass Index (BMI) 40.4 40.4 BMI Classification Obese Obese BSA - Bhavana 2.47 Vital Signs Temperature (97.8 F-99.1 F) 96.8 F L 96.5 F L Temperature Source Temporal Temporal Pulse Rate (60-100) 59 L 61 Pulse Location Monitor Monitor Respiratory Rate (12-18) 16 18 Respiratory rate source Observation Ausculation Oxygen Delivery Method Room Air Room Air Blood Pressure (90/60-120/80) 129/86 H 133/84 H Blood Pressure Mean (mm Hg) 100 100 Source Monitor Monitor Position Sitting Semi-Fowlers Blood Pressure Location Right Arm Left Arm History Since Last Visit- (Skip if this is Patient's initial visit) Have you changed medications since your No last visit? Any new allergies or adverse reactions No Had a fall/change in ADL's that may No increase risk of falls Signs or symptoms of abuse and/or No neglect since last visit Have you been in the hospital since your No last visit? Has dressing in place as prescribed Yes Has compression in place as prescribed Yes Has offloadiing in place as prescribed N/A Experienced any changes in pain level or No management Left Footwear Regular Shoe Regular Shoe Right Footwear Regular Shoe Regular Shoe Pain Scale: 0-10 Numeric Is Patient Pain Free? Yes Yes Communication Assessment Preferred language Slovenian Night Time Babysitter Required No Able to Read Yes Able to Write Yes Communication Tools None Right Hearing Abillity Normal Left Hearing Abillity Normal Visual Assistive Devices Glasses Teaching Assessment Preferences Verbal,Written, Audio/Visual, Demonstration Barriers to Learning None Readiness To Learn Excellent Willingness to Engage in Self Management High Activies Readiness to Engage in Self Management High Activities Anxiety Level Calm Cooperation Cooperative Perception Coherent Interest in Health Problem Asks Questions Education Importance Acknowledges Need Does Patient Smoke tobacco or other No substances Smoking Status Never smoker Is Patient Diabetic No Functional Assessment Recent Decline in Ability to Perform Denies Any Declines 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 Cultural/Hindu Needs that may affect No Treatment Plan Teaching: Wound Center *Welcome to the Wound Center -Person Taught Patient, Significant Other -Teaching Method Discussion -Response to teaching Verbalize Understanding WC - Nurse 1 - General Ulcer Measurement Start: 05/01/24 09:11 Freq: Status: Active Protocol: Activity Type Activity Date Activity User E-sign Co-sign Detail Recorded Client Recorded Date Recorded By Document 05/01/24 09:16 [facility] [id number] 05/01/24 09:29 [facility] Document 05/08/24 10:14 [id number] 05/08/24 10:29 05/01/24 05/08/24 09:16 10:14 Wound Center Nurse 1 #2- R LATERAL LE -Combined with other wound No -Current Size (cm) - Length 0.1 0.1 -Current Size (cm) - Width 0.1 0.1 -Current Size (cm) - Depth 0.1 0.1 -Total Square Cm 0.01 0.01 -Date of Last Picture (Recall this 05/01/24 field) -Photo Taken Yes -Epithelialization None Present -Tunneling No -Undermining/Tunneling No -Circular Undermining No -Exudate Amt Medium None Present -Exudate Type Serosanguineous -Wound Margin Distinct, Outline Attached -Granulation Amt Medium (34-66%) -Granulation Quality Red -Slough/Fibrin Yes -Necrosis Amt Medium (34-66%) -Necrotic Tissue Type Adherent Slough -Texture (Ermelinda-wound Skin Appearance) Assessed, Assessed Scarring -Moisture (Ermelinda-wound Skin Appearance) Assessed Assessed -Color (Ermelinda-wound Skin Appearance) Assessed Assessed, Hemosiderin Staining -Temperature (Ermelinda-wound Skin No Abnormality No Abnormality Appearance) (Pt Warm) (Pt Warm) -Tenderness on Palpation (Ermelinda-wound No No Skin Appearance) -Ulcer Cleansing Rinsed/ Rinsed/ Irrigated with Irrigated with Saline Saline -Foul Odor after Cleansing No No -Anesthetic Used 5% Lidocaine Gel #1- R CASH -Combined with other wound No -Current Size (cm) - Length 1.5 2 -Current Size (cm) - Width 1 4 -Current Size (cm) - Depth 0.1 0.1 -Total Square Cm 1.5 8 -Date of Last Picture (Recall this 05/01/24 field) -Photo Taken Yes -Epithelialization None Present -Tunneling No -Undermining/Tunneling No -Circular Undermining No -Exudate Amt Medium Small -Exudate Type Serosanguineous Serosanguineous -Wound Margin Flat & Intact Distinct, Outline Attached -Granulation Amt Large (67-100%) Large (67-100%) -Granulation Quality Red Red -Slough/Fibrin No -Necrosis Amt None Present (0 %) -Texture (Ermelinda-wound Skin Appearance) Assessed, Assessed Scarring -Moisture (Ermelinda-wound Skin Appearance) Assessed Assessed -Color (Ermelinda-wound Skin Appearance) Assessed, Assessed, Hemosiderin Erythema, Staining Hemosiderin Staining -Temperature (Ermelinda-wound Skin No Abnormality No Abnormality Appearance) (Pt Warm) (Pt Warm) -Tenderness on Palpation (Ermelinda-wound No No Skin Appearance) -Ulcer Cleansing Rinsed/ Irrigated with Saline -Foul Odor after Cleansing No No -Anesthetic Used 5% Lidocaine 5% Lidocaine Gel Gel Lower Limb Edema Present Yes Right Calf (cm) 41.6 37.5 Right Ankle (cm) 24.9 24.5 Left Calf (cm) 41.3 Left Ankle (cm) 24.2 WC - Nurse 2 - General Ulcer CM Notes Start: 05/01/24 09:11 Freq: Status: Active Protocol: Activity Type Activity Date Activity User E-sign Co-sign Detail Recorded Client Recorded Date Recorded By Document 05/01/24 09:53 [id number] 05/01/24 10:06 Document 05/08/24 11:15 [id number] 05/08/24 11:19 05/01/24 05/08/24 09:53 11:15 Wound Center Nurse 2 #3 RIGHT CASH MEDIAL -Time 11:17 -Correct Patient Yes -Correct Side, Site, Position Yes -Correct Procedure Yes -Procedure Performed Yes -Type of Procedure Debridement -Clinical Debridement Subcutaneous -Tissue Removed Subcutaneous -Post Debridement (cm) - Length 1.5 -Post Debridement (cm) - Width 0.6 -Post Debridement (cm) - Depth 0.1 -Total Square (Post) (cm) 0.90 -Area of Debridement (cm) - Length 1.5 -Area of Debridement (cm) - Width 0.6 -Total Square (Area) (cm) 0.90 -Tunneling No -Undermining/Tunneling No -Circular Undermining No -Wound/Ulcer Outcome Not Healed -Ulcer Cleansing Rinsed/ Irrigated with Saline -Foul Odor after Cleansing No -Bioengineered Tissue No -Bleeding Controlled with Pressure -Treatment Response Procedure Tolerated Well -Debridement - Subq, 1st 20sq cm No #2- R LATERAL LE -Time 09:54 11:15 -Correct Patient Yes Yes -Correct Side, Site, Position Yes Yes -Correct Procedure Yes Yes -Procedure Performed Yes Yes -Type of Procedure Debridement Debridement -Clinical Debridement Subcutaneous Subcutaneous -Tissue Removed Subcutaneous Subcutaneous -Post Debridement (cm) - Length 0.3 -Post Debridement (cm) - Width 0.3 -Post Debridement (cm) - Depth 0.2 -Total Square (Post) (cm) 0.09 -Area of Debridement (cm) - Length 0.3 -Area of Debridement (cm) - Width 0.3 -Total Square (Area) (cm) 0.09 -Tunneling No No -Undermining/Tunneling No No -Circular Undermining No No -Wound/Ulcer Outcome Not Healed Not Healed -Ulcer Cleansing Rinsed/ Rinsed/ Irrigated with Irrigated with Saline Saline -Foul Odor after Cleansing No No -Bioengineered Tissue No -Bleeding Controlled with Pressure Pressure -Treatment Response Procedure Procedure Tolerated Well Tolerated Well -Debridement - Subq, 1st 20sq cm No No #1- R CASH -Time 09:55 11:16 -Correct Patient Yes Yes -Correct Side, Site, Position Yes Yes -Correct Procedure Yes Yes -Procedure Performed Yes Yes -Type of Procedure Debridement Debridement -Clinical Debridement Subcutaneous Subcutaneous -Tissue Removed Subcutaneous Subcutaneous -Post Debridement (cm) - Length 1.6 1.4 -Post Debridement (cm) - Width 1.1 1.0 -Post Debridement (cm) - Depth 0.1 0.1 -Total Square (Post) (cm) 1.76 1.40 -Area of Debridement (cm) - Length 1.6 1.4 -Area of Debridement (cm) - Width 1.1 1.0 -Total Square (Area) (cm) 1.76 1.40 -Tunneling No No -Undermining/Tunneling No No -Circular Undermining No No -Wound/Ulcer Outcome Not Healed Not Healed -Ulcer Cleansing Rinsed/ Rinsed/ Irrigated with Irrigated with Saline Saline -Foul Odor after Cleansing No No -Bioengineered Tissue No No -Bleeding Controlled with Pressure Pressure -Treatment Response Procedure Procedure Tolerated Well Tolerated Well -Debridement - Subq, 1st 20sq cm Yes No Pain Scale: 0-10 Numeric Is Patient Pain Free? Yes Yes - Nurse 3 - General Ulcer D/C NN Start: 05/01/24 09:11 Freq: Status: Active Protocol: Activity Type Activity Date Activity User E-sign Co-sign Detail Recorded Client Recorded Date Recorded By Document 05/01/24 10:10 [id number] 05/01/24 10:11 05/01/24 10:10 Wound Care Center Nurse 3 #2- R LATERAL LE -Primary Dressing Applied Aquacel Extra -Primary Dressing Covered/Secured with Dry Gauze, Secured with Tape -Aquacel Extra 1 #1- R CASH -Other Dressing aquacel extra -Primary Dressing Covered/Secured with Dry Gauze, Secured with Tape Pain Scale: 0-10 Numeric Is Patient Pain Free? Yes - Visit Discharge Discharge Condition Stable Ambulatory Status Ambulatory Transportation Private Auto Medication Reconcilliation completed & No provided to patient/care provider Clinical Summary of Care Provided Yes Additional Wound Wound debrided: Right lower extremity (medial cash) Type of Debridement: Excisional debridement Anesthesia Used: 4% Lidocaine Solution Depth: Down to and including healthy tissue and in the subcutaneous layer Percentage of wound debrided: 100 Instrument Used: 5mm curette Tissue Removed: Slough and devitalized tissue Severity: Fat Layer Exposed Amount of bleeding with debridement: Mild Bleeding Controlled with: Pressure Patient tolerated procedure: Patient tolerated procedure well Assessment/Plan Assessment/Plan (1) Ulcer of right lower extremity with fat layer exposed: CODE(S): L97.912 - Non-pressure chronic ulcer of unspecified part of right lower leg with fat layer exposed (2) History of cellulitis: CODE(S): Z87.2 - Personal history of diseases of the skin and subcutaneous tissue (3) Bilateral lower extremity edema: CODE(S): R60.0 - Localized edema (4) retirement (current) use of anticoagulants: CODE(S): Z79.01 - 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 New area of opening following blistering. Right lateral ankle is healed. Switch to Promogran, cover with Adaptic and foam dressing. Light 3M wrap for edema management. Nurse visit on Sunday. Strongly advised that if he notes worsening pain or concerns, call and take wrap off. He voiced understanding. Continue optimal protein intake. Follow-up with vascular as previously scheduled. Continue outpatient follow-up with podiatry as well. His questions were answered, and he was advised to let us know if he has any further questions or concerns. Follow-up in a week or sooner if needed. This note was generated with [employer] dictation software. It may contain incorrect words, spelling, and punctuation that were not noted in checking the note before signing.
[2024-05-12 15:02] VITALS: BP 132/78; PULSE 65; RESP 16; TEMP 36.7; BMI 40.4
--- NOTE | 2024-05-13 15:27 | WC ---
Patient called complaining that wrap is rubbing against his 5th toe and was wandering if he could trim a little to avoid a pressure? I called him back and said as long as he feels comfortable doing so, that is okay. He said he feels comfortable and will have his help. He is scheduled on to see provider.
[2024-05-15 10:28] VITALS: TEMP 36.4; BMI 40.4
--- NOTE | 2024-05-15 11:27 | PCM.WC.PN ---
History of Present Illness Date of Service: 05/15/24 Chief Complaint: Non healing right leg ulcer History of Wound: Mr Diaz is a 68-year-old who was referred to the wound center by his PCP due to nonhealing right lower extremity ulcer. Status post hospital admission in February with significant lower extremity cellulitis. Since his hospital discharge, he states that his been utilizing compression, leg elevation and antibiotic ointment for the ulcers. Most of it has resolved but current areas persist. No known history of diabetes. Appetite is good. No chest pain, palpitation or shortness of breath. Feels well otherwise. Has an appointment to schedule with vascular surgery. Also follows up with podiatry. Progress of Wound: No new concerns reported at this time. Tolerated 3M without any concerns. Significant improvement noted since his last visit. Objective Data Objective Data Vital Signs: Vital Signs Temp Pulse Resp BP O2 Del Method 97.5 F L 65 16 132/78 H Room Air 05/15/24 10:28 05/12/24 15:02 05/12/24 15:02 05/12/24 15:02 05/15/24 10:28 Oxygen Delivery Method Room Air Weight: 290 lb Body Mass Index (BMI) 40.4 Charges/Coding Procedures Integumentary 111xxx-113xx: [id number] [place] subq tissue 20 sq cm/< Physical Exam Const alert, oriented x3 and no apparent distress General Appearance: cooperative, comfortable and well kempt HEENT normocephalic, head/scalp atraumatic and hearing grossly normal bilaterally Eyes EOMs intact bilaterally Neck full ROM and supple General: normal visual inspection Resp normal respiratory effort Effort and Inspection: able to speak in complete sentences Extremity General Extremity: edema Skin Wounds: wounds noted size Size: See clinical note, bed granulating well, margins well approximated, no odor and open Neuro oriented x3 and CN's II-XII intact bilaterally Sensorium / Orientation: awake and alert Debridement Note Debridement Note Wound debrided: Right cash Type of Debridement: Excisional debridement Anesthesia Used: 5% Lidocaine Gel Depth: Down to and including healthy tissue and in the subcutaneous layer Percentage of wound debrided: 100 Instrument Used: 3mm curette Tissue Removed: Devitalized tissue Severity: Fat Layer Exposed Amount of bleeding with debridement: Mild Bleeding Controlled with: Pressure Patient tolerated procedure: Patient tolerated procedure well Post-Debridement Measurements and Additional Note: Post-Debridement Measurements/Treatment WC - Nurse 1 - General Ulcer Assessment Start: 05/01/24 09:11 Freq: Status: Active Protocol: JOLLY.[email or web address] Activity Type Activity Date Activity User E-sign Co-sign Detail Recorded Client Recorded Date Recorded By Document 05/01/24 09:16 BMF [id number] 05/01/24 09:29 BMF Document 05/08/24 10:14 KW [id number] 05/08/24 10:29 KW Document 05/12/24 15:02 KW [id number] 05/12/24 15:22 KW Document 05/15/24 10:28 KW [id number] 05/15/24 10:37 KW 05/01/24 05/08/24 05/12/24 09:16 10:14 15:02 WC - Today's Visit Information Type of service Initial Visit Follow-up Visit Nurse-only (Physician/AXLE TURNER Visit ) Arrival Mode Ambulatory, Ambulatory, Ambulatory, Crutches Crutches Crutches Transfer Assistance None Accompanied by Patient Identification Verified (Name & Yes Yes Yes ) Height and Weight Height 5 ft 11 in Weight 290 lb Weight in Pounds 290.0 lbs Weight Measurement Method Estimated by Patient Body Mass Index (BMI) 40.4 40.4 40.4 BMI Classification Obese Obese Obese BSA - Bhavana 2.47 Vital Signs Temperature (97.8 F-99.1 F) 96.8 F L 96.5 F L 98.0 F Temperature Source Temporal Temporal Temporal Pulse Rate (60-100) 59 L 61 65 Pulse Location Monitor Monitor Monitor Respiratory Rate (12-18) 16 18 16 Respiratory rate source Observation Ausculation Observation Oxygen Delivery Method Room Air Room Air Room Air Blood Pressure (90/60-120/80) 129/86 H 133/84 H 132/78 H Blood Pressure Mean (mm Hg) 100 100 96 Source Monitor Monitor Monitor Position Sitting Semi-Fowlers Semi-Fowlers Blood Pressure Location Right Arm Left Arm Right Arm History Since Last Visit- (Skip if this is Patient's initial visit) Have you changed medications since your No No last visit? Any new allergies or adverse reactions No No Had a fall/change in ADL's that may No No increase risk of falls Signs or symptoms of abuse and/or No No neglect since last visit Have you been in the hospital since your No No last visit? Has dressing in place as prescribed Yes Yes Has compression in place as prescribed Yes Yes Has offloadiing in place as prescribed N/A N/A Experienced any changes in pain level or No No management Left Footwear Regular Shoe Regular Shoe Regular Shoe Right Footwear Regular Shoe Regular Shoe Regular Shoe Pain Scale: 0-10 Numeric Is Patient Pain Free? 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 Able to Read Yes Able to Write Yes Communication Tools None Right Hearing Abillity Normal Left Hearing Abillity Normal Visual Assistive Devices Glasses Teaching Assessment Preferences Verbal,Written, Audio/Visual, Demonstration Barriers to Learning None Readiness To Learn Excellent Willingness to Engage in Self Management High Activies Readiness to Engage in Self Management High Activities Anxiety Level Calm Cooperation Cooperative Perception Coherent Interest in Health Problem Asks Questions Education Importance Acknowledges Need Does Patient Smoke tobacco or other No substances Smoking Status Never smoker Is Patient Diabetic No Functional Assessment Recent Decline in Ability to Perform Denies Any Declines 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 Needs that may affect No Treatment Plan Teaching: Wound Center *Welcome to the Wound Center -Person Taught Patient, Significant Other -Teaching Method Discussion -Response to teaching Verbalize Understanding 05/15/24 10:28 WC - Today's Visit Information Type of service Follow-up Visit (Physician/AXLE TURNER ) Arrival Mode Ambulatory, Crutches Transfer Assistance Accompanied by Patient Identification Verified (Name & Yes ) Height and Weight Height Weight Weight in Pounds Weight Measurement Method Body Mass Index (BMI) 40.4 BMI Classification Obese [facility] Vital Signs Temperature (97.8 F-99.1 F) 97.5 F L Temperature Source Temporal Pulse Rate (60-100) Pulse Location Monitor Respiratory Rate (12-18) Respiratory rate source Observation Oxygen Delivery Method Room Air Blood Pressure (90/60-120/80) Blood Pressure Mean (mm Hg) Source Monitor Position Semi-Fowlers Blood Pressure Location Right Arm History Since Last Visit- (Skip if this is Patient's initial visit) Have you changed medications since your No last visit? Any new allergies or adverse reactions No Had a fall/change in ADL's that may No increase risk of falls Signs or symptoms of abuse and/or No neglect since last visit Have you been in the hospital since your No last visit? Has dressing in place as prescribed Yes Has compression in place as prescribed Yes Has offloadiing in place as prescribed N/A Experienced any changes in pain level or No management Left Footwear Regular Shoe Right Footwear Regular Shoe Pain Scale: 0-10 Numeric Is Patient Pain Free? 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 Needs that may affect Treatment Plan Teaching: Wound Center *Welcome to the Wound Center -Person Taught -Teaching Method -Response to teaching WC - Nurse 1 - General Ulcer Measurement Start: 05/01/24 09:11 Freq: Status: Active Protocol: Activity Type Activity Date Activity User E-sign Co-sign Detail Recorded Client Recorded Date Recorded By Document 05/01/24 09:16 BM [id number] 05/01/24 09:29 BMF Document 05/08/24 10:14 KW [id number] 05/08/24 10:29 KW Document 05/12/24 15:23 KW [id number] 05/12/24 15:23 KW Document 05/15/24 10:28 KW [id number] 05/15/24 10:37 KW 05/01/24 05/08/24 05/12/24 09:16 10:14 15:23 Wound Center Nurse 1 #3 RIGHT CASH MEDIAL -Current Size (cm) - Length -Current Size (cm) - Width -Current Size (cm) - Depth -Total Square Cm -Date of Last Picture (Recall this field) -Exudate Amt -Exudate Type -Wound Margin -Granulation Amt -Granulation Quality -Texture (Ermelinda-wound Skin Appearance) -Moisture (Ermelinda-wound Skin Appearance) -Color (Ermelinda-wound Skin Appearance) -Temperature (Ermelinda-wound Skin Appearance) -Tenderness on Palpation (Ermelinda-wound Skin Appearance) -Ulcer Cleansing -Foul Odor after Cleansing -Anesthetic Used #2- R LATERAL LE -Combined with other wound No -Current Size (cm) - Length 0.1 0.1 -Current Size (cm) - Width 0.1 0.1 -Current Size (cm) - Depth 0.1 0.1 -Total Square Cm 0.01 0.01 -Date of Last Picture (Recall this 05/01/24 field) -Photo Taken Yes -Epithelialization None Present -Tunneling No -Undermining/Tunneling No -Circular Undermining No -Exudate Amt Medium None Present -Exudate Type Serosanguineous -Wound Margin Distinct, Outline Attached -Granulation Amt Medium (34-66%) -Granulation Quality Red -Slough/Fibrin Yes -Necrosis Amt Medium (34-66%) -Necrotic Tissue Type Adherent Slough -Texture (Ermelinda-wound Skin Appearance) Assessed, Assessed Scarring -Moisture (Ermelinad-wound Skin Appearance) Assessed Assessed -Color (Ermelinda-wound Skin Appearance) Assessed Assessed, Hemosiderin Staining -Temperature (Ermelinda-wound Skin No Abnormality No Abnormality Appearance) (Pt Warm) (Pt Warm) -Tenderness on Palpation (Ermelinda-wound No No Skin Appearance) -Ulcer Cleansing Rinsed/ Rinsed/ Irrigated with Irrigated with Saline Saline -Foul Odor after Cleansing No No -Anesthetic Used 5% Lidocaine Gel -Wound Comment(s) #1- R CASH -Combined with other wound No -Current Size (cm) - Length 1.5 2 -Current Size (cm) - Width 1 4 -Current Size (cm) - Depth 0.1 0.1 -Total Square Cm 1.5 8 -Date of Last Picture (Recall this 05/01/24 field) -Photo Taken Yes -Epithelialization None Present -Tunneling No -Undermining/Tunneling No -Circular Undermining No -Exudate Amt Medium Small -Exudate Type Serosanguineous Serosanguineous -Wound Margin Flat & Intact Distinct, Outline Attached -Granulation Amt Large (67-100%) Large (67-100%) -Granulation Quality Red Red -Slough/Fibrin No -Necrosis Amt None Present (0 %) -Texture (Ermelinda-wound Skin Appearance) Assessed, Assessed Scarring -Moisture (Ermelinda-wound Skin Appearance) Assessed Assessed -Color (Ermelinda-wound Skin Appearance) Assessed, Assessed, Hemosiderin Erythema, Staining Hemosiderin Staining -Temperature (Ermelinda-wound Skin No Abnormality No Abnormality Appearance) (Pt Warm) (Pt Warm) -Tenderness on Palpation (Ermelinda-wound No No Skin Appearance) -Ulcer Cleansing Rinsed/ Irrigated with Saline -Foul Odor after Cleansing No No -Anesthetic Used 5% Lidocaine 5% Lidocaine Gel Gel -Wound Comment(s) Lower Limb Edema Present Yes Right Calf (cm) 41.6 37.5 37.5 Right Ankle (cm) 24.9 24.5 25 Left Calf (cm) 41.3 Left Ankle (cm) 24.2 05/15/24 10:28 Wound Center Nurse 1 #3 RIGHT CASH MEDIAL -Current Size (cm) - Length 0.6 -Current Size (cm) - Width 0.5 -Current Size (cm) - Depth 0.1 -Total Square Cm 0.30 -Date of Last Picture (Recall this 05/15/24 field) -Exudate Amt Small -Exudate Type Serosanguineous -Wound Margin Distinct, Outline Attached -Granulation Amt Large (67-100%) -Granulation Quality Red -Texture (Ermelinda-wound Skin Appearance) Assessed -Moisture (Ermelinda-wound Skin Appearance) Assessed -Color (Ermelinda-wound Skin Appearance) Assessed, Hemosiderin Staining -Temperature (Ermelinda-wound Skin No Abnormality Appearance) (Pt Warm) -Tenderness on Palpation (Ermelinda-wound No Skin Appearance) -Ulcer Cleansing Soap and Water -Foul Odor after Cleansing No -Anesthetic Used 5% Lidocaine Gel #2- R LATERAL LE -Combined with other wound -Current Size (cm) - Length 0.1 -Current Size (cm) - Width 0.1 -Current Size (cm) - Depth 0.1 -Total Square Cm 0.01 -Date of Last Picture (Recall this 05/15/24 field) -Photo Taken -Epithelialization -Tunneling -Undermining/Tunneling -Circular Undermining -Exudate Amt None Present -Exudate Type -Wound Margin -Granulation Amt -Granulation Quality -Slough/Fibrin -Necrosis Amt -Necrotic Tissue Type -Texture (Ermelinda-wound Skin Appearance) Assessed -Moisture (Ermelinda-wound Skin Appearance) Assessed -Color (Ermelinda-wound Skin Appearance) Assessed, Hemosiderin Staining -Temperature (Ermelinda-wound Skin No Abnormality Appearance) (Pt Warm) -Tenderness on Palpation (Ermelinda-wound No Skin Appearance) -Ulcer Cleansing Soap and Water -Foul Odor after Cleansing No -Anesthetic Used -Wound Comment(s) possibly healed #1- R CASH -Combined with other wound -Current Size (cm) - Length 0 -Current Size (cm) - Width 0 -Current Size (cm) - Depth 0 -Total Square Cm 0 -Date of Last Picture (Recall this 05/15/24 field) -Photo Taken -Epithelialization -Tunneling -Undermining/Tunneling -Circular Undermining -Exudate Amt -Exudate Type -Wound Margin -Granulation Amt -Granulation Quality -Slough/Fibrin -Necrosis Amt -Texture (Ermelinda-wound Skin Appearance) Assessed -Moisture (Ermelinda-wound Skin Appearance) Assessed -Color (Ermelinda-wound Skin Appearance) Assessed -Temperature (Ermelinda-wound Skin No Abnormality Appearance) (Pt Warm) -Tenderness on Palpation (Ermelinda-wound No Skin Appearance) -Ulcer Cleansing Soap and Water -Foul Odor after Cleansing No -Anesthetic Used -Wound Comment(s) healed Lower Limb Edema Present Right Calf (cm) 36.5 Right Ankle (cm) 24 Left Calf (cm) Left Ankle (cm) WC - Nurse 2 - General Ulcer CM Notes Start: 05/01/24 09:11 Freq: Status: Active Protocol: Activity Type Activity Date Activity User E-sign Co-sign Detail Recorded Client Recorded Date Recorded By Document 05/01/24 09:53 GM [id number] 05/01/24 10:06 GM Document 05/08/24 11:15 GM [id number] 05/08/24 11:19 GM Edit Result 05/08/24 11:15 GM (1) [id number] 05/09/24 10:03 GM Document 05/15/24 10:56 GM [id number] 05/15/24 11:02 GM (1) #3 RIGHT CASH MEDIAL - Debridement - Subq, 1st 20sq cm No => Yes 05/01/24 05/08/24 05/15/24 09:53 11:15 10:56 Wound Center Nurse 2 #3 RIGHT CASH MEDIAL -Time 11:17 10:59 -Correct Patient Yes -Correct Side, Site, Position Yes -Correct Procedure Yes -Procedure Performed Yes -Type of Procedure Debridement -Clinical Debridement Subcutaneous -Tissue Removed Subcutaneous Subcutaneous -Post Debridement (cm) - Length 1.5 -Post Debridement (cm) - Width 0.6 -Post Debridement (cm) - Depth 0.1 -Total Square (Post) (cm) 0.90 -Area of Debridement (cm) - Length 1.5 -Area of Debridement (cm) - Width 0.6 -Total Square (Area) (cm) 0.90 -Tunneling No -Undermining/Tunneling No -Circular Undermining No -Wound/Ulcer Outcome Not Healed -Ulcer Cleansing Rinsed/ Irrigated with Saline -Foul Odor after Cleansing No -Bioengineered Tissue No -Bleeding Controlled with Pressure -Treatment Response Procedure Tolerated Well -Debridement - Subq, 1st 20sq cm Yes #2- R LATERAL LE -Time 09:54 11:15 10:59 -Correct Patient Yes Yes Yes -Correct Side, Site, Position Yes Yes Yes -Correct Procedure Yes Yes -Procedure Performed Yes Yes -Type of Procedure Debridement Debridement -Clinical Debridement Subcutaneous Subcutaneous -Tissue Removed Subcutaneous Subcutaneous -Post Debridement (cm) - Length 0.3 -Post Debridement (cm) - Width 0.3 -Post Debridement (cm) - Depth 0.2 -Total Square (Post) (cm) 0.09 -Area of Debridement (cm) - Length 0.3 -Area of Debridement (cm) - Width 0.3 -Total Square (Area) (cm) 0.09 -Tunneling No No -Undermining/Tunneling No No -Circular Undermining No No -Wound/Ulcer Outcome Not Healed Not Healed Healed- Epithelialized -Ulcer Cleansing Rinsed/ Rinsed/ Irrigated with Irrigated with Saline Saline -Foul Odor after Cleansing No No -Bioengineered Tissue No -Bleeding Controlled with Pressure Pressure -Treatment Response Procedure Procedure Tolerated Well Tolerated Well -Debridement - Subq, 1st 20sq cm No No #1- R CASH -Time 09:55 11:16 11:00 -Correct Patient Yes Yes Yes -Correct Side, Site, Position Yes Yes Yes -Correct Procedure Yes Yes Yes -Procedure Performed Yes Yes Yes -Type of Procedure Debridement Debridement Debridement -Clinical Debridement Subcutaneous Subcutaneous Subcutaneous -Tissue Removed Subcutaneous Subcutaneous Subcutaneous -Post Debridement (cm) - Length 1.6 1.4 0.7 -Post Debridement (cm) - Width 1.1 1.0 0.4 -Post Debridement (cm) - Depth 0.1 0.1 0.1 -Total Square (Post) (cm) 1.76 1.40 0.28 -Area of Debridement (cm) - Length 1.6 1.4 0.7 -Area of Debridement (cm) - Width 1.1 1.0 0.4 -Total Square (Area) (cm) 1.76 1.40 0.28 -Tunneling No No No -Undermining/Tunneling No No No -Circular Undermining No No No -Wound/Ulcer Outcome Not Healed Not Healed Not Healed -Ulcer Cleansing Rinsed/ Rinsed/ Rinsed/ Irrigated with Irrigated with Irrigated with Saline Saline Saline -Foul Odor after Cleansing No No No -Bioengineered Tissue No No No -Bleeding Controlled with Pressure Pressure Pressure -Treatment Response Procedure Procedure Procedure Tolerated Well Tolerated Well Tolerated Well -Debridement - Subq, 1st 20sq cm Yes No Yes Pain Scale: 0-10 Numeric Is Patient Pain Free? Yes Yes Yes WC - Nurse 3 - General Ulcer D/C NN Start: 05/01/24 09:11 Freq: Status: Active Protocol: Activity Type Activity Date Activity User E-sign Co-sign Detail Recorded Client Recorded Date Recorded By Document 05/01/24 10:10 KW [id number] 05/01/24 10:11 KW Document 05/08/24 11:49 DS [id number] 05/08/24 11:52 DS Document 05/12/24 15:02 KW [id number] 05/12/24 15:22 KW Document 05/15/24 11:25 GM [id number] 05/15/24 11:26 GM 05/01/24 05/08/24 05/12/24 10:10 11:49 15:02 Wound Care Center Nurse 3 #3 RIGHT CASH MEDIAL -Ulcer Cleansing Rinsed/ Soap and Water Irrigated with Saline -Primary Dressing Applied Promogran NonAdherent Contact Layer, Promogran -Other Dressing ADAPTIC, ABD -Primary Dressing Covered/Secured with Secured with Dry Gauze & Tape Roll Gauze, Secured with Tape -Promogran 1 1 #2- R LATERAL LE -Ulcer Cleansing Rinsed/ Soap and Water Irrigated with Saline -Primary Dressing Applied Aquacel Extra -Other Dressing ADAPTIC, ABD promogran and adaptic -Primary Dressing Covered/Secured with Dry Gauze, Secured with Dry Gauze & Secured with Tape Roll Gauze, Tape Secured with Tape -Aquacel Extra 1 #1- R CASH -Ulcer Cleansing Rinsed/ Soap and Water Irrigated with Saline -Foul Odor after Cleansing -Primary Dressing Applied Promogran -Other Dressing aquacel extra ADAPTIC, ABD promogran and adaptic -Primary Dressing Covered/Secured with Dry Gauze, Secured with Dry Gauze & Secured with Tape Roll Gauze, Tape Secured with Tape -Promogran 0 Right -Multi-Layered Wrap Application Multi-Layer Multi-Layer Comp - Right ($ Comp - Right ($ ) ) Vital Signs Temperature (97.8 F-99.1 F) 98.0 F Temperature Source Temporal Pulse Rate (60-100) 65 Pulse Location Monitor Respiratory Rate (12-18) 16 Respiratory rate source Observation Oxygen Delivery Method Room Air Blood Pressure (90/60-120/80) 132/78 H Blood Pressure Mean (mm Hg) 96 Source Monitor Position Semi-Fowlers Blood Pressure Location Right Arm Pain Scale: 0-10 Numeric Is Patient Pain Free? Yes Yes Yes WC - Visit Discharge Discharge Condition Stable Stable Stable Ambulatory Status Ambulatory Ambulatory, Ambulatory, Crutches Crutches Transportation Private Auto Private Auto Private Auto Medication Reconcilliation completed & No Yes No provided to patient/care provider Clinical Summary of Care Provided Yes Yes Yes 05/15/24 11:25 Wound Care Center Nurse 3 #3 RIGHT CASH MEDIAL -Ulcer Cleansing -Primary Dressing Applied -Other Dressing -Primary Dressing Covered/Secured with -Promogran #2- R LATERAL LE -Ulcer Cleansing -Primary Dressing Applied -Other Dressing -Primary Dressing Covered/Secured with -Aquacel Extra #1- R CASH -Ulcer Cleansing Not Cleansed -Foul Odor after Cleansing No -Primary Dressing Applied -Other Dressing brought own dressings -Primary Dressing Covered/Secured with -Promogran Right -Multi-Layered Wrap Application Multi-Layer Comp - Right ($ ) Vital Signs Temperature (97.8 F-99.1 F) Temperature Source Pulse Rate (60-100) Pulse Location Respiratory Rate (12-18) Respiratory rate source Oxygen Delivery Method Blood Pressure (90/60-120/80) Blood Pressure Mean (mm Hg) Source Position Blood Pressure Location Pain Scale: 0-10 Numeric Is Patient Pain Free? 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 Improving. Down to just 1 now. Continue Promogran, foam dressing and 3M for edema management. Adaptic to prior ulcerated areas. Continue optimal protein intake. Follow-up with vascular as previously scheduled. Continue outpatient follow-up with podiatry as well. His questions were answered, and he was advised to let us know if he has any further questions or concerns. Follow-up in a week or sooner if needed. This note was generated with [employer] dictation software. It may contain incorrect words, spelling, and punctuation that were not noted in checking the note before signing.
--- NOTE | 2024-05-16 09:04 | WC ---
PHOTO 05/15/24 RIGHT LATERAL LE
--- NOTE | 2024-05-16 09:08 | WC ---
PHOTO 05/15/24 RIGHT FOUNTAIN
--- NOTE | 2024-05-16 09:59 | WC ---
PHOTO RIGHT MED [place] 05/15/24
--- NOTE | 2024-05-19 13:02 | WC ---
Pt called stating his 3M wrap was causing pain to the RT heel and had removed it on Sunday. Pt washed and is currently placing promogran and adaptic to the leg ulcer. He also reports he thinks there is new wounds or drainage at the ankle/heel area where there was pain so he is dressing this area as well with adaptic. Covering sites with ABD pads, roll gauze, ASAD for reinforcement and compression stocking. Reports that he has vascular appointment with Luzmaria tomorrow and feels comfortable waiting till next visit to be seen, no nursing visit needed at this time. Educated pt on creating a nurses hat for extra protection, and felt his actions at this time is adequate care till he is seen. Asked him to please give us a call if he has any further concerns or questions or go to the ER.
[2024-05-22 10:06] VITALS: BP 116/75; PULSE 61; RESP 20; TEMP 36.1; BMI 40.4
--- NOTE | 2024-05-22 12:08 | PCM.WC.PN ---
History of Present Illness Date of Service: 05/22/24 Chief Complaint: Non healing right leg ulcer History of Wound: Mr Diaz is a 68-year-old who was referred to the wound center by his PCP due to nonhealing right lower extremity ulcer. Status post hospital admission in February with significant lower extremity cellulitis. Since his hospital discharge, he states that his been utilizing compression, leg elevation and antibiotic ointment for the ulcers. Most of it has resolved but current areas persist. No known history of diabetes. Appetite is good. No chest pain, palpitation or shortness of breath. Feels well otherwise. Has an appointment to schedule with vascular surgery. Also follows up with podiatry. Progress of Wound: He states that he took of the 3M a few days ago. Believes that he is healed. No new concerns reported at this time. Objective Data Objective Data Vital Signs: Vital Signs Temp Pulse Resp BP O2 Del Method 97 F L 61 20 H 116/75 Room Air 05/22/24 10:06 05/22/24 10:06 05/22/24 10:06 05/22/24 10:06 05/22/24 10:06 Oxygen Delivery Method Room Air Weight: 290 lb Body Mass Index (BMI) 40.4 Charges/Coding Visit Charges Office Visits / Consults: 66046 OV L3 Est 20min Physical Exam Const alert, oriented x3 and no apparent distress General Appearance: cooperative, comfortable and well kempt HEENT normocephalic, head/scalp atraumatic and hearing grossly normal bilaterally Eyes EOMs intact bilaterally Neck full ROM and supple General: normal visual inspection Resp normal respiratory effort Effort and Inspection: able to speak in complete sentences Extremity General Extremity: edema Neuro oriented x3 and CN's II-XII intact bilaterally Sensorium / Orientation: awake and alert Debridement Note Debridement Note No debridement was completed: No debridement was completed today Post-Debridement Measurements and Additional Note: Post-Debridement Measurements/Treatment WC - Nurse 1 - General Ulcer Assessment Start: 05/01/24 09:11 Freq: Status: Active Protocol: JOHN Activity Type Activity Date Activity User E-sign Co-sign Detail Recorded Client Recorded Date Recorded By Document 05/01/24 09:16 BMF [id number] 05/01/24 09:29 BMF Document 05/08/24 10:14 KW [id number] 10/17/24 10:29 KW Document 05/12/24 15:02 KW [id number] 05/12/24 15:22 KW Document 05/15/24 10:28 KW [id number] 05/15/24 10:37 KW Document 05/22/24 10:06 MT [id number] 05/22/24 10:16 MT 05/01/24 05/08/24 05/12/24 09:16 10:14 15:02 WC - Today's Visit Information Type of service Initial Visit Follow-up Visit Nurse-only (Physician/DRYING TUMBLER OPERATOR Visit ) Arrival Mode Ambulatory, Ambulatory, Ambulatory, Crutches Crutches Crutches Transfer Assistance None Accompanied by Patient Identification Verified (Name & Yes Yes Yes ) Safety Precautions Height and Weight Height 5 ft 11 in Weight 290 lb Weight in Pounds 290.0 lbs Weight Measurement Method Estimated by Patient Body Mass Index (BMI) 40.4 40.4 40.4 BMI Classification Obese Obese Obese BSA - Bhavana 2.47 Vital Signs Temperature (97.8 F-99.1 F) 96.8 F L 96.5 F L 98.0 F Temperature Source Temporal Temporal Temporal Pulse Rate (60-100) 59 L 61 65 Pulse Location Monitor Monitor Monitor Respiratory Rate (12-18) 16 18 16 Respiratory rate source Observation Ausculation Observation Oxygen Delivery Method Room Air Room Air Room Air Blood Pressure (90/60-120/80) 129/86 H 133/84 H 132/78 H Blood Pressure Mean (mm Hg) 100 100 96 Source Monitor Monitor Monitor Position Sitting Semi-Fowlers Semi-Fowlers Blood Pressure Location Right Arm Left Arm Right Arm History Since Last Visit- (Skip if this is Patient's initial visit) Have you changed medications since your No No last visit? Any new allergies or adverse reactions No No Had a fall/change in ADL's that may No No increase risk of falls Signs or symptoms of abuse and/or No No neglect since last visit Have you been in the hospital since your No No last visit? Has dressing in place as prescribed Yes Yes Has compression in place as prescribed Yes Yes Has offloadiing in place as prescribed N/A N/A Experienced any changes in pain level or No No management Left Footwear Regular Shoe Regular Shoe Regular Shoe Right Footwear Regular Shoe Regular Shoe Regular Shoe Pain Scale: 0-10 Numeric Is Patient Pain Free? 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 language Japanese Digester Cook Required No Able to Read Yes Able to Write Yes Communication Tools None Right Hearing Abillity Normal Left Hearing Abillity Normal Visual Assistive Devices Glasses Teaching Assessment Preferences Verbal,Written, Audio/Visual, Demonstration Barriers to Learning None Readiness To Learn Excellent Willingness to Engage in Self Management High Activies Readiness to Engage in Self Management High Activities Anxiety Level Calm Cooperation Cooperative Perception Coherent Interest in Health Problem Asks Questions Education Importance Acknowledges Need Does Patient Smoke tobacco or other No substances Smoking Status Never smoker Is Patient Diabetic No Functional Assessment Recent Decline in Ability to Perform Denies Any Declines Culture/Faith/Emergency Department Manager Cultural/Faith Needs that may affect No Treatment Plan Teaching: Wound Center *Welcome to the Wound Center -Person Taught Patient, Significant Other -Teaching Method Discussion -Response to teaching Verbalize Understanding 05/15/24 05/22/24 10:28 10:06 WC - Today's Visit Information Type of service Follow-up Visit Follow-up Visit (Physician/DRYING TUMBLER OPERATOR (Physician/DRYING TUMBLER OPERATOR ) ) Arrival Mode Ambulatory, Ambulatory Crutches Transfer Assistance Accompanied by -boss Patient Identification Verified (Name & Yes Yes ) Safety Precautions Fall Prevention Height and Weight Height Weight Weight in Pounds Weight Measurement Method Body Mass Index (BMI) 40.4 40.4 BMI Classification Obese Obese BSA - Bhavana Vital Signs Temperature (97.8 F-99.1 F) 97.5 F L 97 F L Temperature Source Temporal Temporal Pulse Rate (60-100) 61 Pulse Location Monitor Monitor Respiratory Rate (12-18) 20 H Respiratory rate source Observation Observation Oxygen Delivery Method Room Air Room Air Blood Pressure (90/60-120/80) 116/75 Blood Pressure Mean (mm Hg) 88 Source Monitor Monitor Position Semi-Fowlers Sitting Blood Pressure Location Right Arm Right Arm History Since Last Visit- (Skip if this is Patient's initial visit) Have you changed medications since your No last visit? Any new allergies or adverse reactions No Had a fall/change in ADL's that may No increase risk of falls Signs or symptoms of abuse and/or No neglect since last visit Have you been in the hospital since your No last visit? Has dressing in place as prescribed Yes Yes Has compression in place as prescribed Yes Yes Has offloadiing in place as prescribed N/A Yes Experienced any changes in pain level or No Yes management Left Footwear Regular Shoe Regular Shoe Right Footwear Regular Shoe Regular Shoe Pain Scale: 0-10 Numeric Is Patient Pain Free? 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 Able to Read Able to Write Communication Tools Right Hearing Abillity Left Hearing Abillity Visual Assistive Devices Teaching Assessment Preferences Barriers to Learning Readiness To Learn Willingness to Engage in Self Management Activies Readiness to Engage in Self Management Activities Anxiety Level Cooperation Perception Interest in Health Problem Education Importance Does Patient Smoke tobacco or other substances Smoking Status Is Patient Diabetic Functional Assessment Recent Decline in Ability to Perform Culture/Faith/Emergency Department Manager Cultural/Faith Needs that may affect Treatment Plan Teaching: Wound Center *Welcome to the Wound Center -Person Taught -Teaching Method -Response to teaching WC - Nurse 1 - General Ulcer Measurement Start: 05/01/24 09:11 Freq: Status: Active Protocol: Activity Type Activity Date Activity User E-sign Co-sign Detail Recorded Client Recorded Date Recorded By Document 05/01/24 09:16 BMF [id number] 05/01/24 09:29 BMF Document 05/08/24 10:14 KW [id number] 05/08/24 10:29 KW Document 05/12/24 15:23 KW [id number] 05/12/24 15:23 KW Document 05/15/24 10:28 KW [id number] 05/15/24 10:37 KW Document 05/22/24 10:06 MT [id number] 05/22/24 10:16 MT 05/01/24 05/08/24 05/12/24 09:16 10:14 15:23 Wound Center Nurse 1 #3 RIGHT FOUNTAIN MEDIAL -Current Size (cm) - Length -Current Size (cm) - Width -Current Size (cm) - Depth -Total Square Cm -Date of Last Picture (Recall this field) -Exudate Amt -Exudate Type -Wound Margin -Granulation Amt -Granulation Quality -Texture (Ermelinda-wound Skin Appearance) -Moisture (Ermelinda-wound Skin Appearance) -Color (Ermelinda-wound Skin Appearance) -Temperature (Ermelinda-wound Skin Appearance) -Tenderness on Palpation (Ermelinda-wound Skin Appearance) -Ulcer Cleansing -Foul Odor after Cleansing -Anesthetic Used #2- R LATERAL LE -Combined with other wound No -Current Size (cm) - Length 0.1 0.1 -Current Size (cm) - Width 0.1 0.1 -Current Size (cm) - Depth 0.1 0.1 -Total Square Cm 0.01 0.01 -Date of Last Picture (Recall this 05/01/24 field) -Photo Taken Yes -Epithelialization None Present -Tunneling No -Undermining/Tunneling No -Circular Undermining No -Exudate Amt Medium None Present -Exudate Type Serosanguineous -Wound Margin Distinct, Outline Attached -Granulation Amt Medium (34-66%) -Granulation Quality Red -Slough/Fibrin Yes -Necrosis Amt Medium (34-66%) -Necrotic Tissue Type Adherent Slough -Texture (Ermelinda-wound Skin Appearance) Assessed, Assessed Scarring -Moisture (Ermelinda-wound Skin Appearance) Assessed Assessed -Color (Ermelinda-wound Skin Appearance) Assessed Assessed, Hemosiderin Staining -Temperature (Ermelinda-wound Skin No Abnormality No Abnormality Appearance) (Pt Warm) (Pt Warm) -Tenderness on Palpation (Ermelinda-wound No No Skin Appearance) -Ulcer Cleansing Rinsed/ Rinsed/ Irrigated with Irrigated with Saline Saline -Foul Odor after Cleansing No No -Anesthetic Used 5% Lidocaine Gel -Wound Comment(s) #1- R FOUNTAIN -Combined with other wound No -Current Size (cm) - Length 1.5 2 -Current Size (cm) - Width 1 4 -Current Size (cm) - Depth 0.1 0.1 -Total Square Cm 1.5 8 -Date of Last Picture (Recall this 05/01/24 field) -Photo Taken Yes -Epithelialization None Present -Tunneling No -Undermining/Tunneling No -Circular Undermining No -Exudate Amt Medium Small -Exudate Type Serosanguineous Serosanguineous -Wound Margin Flat & Intact Distinct, Outline Attached -Granulation Amt Large (67-100%) Large (67-100%) -Granulation Quality Red Red -Slough/Fibrin No -Necrosis Amt None Present (0 %) -Texture (Ermelinda-wound Skin Appearance) Assessed, Assessed Scarring -Moisture (Ermelinda-wound Skin Appearance) Assessed Assessed -Color (Ermelinda-wound Skin Appearance) Assessed, Assessed, Hemosiderin Erythema, Staining Hemosiderin Staining -Temperature (Ermelinda-wound Skin No Abnormality No Abnormality Appearance) (Pt Warm) (Pt Warm) -Tenderness on Palpation (Ermelinda-wound No No Skin Appearance) -Ulcer Cleansing Rinsed/ Irrigated with Saline -Foul Odor after Cleansing No No -Anesthetic Used 5% Lidocaine 5% Lidocaine Gel Gel -Wound Comment(s) Lower Limb Edema Present Yes Right Calf (cm) 41.6 37.5 37.5 Right Ankle (cm) 24.9 24.5 25 Left Calf (cm) 41.3 Left Ankle (cm) 24.2 05/15/24 05/22/24 10:28 10:06 Wound Center Nurse 1 #3 RIGHT FOUNTAIN MEDIAL -Current Size (cm) - Length 0.6 -Current Size (cm) - Width 0.5 -Current Size (cm) - Depth 0.1 -Total Square Cm 0.30 -Date of Last Picture (Recall this 05/15/24 field) -Exudate Amt Small -Exudate Type Serosanguineous -Wound Margin Distinct, Outline Attached -Granulation Amt Large (67-100%) -Granulation Quality Red -Texture (Ermelinda-wound Skin Appearance) Assessed -Moisture (Ermelinda-wound Skin Appearance) Assessed -Color (Ermelinda-wound Skin Appearance) Assessed, Hemosiderin Staining -Temperature (Ermelinda-wound Skin No Abnormality Appearance) (Pt Warm) -Tenderness on Palpation (Ermelinda-wound No Skin Appearance) -Ulcer Cleansing Soap and Water -Foul Odor after Cleansing No -Anesthetic Used 5% Lidocaine Gel #2- R LATERAL LE -Combined with other wound -Current Size (cm) - Length 0.1 0.1 -Current Size (cm) - Width 0.1 0.1 -Current Size (cm) - Depth 0.1 0.1 -Total Square Cm 0.01 0.01 -Date of Last Picture (Recall this 05/15/24 05/22/24 field) -Photo Taken Yes -Epithelialization Large 67-100% -Tunneling No -Undermining/Tunneling No -Circular Undermining No -Exudate Amt None Present None Present -Exudate Type -Wound Margin Flat & Intact -Granulation Amt Large (67-100%) -Granulation Quality Pale,[place] -Slough/Fibrin No -Necrosis Amt -Necrotic Tissue Type -Texture (Ermelinda-wound Skin Appearance) Assessed Assessed, Induration -Moisture (Ermelinda-wound Skin Appearance) Assessed Assessed -Color (Ermelinda-wound Skin Appearance) Assessed, Assessed, Hemosiderin Hemosiderin Staining Staining -Temperature (Ermelinda-wound Skin No Abnormality No Abnormality Appearance) (Pt Warm) (Pt Warm) -Tenderness on Palpation (Ermelinda-wound No No Skin Appearance) -Ulcer Cleansing Soap and Water Rinsed/ Irrigated with Saline -Foul Odor after Cleansing No No -Anesthetic Used 4% Lidocaine Solution -Wound Comment(s) possibly healed #1- R FOUNTAIN -Combined with other wound -Current Size (cm) - Length 0 0.1 -Current Size (cm) - Width 0 0.1 -Current Size (cm) - Depth 0 0.1 -Total Square Cm 0 0.01 -Date of Last Picture (Recall this 05/15/24 05/22/24 field) -Photo Taken Yes -Epithelialization Large 67-100% -Tunneling No -Undermining/Tunneling No -Circular Undermining No -Exudate Amt None Present -Exudate Type -Wound Margin Flat & Intact -Granulation Amt Large (67-100%) -Granulation Quality Pale,[place] -Slough/Fibrin No -Necrosis Amt -Texture (Ermelinda-wound Skin Appearance) Assessed Assessed, Scarring -Moisture (Ermelinda-wound Skin Appearance) Assessed Assessed -Color (Ermelinda-wound Skin Appearance) Assessed Assessed, Hemosiderin Staining -Temperature (Ermelinda-wound Skin No Abnormality No Abnormality Appearance) (Pt Warm) (Pt Warm) -Tenderness on Palpation (Ermelinda-wound No No Skin Appearance) -Ulcer Cleansing Soap and Water Rinsed/ Irrigated with Saline -Foul Odor after Cleansing No No -Anesthetic Used 5% Lidocaine Gel -Wound Comment(s) healed Lower Limb Edema Present Right Calf (cm) 36.5 36.5 Right Ankle (cm) 24 24 Left Calf (cm) Left Ankle (cm) WC - Nurse 2 - General Ulcer CM Notes Start: 05/01/24 09:11 Freq: Status: Active Protocol: Activity Type Activity Date Activity User E-sign Co-sign Detail Recorded Client Recorded Date Recorded By Document 05/01/24 09:53 GM [id number] 05/01/24 10:06 GM Document 05/08/24 11:15 GM [id number] 05/08/24 11:19 GM Edit Result 05/08/24 11:15 GM (1) [id number] 05/09/24 10:03 GM Document 05/15/24 10:56 GM [id number] 05/15/24 11:02 GM Document 05/22/24 10:27 GM [id number] 05/22/24 10:30 GM (1) #3 RIGHT FOUNTAIN MEDIAL - Debridement - Subq, 1st 20sq cm No => Yes 05/01/24 05/08/24 05/15/24 09:53 11:15 10:56 Wound Center Nurse 2 #3 RIGHT FOUNTAIN MEDIAL -Time 11:17 10:59 -Correct Patient Yes -Correct Side, Site, Position Yes -Correct Procedure Yes -Procedure Performed Yes -Type of Procedure Debridement -Clinical Debridement Subcutaneous -Tissue Removed Subcutaneous Subcutaneous -Post Debridement (cm) - Length 1.5 -Post Debridement (cm) - Width 0.6 -Post Debridement (cm) - Depth 0.1 -Total Square (Post) (cm) 0.90 -Area of Debridement (cm) - Length 1.5 -Area of Debridement (cm) - Width 0.6 -Total Square (Area) (cm) 0.90 -Tunneling No -Undermining/Tunneling No -Circular Undermining No -Wound/Ulcer Outcome Not Healed -Ulcer Cleansing Rinsed/ Irrigated with Saline -Foul Odor after Cleansing No -Bioengineered Tissue No -Bleeding Controlled with Pressure -Treatment Response Procedure Tolerated Well -Debridement - Subq, 1st 20sq cm Yes #2- R LATERAL LE -Time 09:54 11:15 10:59 -Correct Patient Yes Yes Yes -Correct Side, Site, Position Yes Yes Yes -Correct Procedure Yes Yes -Procedure Performed Yes Yes -Type of Procedure Debridement Debridement -Clinical Debridement Subcutaneous Subcutaneous -Tissue Removed Subcutaneous Subcutaneous -Post Debridement (cm) - Length 0.3 -Post Debridement (cm) - Width 0.3 -Post Debridement (cm) - Depth 0.2 -Total Square (Post) (cm) 0.09 -Area of Debridement (cm) - Length 0.3 -Area of Debridement (cm) - Width 0.3 -Total Square (Area) (cm) 0.09 -Tunneling No No -Undermining/Tunneling No No -Circular Undermining No No -Wound/Ulcer Outcome Not Healed Not Healed Healed- Epithelialized -Ulcer Cleansing Rinsed/ Rinsed/ Irrigated with Irrigated with Saline Saline -Foul Odor after Cleansing No No -Bioengineered Tissue No -Bleeding Controlled with Pressure Pressure -Treatment Response Procedure Procedure Tolerated Well Tolerated Well -Debridement - Subq, 1st 20sq cm No No #1- R FOUNTAIN -Time 09:55 11:16 11:00 -Correct Patient Yes Yes Yes -Correct Side, Site, Position Yes Yes Yes -Correct Procedure Yes Yes Yes -Procedure Performed Yes Yes Yes -Type of Procedure Debridement Debridement Debridement -Clinical Debridement Subcutaneous Subcutaneous Subcutaneous -Tissue Removed Subcutaneous Subcutaneous Subcutaneous -Post Debridement (cm) - Length 1.6 1.4 0.7 -Post Debridement (cm) - Width 1.1 1.0 0.4 -Post Debridement (cm) - Depth 0.1 0.1 0.1 -Total Square (Post) (cm) 1.76 1.40 0.28 -Area of Debridement (cm) - Length 1.6 1.4 0.7 -Area of Debridement (cm) - Width 1.1 1.0 0.4 -Total Square (Area) (cm) 1.76 1.40 0.28 -Tunneling No No No -Undermining/Tunneling No No No -Circular Undermining No No No -Wound/Ulcer Outcome Not Healed Not Healed Not Healed -Ulcer Cleansing Rinsed/ Rinsed/ Rinsed/ Irrigated with Irrigated with Irrigated with Saline Saline Saline -Foul Odor after Cleansing No No No -Bioengineered Tissue No No No -Bleeding Controlled with Pressure Pressure Pressure -Treatment Response Procedure Procedure Procedure Tolerated Well Tolerated Well Tolerated Well -Debridement - Subq, 1st 20sq cm Yes No Yes Pain Scale: 0-10 Numeric Is Patient Pain Free? Yes Yes Yes 05/22/24 10:27 Wound Center Nurse 2 #3 RIGHT FOUNTAIN MEDIAL -Time -Correct Patient -Correct Side, Site, Position -Correct Procedure -Procedure Performed -Type of Procedure -Clinical Debridement -Tissue Removed -Post Debridement (cm) - Length -Post Debridement (cm) - Width -Post Debridement (cm) - Depth -Total Square (Post) (cm) -Area of Debridement (cm) - Length -Area of Debridement (cm) - Width -Total Square (Area) (cm) -Tunneling -Undermining/Tunneling -Circular Undermining -Wound/Ulcer Outcome -Ulcer Cleansing -Foul Odor after Cleansing -Bioengineered Tissue -Bleeding Controlled with -Treatment Response -Debridement - Subq, 1st 20sq cm #2- R LATERAL LE -Time 10:27 -Correct Patient Yes -Correct Side, Site, Position Yes -Correct Procedure -Procedure Performed -Type of Procedure -Clinical Debridement -Tissue Removed -Post Debridement (cm) - Length -Post Debridement (cm) - Width -Post Debridement (cm) - Depth -Total Square (Post) (cm) -Area of Debridement (cm) - Length -Area of Debridement (cm) - Width -Total Square (Area) (cm) -Tunneling -Undermining/Tunneling -Circular Undermining -Wound/Ulcer Outcome Healed- Epithelialized -Ulcer Cleansing -Foul Odor after Cleansing -Bioengineered Tissue -Bleeding Controlled with -Treatment Response -Debridement - Subq, 1st 20sq cm #1- R FOUNTAIN -Time 10:27 -Correct Patient Yes -Correct Side, Site, Position Yes -Correct Procedure -Procedure Performed -Type of Procedure -Clinical Debridement -Tissue Removed -Post Debridement (cm) - Length -Post Debridement (cm) - Width -Post Debridement (cm) - Depth -Total Square (Post) (cm) -Area of Debridement (cm) - Length -Area of Debridement (cm) - Width -Total Square (Area) (cm) -Tunneling -Undermining/Tunneling -Circular Undermining -Wound/Ulcer Outcome Healed- Epithelialized -Ulcer Cleansing -Foul Odor after Cleansing -Bioengineered Tissue -Bleeding Controlled with -Treatment Response -Debridement - Subq, 1st 20sq cm Pain Scale: 0-10 Numeric Is Patient Pain Free? Yes WC - Nurse 3 - General Ulcer D/C NN Start: 05/01/24 09:11 Freq: Status: Active Protocol: Activity Type Activity Date Activity User E-sign Co-sign Detail Recorded Client Recorded Date Recorded By Document 05/01/24 10:10 KW [id number] 05/01/24 10:11 KW Document 05/08/24 11:49 DS [id number] 05/08/24 11:52 DS Document 05/12/24 15:02 KW [id number] 05/12/24 15:22 KW Document 05/15/24 11:25 GM [id number] 05/15/24 11:26 GM Document 05/22/24 10:40 MT [id number] 05/22/24 10:43 MT 05/01/24 05/08/24 05/12/24 10:10 11:49 15:02 Wound Care Center Nurse 3 #3 RIGHT FOUNTAIN MEDIAL -Ulcer Cleansing Rinsed/ Soap and Water Irrigated with Saline -Primary Dressing Applied Promogran NonAdherent Contact Layer, Promogran -Other Dressing ADAPTIC, ABD -Primary Dressing Covered/Secured with Secured with Dry Gauze & Tape Roll Gauze, Secured with Tape -Promogran 1 1 #2- R LATERAL LE -Ulcer Cleansing Rinsed/ Soap and Water Irrigated with Saline -Primary Dressing Applied Aquacel Extra -Other Dressing ADAPTIC, ABD promogran and adaptic -Primary Dressing Covered/Secured with Dry Gauze, Secured with Dry Gauze & Secured with Tape Roll Gauze, Tape Secured with Tape -Aquacel Extra 1 -Promogran #1- R FOUNTAIN -Ulcer Cleansing Rinsed/ Soap and Water Irrigated with Saline -Foul Odor after Cleansing -Primary Dressing Applied Promogran -Other Dressing aquacel extra ADAPTIC, ABD promogran and adaptic -Primary Dressing Covered/Secured with Dry Gauze, Secured with Dry Gauze & Secured with Tape Roll Gauze, Tape Secured with Tape -Promogran 0 Right -Multi-Layered Wrap Application Multi-Layer Multi-Layer Comp - Right ($ Comp - Right ($ ) ) -Compression Wrap -Other Vital Signs Temperature (97.8 F-99.1 F) 98.0 F Temperature Source Temporal Pulse Rate (60-100) 65 Pulse Location Monitor Respiratory Rate (12-18) 16 Respiratory rate source Observation Oxygen Delivery Method Room Air Blood Pressure (90/60-120/80) 132/78 H Blood Pressure Mean (mm Hg) 96 Source Monitor Position Semi-Fowlers Blood Pressure Location Right Arm Pain Scale: 0-10 Numeric Is Patient Pain Free? Yes Yes Yes WC - Visit Discharge Discharge Condition Stable Stable Stable Ambulatory Status Ambulatory Ambulatory, Ambulatory, Crutches Crutches Transportation Private Auto Private Auto Private Auto Medication Reconcilliation completed & No Yes No provided to patient/care provider Clinical Summary of Care Provided Yes Yes Yes Notes: 05/15/24 05/22/24 11:25 10:40 Wound Care Center Nurse 3 #3 RIGHT FOUNTAIN MEDIAL -Ulcer Cleansing -Primary Dressing Applied -Other Dressing -Primary Dressing Covered/Secured with -Promogran #2- R LATERAL LE -Ulcer Cleansing -Primary Dressing Applied Promogran -Other Dressing adaptic -Primary Dressing Covered/Secured with Dry Gauze & Roll Gauze, Secured with Tape -Aquacel Extra -Promogran 1 #1- R FOUNTAIN -Ulcer Cleansing Not Cleansed -Foul Odor after Cleansing No -Primary Dressing Applied -Other Dressing brought own dressings -Primary Dressing Covered/Secured with -Promogran Right -Multi-Layered Wrap Application Multi-Layer Comp - Right ($ ) -Compression Wrap [place] Wrap -Other pt had own low compression wrap Vital Signs Temperature (97.8 F-99.1 F) Temperature Source Pulse Rate (60-100) Pulse Location Respiratory Rate (12-18) Respiratory rate source Oxygen Delivery Method Blood Pressure (90/60-120/80) Blood Pressure Mean (mm Hg) Source Position Blood Pressure Location Pain Scale: 0-10 Numeric Is Patient Pain Free? Yes Yes WC - Visit Discharge Discharge Condition Stable Stable Ambulatory Status Ambulatory Ambulatory Transportation Private Auto Private Auto Medication Reconcilliation completed & No provided to patient/care provider Clinical Summary of Care Provided Yes Notes: pt was healed. photos taken Assessment/Plan Assessment/Plan (1) Ulcer of right lower extremity with fat layer exposed: CODE(S): L97.912 - Non-pressure chronic ulcer of unspecified part of right lower leg with fat layer exposed (2) History of cellulitis: CODE(S): Z87.2 - Personal history of diseases of the skin and subcutaneous tissue (3) Bilateral lower extremity edema: CODE(S): R60.0 - Localized edema (4) halfway (current) use of anticoagulants: CODE(S): Z79.01 - halfway (current) use of anticoagulants PLAN: Plan No debridement completed today. Essentially healed. He was advised to continue Promogran and Adaptic to area for 2 weeks and then stop. Strongly advised that he consistently wear his compression, elevate his lower extremity and exercise as tolerated, he voiced understanding. Following up with vascular and workup is underway. Continue plan per vascular. His questions were answered and he was advised to call with any further questions or concerns, he voiced understanding. Discharge from the wound center This note was generated with [employer] dictation software. It may contain incorrect words, spelling, and punctuation that were not noted in checking the note before signing.
--- NOTE | 2024-05-26 11:18 | WC ---
PHOTO 05/15/24 RIGHT LATERAL LE
--- NOTE | 2024-05-26 11:43 | WC ---
PHOTO RIGHT FOUNTAIN 05/22/24
--- NOTE | 2024-05-26 11:43 | WC ---
PHOTO 05/22/24 LATERAL LE
== END 2024-05-22 14:18 | disposition home or self-care (01) ==
LOC: WC 10:15
PROVIDERS: PCP Family Medicine; Referring Provider Family Medicine; Visit Provider Internal Medicine
DX: L97.312 Non-pressure chronic ulcer of right ankle with fat layer exposed (principal); L97.812 Non-pressure chronic ulcer of other part of right lower leg with fat layer exposed; Z79.01 Long term (current) use of anticoagulants; R60.0 Localized edema; I10 Essential (primary) hypertension
CPT/HCPCS: 11042; 29581; 99213; G0463

== ENCOUNTER → 2024-05-29 | Outpatient (CLI) | payer MEDICARE, BC, SELFPAY | END | disposition home or self-care (01) | LOC: CVS 08:41 | PROVIDERS: PCP Family Medicine; Referring Provider Physician Assistant; Visit Provider Physician Assistant | DX: L97.912 Non-pressure chronic ulcer of unspecified part of right lower leg with fat layer exposed (principal) | CPT/HCPCS: 93971 ==

== ENCOUNTER 2024-06-09 07:59 | Outpatient (RCR) | payer MEDICARE, BC, SELFPAY ==
[2024-05-22 21:24] VITALS: BMI 40.1
[2024-06-09 10:39] LABS: International Normalized Ratio 2.1; Prothrombin Time (Protime)PT. 23.1 SECONDS (11.7-14.9)
[2024-06-09 10:49] LABS: PSA,Total- Diagnostic 6.24 ng/mL (0.0-4.0)
== END 2024-06-21 18:00 | disposition home or self-care (01) ==
LOC: MTLAB 07:59
PROVIDERS: Family Provider Family Medicine; PCP Family Medicine; Referring Provider Physician Assistant Medical; Visit Provider Physician Assistant Medical
DX: Z79.01 Long term (current) use of anticoagulants (principal)
CPT/HCPCS: 36415; 84153; 85610

== ENCOUNTER 2024-07-22 08:27 | Outpatient (RCR) | payer MEDICARE, BC, SELFPAY ==
[2024-06-22 05:15] VITALS: BMI 40.1
[2024-07-08 08:59] LABS: INR Fingerstick 1.7; Prothrombin Time Fingerstick 19.6 SEC (11.7-14.9)
[2024-07-22 10:21] LABS: International Normalized Ratio 2.2; Prothrombin Time (Protime)PT. 24.8 SECONDS (11.7-14.9)
== END 2024-07-22 18:00 | disposition home or self-care (01) ==
LOC: MTLAB 08:27
PROVIDERS: Family Provider Family Medicine; PCP Family Medicine; Referring Provider Physician Assistant Medical; Visit Provider Physician Assistant Medical
DX: Z79.01 Long term (current) use of anticoagulants (principal)
CPT/HCPCS: 36415; 36416; 85610

== ENCOUNTER 2024-08-20 09:31 | Outpatient (RCR) | payer MEDICARE, BC, SELFPAY ==
[2024-07-23 05:07] VITALS: BMI 40.1
[2024-08-20 12:26] LABS: International Normalized Ratio 2.2; Prothrombin Time (Protime)PT. 25.3 SECONDS (11.7-14.9)
== END 2024-08-20 18:00 | disposition home or self-care (01) ==
LOC: MTLAB 09:31
PROVIDERS: Internal Medicine Cardiovascular Disease; Family Provider Family Medicine; PCP Family Medicine; Referring Provider Physician Assistant Medical; Visit Provider Physician Assistant Medical
DX: Z79.01 Long term (current) use of anticoagulants (principal)

== ENCOUNTER 2024-09-16 14:20 | Outpatient (RCR) | payer MEDICARE, BC, SELFPAY ==
[2024-08-22 21:28] VITALS: BMI 40.1
[2024-09-16 17:56] LABS: International Normalized Ratio 2.1; Prothrombin Time (Protime)PT. 23.6 SECONDS (11.7-14.9)
== END 2024-09-19 18:00 | disposition home or self-care (01) ==
LOC: MTLAB 14:20
PROVIDERS: Family Provider Family Medicine; PCP Family Medicine; Referring Provider Physician Assistant Medical; Visit Provider Physician Assistant Medical
DX: Z79.01 Long term (current) use of anticoagulants (principal)
CPT/HCPCS: 36415; 85610

== ENCOUNTER 2024-10-01 08:28 | Day surgery (SDC) | payer MEDICARE, BC, SELFPAY ==
[2024-09-30 07:35] VITALS: BMI 40.7
--- NOTE | 2024-10-01 10:08 | PCM.HP.STD ---
HPI - General HPI Narrative IRENA HURT, is a 68 M who presents with right lower extremity venous insufficiency with episodes of cellulitis, venous ulceration that have now healed, and non-painful varicose veins. He has multiple vessels with reflux and presents today for chemical ablation of right GSV. [facility] Medical History Bilateral lower extremity edema Ulcer of right lower extremity with fat layer exposed Hyperbilirubinemia Chronic anticoagulation History of pacemaker History of cellulitis Vision problems Pneumonia Neuropathy Hypertension Heart disease Hearing problem Bone fracture History of back problems Arthritis Stroke/cerebrovascular accident Atrial fibrillation Dizziness and giddiness anal fistula repair Presence of cardiac pacemaker Conduction disorder of the heart Depression Scoliosis Osteoarthritis Home Medications ?Medication ?Instructions ?Recorded ?Last Taken ?Type cholecalciferol (vitamin D3) 50 4,000 unit PO DAILY supplement 10/17/13 10/01/24 History mcg (2,000 unit) tablet gabapentin 300 mg capsule 300 mg PO TID nerve pain 10/17/13 10/01/24 History multivitamin with folic acid 400 1 tab PO DAILY supplement 08/27/15 10/01/24 History mcg tablet amlodipine 5 mg tablet 5 mg PO DAILY 02/04/20 10/01/24 History diclofenac sodium 75 mg 75 mg PO BID 11/18/21 10/01/24 History tablet,delayed release vitamin B complex 1 cap PO DAILY 11/17/22 10/01/24 History famotidine 20 mg tablet 20 mg PO DAILY 03/11/24 Unknown History diphenhydramine HCl 25 mg capsule 25 mg PO QHS 05/20/24 Unknown History (Benadryl) warfarin 5 mg tablet 5 mg PO DAILY #90 TABLETS 07/21/24 09/28/24 Rx Allergy/AdvReac Type Severity Reaction Status Date / Time adhesive tape Allergy Mild Unknown Verified 06/25/24 15:23 cephalexin (From Keflex) Allergy Mild rash Verified 06/25/24 15:23 benzoin Allergy Hives Verified 06/25/24 15:23 latex Allergy Unknown Verified 06/25/24 15:23 Penicillins Allergy Hives Verified 06/25/24 15:23 diltiazem AdvReac Intermediate Leg Verified 06/25/24 15:23 swelling metoprolol AdvReac Intermediate Severe Verified 06/25/24 15:23 Fatigue Family History Father Arthritis Non Hodgkin's lymphoma Mother Arthritis Adenocarcinoma of unknown origin Surgical History History of total left knee replacement History of left femoral derotational osteotomy History of cholecystectomy History of tonsillectomy and adenoidectomy H/O hernia repair H/O: knee surgery Social History household members: spouse Smoking Status: Never smoker second hand exposure: No alcohol intake: former substance use type: does not use caffeine: Yes Type: coffee and tea what type of physical activity do you participate in: none nj/worship: None seatbelt use: always additional social history: pt denies vaping, denies marijuana use, denies edibles, does not use aspirin or ibuprofen ROS Constitutional Constitutional: Denies chills, fever(s), frequent falls, lethargy or weakness Eyes Eyes: Reports blind spots; Denies change in vision ENT HEENT: Denies bleeding gums, hoarseness or sore throat Cardiovascular Cardiovascular: Denies abdominal pain, bluish discoloration of hand/feet, chest pain with activity, claudication, cold extremities, cyanosis, dyspnea on exertion, erythema on extremities, irregular heart rhythm, leg edema, leg ulcers, numbness in extremities or weakness in extremities Respiratory/Chest Respiratory/Chest: Denies cough, excessive phlegm production, shortness of breath at rest, shortness of breath with exertion or wheezing Gastrointestinal Gastrointestinal: Denies anorexia, change in stool character, constipation, diarrhea, melena or rectal bleeding Genitourinary Genitourinary: Denies dysuria or hematuria Musculoskeletal Musculoskeletal: Denies abnormal gait Integumentary Integumentary: Reports other Details: ; Denies erythema, non-healing lesions or wounds Neurologic Neurologic: Denies abnormal speech, focal weakness, headache(s), loss of vision, numbness, paresthesias or sensory deficit Hematologic/Lymphatic Hematologic/Lymphatic: Denies easy bleeding, easy bruising or lymphadenopathy Vital Signs Vital Signs Vital Signs: Weight Weight: 292 lb Body Mass Index (BMI) 40.7 Physical Exam Const alert, oriented x3, no apparent distress and healthy appearing General Appearance: cooperative; Negative for combative or lethargic Orientation / Consciousness: awake Exam Limitations: no limitations HEENT Head and Scalp: normocephalic and atraumatic Eyes EOMs intact bilaterally General Eye: normal appearance of both eyes Neck full ROM General: trachea midline Lymph Lymphatic: Negative for no lymphadenopathy noted Resp normal respiratory effort and no use of accessory muscles Effort and Inspection: Negative for labored, stridor or audible wheezes Cardio regular rate Back/Spine Cervical Spine: cervical ROM normal Extremity full ROM, normal capillary refill and no clubbing, cyanosis or edema Skin no rashes or lesions noted and no wounds Neuro oriented x3 and CN's II-XII intact bilaterally Psych thought process normal, cooperative, affect normal, speech normal and activity/motor behavior normal Assessment & Plan Assessment/Plan (1) Venous ulcer of right lower extremity with varicose veins: PLAN: -right GSV chemical ablation
--- NOTE | 2024-10-01 15:12 | OP.PCM_ITS ---
Operative Report (Standard) Operative Information Date of Procedure: 10/01/24 Pre-Operative Diagnosis: Venous insufficiency with healed ulcerations and varicose veins Post-Operative Diagnosis: Same Surgery/Procedure Performed: Chemical ablation right great saphenous vein medical equipment sales: No Type of Anesthesia: Local and Sedation,Conscious Procedure Start Time: 10:30 Procedure Stop Time: 11:15 Select all DRAINS/GRAFTS/IMPLANTS that apply: None Estimated Blood Loss: 3 Specimen collected: No Description of surgery: HPI: Patient is a 68-year-old male who has history of chronic venous insufficiency and several episodes of cellulitis as well as chronic skin changes and healed ulcerations of the right lower extremity. He also has several prominent varicose veins that are relatively asymptomatic. He is compliant with compression therapy and presents now for ablation of his great saphenous vein. Description of procedure: Upon obtaining form consent and verification correct patient procedure site patient was taken to the [employer] was positioned prepped and draped in usual sterile fashion. Timeouts performed, sedation administered Versed and fentanyl. Ultrasound used to evaluate the great saphenous vein from the ankle to the saphenofemoral junction was found to be patent with 2 sections of tortuosity and parallel branches that would require some effort to navigate. Skin overlying the saphenous vein at the ankle was anesthetized 1% lidocaine the vessel accessed with a micropuncture needle wire. This then exchanged for the 7 Persian ablation sheath which was advanced without resistance. Through the ablation sheath an angled glide wire was advanced and navigated under ultrasound guidance traversing the areas of tortuosity and branch points. The wire was successfully navigated under visualization remaining within the great saphenous vein to the saphenofemoral junction. Over the Glidewire the glue delivery guide was advanced and positioned inferior to the saphenofemoral junction; given the length of the patient's leg the catheter reach to approximately 7 cm distal to the saphenofemoral junction. The dilator was then withdrawn and the glue delivery catheter advanced through the guide and positioned an adequate distance from the saphenofemoral junction. Glue was then deposited along the great saphenous vein per engineering manager's instructions. Once the treatment length was completed the guide and catheter withdrawn followed by removal of the sheath and manual pressure held until hemostasis was obtained. Dry sterile dressing and Linwood wrap were then applied the patient was taken recovery with plan discharged home. Surgical Findings: See above Complications Complications: No
[2024-10-03 07:26] LABS: INR Fingerstick 1.4; Prothrombin Time Fingerstick 15.9 SEC (11.7-14.9)
== END 2024-10-01 12:40 | disposition home or self-care (01) ==
PROVIDERS: PCP Family Medicine; Referring Provider Surgery Trauma Surgery; Visit Provider Surgery Trauma Surgery
DX: I87.2 Venous insufficiency (chronic) (peripheral) (principal); I48.91 Unspecified atrial fibrillation; I83.891 Varicose veins of right lower extremity with other complications; Z79.01 Long term (current) use of anticoagulants; I10 Essential (primary) hypertension; Z79.899 Other long term (current) drug therapy
CPT/HCPCS: 36416; 36482; 85610; 99152; 99153; C1894; C1769

== ENCOUNTER → 2024-10-06 | Outpatient (CLI) | payer MEDICARE, BC, SELFPAY ==
--- NOTE | 2024-10-06 10:38 | VDLE_ITS ---
Reason For Study Reason For Study: S/P RLE Chemical Ablation RIGHT LEFT GSV is dilated and NONCOMPRESSIBLE with bright FV is compressible, spontaneous, phasic, competent intraluminal echoes from distal calf to prox thigh. and demonstrates normal augmentation. Finding is consistent with recent chemical ablation procedure. CFV is compressible, spontaneous, phasic, competent and demonstrates normal augmentation. FV is compressible, spontaneous, phasic, competent and demonstrates normal augmentation. POP V is compressible, phasic, and INCOMPETENT for greater than 1.0 second. T/P Trunk is compressible. PTV is compressible. RT PerV is compressible. Procedure This is a venous duplex using B-mode, color flow and spectral Doppler. Exam performed in department. The exam was diagnostic. VL/Venous Duplex US, Unilateral Interpretation Summary Deep veins of the right lower extremity are patent and compressible segmentally . There is no evidence of right lower extremity deep vein thrombosis. Right great saphenous vein occluded consistent with recent chemical ablation Ordering Physician: Luzmaria Lopez Referring Physician: Barbara Cooper Performed By: Dusty Ontiveros RVT
== END | disposition home or self-care (01) ==
LOC: CVS 10:38
PROVIDERS: PCP Family Medicine; Referring Provider Surgery Trauma Surgery; Visit Provider Surgery Trauma Surgery
DX: I87.2 Venous insufficiency (chronic) (peripheral) (principal)
CPT/HCPCS: 93971

== ENCOUNTER 2024-10-14 13:58 | Outpatient (RCR) | payer MEDICARE, BC, SELFPAY ==
[2024-09-20 07:49] VITALS: BMI 40.1
[2024-10-14 17:57] LABS: International Normalized Ratio 1.8; Prothrombin Time (Protime)PT. 21.1 SECONDS (11.7-14.9)
== END 2024-10-14 18:00 | disposition home or self-care (01) ==
LOC: MTLAB 13:58
PROVIDERS: Family Provider Family Medicine; PCP Family Medicine; Referring Provider Physician Assistant Medical; Visit Provider Physician Assistant Medical
DX: I48.19 Other persistent atrial fibrillation (principal); Z79.01 Long term (current) use of anticoagulants
CPT/HCPCS: 36415; 85610

== ENCOUNTER 2024-10-29 08:27 | Outpatient (RCR) | payer MEDICARE, BC, SELFPAY ==
[2024-10-20 23:05] VITALS: BMI 40.1
[2024-10-29 10:44] LABS: International Normalized Ratio 2.2; Prothrombin Time (Protime)PT. 25.2 SECONDS (11.7-14.9)
[2024-10-29 11:03] LABS: PSA,Total- Diagnostic 6.68 ng/mL (0.00-4.00)
[2024-10-31 12:08] LABS: PSA, Free % 22.4 % (.)
== END 2024-11-19 18:00 | disposition home or self-care (01) ==
LOC: MTLAB 08:27
PROVIDERS: Family Provider Family Medicine; PCP Family Medicine; Referring Provider Urology; Visit Provider Physician Assistant Medical
DX: Z79.01 Long term (current) use of anticoagulants (principal); I48.91 Unspecified atrial fibrillation; C61 Malignant neoplasm of prostate
CPT/HCPCS: 36415; 84153; 84154; 85610

== ENCOUNTER 2024-12-16 07:55 | Outpatient (RCR) | payer MEDICARE, BC, SELFPAY ==
[2024-11-20 01:08] VITALS: BMI 40.1
[2024-12-03 15:46] LABS: Prothrombin Time (Protime)PT. 45.6 SECONDS (11.7-14.9)
[2024-12-03 16:20] LABS: International Normalized Ratio 4.7
[2024-12-05 11:19] LABS: International Normalized Ratio 3.9; Prothrombin Time (Protime)PT. 38.7 SECONDS (11.7-14.9)
[2024-12-08 15:31] LABS: International Normalized Ratio 1.3; Prothrombin Time (Protime)PT. 16.7 SECONDS (11.7-14.9)
[2024-12-12 10:49] LABS: International Normalized Ratio 1.4; Prothrombin Time (Protime)PT. 17.6 SECONDS (11.7-14.9)
[2024-12-16 10:19] LABS: International Normalized Ratio 2.5; Prothrombin Time (Protime)PT. 27.7 SECONDS (11.7-14.9)
== END 2024-12-16 18:00 | disposition home or self-care (01) ==
LOC: MTLAB 07:55
PROVIDERS: Family Provider Family Medicine; PCP Family Medicine; Referring Provider Physician Assistant Medical; Visit Provider Physician Assistant Medical
DX: Z79.01 Long term (current) use of anticoagulants (principal); I48.19 Other persistent atrial fibrillation
CPT/HCPCS: 36415; 85610

== ENCOUNTER 2025-01-05 10:24 | Outpatient (RCR) | payer MEDICARE, BC, SELFPAY ==
[2024-12-21 04:32] VITALS: BMI 40.1
[2024-12-22 12:39] LABS: International Normalized Ratio 2.6; Prothrombin Time (Protime)PT. 28.6 SECONDS (11.7-14.9)
[2025-01-05 16:25] LABS: International Normalized Ratio 2.9; Prothrombin Time (Protime)PT. 31.2 SECONDS (11.7-14.9)
== END 2025-01-05 18:00 | disposition home or self-care (01) ==
LOC: MTLAB 10:24
PROVIDERS: Family Provider Family Medicine; PCP Family Medicine; Referring Provider Physician Assistant Medical; Visit Provider Physician Assistant Medical
DX: Z79.01 Long term (current) use of anticoagulants (principal); I48.19 Other persistent atrial fibrillation
CPT/HCPCS: 36415; 85610

== ENCOUNTER 2025-01-27 08:04 | Outpatient (RCR) | payer MEDICARE, BC, SELFPAY ==
[2025-01-27 10:05] LABS: Prothrombin Time (Protime)PT. 26.6 SECONDS (11.7-14.9)
== END 2025-02-19 18:00 | disposition home or self-care (01) ==
LOC: MTLAB 08:04
PROVIDERS: Family Provider Family Medicine; PCP Family Medicine; Referring Provider Physician Assistant Medical; Visit Provider Physician Assistant Medical
DX: Z79.01 Long term (current) use of anticoagulants (principal); I48.19 Other persistent atrial fibrillation
CPT/HCPCS: 36415; 85610

== ENCOUNTER 2025-03-02 10:17 | Outpatient (RCR) | payer MEDICARE, BC, SELFPAY ==
[2025-03-02 12:06] LABS: Prothrombin Time (Protime)PT. 29.7 SECONDS (11.7-14.9)
== END 2025-03-02 18:00 | disposition home or self-care (01) ==
LOC: MTLAB 10:17
PROVIDERS: Family Provider Family Medicine; PCP Family Medicine; Referring Provider Physician Assistant Medical; Visit Provider Physician Assistant Medical
DX: Z79.01 Long term (current) use of anticoagulants (principal); I48.19 Other persistent atrial fibrillation
CPT/HCPCS: 36415; 85610

== ENCOUNTER 2025-03-31 13:29 | Outpatient (RCR) | payer MEDICARE, BC, SELFPAY ==
[2025-03-31 15:30] LABS: Prothrombin Time (Protime)PT. 29.5 SECONDS (11.7-14.9)
== END 2025-04-21 18:00 | disposition home or self-care (01) ==
LOC: MTLAB 13:29
PROVIDERS: Family Provider Family Medicine; PCP Family Medicine; Referring Provider Physician Assistant Medical; Visit Provider Physician Assistant Medical
DX: Z79.01 Long term (current) use of anticoagulants (principal); I48.91 Unspecified atrial fibrillation
CPT/HCPCS: 36415; 85610

== ENCOUNTER → 2025-04-07 | Outpatient (CLI) | payer MEDICARE, BC, SELFPAY ==
[2025-04-07 12:35] LABS: Anion Gap 11 (5-15); BUN 22 mg/dL (4-19); BUN/Creat Ratio 25.2 RATIO (10-20); Calcium,Total 9.5 mg/dL (7.6-11.0); Carbon Dioxide 25.3 mmol/L (21.0-32.0); Chloride 106 mmol/L (98-108); Glucose 97 mg/dL (70-99); Magnesium 2.3 mg/dL (1.5-2.2); Potassium 4.2 mmol/L (3.3-5.1)
== END | disposition home or self-care (01) ==
LOC: LAB 11:22
PROVIDERS: PCP Family Medicine; Referring Provider Nurse Practitioner Gerontology; Visit Provider Nurse Practitioner Gerontology
DX: I47.20 Ventricular tachycardia, unspecified (principal)
CPT/HCPCS: 36415; 80048; 83735

== ENCOUNTER 2025-05-19 08:28 | Outpatient (RCR) | payer MEDICARE, BC, SELFPAY ==
[2025-05-05 12:53] LABS: Prothrombin Time (Protime)PT. 33.2 SECONDS (11.7-14.9)
[2025-05-19 09:58] LABS: Prothrombin Time (Protime)PT. 30.6 SECONDS (11.7-14.9)
== END 2025-05-19 18:00 | disposition home or self-care (01) ==
LOC: MTLAB 08:28
PROVIDERS: Family Provider Family Medicine; PCP Family Medicine; Referring Provider Physician Assistant Medical; Visit Provider Physician Assistant Medical
DX: Z79.01 Long term (current) use of anticoagulants (principal); I48.19 Other persistent atrial fibrillation
CPT/HCPCS: 36415; 85610

== ENCOUNTER 2025-06-10 08:41 | Outpatient (RCR) | payer MEDICARE, BC, SELFPAY ==
[2025-06-10 10:27] LABS: Prothrombin Time (Protime)PT. 30.9 SECONDS (11.7-14.9)
== END 2025-06-20 18:00 | disposition home or self-care (01) ==
LOC: MTLAB 08:41
PROVIDERS: Family Provider Family Medicine; PCP Family Medicine; Referring Provider Physician Assistant Medical; Visit Provider Physician Assistant Medical
DX: Z79.01 Long term (current) use of anticoagulants (principal); I48.91 Unspecified atrial fibrillation
CPT/HCPCS: 36415; 85610

== ENCOUNTER 2025-07-08 09:08 | Outpatient (RCR) | payer MEDICARE, BC, SELFPAY ==
[2025-07-08 10:25] LABS: Prothrombin Time (Protime)PT. 30.6 SECONDS (11.7-14.9)
== END 2025-07-08 18:00 | disposition home or self-care (01) ==
LOC: MTLAB 09:08
PROVIDERS: Family Provider Family Medicine; PCP Family Medicine; Referring Provider Physician Assistant Medical; Visit Provider Physician Assistant Medical
DX: Z79.01 Long term (current) use of anticoagulants (principal); I48.19 Other persistent atrial fibrillation
CPT/HCPCS: 36415; 85610